=== PATIENT | male | born 1980 | race Caucasian/White ===

== ENCOUNTER 2024-10-18 09:33 | Observation (INO) | payer BC, SELFPAY ==
[2024-10-18] VITALS (101 sets, daily range): BP systolic 94–197; BP diastolic 63–124; PULSE 80–158; TEMP 36.6–36.8; O2SAT 88–100; BMI 45.4
--- NOTE | 2024-10-18 09:44 | ECG_ITS ---
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
[2024-10-18 10:01] LABS: Basophils Percent Auto 0.5 % (0.2-2.0); Eosinophils Absolute Auto 0.1 10^3/uL (0.0-0.7); Eosinophils Percent Auto 1.4 % (0.9-7.0); Hemoglobin 15.7 g/dL (14.0-18.0); Immature Granulocytes Abs Auto 0.03 10^3/uL (0.00-0.03); Immature Granulocytes Pct Auto 0.4 % (0.0-0.5); Lymphocytes Absolute Auto 1.7 10^3/uL (1.2-3.8); Lymphocytes Percent Auto 21.1 % (20.5-60.0); Mean Corpuscular HGB Conc 33.4 g/dL (29.9-35.2); Mean Corpuscular Hemoglobin 30.5 pg (25.9-34.0); Mean Corpuscular Volume 91.3 fL (80.0-94.0); Mean Platelet Volume 10.6 fL (9.5-13.5); Monocytes Absolute Auto 0.7 10^3/uL (0.3-0.8); Monocytes Percent Auto 9.1 % (1.7-12.0); Neutrophils Absolute Auto 5.5 10^3/uL (1.4-6.5); Neutrophils Percent Auto 67.5 % (43.0-75.0); Platelet Count 244 10^3/uL (150-450); Red Blood Count 5.15 10^6/uL (4.70-6.10); Red Cell Distribution Width 13.4 % (11.0-15.0); White Blood Count 8.1 10^3/uL (4.0-11.0)
--- NOTE | 2024-10-18 10:01 | PC.NURSE ---
pt arrival for increased anxiety and feeling of heart beating fast. pt was at work when this started and was seen by the nurse and was told to come to ER to be checked out. Pt denies any CP or SOB. PT does admit to being a daily drinker but had vowed to himself he would stop drinking during the week, so he last had beer on monday. pt is shakey, anxious and somewhat diaphoretic.
[2024-10-18] MEDS: LORAZEPAM 2 MG/ML VIAL 1 MG IV (10:07)
[2024-10-18] MEDS: 0.9 % SODIUM CHLORIDE 1,000 ML 1000 ML IV (10:08)
[2024-10-18 10:11] LABS: Ethanol <3 mg/dL
[2024-10-18 10:13] LABS: INR 0.99; Prothrombin Time 10.5 sec (9.0-11.6)
[2024-10-18 10:19] LABS: Alanine Aminotransferase 55 U/L (16-63); Albumin Level 3.9 g/dL (3.4-5.0); Alkaline Phosphatase 71 U/L (46-116); Anion Gap 18.1; Aspartate Amino Transferase 25 U/L (15-37); BUN Creatinine Ratio 17.8; Bilirubin Total 0.8 mg/dL (0.2-1.0); Calcium 9.4 mg/dL (8.5-10.1); Carbon Dioxide 23.7 mmol/L (21.0-32.0); Chloride 103 mmol/L (98-107); Estimated GFR (African America >60 (>=60 mL/min/1.73m^2); Estimated GFR (Non-African Ame >60 (>=60 mL/min/1.73m^2); Globulin 3.8 g/dL; Glucose 126 mg/dL (74-106); Magnesium 1.7 mg/dL (1.8-2.4); Potassium 3.8 mmol/L (3.5-5.1); Sodium 141 mmol/L (136-145); Total Protein 7.7 g/dL (6.4-8.2); Troponin I High Sensitivity 12.9 pg/mL (4.0-76.1)
[2024-10-18] MEDS: METOPROLOL TARTRATE 5 MG/5 ML VIAL IVP (10:30)
--- NOTE | 2024-10-18 10:47 | ECG_ITS ---
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
--- NOTE | 2024-10-18 10:48 | ECG_ITS ---
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
[2024-10-18] MEDS: DILTIAZEM HCL 25 MG/5 ML VIAL 20 MG IV (10:51)
[2024-10-18] MEDS: MAGNESIUM SULFATE/D5W 1 GM/100 ML PREMIX IV (10:52)
--- NOTE | 2024-10-18 10:57 | ED_ITS ---
HPI HPI - General Adult General Chief complaint: Arrhythmia/Palpitations Stated complaint: ANXIETY Time Seen by Provider: 10/18/24 09:43 Source: patient Mode of arrival: walk-in Limitations: no limitations History of Present Illness HPI narrative: Patient is coming to us after he stopped drinking alcohol as he is a daily drinker 5 days, he mentioned that he has been feeling that his heart rate is up for the last 2 days, he denies any chest pain or dizziness But he mentioned he had his anxiety medication increased by his psychiatrist recently as well The patient denies any chest pain or dizziness or shortness of breath Related Data Home Medications ?Medication ?Instructions ?Recorded ?Confirmed amlodipine 10 mg tablet 10 mg PO DAILY 10/18/24 10/18/24 buspirone 15 mg tablet 15 mg PO TID 10/18/24 10/18/24 fluoxetine 20 mg tablet 20 mg PO DAILY 10/18/24 10/18/24 lisinopril 20 1 tab PO DAILY 10/18/24 10/18/24 mg-hydrochlorothiazide 12.5 mg tablet semaglutide 2 mg/dose (8 mg/3 mL) 2 mg subcut .weekly 10/18/24 10/18/24 subcutaneous pen injector (Ozempic) Allergies Allergy/AdvReac Type Severity Reaction Status Date / Time No Known Drug Allergies Allergy Verified 10/18/24 09:54 Opioid HPI Opioid Management Most Recent Opioid Data: No Data to Display Review of Systems ROS Status of ROS 10 or more systems reviewed and unremark able except as noted in history and below [facility] Medical History (Updated 10/18/24 @ 11:09 by Lashanda Dalton MD) Prediabetes ?R73.03 - Prediabetes (ICD-10) HTN (hypertension) with goal to be determined ?I10 - Essential (primary) hypertension (ICD-10) Anxiety ?F41.9 - Anxiety disorder, unspecified (ICD-10) Social History Little interest or pleasure in doing things: not at all Feeling down, depressed, or hopeless: not at all Exam Narrative Exam Narrative: Nurses notes and vital signs reviewed and patient is not hypoxic. General: Well-appearing and in no apparent distress. Skin: Warm, dry, no pallor noted. No rash. Head: Normocephalic, atraumatic. Neck: Supple, non-tender. Eye: Pupils are equal, round and EOMI. No scleral icterus. Ears, Nose, Mouth, and Throat: TM are clear, no nasal mucosal hypertrophy. Oral mucosa is moist, no posterior oropharynx erythema, uvula is mid-line Cardiovascular: Rapid rate and Rhythm without murmur, gallop or rub. Respiratory: No accessory muscle use or respiratory distress. Lungs are clear to auscultation, no wheezing, rales or rhonchi Chest Wall: no tenderness Back: No midline thoracic or lumbar vertebral tenderness. No CVA tenderness Musculoskeletal: normal ROM, no calf or popliteal tenderness, no lower extremity edema/swelling GI: Abdomen is soft, non-distended. Normal bowel sounds. No masses appreciated. No tenderness to palpation. No rebound, guarding, or rigidity noted. Neurological: A&O x4. No cranial nerve dysfunction observed. No truncal ataxia. Moves all extremities. Sensation intact. Psychiatric: Cooperative and interactive. Normal mood and affect. Constitutional Vital Signs, click to edit/add: Last Vital Signs Temp 98 F 10/18/24 09:37 Pulse 80 10/18/24 11:10 Resp 5 L 10/18/24 11:10 BP 94/63 10/18/24 11:01 Pulse Ox 97 10/18/24 11:10 O2 Del Method Room Air 10/18/24 09:37 Course Vital Signs Vital signs: Vital Signs Temperature 98 F 10/18/24 09:37 Pulse Rate 149 H 10/18/24 09:37 Respiratory Rate 22 H 10/18/24 09:37 Blood Pressure 166/88 H 10/18/24 09:37 Pulse Oximetry 100 10/18/24 09:37 Oxygen Delivery Method Room Air 10/18/24 09:37 Temperature 98 F 10/18/24 09:37 Pulse Rate 80 10/18/24 11:10 Respiratory Rate 5 L 10/18/24 11:10 Blood Pressure 94/63 10/18/24 11:01 Pulse Oximetry 97 10/18/24 11:10 Oxygen Delivery Method Room Air 10/18/24 09:37 Medical Decision Making [facility] Narrative Medical decision making narrative: On arrival the patient EKG was showing atrial rhythm with a heart rate of 150 Patient was started on some blood workup which came normal with a normal ethanol level as well as a potassium and magnesium was 1.7 The patient was started on magnesium supplement with the 1 g IV The patient was initially treated with Ativan due to his history of recent alcohol cessation and tremors The patient then provided with 1 dose of Lopressor was initially enough to slow down his heart rate mildly showing the EKG shows a heart rate of 122 at atrial flutter Patient then was treated with Cardizem 20 mg IV that was enough to cause his heart rate to slow down to 82 atrial fibrillation rhythm on the third EKG After treating the patient with Cardizem bolus the patient active A-fib right now still but controlled rhythm The patient case was discussed with Dr López and he agreed to continue the Cardizem drip I will start her in a 5 mg/hr The patient also was given Lovenox 1 dose until verification of the patient score for anticoagulation at the patient mentioned that he is prediabetic although he is taking Ozempic for weight loss and for prediabetes and he also mentioned that his A1c last time checked was normal The patient case was discussed with Dr. East and she agreed with above-mentioned plan Lab Data Labs: Lab Results 10/18/24 Range/Units 09:52 WBC 8.1 (4.0-11.0) 10^3/uL RBC 5.15 (4.70-6.10) 10^6/uL Hgb 15.7 (14.0-18.0) g/dL Hct 47.0 (42.0-54.0) % MCV 91.3 (80.0-94.0) fL MCH 30.5 (25.9-34.0) pg MCHC 33.4 (29.9-35.2) g/dL RDW 13.4 (11.0-15.0) % Plt Count 244 (150-450) 10^3/uL MPV 10.6 (9.5-13.5) fL Neut % (Auto) 67.5 (43.0-75.0) % Lymph % (Auto) 21.1 (20.5-60.0) % Chaves % (Auto) 9.1 (1.7-12.0) % Eos % (Auto) 1.4 (0.9-7.0) % Baso % (Auto) 0.5 (0.2-2.0) % Neut # (Auto) 5.5 (1.4-6.5) 10^3/uL Lymph # (Auto) 1.7 (1.2-3.8) 10^3/uL Chaves # (Auto) 0.7 (0.3-0.8) 10^3/uL Eos # (Auto) 0.1 (0.0-0.7) 10^3/uL Baso # (Auto) 0.0 (0.0-0.1) 10^3/uL Abs Immat Gran (auto) 0.03 (0.00-0.03) 10^3/uL Imm/Tot Granulo (auto) 0.4 (0.0-0.5) % PT 10.5 (9.0-11.6) sec INR 0.99 Sodium 141 (136-145) mmol/L Potassium 3.8 (3.5-5.1) mmol/L Chloride 103 (98-107) mmol/L Carbon Dioxide 23.7 (21.0-32.0) mmol/L Anion Gap 18.1 BUN 18.0 (7.0-18.0) mg/dL Creatinine 1.01 (0.70-1.30) mg/dL Est GFR ( Amer) >60 (>=60 mL/min/1.73m^2) Est GFR (Non-Af Amer) >60 (>=60 mL/min/1.73m^2) BUN/Creatinine Ratio 17.8 Glucose 126 H (74-106) mg/dL Calcium 9.4 (8.5-10.1) mg/dL Magnesium 1.7 L (1.8-2.4) mg/dL Total Bilirubin 0.8 (0.2-1.0) mg/dL AST 25 (15-37) U/L ALT 55 (16-63) U/L Alkaline Phosphatase 71 (46-116) U/L Troponin I High Sens 12.9 (4.0-76.1) pg/mL Total Protein 7.7 (6.4-8.2) g/dL Albumin 3.9 (3.4-5.0) g/dL Globulin 3.8 g/dL Albumin/Globulin Ratio 1.0 Ethanol Quant <3 mg/dL Discharge Plan Discharge Chief Complaint: Arrhythmia/Palpitations Clinical Impression: Atrial fibrillation with rapid ventricular response Patient Disposition: Admitted As Inpatient Time of Disposition Decision: 11:08
[2024-10-18] MEDS: dilTIAZem HCL 125 MG in 0.9 % SODIUM CHLORIDE 100 ML IV (11:44)
--- NOTE | 2024-10-18 11:51 | XR_ITS ---
The [address] [address] Patient Name: GELACIO SMITH MRN: [id number] date: 1980 Sex: M Assigned Patient Location: ER Current Patient Location: ER Accession/Order Number: [id number] Exam Date: 10/18/2024 12:00 Report Date: 10/18/2024 12:20 At the request of: RYANNE PEÑA Procedure: XR chest 1V EXAM: XR chest. HISTORY: . shortness of breath, Afib . COMPARISON: None. TECHNIQUE: Single view of the chest. FINDINGS: Heart and vascularity are unremarkable. Lungs are free of focal infiltrates. EKG leads overlie the chest. XR/XR chest 1V Impression: No acute heart or lung disease identified. Electronically authenticated by: GELACIO CARRANZA Date: 10/18/2024 12:20
--- NOTE | 2024-10-18 11:51 | CA_ITS ---
Patient Name: GELACIO SMITH MR#: [id number] : 1980 Exam Date: 10/18/2024 Ordering Doctor: Elyssa East . ECHOCARDIOGRAM REPORT PROCEDURE: CA ECHO DOPPLER COMPLETE INDICATIONS: new onset afib COMPARISON: None. DESCRIPTION: COMPLETE ECHOCARDIOGRAM Real-time transthoracic echocardiography with 2D, M-mode, spectral and color flow Doppler performed. QUALITY: Technically difficult due to patients condition. LEFT VENTRICLE: Normal chamber size. Thickened septal wall. Normal systolic function. LV EF: Normal left ventricular ejection fraction, (55-60%). DIASTOLIC: Not adequately assessed due to heart rhythm. ATRIAL SEPTUM: LEFT ATRIUM: Mild dilatation. RIGHT ATRIUM: Mild dilatation. RIGHT VENTRICLE: Normal chamber size. Normal systolic function. TRICUSPID VALVE: Normal mobility and thickness. No stenosis with no regurgitation. MITRAL VALVE: Normal mobility and thickness. No evidence of mitral valve stenosis. There is no mitral annular calcification. No mitral regurgitation. AORTIC VALVE: Not well visualized. No evidence of aortic valve stenosis. No aortic regurgitation. AORTIC ROOT: Normal diameter and appearance. PULMONIC VALVE: Not well visualized. PERICARDIUM: No evidence of pericardial effusion. IVC: Not well visualized. PLEURA: CONCLUSION: 1. Technically difficult study with poor sound transmission. 2. The left ventricle is normal in size and exhibits normal systolic function. LVEF is estimated at 55 to 60%. 3. Normal right ventricular size and systolic function. 4. Mild biatrial dilatation. 5. Poor visualization of the valves however no significant valvular dysfunction could be seen on this study. 6. No pericardial effusion. Adult Echocardiography Procedure Report Left Ventricle LVEDD (3.7 - 5.6 cm): 4.08 cm LVESD (2.2 - 4.0 cm): 2.96 cm LVIVS thickness (0.6 - 1.2 cm): 1.49 cm LVPW thickness (0.5 - 1.0 cm): 1.19 cm LVOT Max Gradient: 6.40 mm[Hg], 3.70 mm[Hg] LVOT Area (cm2): 1.11 m/s Peak Velocity (LVOT): 1.27 m/s, 0.96 m/s LVOT Diameter 2.71 cm Left Atrium LA Volume Index (2D A2C): 28.99 ml/m2 Left Atrium Systolic Dimension: 4.22 cm Mitral Valve Mitral Valve E-Wave Peak Velocity: 0.76 m/s Right Ventricle Aorta AO Root Diam: 3.64 cm Aortic Valve AoV Area (Peak Momo): 5.80 cm2, 5.77 cm2, 5.83 cm2 Peak Velocity(Antegrade Flow): 1.26 m/s, 0.95 m/s Peak Gradient(Antegrade Flow): 6.37 mm[Hg], 3.60 mm[Hg] Tricuspid Valve Pulmonic Valve Peak Velocity: 1.05 m/s Peak Gradient: 4.39 mm[Hg] Right Atrium Right Atrium Systolic Pressure: 61.97 ml, 61.97 ml Dictated by: Guillermo López M.D. on 10/21/2024 at 09:47 Approved by: Guillermo López M.D. on 10/21/2024 at 09:50
[2024-10-18 12:03] LABS: Estimated Average Glucose 123 mg/dL; Glycohemoglobin A1C 5.9 % (4.5-6.2)
--- NOTE | 2024-10-18 12:03 | PM.HP ---
HPI H&P: HPI History of Present Illness Chief complaint: ANXIETY, A-FIB RVR Narrative: patient is a 44 y.o male with past medical history of obesity, anxiety, HTN, who presented to the ER today with complaints of his heart racing. His psychiatrist recently increased his anxiety medication and he recently stopped drinking his daily 5-6 beers. He seen his PCP monday for feeling like heart racing but EKG in the office did not show Afib at that time per patient. Patient works at [employer] and was at work this morning when he felt his heart race and went to the nurse at work and was sent to the ER. Patient's HR was 153 on arrival to the ER. He was found to be in Afib with RVR, given adenosine, metoprolol and loaded with Cardizem and started on a drip. BP was 197/127, he was saturating 96% on RA. He was also started on therapeutic lovenox. Magnesium was 1.7, and he was given 1g IV mag. He was admitted to the hospitalist service for further work up for his new onset Afib with RVR. Patient with no prior history of Afib or heart issues other than hypertension. He takes amlodipine, Lisinopril/hctz. He has never had cardiac work up prior. He sees a psychiatrist who prescribes fluoxetine, buspar. He has been taking Ozempic for weight loss and prediabetes. No new medications. He wears a BiPAP at night time. he follows at the sleep clinic here in [place]. No recent setting changes. Overall feels it's been working well. Father is , but had a history of CHF and Alpha 1 antitrypsin deficiency, COPD. Patient is not a smoker. denies any swelling or weight gain, no chest pain or shortness of breath. ER findings: CBC, CMP normal with mag 1.7, trop normal range Opioid HPI Opioid Management Most Recent Pain and Opioid Data: Last Pain Assessment 10/18/24 14:00 Last ORT Total Score 1 10/18/24 13:31 10/18/24 Last ORT Risk Category Low Risk 10/18/24 13:31 10/18/24 Review of Systems ROS Narrative ROS: a complete review of systems were reviewed with patient and are positive as below or listed in History of Chief Complaint. General: no fever, chills, night sweats Head: no headache, trauma, visual changes, nausea or vomiting Skin: no reported rashes, itching or sores Eyes: no blurriness of vision Ears: no reported hearing loss, vertigo, earache, or tinnitus Throat: no sore throat, hoarseness, swelling of neck, or tongue pain Heart: no chest pain, but racing heart Lungs: shortness of breath no cough GI: no diarrhea or vomiting/nausea Urinary: no urinary urgency, frequency or pain Neuro: no numbness or tingling HEM: no bleeding issues or bruising ENDO: no thyroid problems Psych:anxiety no depression PFSH PFS Medical History (Updated 10/18/24 @ 15:05 by Elyssa East DO) GERD (gastroesophageal reflux disease) ?K21.9 - Gastro-esophageal reflux disease without esophagitis (ICD-10) Obstructive sleep apnea ?G47.33 - Obstructive sleep apnea (adult) (pediatric) (ICD-10) Obesity due to excess calories ?E66.09 - Other obesity due to excess calories (ICD-10) Prediabetes ?R73.03 - Prediabetes (ICD-10) HTN (hypertension) with goal to be determined ?I10 - Essential (primary) hypertension (ICD-10) Anxiety ?F41.9 - Anxiety disorder, unspecified (ICD-10) Family History (Updated 10/18/24 @ 13:25 by Octavia Ureña) Other Family history of CHF (congestive heart failure) Family history of COPD (chronic obstructive pulmonary disease) Social History Little interest or pleasure in doing things: not at all Feeling down, depressed, or hopeless: not at all Meds Home Medications and Allergies Home Medications ?Medication ?Instructions ?Recorded ?Confirmed ?Type amlodipine 10 mg tablet 10 mg PO DAILY 10/18/24 10/18/24 History buspirone 15 mg tablet 15 mg PO TID 10/18/24 10/18/24 History fluoxetine 20 mg tablet 20 mg PO DAILY 10/18/24 10/18/24 History lisinopril 20 1 tab PO DAILY 10/18/24 10/18/24 History mg-hydrochlorothiazide 12.5 mg tablet semaglutide 2 mg/dose (8 mg/3 mL) 2 mg subcut .weekly 10/18/24 10/18/24 History subcutaneous pen injector (Ozempic) Allergies Allergy/AdvReac Type Severity Reaction Status Date / Time No Known Drug Allergies Allergy Verified 10/18/24 09:54 Exam Narrative Exam Narrative: General: Patient is alert, and oriented to person, place and time, proper hygiene, very anxious, with tapping of leg, fast talking Skin: no visible rashes, or ulcers Head: atraumatic, acephalic Eyes: PERRLA, no nystagmus present, conjunctiva clear, no scleral icterus Ears: normal gross auditory acuity Neck: no masses palpated Heart: irregular rate and rhythm, no murmurs/rubs/gallops Lungs: no audible wheezes, crackles and normal breath sounds all lung connor Abdomen: Normal audible bowel sounds, no distension, No palpable masses, no organomegaly, no rebound/guarding/ or rigidity Musculoskeletal: no swelling bilateral lower extremities Neuro: CN II-X grossly intact Constitutional Vital Signs, click to edit/add: Last Vital Signs Temp 98 F 10/18/24 09:37 Pulse 90 10/18/24 11:50 Resp 26 H 10/18/24 11:50 BP 108/64 10/18/24 11:46 Pulse Ox 96 10/18/24 11:50 O2 Del Method Room Air 10/18/24 09:37 Results Labs Labs: Short CBC 10/18/24 Range/Units 09:52 WBC 8.1 (4.0-11.0) 10^3/uL Hgb 15.7 (14.0-18.0) g/dL Hct 47.0 (42.0-54.0) % Plt Count 244 (150-450) 10^3/uL BMP 10/18/24 09:52 Sodium 141 Potassium 3.8 Chloride 103 Carbon Dioxide 23.7 BUN 18.0 Creatinine 1.01 Glucose 126 H Calcium 9.4 Liver Function 10/18/24 Range/Units 09:52 Total Bilirubin 0.8 (0.2-1.0) mg/dL AST 25 (15-37) U/L ALT 55 (16-63) U/L Alkaline Phosphatase 71 (46-116) U/L Albumin 3.9 (3.4-5.0) g/dL Assessment and Plan Assessment and Plan (1) Atrial fibrillation with rapid ventricular response: Assessment and Plan: will get echocardiogram, cards consult and appreciate their recommendations. Currently on a diltizem drip and will transition to Oral Cardizem after also restarting his amlodipine and lisinopril, HTZ. May also benefit from metoprolol as that seemed to have the most effect on BP and HR. Troponin was negative but will continue to trend, check proBNP. Will check thyroid, ha1c and lipid panel and chest X-ray (2) HTN (hypertension) with goal to be determined: Assessment and Plan: currently on dilt drip and holding home meds due to hypotension currently, was given metoprolol and adenosine (3) Anxiety: Assessment and Plan: continue buspar and fluoxetine would benefit from therapy. (4) Prediabetes: Assessment and Plan: ha1c 5.9, taking ozempic (5) Obesity due to excess calories: Assessment and Plan: would benefit from weight reduction as outpatient. Qualifiers: Body mass index: BMI 45.0-49.9 Obesity classification: adult class 3 (BMI >= 40) Serious obesity comorbidity presence: with serious comorbidity Qualified Code(s): E66.813 - Obesity, class 3; E66.01 - Morbid (severe) obesity due to excess calories; Z68.42 - Body mass index [BMI] 45.0-49.9, adult (6) Obstructive sleep apnea: Assessment and Plan: wears home BIPAP (7) GERD (gastroesophageal reflux disease): Assessment and Plan: will place on omeprazole. Qualifiers: Esophagitis presence: esophagitis presence not specified Qualified Code(s): K21.9 - Gastro-esophageal reflux disease without esophagitis Plan Patient is a full code Currently on therapeutic lovenox Patient is in observation status and is expected to stay 1-2 days
[2024-10-18 12:12] LABS: Thyroid Stimulating Hormone 1.969 uIU/mL (0.358-3.740)
[2024-10-18] MEDS: ENOXAPARIN SODIUM 100 MG/ML SYRINGE 150 MG SUBQ (12:17)
[2024-10-18] MEDS: BUSPIRONE HCL 15 MG TABLET PO ×2 (14:07→21:08)
--- NOTE | 2024-10-18 14:32 | SWNOTE1 ---
Doctor in room. SW checked with nursing, at this time no need for SW to see pt.
[2024-10-18 17:05] LABS: Troponin I High Sensitivity 15.8 pg/mL (4.0-76.1)
--- NOTE | 2024-10-18 17:08 | P.CACN_ITS ---
History of Present Illness History of Present Illness Consult date: 10/18/24 Consult reason: atrial fibrillation Chief complaint: ANXIETY, A-FIB RVR Narrative: 44 yo male with HTN, anxiety who presents with complaints of heart racing. Found to be in afib. Admitted for rate control. Cardiology consulted for assistance in management. Patient interviewed and examined. No complaints. No chest pain or shortness of breath. No edema, orthopnea, or PND. No near syncope or syncope. No bleeding disorders. Review of Systems ROS Status of ROS 10 or more systems reviewed and unremark able except as noted in history and below [facility] Medical History (Updated 10/18/24 @ 15:05 by Elyssa East DO) GERD (gastroesophageal reflux disease) ?K21.9 - Gastro-esophageal reflux disease without esophagitis (ICD-10) Obstructive sleep apnea ?G47.33 - Obstructive sleep apnea (adult) (pediatric) (ICD-10) Obesity due to excess calories ?E66.09 - Other obesity due to excess calories (ICD-10) Prediabetes ?R73.03 - Prediabetes (ICD-10) HTN (hypertension) with goal to be determined ?I10 - Essential (primary) hypertension (ICD-10) Anxiety ?F41.9 - Anxiety disorder, unspecified (ICD-10) Family History Other Family history of CHF (congestive heart failure) Family history of COPD (chronic obstructive pulmonary disease) Social History Little interest or pleasure in doing things: not at all Feeling down, depressed, or hopeless: not at all Meds Home Medications and Allergies Home Medications ?Medication ?Instructions ?Recorded ?Confirmed ?Type amlodipine 10 mg tablet 10 mg PO DAILY 10/18/24 10/18/24 History buspirone 15 mg tablet 15 mg PO TID 10/18/24 10/18/24 History fluoxetine 20 mg tablet 20 mg PO DAILY 10/18/24 10/18/24 History lisinopril 20 1 tab PO DAILY 10/18/24 10/18/24 History mg-hydrochlorothiazide 12.5 mg tablet semaglutide 2 mg/dose (8 mg/3 mL) 2 mg subcut .weekly 10/18/24 10/18/24 History subcutaneous pen injector (Ozempic) Allergies Allergy/AdvReac Type Severity Reaction Status Date / Time No Known Drug Allergies Allergy Verified 10/18/24 09:54 Exam Constitutional Vital Signs, click to edit/add: Last Vital Signs Temp 98.1 F 10/18/24 16:00 Pulse 92 H 10/18/24 16:16 Resp 10 L 10/18/24 16:16 BP 118/90 10/18/24 16:16 Pulse Ox 98 10/18/24 16:50 O2 Del Method Room Air 10/18/24 16:50 Common normals: no apparent distress HENMT Common normals: normocephalic Respiratory Common normals: normal respiratory effort, no retractions and no use of accessory muscles Cardio Common normals: no JVD, S1 normal heart sound, S2 normal heart sound, no clicks, no murmurs and no rub Rate: tachycardic Rhythm: abnormal rhythm GI Common normals: Normal to inspection, nondistended, normoactive bowel sounds present Neuro Common normals: oriented x3 Results Labs and Meds Lab results: Cardiac Enzymes 10/18/24 Range/Units 09:52 AST 25 (15-37) U/L Coagulation 10/18/24 Range/Units 09:52 PT 10.5 (9.0-11.6) sec CBC 10/18/24 Range/Units 09:52 WBC 8.1 (4.0-11.0) 10^3/uL RBC 5.15 (4.70-6.10) 10^6/uL Hgb 15.7 (14.0-18.0) g/dL Hct 47.0 (42.0-54.0) % Plt Count 244 (150-450) 10^3/uL Neut # (Auto) 5.5 (1.4-6.5) 10^3/uL Lymph # (Auto) 1.7 (1.2-3.8) 10^3/uL [place] # (Auto) 0.7 (0.3-0.8) 10^3/uL Eos # (Auto) 0.1 (0.0-0.7) 10^3/uL Baso # (Auto) 0.0 (0.0-0.1) 10^3/uL Comprehensive Metabolic Panel 10/18/24 Range/Units 09:52 Sodium 141 (136-145) mmol/L Potassium 3.8 (3.5-5.1) mmol/L Chloride 103 (98-107) mmol/L Carbon Dioxide 23.7 (21.0-32.0) mmol/L BUN 18.0 (7.0-18.0) mg/dL Creatinine 1.01 (0.70-1.30) mg/dL Glucose 126 H (74-106) mg/dL Calcium 9.4 (8.5-10.1) mg/dL AST 25 (15-37) U/L ALT 55 (16-63) U/L Alkaline Phosphatase 71 (46-116) U/L Total Protein 7.7 (6.4-8.2) g/dL Albumin 3.9 (3.4-5.0) g/dL Intake and Output 10/18/24 10/18/24 10/18/24 07:59 15:59 23:59 Intake Total 1100 / 1100 Balance 1100 / 1100 Intake: IV 1100 / 1100 0.9 % Sodium Chloride 1,000 ml 1000 / 1000 @ 1000 mls/hr IV .Q1H ONE Rx#: [id number] Magnesium Sulfate/D5w 1 gm In 100 / 100 100 ml @ 200 mls/hr IV ONCE ONE Rx#:[id number] Other: Weight 156.036 kg Patient Weight 10/19/24 07:59 Weight 156.036 kg Assessment and Plan Assessment and Plan (1) Atrial fibrillation with rapid ventricular response: (2) HTN (hypertension) with goal to be determined: (3) Anxiety: (4) Prediabetes: (5) Obesity due to excess calories: Qualifiers: Obesity classification: adult class 3 (BMI >= 40) Serious obesity comorbidity presence: with serious comorbidity Body mass index: BMI 45.0-49.9 Qualified Code(s): E66.813 - Obesity, class 3; E66.01 - Morbid (severe) obesity due to excess calories; Z68.42 - Body mass index [BMI] 45.0-49.9, adult (6) Obstructive sleep apnea: (7) GERD (gastroesophageal reflux disease): Qualifiers: Esophagitis presence: esophagitis presence not specified Qualified Code(s): K21.9 - Gastro-esophageal reflux disease without esophagitis Plan Patient with new onset Afib. Chads Vasc 1 given HTN Discussed risks/benefits of anticoagulation. Patient wishes to be on anticoagulation Add Lopressor 25 mg BID for rate control. Wean cardizem gtt as able Follow up with echo Follow up in cardiology clinic Patient has significant alcohol consumption problem. I discussed with him the importance of cutting back and refraining from alcohol consumption. He voices understanding. Please don't hesitate to contact [place] [facility]ology with questions. Daniel Recinos MD
[2024-10-18 17:13] LABS: D Dimer 0.77 mg/L FEU (<=0.59)
--- NOTE | 2024-10-18 17:17 | CT_ITS ---
[address] [address] Patient Name: GELACIO SMITH MRN: [id number] date: 1980 Sex: M Assigned Patient Location: ICU Current Patient Location: ICU Accession/Order Number: [id number] Exam Date: 10/18/2024 17:35 Report Date: 10/18/2024 18:56 At the request of: RYANNE PEÑA Procedure: CT angio chest EXAM: CT pulmonary angiogram of the chest using 100 mL of IV iodinated contrast. 3-D imaging was performed. Dose reduction technique used: Automated exposure control and/or adjustment of the mA and/or kV according to patient size and/or use of iterative reconstruction technique. REASON FOR EXAM: elevated D-dimer, new onset AFib. COMPARISON: None FINDINGS: No pulmonary emboli. No aortic dissection. No pneumothorax. No acute airspace opacities. No pleural effusion. No acute fractures. No concerning pulmonary nodules. No definite lymphadenopathy in the chest. Small amount of scarring or linear atelectasis in the right lower lobe. Remainder unremarkable. CT/CT angio chest IMPRESSION: No pulmonary embolism or acute abnormalities in chest. Electronically authenticated by: CLEO BYRNE Date: 10/18/2024 18:56
[2024-10-18] MEDS: METOPROLOL TARTRATE 25 MG TABLET PO (17:57)
[2024-10-18] MEDS: APIXABAN 5 MG TABLET PO (21:08)
[2024-10-19] VITALS (49 sets, daily range): BP systolic 108–112; BP diastolic 72–74; PULSE 80–135; TEMP 36.6; O2SAT 86–98
[2024-10-19 03:16] LABS: Bilirubin Urine NEGATIVE (NEGATIVE); Blood Urine NEGATIVE (NEGATIVE); Clarity Urine CLEAR (CLEAR); Color Urine YELLOW (YELLOW); Glucose Urine UA NEGATIVE (NEGATIVE); Ketones Urine NEGATIVE (NEGATIVE); Leukocyte Esterase Urine NEGATIVE (NEGATIVE); Nitrite Urine NEGATIVE (NEGATIVE); Protein Urine NEGATIVE (NEG/TRACE); Specific Gravity Urine 1.025 (1.005-1.025); Urobilinogen Urine 0.2 EU/dL (0.2-1.0)
[2024-10-19 03:31] LABS: Bacteria Urine NONE SEEN #/HPF (NONE SEEN); Cast Seen? NONE SEEN #/LPF (NONE SEEN); Crystals Seen? None Seen #/HPF (None Seen); Mucus Urine NONE SEEN (NONE SEEN); RBC Urine 0-2 #/HPF (0-2); Squamous Epithelial Cell Urine NONE SEEN #/LPF (NONE/RARE); WBC Urine 0-2 #/HPF (NONE SEEN)
[2024-10-19 03:44] LABS: Amphetamine Screen Urine NEGATIVE (NEGATIVE); Cannabinoid Screen Urine NEGATIVE (NEGATIVE); Cocaine Screen Urine NEGATIVE (NEGATIVE); Methamphetamines Screen Urine NEGATIVE (NEGATIVE); Opiate Screen Urine NEGATIVE (NEGATIVE); Phencyclidine Screen Urine NEGATIVE (NEGATIVE)
[2024-10-19 03:45] LABS: Barbiturates Screen Urine NEGATIVE (NEGATIVE); Benzodiazepines Screen Urine POSITIVE (NEGATIVE); Buprenorphine Screen Urine NEGATIVE (NEGATIVE); Methadone Screen Urine NEGATIVE (NEGATIVE); Oxycodone Screen Urine NEGATIVE (NEGATIVE); Tricyclic Antidepressant Urine NEGATIVE (NEGATIVE)
[2024-10-19] MEDS: OMEPRAZOLE 40 MG CAPSULE.DR PO (05:35)
[2024-10-19] MEDS: METOPROLOL TARTRATE 25 MG TABLET PO (05:35)
[2024-10-19] MEDS: BUSPIRONE HCL 15 MG TABLET PO (05:35)
[2024-10-19 06:03] LABS: Basophils Percent Auto 0.6 % (0.2-2.0); Eosinophils Absolute Auto 0.1 10^3/uL (0.0-0.7); Eosinophils Percent Auto 1.8 % (0.9-7.0); Hematocrit 46.9 % (42.0-54.0); Hemoglobin 15.5 g/dL (14.0-18.0); Immature Granulocytes Abs Auto 0.03 10^3/uL (0.00-0.03); Immature Granulocytes Pct Auto 0.4 % (0.0-0.5); Lymphocytes Absolute Auto 1.7 10^3/uL (1.2-3.8); Lymphocytes Percent Auto 24.6 % (20.5-60.0); Mean Corpuscular Hemoglobin 30.1 pg (25.9-34.0); Mean Corpuscular Volume 91.1 fL (80.0-94.0); Mean Platelet Volume 10.8 fL (9.5-13.5); Monocytes Absolute Auto 0.9 10^3/uL (0.3-0.8); Monocytes Percent Auto 12.6 % (1.7-12.0); Neutrophils Absolute Auto 4.1 10^3/uL (1.4-6.5); Platelet Count 243 10^3/uL (150-450); Red Blood Count 5.15 10^6/uL (4.70-6.10); Red Cell Distribution Width 13.8 % (11.0-15.0); White Blood Count 6.8 10^3/uL (4.0-11.0)
[2024-10-19 06:27] LABS: Alanine Aminotransferase 49 U/L (16-63); Albumin Globulin Ratio 0.9; Albumin Level 3.5 g/dL (3.4-5.0); Alkaline Phosphatase 62 U/L (46-116); Anion Gap 14.4; Aspartate Amino Transferase 19 U/L (15-37); BUN Creatinine Ratio 18.4; Bilirubin Total 0.8 mg/dL (0.2-1.0); Calcium 9.5 mg/dL (8.5-10.1); Carbon Dioxide 22.7 mmol/L (21.0-32.0); Chloride 105 mmol/L (98-107); Cholesterol 149 mg/dL (<=200); Estimated GFR (African America >60 (>=60 mL/min/1.73m^2); Estimated GFR (Non-African Ame >60 (>=60 mL/min/1.73m^2); Globulin 3.9 g/dL; Glucose 108 mg/dL (74-106); HDL Cholesterol 37 mg/dL (40-60); Magnesium 2.2 mg/dL (1.8-2.4); Potassium 4.1 mmol/L (3.5-5.1); Sodium 138 mmol/L (136-145); Total Protein 7.4 g/dL (6.4-8.2); Triglycerides 133 mg/dL (<=150); VLDL CHOLESTEROL 26.6 mg/dL
[2024-10-19] MEDS: FLUOXETINE HCL 20 MG CAPSULE PO (08:23)
[2024-10-19] MEDS: HYDROCHLOROTHIAZIDE 25 MG TABLET 12.5 MG PO (08:23)
[2024-10-19] MEDS: LISINOPRIL 20 MG TABLET PO (08:24)
[2024-10-19] MEDS: AMLODIPINE BESYLATE 5 MG TABLET 10 MG PO (08:24)
[2024-10-19] MEDS: APIXABAN 5 MG TABLET PO (08:24)
--- NOTE | 2024-10-19 10:40 | P.DS_ITS ---
DS: Providers Provider Date of admission: 10/18/24 13:04 Primary care physician: SVEN BARRON Admitting clinician: Elyssa East Attending physician on admission: Elyssa East Consults: 10/18/24 11:51 Consult to Cardiology Routine Reason for consultation: new onset Afib Has provider been notified: No Attending physician on discharge: Shaikh Satnam Discharging clinician: Shaikh Satnam Anticipated date of discharge: 10/19/24 DS: Diagnosis Discharge Diagnosis (1) Atrial fibrillation with rapid ventricular response: (2) HTN (hypertension) with goal to be determined: (3) Anxiety: (4) Prediabetes: (5) Obesity due to excess calories: Qualifiers: Obesity classification: adult class 3 (BMI >= 40) Serious obesity comorbidity presence: with serious comorbidity Body mass index: BMI 45.0-49.9 Qualified Code(s): E66.813 - Obesity, class 3; E66.01 - Morbid (severe) obesity due to excess calories; Z68.42 - Body mass index [BMI] 45.0-49.9, adult (6) Obstructive sleep apnea: (7) GERD (gastroesophageal reflux disease): Qualifiers: Esophagitis presence: esophagitis presence not specified Qualified Code(s): K21.9 - Gastro-esophageal reflux disease without esophagitis DS: Summary Hospital Course Hospital Course: 44 y.o male with past medical history of obesity, anxiety, HTN presented to the ER complaining of racing heart beat/palpitations. He was seen by his PCP past Monday for feeling like heart racing but EKG in the office did not show Afib at that time as per patient. Patient went to see his nurse at work when he felt that his heart was racing and was sent to ED by the RN for elevated HR. Patient's HR was 153 on arrival to the ER. He was found to be in Afib with RVR, given adenosine, metoprolol and loaded with Cardizem and started on a drip. He was also started on therapeutic lovenox. He was admitted to the hospitalist service for further work up for his new onset Afib with RVR. Patient has no prior history of Afib or cardiac history other than hypertension. He wears a BiPAP at night time for JALIL and is compliant with it. He admits to drinking alcohol excessively, daily and was counseled on it. Patient was seen by Cardiology. Started on Oral Lopressor. Weaned off of IV cardizem drip. HR well controlled and persistently below 100. CHADVASC2 score is 1, patient preferred to be on AC for stroke px. He is asymptomatic today and has no complaints to offer. Patient medically stable for discharge on Oral Lopressor and Eliquis. Questions/concerns addressed and answered. Counseled on nicotine use/chewing tobacco and alcohol use. Patient has f/u with Dr Carranza to discuss plan of care for Afib including possibility of cardioversion and Ablation. Patient is cleared to return to work w/o restrictions. Educated on worrisome signs and symptoms, instructed to monitor HR/BP at home. F/u with PCP In one week and [facility] Cardiology. He was set up for an appointment with Dr. Carranza of [facility] Cardiology in October. Status at Discharge Functional status at discharge: independent ambulation Overall status at discharge: patient is back to baseline Time Spent with Patient Time attestation: Total time spent providing and/or coordinating discharge services: Time spent: greater than 30 minutes Exam Constitutional Vital Signs, click to edit/add: Last Vital Signs Temp 97.9 F 10/19/24 08:00 Pulse 91 H 10/19/24 10:00 Resp 15 10/19/24 07:30 BP 112/72 10/19/24 07:22 Pulse Ox 98 10/19/24 07:22 O2 Del Method Room Air 10/19/24 08:00 Documenting provider has reviewed patient's vital signs: yes Common normals: no apparent distress and oriented x3 General appearance: cooperative HENSD Common normals: normocephalic and head/scalp atraumatic Head and scalp: normocephalic and atraumatic Respiratory Common normals: normal respiratory effort and clear to auscultation bilaterally Effort & inspection: able to speak in complete sentences Auscultation: clear to auscultation bilaterally Cardio Common normals: regular rate, S1 normal heart sound and S2 normal heart sound Rate: regular rate Rhythm: abnormal rhythm Heart sounds: S1 normal and S2 normal Extremity Common normals: no clubbing, cyanosis or edema Neuro Common normals: oriented x3, moves all extremities and no focal motor deficits Psych Common normals: mental status grossly normal, denies hallucinations, denies homicidal ideation and denies suicidal ideation DS: Data Data Completed and Pending Labs on day of discharge: Labs from last 24 hours 10/19/24 10/19/24 10/18/24 05:35 03:05 16:39 WBC 6.8 RBC 5.15 Hgb 15.5 Hct 46.9 MCV 91.1 MCH 30.1 MCHC 33.0 RDW 13.8 Plt Count 243 MPV 10.8 Neut % (Auto) 60.0 Lymph % (Auto) 24.6 [place] % (Auto) 12.6 H Eos % (Auto) 1.8 Baso % (Auto) 0.6 Neut # (Auto) 4.1 Lymph # (Auto) 1.7 [place] # (Auto) 0.9 H Eos # (Auto) 0.1 Baso # (Auto) 0.0 Abs Immat Gran (auto) 0.03 Imm/Tot Granulo (auto) 0.4 D-Dimer 0.77 H* Sodium 138 Potassium 4.1 Chloride 105 Carbon Dioxide 22.7 Anion Gap 14.4 BUN 16.0 Creatinine 0.87 Est GFR ( Amer) >60 Est GFR (Non-Af Amer) >60 BUN/Creatinine Ratio 18.4 Glucose 108 H Estimat Average Glucose Hemoglobin A1c Calcium 9.5 Magnesium 2.2 Total Bilirubin 0.8 AST 19 ALT 49 Alkaline Phosphatase 62 Troponin I High Sens 15.8 NT-Pro-B Natriuret Pep Total Protein 7.4 Albumin 3.5 Globulin 3.9 Albumin/Globulin Ratio 0.9 Triglycerides 133 Cholesterol 149 LDL Cholesterol, Calc 86.0 VLDL Cholesterol 26.6 HDL Cholesterol 37 L Cholesterol/HDL Ratio 4.0 TSH Urine Color Yellow Urine Clarity Clear Urine pH 6.0 Ur Specific [place] 1.025 Urine Protein Negative Urine Glucose (UA) Negative Urine Ketones Negative Urine Occult Blood Negative Urine Nitrite Negative Urine Bilirubin Negative Urine Urobilinogen 0.2 Ur Leukocyte Esterase Negative Urine RBC 0-2 Urine WBC 0-2 A Ur Squamous Epith Cells None seen Urine Crystals None seen Urine Bacteria None seen Urine Casts None seen Urine Mucus None seen Urine Opiates Screen Negative Ur Buprenorphine Scrn Negative Ur Oxycodone Screen Negative Urine Methadone Screen Negative Ur Barbiturates Screen Negative U Tricyclic Antidepress Negative Ur Phencyclidine Scrn Negative Ur Amphetamines Screen Negative U Methamphetamines Scrn Negative U Benzodiazepines Scrn Positive A Urine Cocaine Screen Negative U Cannabinoids Screen Negative 10/18/24 09:52 WBC RBC Hgb Hct MCV MCH MCHC RDW Plt Count MPV Neut % (Auto) Lymph % (Auto) [place] % (Auto) Eos % (Auto) Baso % (Auto) Neut # (Auto) Lymph # (Auto) [place] # (Auto) Eos # (Auto) Baso # (Auto) Abs Immat Gran (auto) Imm/Tot Granulo (auto) D-Dimer Sodium Potassium Chloride Carbon Dioxide Anion Gap BUN Creatinine Est GFR ( Amer) Est GFR (Non-Af Amer) BUN/Creatinine Ratio Glucose Estimat Average Glucose 123 Hemoglobin A1c 5.9 Calcium Magnesium Total Bilirubin AST ALT Alkaline Phosphatase Troponin I High Sens NT-Pro-B Natriuret Pep 262.0 Total Protein Albumin Globulin Albumin/Globulin Ratio Triglycerides Cholesterol LDL Cholesterol, Calc VLDL Cholesterol HDL Cholesterol Cholesterol/HDL Ratio TSH 1.969 Urine Color Urine Clarity Urine pH Ur Specific [place] Urine Protein Urine Glucose (UA) Urine Ketones Urine Occult Blood Urine Nitrite Urine Bilirubin Urine Urobilinogen Ur Leukocyte Esterase Urine RBC Urine WBC Ur Squamous Epith Cells Urine Crystals Urine Bacteria Urine Casts Urine Mucus Urine Opiates Screen Ur Buprenorphine Scrn Ur Oxycodone Screen Urine Methadone Screen Ur Barbiturates Screen U Tricyclic Antidepress Ur Phencyclidine Scrn Ur Amphetamines Screen U Methamphetamines Scrn U Benzodiazepines Scrn Urine Cocaine Screen U Cannabinoids Screen Discharge Plan Discharge Disposition: Home, Self-Care Discharge Medications: New Eliquis 5 mg tablet 5 mg PO BID Qty: 60 0RF metoprolol tartrate 25 mg tablet 25 mg PO BID Qty: 60 0RF Continued amlodipine 10 mg tablet 10 mg PO DAILY buspirone 15 mg tablet 15 mg PO TID fluoxetine 20 mg tablet 20 mg PO DAILY lisinopril-hydrochlorothiazide 20-12.5 mg tablet 1 tab PO DAILY Ozempic 2 mg/dose (8 mg/3 mL) pen injector 2 mg SUBCUT .weekly Activity: increase activity as tolerated Diet: advance to your usual diet Print Language: Setswana Patient Instructions: Metoprolol (By mouth) (Lopressor, Toprol XL), Apixaban (By mouth) (Eliquis), A-fib (Atrial Fibrillation) (DC) Forms: Portal Instructions Follow Up Appointments: [facility] cardiology [place] Office [phone] Dr Kristopher Sharma. 2023 at 3:00pm F/u with PCP in one week
--- NOTE | 2024-10-19 11:09 | PC.NURSE ---
iv and tele dc'd for discharge. dc instructions given to pt and spouse, both verbalize understanding. ambulated to exit with steady gait,discharged to private vehicle.
--- NOTE | 2024-10-21 13:31 | CM.DCFOLLOWU ---
Person spoke with:patient How are you feeling? well, back to work today How is your pain?none Did you understand your discharge instructions?yes Do you have any questions about your discharge instructions?no Were you given any prescriptions at discharge?yes Were you able to get your prescriptions filled?yes Do you understand how to take your medications as ordered?yes Do you have any questions about your follow up appointment and do you plan to keep your follow up appointment? no questions, follow up reviewed, scheduled apt with PCP Is there anything else that you would like to discuss?no Questions/Comments/Concerns/Other:no
== END 2024-10-19 11:10 | disposition home or self-care (01) ==
LOC: ER 11:45 → ICU 13:53
PROVIDERS: Admitting Provider Family Medicine; Emergency Provider Emergency Medicine; PCP Nurse Practitioner; Visit Provider Family Medicine
DX: I48.91 Unspecified atrial fibrillation (principal); I10 Essential (primary) hypertension; F41.9 Anxiety disorder, unspecified; R73.03 Prediabetes; E66.01 Morbid (severe) obesity due to excess calories; Z68.42 Body mass index [BMI] 45.0-49.9, adult; G47.33 Obstructive sleep apnea (adult) (pediatric); K21.9 Gastro-esophageal reflux disease without esophagitis; Z79.899 Other long term (current) drug therapy
CPT/HCPCS: 36415; 71045; 71275; 80053; 80061; 80307; 80320; 81001; 83036; 83735; 83880; 84443; 84484; 85025; 85378; 85610; 93005; 93306; 94761; 96365; 96366; 96367; 96372; 96375; 96376; 99285; G0378; J1650; J2060; J3475; Q9967

== ENCOUNTER 2025-05-06 14:50 | Outpatient (OUT) | payer BC, SELFPAY ==
--- OUTSIDE RECORDS SUMMARY | 2025-04-24 15:20 | XMS_ITS | Encounter Summary ---
Author Organization [facility] [employer] [facility] tem Address [id number] [address] [place] [address] Care Team Providers Care Shipwright Name Role Phone Verito Flores APRN-CLUBHOUSE MANAGER Primary Care Provid er Reason for Visit * Reason Comments Diabetes Anxiety Hypertension Encounter Details Date Type Department Care Team (Late st Contact Info) Description 04/24/2025 3:20 PM EDT Office Visit [facility] Internal Medicine - Family Medicine [address] [place] [id number] Verito Flores APRN-CLUBHOUSE MANAGER [address] [place] [address] Type 2 diabetes mellitus with hyperglycemia, without long-term current use of insulin ([facility]) (Primary Dx); Generalized anxiety disorder with panic attacks; Atrial fibrillation, unspecified type ([facility]); Essential hypertension; GERD without esophagitis Social History Tobacco Use Types Packs/Day Years Used Date Smoking Tobacco: Never Smokeless Tobacco: Current Chew Last attempted to quit: 2019 Alcohol Use Standard Drinks/Week Comments Not Currently 0 (1 standard drink = 0.6 oz pur e alcohol) WEEKENDS Social Connection and Isolation Panel [NHANES] A nswer Date Recorded In a typical week, how many times do you talk on the phone with family, friends, or neighbors? Twice a week 07/20/2021 How often do you get togethe r with friends or relatives? Never 07/20/2021 How often do you attend christianity or restorationism serv ices? Never 07/20/2021 Do you belong to any clubs o r organizations such as christianity groups, unions, fraternal or athletic groups, or school groups? Yes 07/20/2021 How often do you attend meet ings of the clubs or organizations you belong to? Patient declined 07/20/2021 Are you , , di vorced, , never , or living with a partner? 07/20/2021 AUDIT-C Answer Date Recorded Q1: How often do you have a drink containing alc ohol? 2-3 times a week 07/20/2021 Q2: How many drinks containi ng alcohol do you have on a typical day when you are drinking? 1 or 2 07/20/2021 Q3: How often do you have si x or more drinks on one occasion? Monthly 07/20/2021 Overall Financial Resource Strain (CARDIA) Answe r Date Recorded How hard is it for you to pa y for the very basics like food, housing, medical care, and heating? Not hard at all 12/28/2023 PHQ-2 Answer Date Recorded Total Score 0 04/24/2025 Exercise Vital Sign Answer Date Recorde d On average, how many days pe r week do you engage in moderate to strenuous exercise (like a brisk walk)? 2 days 07/20/2021 On average, how many minutes do you engage in exercise at this level? 0 min 07/20/2021 PRAPARE - Transportation Answer Date Re corded In the past 12 months, has l ack of transportation kept you from medical appointments or from getting medications? No 11/2023 In the past 12 months, has l ack of transportation kept you from meetings, work, or from getting things needed for daily living? No 12/28/2023 Housing Instability Answer Date Recorde d Are you worried or concerned that in the next two months you may not have stable housing that you own, rent or stay in as a part of a household? No 12/28/2023 Childcare Answer Date Recorded Do problems getting child ca re make it difficult for you to work or study? No 07/20/2021 Employment Answer Date Recorded Do you need help finding a [facility] and/or a training program? No 07/20/2021 Hunger Screening Answer Date Recorded Within the past 12 months we worried whether our food would run out before we got money to buy more. Never True 04/24/2025 Within the past 12 months th e food we bought just didn't last and we didn't have money to get more. Never True 04/24/2025 Purpose - Life Answer Date Recorded I have a purpose and direction in my life. Stron gly Agree 07/20/2021 Education Answer Date Recorded What is the highest level of school you have completed or the highest degree you have received? 12th grade 07/20/2021 Sex and Gender Information Value Date Recorded Sex Assigned at Not on file Legal Sex Male 12:07 PM EDT Gender Identity Not on file Sexual Orientation Not on file documented as of this encounter Last Filed Vital Signs Vital Sign Reading Time Taken Comments Blood Pressure 124/84 04/24/2025 3:29 PM EDT Pulse 89 04/24/2025 3:29 PM EDT Temperature 36.6 C (97.9 F) 04/24/2025 3:29 PM EDT Respiratory Rate 24 04/24/2025 3:29 PM EDT Oxygen Saturation 99% 04/24/2025 3:29 PM EDT Inhaled Oxygen Concentration - - Weight 160.8 kg (354 lb 6.4 oz) 04/24/2025 3:29 PM EDT Height 188 cm (6' 2.02 ) 04/24/2025 3:29 PM EDT Body Mass Index 45.48 04/24/2025 3:29 PM EDT documented in this encounter Patient Instructions * Attachments The following attachments cannot be sent through Care Everywhere. * Carb counting for adults with diabetes ([place]) documented in this encounter Progress Notes * Verito Flores, SEE-CLUBHOUSE MANAGER - 04/24/2025 3:20 PM EDT Images from the original note were not included. [address] [place] [address] SUBJECTIVE: Patient ID: Mason Oneil is a 44 y.o. male. Chief Complaint Patient presents with Diabetes Anxiety Hypertension Presents for routine follow up Is doing well with Ozempic and DM. Denies GI side effects. States he recently seen cardiology for his history of atrial fibrillation. Is currently taking metoprolol and Eliquis. States he does not notice any symptoms of atrial fibrillation unless his anxiety gets him all amped up . Feels palpitations when he has panic episodes. Currently taking Buspar and fluoxetine for his anxiety. Diabetes He presents for his follow-up diabetic visit. He has type 2 diabetes mellitus. His disease course has been stable. Hypoglycemia symptoms include nervousness/anxiousness. Pertinent negatives for hypoglycemia include no headaches or seizures. There are no diabetic associated symptoms. Pertinent negatives for diabetes include no chest pain, no fatigue, no polydipsia, no polyphagia and no polyuria. There are no hypoglycemic complications. Symptoms are stable. There are no diabetic complications. Risk factors for coronary artery disease include diabetes mellitus, family history, hypertension, malesex and obesity. Current diabetic treatments: ozempic. He is compliant with treatment all of the time. His weight is stable. He is following a low fat/cholesterol diet. Meal planning includes avoidance of concentrated sweets. He participates in exercise intermittently. Home blood sugar record trend: Does not routinely check blood sugars. An RK inhibitor/angiotensin II receptor trevor is being taken. Hypertension This is a chronic problem. The current episode started more than 1 year ago. The problem is controlled. Associated symptoms include anxiety and palpitations. Pertinent negatives include no chest pain, headaches or shortness of breath. There are no associated agents to hypertension. Risk factors forcoronary artery disease include diabetes mellitus, family history, male gender and obesity. Past treatments include calcium channel blockers, RK inhibitors and diuretics. The current treatment provides significant improvement. There are no compliance problems. Anxiety Presents for follow-up visit. Symptoms include decreased concentration, irritability, malaise, muscle tension, nervous/anxious behavior and palpitations. Patient reports no chest pain or shortness ofbreath. Symptoms occur occasionally. The severity of symptoms is moderate. The quality of sleep is good. Nighttime awakenings: none. The following portions of the patient's history were reviewed and updated as appropriate: allergies, current medications, past family history, past medical history, past social history, past surgicalhistory and problem list. Past Surgical History: Procedure Laterality Date HAND SURGERY Right X4 Past Medical History: Diagnosis Date A-fib ([facility]) 10/18/2024 Hyperlipidemia Hypertension Right lateral epicondylitis 10/05/2020 Immunization History Administered Date(s) Administered Influenza, Unspecified 09/03/2020 REVIEW OF SYSTEMS: Review of Systems Constitutional: Negative for chills, fatigue and fever. HENT: Negative for hearing loss and trouble swallowing. Eyes: Negative for pain and visual disturbance. Respiratory: Negative for cough, chest tightness and shortness of breath. Cardiovascular: Negative for chest pain, palpitations and leg swelling. Gastrointestinal: Negative for blood in stool. Endocrine: Negative for polydipsia, polyphagia and polyuria. Genitourinary: Negative for difficulty urinating, dysuria, flank pain, hematuria, scrotal swelling and testicular pain. Musculoskeletal: Negative. Skin: Negative. Allergic/Immunologic: Negative. Neurological: Negative for seizures, syncope and headaches. Hematological: Does not bruise/bleed easily. Psychiatric/Behavioral: Negative. PHYSICAL EXAMINATION: Vitals: 04/24/25 1529 BP: 124/84 BP Site: Left Arm BP Postition: Sitting BP CUFF SIZE: L (13-17 inches) Pulse: 89 Resp: 24 Temp: 36.6 ??C (97.9 ??F) TempSrc: Oral SpO2: 99% Weight: (!) 160.8 kg (354 lb 6.4 oz) Height: 188 cm (6' 2.02 ) Patient noted to have elevated BMI and the following intervention(s) were applied: encouragement toexercise. Physical Exam Vitals and nursing note reviewed. Constitutional: General: He is not in acute distress. Appearance: He is well-developed. HENT: Head: Normocephalic and atraumatic. Right Ear: Tympanic membrane and external ear normal. Left Ear: Tympanic membrane and external ear normal. Nose: Nose normal. Mouth/Throat: Mouth: Mucous membranes are moist. Pharynx: No oropharyngeal exudate. Eyes: General: No scleral icterus. Right eye: No discharge. Left eye: No discharge. Conjunctiva/sclera: Conjunctivae normal. Pupils: Pupils are equal, round, and reactive to light. Neck: Vascular: No JVD. Cardiovascular: Rate and Rhythm: Normal rate and regular rhythm. Heart sounds: Normal heart sounds. No murmur heard. No friction rub. No gallop. Pulmonary: Effort: Pulmonary effort is normal. No respiratory distress. Breath sounds: Normal breath sounds. Chest: Chest wall: No tenderness. Abdominal: General: Bowel sounds are normal. There is no distension. Palpations: Abdomen is soft. There is no mass. Tenderness: There is no abdominal tenderness. There is no guarding or rebound. Hernia: No hernia is present. Musculoskeletal: General: No tenderness. Normal range of motion. Cervical back: Normal range of motion and neck supple. Lymphadenopathy: Cervical: No cervical adenopathy. Skin: General: Skin is warm and dry. Capillary Refill: Capillary refill takes less than 2 seconds. Findings: No rash. Neurological: Mental Status: He is alert and oriented to person, place, and time. Deep Tendon Reflexes: Reflexes are normal and symmetric. Psychiatric: Mood and Affect: Mood normal. Behavior: Behavior normal. Thought Content: Thought content normal. Judgment: Judgment normal. ASSESSMENT/PLAN: Mason was seen today for diabetes, anxiety and hypertension. Diagnoses and all orders for this visit: Type 2 diabetes mellitus with hyperglycemia, without long-term current use of insulin ([facility]) - POCT Hemoglobin A1c Generalized anxiety disorder with panic attacks - busPIRone (BUSPAR) 15 mg tablet; TAKE 1 TABLET BY MOUTH THREE TIMES A DAY - FLUoxetine (PROzac) 20 MG tablet; Take 1 tablet (20 mg total) by mouth in the morning. Atrial fibrillation, unspecified type ([facility]) - metoprolol tartrate (LOPRESSOR) 25 mg tablet; Take 1 tablet (25 mg total) by mouth in the morningand 1 tablet (25 mg total) before bedtime. Essential hypertension - metoprolol tartrate (LOPRESSOR) 25 mg tablet; Take 1 tablet (25 mg total) by mouth in the morningand 1 tablet (25 mg total) before bedtime. GERD without esophagitis - pantoprazole (PROTONIX) 40 mg EC tablet; Take 1 tablet (40 mg total) by mouth every morning before breakfast. A1c 5.6% Continue Ozempic 2 mg weekly. Tolerating medication without intolerable side effects Encourage routine home blood sugar monitoring, diet modification, and exercise regimen. Daily self skin foot checks Yearly eye exam - POCT Hemoglobin A1c HTN Controlled 124/84 Continue amlodipine 10 mg oral daily -metoprolol tartrate 25 mg oral twice daily GERD Limit or avoid trigger foods and beverages. Consider weight loss. Continue pantoprazole 40 mg oral daily Generalized anxiety Depression: Not at risk (04/24/2025) PHQ-2 PHQ-2 Score: 0 States his moods overall have been stable. Does have episodes of panic attacks on rare occasion. Continue fluoxetine 20 mg oral daily and buspirone 15 mg oral TID Atrial fibrillation Managed by cardiology Continue Eliquis and metoprolol tartrate Body mass index is 45.48 kg/m??. Patient noted to have elevated BMI and the following intervention(s) were applied: Discussed current weight today. Consider healthy food choices, portion control. Avoid sugary beverages and high concentrated sweets. Routine exercise regimen encouraged. ALL QUESTIONS ANSWERED Total time spent was 30 minutes: Preparing to see the patient (e.g., review of tests) Obtaining and/or reviewing separately obtained history Performing a medically appropriate examination and/or evaluation Counseling and educating the patient/family/caregiver Ordering medications, tests, or procedures Follow-up: Annual physical With labs LISA Gan 04/24/25 1608 documented in this encounter Plan of Treatment Upcoming Encounters Date Type Department Care Team (Late st Contact Info) Description 10/29/2025 4:00 PM EST Office Visit [facility] Internal Medicine - Family Medicine [address] [place] [address] Verito Flores APRN-CNP [address] [place] [address] documented as of this encounter Procedures Procedure Name Priority Date/Time Associated Diagnosis Comments POCT HEMOGLOBIN A1C Routine 04/24/2025 3 :35 PM EDT Type 2 diabetes mellitus with hyperglycemia, without long-term current use of insulin ([facility]) documented in this encounter Results * POCT Hemoglobin A1c (04/24/2025 3:35 PM EDT) External Poct Hgb A1C 5.5 4 - 7 % MANUALLY TRANSCRIBED RESULTS Blood 04/24/2025 3:35 PM EDT us Verito GONZALEZ POINT OF CARE TEST O RDERABLES Final Result MANUALLY TRANSCRIBED RESULTS documented in this encounter Visit Diagnoses Diagnosis Type 2 diabetes mellitus with hyperglycemia, without long-term current use of insulin ([facility] Primary Generalized anxiety disorder with panic attacks Atrial fibrillation, unspecified type ([facility]) Essential hypertension Unspecified essential hypertension GERD without esophagitis Esophageal reflux documented in this encounter Additional Health Concerns Assessment Noted Time PHQ-9 Depression Total Score: 0 04/24/20 3:29 PM EDT A Body Mass Index follow-up plan has been documented for the patient 04/24/2025 4:08 PM EDT documented as of this encounter Care Teams Shipwright Relationship Specialty Start Date End Date Verito Flores, AGRICULTURAL ECONOMIST-CLUBHOUSE MANAGER [address] [place] [address] PCP - General Family Medicine 12/15/17 documented as of this encounter
--- OUTSIDE RECORDS SUMMARY | 2025-04-29 15:30 | XMS_ITS | Encounter Summary ---
Author Organization [facility] Address [address] [place] [address] Care Team Providers Care Capacity Planning Manager Name Role Phone Verito Flores MD Primary Care Provider [phone] Encounter Details Date Type Department Care Team (Late st Contact Info) Description 04/29/2025 3:30 PM EDT Follow-Up [facility] Heart at [facility] [address] [place] [address] Brian Summers MD [address] [place] [phone] Paroxysmal atrial fibrillation (CMS/HCC) Social History Tobacco Use Types Packs/Day Years Used Date Smoking Tobacco: Never Smokeless Tobacco: Current Chew Alcohol Use Standard Drinks/Week Comments Yes 0 (1 standard drink = 0.6 oz pure alcohol) occasional during the week 5 to 6 vodka on the weekend Sex and Gender Information Value Date Recorded Sex Assigned at Not on file Gender Identity Not on file Sexual Orientation Not on file documented as of this encounter Last Filed Vital Signs Vital Sign Reading Time Taken Comments Blood Pressure 152/92 04/29/2025 4:30 PM EDT Pulse 88 04/29/2025 4:30 PM EDT Temperature - - Respiratory Rate - - Oxygen Saturation 97% 04/29/2025 4:30 PM EDT Inhaled Oxygen Concentration - - Weight 161 kg (354 lb) 04/29/2025 4:30 PM EDT Height 185.4 cm (6' 1 ) 04/29/2025 4:30 PM EDT Body Mass Index 46.7 04/29/2025 4:30 PM EDT documented in this encounter Progress Notes * Brian Summers MD - 04/29/2025 3:30 PM EDT Images from the original note were not included. NH Electrophysiology Consult Note [facility] Cardiology [facility] Reason for visit: afib 04/29/25 Patient is here today for H & P for A-Fib ablation and post monitor results. Patient states he can feel himself go into a-fib when his anxiety increases. Patient denies any other symptom. Review of Systems Psychiatric/Behavioral: The patient is nervous/anxious. 03/18/25 Pt came to discuss abt ablation. He was started on Amio and converted to SR. He stopped Amio and occ feels his HR going fast. Prior HPI: Mason Oneil is a 44 y.o. year old with past medical history of type 2 diabetes mellitus on Ozempic, new onset atrial fibrillation. Patient was recently at work when he felt the sensation of a fluttering heart beat. He spoke to thenurse at work who suggested he go to the ED. He was found to have a HR of 150 and to be in atrial fibrillation. This is the first time he has been in atrial fibrillation, as far as he knows. He has a diagnosis of sleep apnea and is complaint with his CPAP. He denies chest pain, SOB, dizziness/lightheadedness. PMH: Past Medical History: Diagnosis Date Abnormal ECG Arrhythmia Atrial fibrillation (CMS/HCC) Hypertension PSH: Past Surgical History: Procedure Laterality Date FINGER SURGERY SH: Social Determinants of Health Tobacco Use: High Risk (04/29/2025) Patient History Smoking Tobacco Use: Never Smokeless Tobacco Use: Current Passive Exposure: Not on file Alcohol Use: Alcohol Misuse (07/20/2021) Received from [facility] Frequency of Alcohol Consumption: 2-3 times a week Average Number of Drinks: 1 or 2 Frequency of Binge Drinking: Monthly Financial Resource Strain: Low Risk (12/28/2023) Received from [facility] Overall Financial Resource Strain (CARDIA) Difficulty of Paying Living Expenses: Not hard at all Food Insecurity: No Food Insecurity (04/24/2025) Received from [facility] Hunger Screening Within the past 12 months we worried whether our food would run out before we got money to buy more.: Never True Within the past 12 months the food we bought just didn't last and we didn't have money to get more.: Never True Transportation Needs: No Transportation Needs (12/28/2023) [facility] PRAPARE - Transportation Lack of Transportation (Medical): No Lack of Transportation (Non-Medical): No Physical Activity: Inactive (07/20/2021) [facility] Exercise Vital Sign Days of Exercise per Week: 2 days Minutes of Exercise per Session: 0 min Stress: Not on file Social Connections: Moderately Isolated (07/20/2021) [facility] Social Connection and Isolation Panel [NHANES] Frequency of Communication with Friends and Family: Twice a week Frequency of Social Gatherings with Friends and Family: Never Attends Quaker Services: Never Active Member of Clubs or Organizations: Yes Attends Club or Organization Meetings: Patient declined Marital Status: Intimate Partner Violence: Not on file Depression: Not at risk (04/24/2025) [facility] PHQ-2 Total Score: 0 Housing Stability: Low Risk (12/28/2023) [facility] Housing Instability Are you worried or concerned that in the next two months you may not have stable housing that you own, rent or stay in as a part of a household?: No Utilities: Not on file Health Literacy: Not on file Allergies: Allergies Allergen Reactions Metformin GI intolerance Weight: 161kg Visit Vitals BP (!) 152/92 (BP Location: Left arm, Patient Position: Sitting) Pulse 88 Ht 1.854 m (6' 1 ) Wt (!) 161 kg (354 lb) SpO2 97% BMI 46.70 kg/m?? Smoking Status Never BSA 2.88 m?? Meds: Current Outpatient Medications on File Prior to Visit Medication Sig Dispense Refill amLODIPine (Norvasc) 10 mg tablet Take 10 mg by mouth in the morning. busPIRone (Buspar) 10 mg tablet Take 1 tablet by mouth every 6 (six) hours during the day. Eliquis 5 mg tablet Take 5 mg by mouth twice a day. FLUoxetine (PROzac) 20 mg tablet Take 20 mg by mouth in the morning. metoprolol tartrate (Lopressor) 25 mg tablet Take 25 mg by mouth twice a day. Ozempic 2 mg/dose (8 mg/3 mL) pen injector INJECT 2 (TWO) mg SUBCUTANEOUSLY (UNDER THE SKIN) EVERY 7 DAYS pantoprazole (ProtoNix) 40 mg EC tablet Take 40 mg by mouth before breakfast. amiodarone (Pacerone) 200 mg tablet Take 2 tablets (400 mg) by mouth two times daily for 14 days, THEN 1 tablet (200 mg) in the morning. (Patient not taking: Reported on 03/18/2025) 146 tablet 0 lisinopriL-hydrochlorothiazide 20-12.5 mg tablet Take 1 tablet by mouth in the morning. No current facility-administered medications on file prior to visit. Physical Exam: Constitutional General Appearance: well-nourished, well-developed, appears stated age Level of Distress: comfortable Psychiatric Mental Status: alert, normal affect Orientation: oriented to time, place, and person Insight: good judgement Eyes Lids and Conjunctivae: non-injected, no xanthelasma ENMT Ears: no lesions on external ear Nose: no lesions on external nose Oropharynx: no cyanosis, no pallor Neck Neck: supple, trachea midline Carotid Arteries: bilateral normal upstroke, no bruits Jugular Veins: normal jugular venous pressure Thyroid: not enlarged Lungs Respiratory Effort: unlabored Chest Exam: normal curvature, no thoracic deformity Auscultation: clear, no wheezing, no rales, no rhonchi Cardiovascular Rate And Rhythm: regular Heart Sounds: normal S1, normal s2, no gallop Systolic Murmur: not heard Diastolic Murmur: not heard Extremities: no cyanosis, no edema, no peripheral signs of emboli Peripheral Pulses Radial Pulse: normal Abdomen Inspection and Palpation: soft, non distended, no bruit, non tender Musculoskeletal Inspection: no joint swelling Neurologic Gait: normal gait Skin Inspection and Palpation: warm and dry Nails: no clubbing Labs: 10/19/24: Hgb 15.5, hematocrit 46.9, sodium 138, potassium 4.1, creatinine 0.87, hemoglobin A1c 5.9, mag 2.2, AST 19, ALT 49, BNP 262 Lipids: cholesterol 149, trig 133, LDL 86, 37 TSH 1.969 EK10/18/24 Echo: 10/18/24 Stress test: Coronary angiogram: @CATH@ Diagnostic Imaging: No images are attached to the encounter. Assessment and Plan: #Paroxsymal atrial fibrillation -Patient in afib today. Continue eliquis 5 mg BID for anticoagulation. Pt converted on Amio and nowoff. Still in SR. I had a long discussion about modification of RF as he is obese and has JALIL. He would like to proceed with A- fib ablation # JALIL; Adv weight loss # Obesity: Adv calorei restriction and ct GLP agonist. # DM2: Ct meds as per primary Afib ablation would require placement of multiple catheters in the heart under moderate sedation which will include diagnostic catheters, ICE catheters and ablation catheters. The risk of the procedures can be described as minor and major minor complications being discomfort in the groin area, bleeding, infection and vascular complications at this fistula formation, pseudoaneurysm, nerve injury. Major complications would include catheter induced cardiac perforation leading to tamponade/ pericardial effusion which may or may not require surgical intervention. Other complications are phrenic nerve injury leading to paralysis, thromboembolism including pulmonary and systemic event leading to stroke or endorgan injury or or PV stenosis or AE fistula as post ablation adverse effects. There could be a possibility of catheter induced valve entrapment which may require surgical intervention and valve replacement. Given that these procedures are performed under x-ray, they could be acuteor long-term side effects from radiation . Gven the comorbidities, the likelihood of attaining sinus rhythm would be ~75% and reiterated the importance of weight loss and an exercise regimen as well as treatment of sleep apnea which would be beneficial in long-term maintenance of sinus rhythm basedon data from LEGACY and CARDIOFIT trials. Overall the risk of these complications ranged anywhere from 1-5%. Patient verbalized understanding and have agreed to proceed with the procedure. Brian Summers MD Cardiac Electrophysiology [facility] documented in this encounter Plan of Treatment Upcoming Encounters Date Type Department Care Team (Late st Contact Info) Description 05/22/2025 12:30 PM EDT Hospital Encounter [facility] Vascular Lab [address] [place] [phone] Brian Summers MD [address] [place] [phone] Paroxysmal atrial fibrillation (CMS/HCC) 05/22/2025 12:30 PM EDT - 05/22/2025 3:30 PM EDT Surgery [facility] Vascular Lab [address] [place] [address] Brian Summers MD [address] [facility] [address] [place] [address] Ablation a-fib paroxysmal [24540] 05/22/2025 12:30 PM EDT Appointment [facility] Vascular Lab [address] [place] [address] Scheduled Orders Name Type Priority Associated Diagnoses Orde r Schedule CBC and differential Lab Routine Paroxysmal atrial fibrillation (CMS/HCC) Expected: 04/29/2025 (Approximate), Expires: 04/29/2026 Basic metabolic panel Lab Routine Paroxysmal atrial fibrillation (CMS/HCC) Expected: 04/29/2025 (Approximate), Expires: 04/29/2026 documented as of this encounter Visit Diagnoses Diagnosis Paroxysmal atrial fibrillation (CMS/HCC)- Primary Atrial fibrillation Paroxysmal atrial fibrillation (CMS/HCC) Atrial fibrillation Paroxysmal atrial fibrillation (CMS/HCC) Atrial fibrillation documented in this encounter Care Teams Capacity Planning Manager Relationship Specialty Start Date End Date Verito Flores MD [address] [facility] [place] [address] PCP - General Family Medicine 11/11/24 documented as of this encounter
--- OUTSIDE RECORDS SUMMARY | 2025-05-06 14:54 | XMS_ITS | Encounter Summary ---
Author Organization [employer] Address [id number] [address] [place] [address] Care Team Providers Care Drill Operator Name Role Phone Verito Flores [facility] Primary Care Provid er Reason for Visit * Reason Comments Med Refill Encounter Details Date Type Department Care Team (Late Contact Info) Description 10/26/2019 Refill [facility] [address] [place] [phone] Verito Flores, [facility] [address] [place] [address] Anxiety disorder, unspecified type Social History Tobacco Use Types Packs/Day Years Used Date Smoking Tobacco: Never Smokeless Tobacco: Current Chew Alcohol Use Standard Drinks/Week Comments Yes 0 (1 standard drink = 0.6 oz pur e alcohol) WEEKENDS PHQ-2 Answer Date Recorded PHQ-2 Score 0 11/29/2018 Childcare Answer Date Recorded Childcare Unknown 05/08/2019 Employment Answer Date Recorded Employment Unknown 05/08/2019 Sex and Gender Information Value Date Recorded Sex Assigned at Not on file Legal Sex Male 12:07 PM EDT Gender Identity Not on file Sexual Orientation Not on file documented as of this encounter Plan of Treatment Upcoming Encounters Date Type Department Care Team (Late st Contact Info) Description 10/29/2025 4:00 PM EST Office Visit [facility] - Family Medicine [address] [place] [phone] Verito Flores, CHICKEN FANCIER-CARTOGRAPHIC DESIGNER [address] [place] [address] documented as of this encounter Visit Diagnoses Diagnosis Anxiety disorder, unspecified type documented in this encounter Additional Health Concerns Assessment Noted Time PHQ-9 Depression Total Score: 0 07/31/20 19 4:00 PM EDT documented as of this encounter Care Teams Drill Operator Relationship Specialty Start Date End Date Verito Flores, CHICKEN FANCIER-CARTOGRAPHIC DESIGNER [address] [place] [phone] PCP - General Family Medicine 12/15/17 documented as of this encounter
--- OUTSIDE RECORDS SUMMARY | 2025-05-06 14:54 | XMS_ITS | Encounter Summary ---
Author Organization [employer] [facility] tem Address [id number] [address] [place] [address] Care Team Providers Care Hat Measurer Name Role Phone Verito Flores APRN-AUTOMOBILE RELOCATION ENGINEER Primary Care Provid er Encounter Details Date Type Department Care Team (Late st Contact Info) Description 09/18/2023 [facility] [address] [place] [address] Jayde Craft MA Social History Tobacco Use Types Packs/Day Years Used Date Smoking Tobacco: Never Smokeless Tobacco: Former Chew Quit: 2019 Alcohol Use Standard Drinks/Week Comments Not [...] Never 07/20/2021 How often do you attend hindu or islam serv ices? Never 07/20/2021 Do you belong to any clubs o r organizations such as hindu groups, unions, fraternal or athletic groups, or [...] care, and heating? Not hard at all 07/20/2021 PHQ-2 Answer Date Recorded Total Score 0 09/12/2023 Exercise Vital Sign Answer Date Recorde d [...] medical appointments or from getting medications? No 06/28 In the past 12 months, has l ack of transportation kept you from meetings, work, or from getting things needed for daily living? No 07/20/2021 Childcare Answer Date Recorded Do problems getting child ca re make it difficult for you to work or study? No 07/20/2021 Employment Answer Date Recorded Do you need help finding a [facility] career center and/or a training program? No 07/20/2021 Hunger Screening Answer Date Recorded Within the past 12 months we worried whether our food would run out before we got money to buy more. Never True 09/12/2023 Within the past 12 months th e food we bought just didn't last and we didn't have money to get more. Never True 09/12/2023 Purpose - Life Answer Date Recorded I [...] on file documented as of this encounter Miscellaneous Notes * Telephone Encounter - Jayde Craft MA - 09/18/2023 10:52 AM EDT I have called [facility], [facility], [facility], [facility], [facility] and can???t get Ozempic 2 ML they have the one and under so should [place] put in new order to get two of them 1 ML and take shot twice? I???m being told first of year before they get 2 ML In stock Told pt will let him know * Telephone Encounter - MALIK Ragsdale - 09/18/2023 10:52 AM EDT We can try this, some insurances accept this some don't the other alternative is to change to something like mounjaro if that is acceptable, I'll try the ozempic 1 mg two pen option for him - Gricelda * Telephone Encounter - Jayde Craft MA - 09/18/2023 10:52 AM EDT Pt notified documented in this encounter Plan of Treatment Upcoming Encounters Date Type Department Care Team (Late st Contact Info) Description 10/29/2025 4:00 PM EST Office Visit [facility] - Family Medicine [address] [place] [address] Verito Flores, SEE-AUTOMOBILE RELOCATION ENGINEER [address] [place] [address] documented as of this encounter Visit Diagnoses Not on filedocumented in this encounter Additional Health Concerns Assessment Noted Time PHQ-9 Depression Total Score: 0 09/12/20 9:25 AM EDT A Body Mass Index follow-up plan has been documented for the patient 09/12/2023 3:46 PM EDT documented as of this encounter Care Teams Hat Measurer Relationship Specialty Start Date End Date Verito Flores, DIRECTOR OF CASINO-AUTOMOBILE RELOCATION ENGINEER [address] [place] [address] PCP - General Family Medicine 12/15/17 documented as of this encounter
--- OUTSIDE RECORDS SUMMARY | 2025-05-06 14:55 | XMS_ITS | Encounter Summary ---
Author Organization [facility] Address [id number] [address] [place] [address] Care Team Providers Care Blanking Press Operator Name Role Phone Verito Flores APRN-CARPET JACK Primary Care Provid er Reason for Visit * Reason Comments Med Refill Encounter Details Date Type Department Care Team (Late st Contact Info) Description 02/17/2023 Refill [facility] - Family Medicine [address] [place] [phone] Verito Flores APRN-CARPET JACK [address] [place] [address] Essential hypertension Social History Tobacco Use Types Packs/Day Years Used Date Smoking Tobacco: Never Smokeless Tobacco: Former Chew Quit: 2019 Alcohol Use Standard Drinks/Week Comments Yes 0 [...] Never 07/20/2021 How often do you attend mormonism or yazidism serv ices? Never 07/20/2021 Do you belong to any clubs o r organizations such as mormonism groups, unions, fraternal or athletic groups, or [...] PHQ-2 Answer Date Recorded Total Score 0 10/26/2022 Exercise Vital Sign Answer Date Recorde d [...] Recorded Do you need help finding a [employer] career center and/or a training program? No 07/20/2021 Purpose - Life Answer Date Recorded I [...] on file Sexual Orientation Not on file COVID-19 Exposure Response Date Recorded In the last month, have you been in contact with someone who was confirmed or suspected to have Coronavirus / COVID-19? Yes 02/01/2023 2:41 PM EST documented as of this encounter Plan of Treatment Upcoming Encounters Date Type Department Care Team (Late st Contact Info) Description 10/29/2025 4:00 PM EST Office Visit [facility] - Family Medicine [address] [place] [address] Verito Flores APRN-RALPH [address] [place] [address] documented as of this encounter Visit Diagnoses Diagnosis Essential hypertension Unspecified essential hypertension documented in this encounter Additional Health Concerns Assessment Noted Time PHQ-9 Depression Total Score: 0 10/26/20 22 3:22 PM EST A Body Mass Index follow-up plan has been documented for the patient 02/02/2023 8:00 PM EST documented as of this encounter Care Teams Blanking Press Operator Relationship Specialty Start Date End Date Verito Flores APRN-CNP [address] [place] [address] PCP - General Family Medicine 12/15/17 documented as of this encounter
--- OUTSIDE RECORDS SUMMARY | 2025-05-06 14:55 | XMS_ITS | Encounter Summary ---
Author Organization [facility] [employer] [facility] Address [id number] [address] [place] [address] Care Team Providers Care Wort Extractor Name Role Phone Verito Flores APRN-SANDING MACHINE OPERATOR Primary Care Provid er Encounter Details Date Type Department Care Team (Late st Contact Info) Description 01/08/2024 Orders Only [facility] - Family Medicine [address] [place] [address] Gricelda Begum, INTERNET E COMMERCE SPECIALIST-DUMP WORKER [address] [place] [address] Social History Tobacco Use Types Packs/Day Years [...] Never 07/20/2021 How often do you attend holiness or spiritism serv ices? Never 07/20/2021 Do you belong to any clubs o r organizations such as holiness groups, unions, fraternal or athletic groups, or [...] PHQ-2 Answer Date Recorded Total Score 0 12/13/2023 Exercise Vital Sign Answer Date Recorde d [...] Recorded Do you need help finding a [facility] career center and/or a training program? No 07/20/2021 Hunger Screening Answer Date Recorded Within the past 12 months we worried whether our food would run out before we got money to buy more. Never True 12/28/2023 Within the past 12 months th e food we bought just didn't last and we didn't have money to get more. Never True 12/28/2023 Purpose - Life Answer Date Recorded I [...] Medicine - Family Medicine [address] [place] [address] Verito Flores APRN-SANDING MACHINE OPERATOR [address] [place] [address] documented as of this encounter Visit Diagnoses Not on filedocumented in this encounter Additional Health Concerns Assessment Noted Time PHQ-9 Depression Total Score: 0 12/13/19 24 5:03 PM EST A Body Mass Index follow-up plan has been documented for the patient 12/28/2023 3:00 PM EST documented as of this encounter Care Teams Wort Extractor Relationship Specialty Start Date End Date Verito Flores APRN-SANDING MACHINE OPERATOR [address] [facility] [place] [address] PCP - General Family Medicine 12/15/17 documented as of this encounter
--- OUTSIDE RECORDS SUMMARY | 2025-05-06 14:55 | XMS_ITS | Encounter Summary ---
Author Organization [facility] Address [facility] [id number] [address] [place] [address] Care Team Providers Care Barber Apprentice Name Role Phone Verito Flores APRN-SILK SPREADER Primary Care Provid er Reason for Visit * Reason Comments Med Refill Encounter Details Date Type Department Care Team (Late st Contact Info) Description 03/01/2022 Refill [facility] [address] [place] [phone] Verito Flores APRN-SILK SPREADER [address] [place] [address] GERD without esophagitis Social History Tobacco Use [...] Never 07/20/2021 How often do you attend uatsdin or advent serv ices? Never 07/20/2021 Do you belong to any clubs o r organizations such as uatsdin groups, unions, fraternal or athletic groups, or [...] PHQ-2 Answer Date Recorded Total Score 0 02/23/2022 Exercise Vital Sign Answer Date Recorde d [...] Recorded Do you need help finding a l ocal career center and/or a training program? [...] Exposure Response Date Recorded In the last 10 days, have yo u been in contact with someone who was confirmed or suspected to have Coronavirus/COVID-19? No / Unsure 03/01/2022 12:08 PM EDT documented as of this encounter Plan of Treatment Upcoming Encounters Date Type Department Care Team (Late st Contact Info) Description 10/29/2025 4:00 PM EST Office Visit [facility] - Family Medicine [address] [place] [address] Verito Flores, DIGITAL COURT REPORTER-SILK SPREADER [address] [place] [address] documented as of this encounter Visit Diagnoses Diagnosis GERD without esophagitis Esophageal reflux documented in this encounter Additional Health Concerns Assessment Noted Time PHQ-9 Depression Total Score: 0 02/24/20 22 1:18 PM EDT A Body Mass Index follow-up plan has been documented for the patient 01/05/2022 7:53 PM EST documented as of this encounter Care Teams Barber Apprentice Relationship Specialty Start Date End Date Verito Flores, DIGITAL COURT REPORTER-SILK SPREADER [address] [place] [address] PCP - General Family Medicine 12/15/17 documented as of this encounter
--- OUTSIDE RECORDS SUMMARY | 2025-05-06 14:55 | XMS_ITS | Encounter Summary ---
Author Organization [facility] tem Address [facility] [id number] [address] [place] [address] Care Team Providers Care Ticket Scheduler Name Role Phone Verito Flores APRN-YARDER OPERATOR Primary Care Provid er Encounter Details Date Type Department Care Team (Late st Contact Info) Description 10/23/2024 Orders Only [facility] - Family Medicine [address] [place] [address] Ref Prov, [place] [address] Social History Tobacco Use Types Packs/Day Years [...] Never 07/20/2021 How often do you attend adventist or sabianism serv ices? Never 07/20/2021 Do you belong to any clubs o r organizations such as adventist groups, unions, fraternal or athletic groups, or [...] PHQ-2 Answer Date Recorded Total Score 0 10/22/2024 Exercise Vital Sign Answer Date Recorde d [...] Recorded Do you need help finding a [facility] career center and/or a training program? No 07/20/2021 Hunger Screening Answer Date Recorded Within the past 12 months we worried whether our food would run out before we got money to buy more. Never True 10/22/2024 Within the past 12 months th e food we bought just didn't last and we didn't have money to get more. Never True 10/22/2024 Purpose - Life Answer Date Recorded I [...] Medicine - Family Medicine [address] [place] [address] Verito Flores APRN-RALPH [address] [place] [address] documented as of this encounter Procedures Procedure Name Priority Date/Time Associated Diagnosis Comments XR CHEST 1 VW Routine 10/18/2024 12:53 PM EST documented in this encounter Results * X-ray chest 1 view (10/18/2024 12:53 PM EST) Anatomical Region Laterality Modality Body, Chest N/A Computed Radiogr aphy us Not In System Ref Prov IMG DIAGNOSTIC IMAGING OR DERABLES Final Result documented in this encounter Visit Diagnoses Not on filedocumented in this encounter Additional Health Concerns Assessment Noted Time PHQ-9 Depression Total Score: 0 10/22/20 24 10:57 AM EST A Body Mass Index follow-up plan has been documented for the patient 10/14/2024 5:13 PM EST documented as of this encounter Care Teams Ticket Scheduler Relationship Specialty Start Date End Date Verito Flores APRN-RALPH [address] [place] [address] PCP - General Family Medicine 12/15/17 documented as of this encounter
--- OUTSIDE RECORDS SUMMARY | 2025-05-06 14:55 | XMS_ITS | Clinical Summary ---
Author Organization [facility] Address [address] [place] [address] Care Team Providers Care Finisher Denture Name Role Phone Verito Flores Unavailable [phone] Social History Tobacco Use Types Packs/Day Years Used Date Smoking Tobacco: Never Assessed Sex and Gender Information Value Date Recorded Sex Assigned at Not on file Legal Sex Male 10:13 PM EDT Gender Identity Not on file Sexual Orientation Not on file Last Filed Vital Signs Vital Sign Reading Time Taken Comments Blood Pressure - - Pulse - - Temperature - - Respiratory Rate - - Oxygen Saturation - - Inhaled Oxygen Concentration - - Weight 154 kg (340 lb) 04/30/2020 12:00 PM EDT Height 188 cm (6' 2 ) 04/30/2020 12:00 PM EDT Body Mass Index 43.65 04/30/2020 12:00 PM EDT Plan of Treatment Not on file Insurance BS Care Teams Finisher Denture Relationship Specialty Start Date End Date Verito Flores CRNP Referring Physician Nurse Practitioner 01/16/25
--- OUTSIDE RECORDS SUMMARY | 2025-05-06 14:55 | XMS_ITS | Encounter Summary ---
Author Organization [facility] Address [address] [place] [address] Care Team Providers Care Plant Controls Specialist Name Role Phone Verito Flores MD Primary Care Provider [phone] Encounter Details Date Type Department Care Team (Late st Contact Info) Description 04/29/2025 Orders Only [facility] [place] [address] [place] [address] Provider, MD Ab [address] [place] [address] Social History Tobacco Use Types Packs/Day Years [...] Description 05/22/2025 12:30 PM EDT Hospital Encounter [facility] [address] [facility] [place] [address] Brian Summers MD [address] [place] [address] Paroxysmal atrial fibrillation (CMS/HCC) 05/22/2025 12:30 PM EDT - 05/22/2025 3:30 PM EDT Surgery [facility] [address] [facility] [place] [address] Brian Summers MD [address] [place] [phone] Ablation a-fib paroxysmal [[id number]] 05/22/2025 12:30 PM EDT Appointment [facility] [address] [place] [phone] documented as of this encounter Procedures Procedure Name Priority Date/Time Associated Diagnosis Comments CARDIAC EVENT MONITOR Routine 03/18/2025 5:11 PM EDT documented in this encounter Results * Cardiac event monitor (03/18/2025 5:11 PM EDT) Anatomical Region Laterality Modality Other Historical Provider CV CARDIAC SERVIC ES PROCEDURES documented in this encounter Visit Diagnoses Not on filedocumented in this encounter Care Teams Plant Controls Specialist Relationship Specialty Start Date End Date Verito Flores MD [address] [facility], [place] [address] PCP - General Family Medicine 11/11/24 documented as of this encounter
--- OUTSIDE RECORDS SUMMARY | 2025-05-06 14:55 | XMS_ITS | Encounter Summary ---
Author Organization [employer] tem Address [facility] [id number] [address] [place] [address] Care Team Providers Care Lumber Straightened Name Role Phone Verito Flores RIDES ATTENDANT-FILLER WIPER Primary Care Provid er Reason for Visit * Reason Comments Med Refill Encounter Details Date Type Department Care Team (Late Contact Info) Description 03/20/2019 Refill [facility] [address] [place] [address] Verito Flores, [facility] [address] [place] [address] Essential hypertension Social History Tobacco Use Types Packs/Day Years Used Date Smoking Tobacco: Never Smokeless Tobacco: Current Chew Alcohol Use Standard Drinks/Week Comments Yes 0 (1 standard drink = 0.6 oz pur e alcohol) WEEKENDS PHQ-2 Answer Date Recorded PHQ-2 Score 0 11/29/2018 Childcare Answer Date Recorded Childcare Unknown 02/20/2019 Employment Answer Date Recorded Employment Unknown 02/20/2019 Sex and Gender Information Value Date Recorded Sex Assigned at Not on file Legal Sex Male 12:07 PM EDT Gender Identity Not on file Sexual Orientation Not on file documented as of this encounter Plan of Treatment Upcoming Encounters Date Type Department Care Team (Late Contact Info) Description 10/29/2025 4:00 PM EST Office Visit [facility] - Family Medicine [address] [place] [address] Verito Flores APRN-FILLER WIPER [address] [place] [address] documented as of this encounter Visit Diagnoses Diagnosis Essential hypertension Unspecified essential hypertension documented in this encounter Additional Health Concerns Assessment Noted Time PHQ-9 Depression Total Score: 0 01/22/20 19 2:00 PM EST documented as of this encounter Care Teams Lumber Straightened Relationship Specialty Start Date End Date Verito Flores APRN-FILLER WIPER [address] [place] [phone] PCP - General Family Medicine 12/15/17 documented as of this encounter
--- OUTSIDE RECORDS SUMMARY | 2025-05-06 14:55 | XMS_ITS | Encounter Summary ---
Author Organization [facility] tem Address [facility] [id number] [address] [place] [address] Care Team Providers Care Account Development Associate Name Role Phone Verito Flores APRN-EMERGENCY MEDICAL SERVICE COORDINATOR Primary Care Provid er Encounter Details Date Type Department Care Team (Late st Contact Info) Description 12/28/2023 Telephone [facility] - Family Medicine [address] [place] [address] Verito Flores APRNEMERGENCY MEDICAL SERVICE COORDINATOR [address] [place] [address] Social History Tobacco Use Types Packs/Day Years [...] Never 07/20/2021 How often do you attend jehovah's witness or sikh serv ices? Never 07/20/2021 Do you belong to any clubs o r organizations such as jehovah's witness groups, unions, fraternal or athletic groups, or [...] Recorded Do you need help finding a [facility] career center and/or a training program? [...] encounter Miscellaneous Notes * Telephone Encounter - Janett Lewis - 12/28/2023 8:58 AM EST Patient called very amped up gave permission to talk to the RN macario at work. He feels very panic, she has informed me that he has not taking all medications as directed * Telephone Encounter - LISA Gan - 12/28/2023 8:58 AM EST Thank you for the update. He can make an appointment with me today if needed. * Telephone Encounter - Janett Lewis - 12/28/2023 8:58 AM EST Did a 30 min video this afternoon. Gave you extra time just in case * Telephone Encounter - LISA Gan - 12/28/2023 8:58 AM EST Thank you! documented in this encounter Plan of Treatment Upcoming Encounters Date Type Department Care Team (Late st Contact Info) Description 10/29/2025 4:00 PM EST Office Visit [facility] - Family Medicine [address] [place] [address] Verito Flores APRN-CNP [address] [place] [address] documented as of this encounter Visit Diagnoses Not on filedocumented in this encounter Additional Health Concerns Assessment Noted Time PHQ-9 Depression Total Score: 0 12/13/19 24 5:03 PM EST A Body Mass Index follow-up plan has been documented for the patient 12/28/2023 3:00 PM EST documented as of this encounter Care Teams Account Development Associate Relationship Specialty Start Date End Date Verito Flores, EARTH MOVING TECHNICIAN-EMERGENCY MEDICAL SERVICE COORDINATOR [address] [place] [address] PCP - General Family Medicine 12/15/17 documented as of this encounter
--- OUTSIDE RECORDS SUMMARY | 2025-05-06 14:55 | XMS_ITS | Encounter Summary ---
Author Organization [facility] [employer] [facility] Address [facility] [id number] [address] [place] [address] Care Team Providers Care Prospect Manager Name Role Phone Verito Flores APRN-LICENSED GUIDE Primary Care Provid er Reason for Visit * Reason Comments Med Refill Encounter Details Date Type Department Care Team (Late st Contact Info) Description 12/07/2021 Refill [facility] [address] [place] [address] Verito Flores APRN-LICENSED GUIDE [address] [place] [address] GERD without esophagitis Social History [...] Never 07/20/2021 How often do you attend jain or restorationism serv ices? Never 07/20/2021 Do you belong to any clubs o r organizations such as jain groups, unions, fraternal or athletic groups, or [...] PHQ-2 Answer Date Recorded Total Score 0 07/20/2021 Exercise Vital Sign Answer Date Recorde d [...] Medicine - Family Medicine [address] [place] [address] Verito Flores, SEE-RALPH [address] [place] [address] documented as of this encounter Visit Diagnoses Diagnosis GERD without esophagitis Esophageal reflux documented in this encounter Additional Health Concerns Assessment Noted Time PHQ-9 Depression Total Score: 0 07/20/20 4:55 PM EDT A Body Mass Index follow-up plan has been documented for the patient 10/28/2021 8:47 AM EST documented as of this encounter Care Teams Prospect Manager Relationship Specialty Start Date End Date Verito Flores APRN-RALPH [address] [place] [address] PCP - General Family Medicine 12/15/17 documented as of this encounter
--- OUTSIDE RECORDS SUMMARY | 2025-05-06 14:55 | XMS_ITS | Encounter Summary ---
Author Organization [employer] tem Address [facility] [id number] [address] [place] [address] Care Team Providers Care Fence Builder Name Role Phone Verito Flores TUBULAR STOCK GLASS BULB MACHINE [facility] Primary Care Provid er Reason for Visit * Reason Comments Med Refill Encounter Details Date Type Department Care Team (Late Contact Info) Description 05/15/2019 Refill [facility] [address] [place] [address] Verito Flores, TUBULAR STOCK GLASS BULB MACHINE [facility] [address] [place] [address] Anxiety disorder, unspecified type Social History Tobacco [...] Medicine [address] [place] [address] Verito Flores, TUBULAR STOCK GLASS BULB MACHINE FORMER-[employer] [address] [place] [address] documented as of this encounter Visit Diagnoses Diagnosis Anxiety disorder, unspecified type documented in this encounter Additional Health Concerns Assessment Noted Time PHQ-9 Depression Total Score: 0 04/23/20 19 8:00 AM EDT documented as of this encounter Care Teams Fence Builder Relationship Specialty Start Date End Date Verito Flores, TUBULAR STOCK GLASS BULB MACHINE FORMER-SIXTH GRADE TEACHER [address] [place] [address] PCP - General Family Medicine 12/15/17 documented as of this encounter
--- OUTSIDE RECORDS SUMMARY | 2025-05-06 14:55 | XMS_ITS | Encounter Summary ---
Author Organization [facility] Address [facility] [id number] [address] [place] [address] Care Team Providers Care Windows Vmware Administrator Name Role Phone Verito Flores APRN-CUSTOMER SUPPORT ASSOCIATE Primary Care Provid er Reason for Visit * Reason Comments Med Refill Encounter Details Date Type Department Care Team (Late st Contact Info) Description 07/31/2022 Refill [facility] [address] [address] [address] [place] [address] Verito Flores APRN-CUSTOMER SUPPORT ASSOCIATE [address] [place] [address] Metabolic syndrome Social History Tobacco Use Types Packs/Day Years [...] Never 07/20/2021 How often do you attend latter-day or amish serv ices? Never 07/20/2021 Do you belong to any clubs o r organizations such as latter-day groups, unions, fraternal or athletic groups, or [...] PHQ-2 Answer Date Recorded Total Score 0 04/19/2022 Exercise Vital Sign Answer Date Recorde d [...] Recorded Do you need help finding a [employer] ocal career center and/or a training program? [...] or suspected to have Coronavirus / COVID-19? No / Unsure 07/26/2022 11:13 AM EDT documented as of this encounter Plan of Treatment Upcoming Encounters Date Type Department Care Team (Late st Contact Info) Description 10/29/2025 4:00 PM EST Office Visit [facility] - Family Medicine [address] [place] [address] Verito Flores APRN-RALPH [address] [place] [address] documented as of this encounter Visit Diagnoses Diagnosis Metabolic syndrome Dysmetabolic Syndrome X documented in this encounter Additional Health Concerns Assessment Noted Time PHQ-9 Depression Total Score: 0 04/19/20 10:46 AM EDT A Body Mass Index follow-up plan has been documented for the patient 07/27/2022 9:46 AM EDT documented as of this encounter Care Teams Windows Vmware Administrator Relationship Specialty Start Date End Date Verito Flores, SEE-CUSTOMER SUPPORT ASSOCIATE [address] [place] [address] PCP - General Family Medicine 12/15/17 documented as of this encounter
--- OUTSIDE RECORDS SUMMARY | 2025-05-06 14:55 | XMS_ITS | Encounter Summary ---
Author Organization [employer] Address [facility] [id number] [address] [place] [address] Care Team Providers Care Marine Habitat Resource Specialist Name Role Phone Verito Flores APRN-COIN TELLER Primary Care Provid er Reason for Visit * Reason Onset Date Comments work note 07/14/2020 Encounter Details Date Type Department Care Team (Late st Contact Info) Description 07/14/2020 Telephone [facility] [address] [place] [address] Tenisha Okeefe CMA work note Social History Tobacco Use Types Packs/Day Years Used Date Smoking Tobacco: Never Smokeless Tobacco: Current Chew Alcohol Use Standard Drinks/Week Comments Yes 0 (1 standard drink = 0.6 oz pur e alcohol) WEEKENDS PHQ-2 Answer Date Recorded PHQ-2 Score 2 07/15/2020 Childcare Answer Date Recorded Childcare Unknown 05/08/2019 [...] have Coronavirus / COVID-19? No / Unsure 07/15/2020 3:40 PM EDT documented as of this encounter Miscellaneous Notes * Telephone Encounter - Tenisha Okeefe CMA - 07/14/2020 8:46 AM EDT called and scheduled appt for pt to be seen on to discuss FMLA for anxiety. Would like a work note in advance sent to Jett excusing him for his appt on . states this has been done in the past. Would like work note faxed to [phone]. Tenisha Okeefe CMA 07/14/20 0847 * Telephone Encounter - Jayde Craft MA - 07/14/2020 8:46 AM EDT Called to see if he can come in , he will call and let us know documented in this encounter Plan of Treatment Upcoming Encounters Date Type Department Care Team (Late st Contact Info) Description 10/29/2025 4:00 PM EST Office Visit [facility] - Family Medicine [address] [place] [address] Verito Flores, MAINTENANCE SERVICES DISPATCHER-COIN TELLER [address] [place] [address] documented as of this encounter Visit Diagnoses Not on filedocumented in this encounter Additional Health Concerns Assessment Noted Time PHQ-9 Depression Total Score: 0 06/22/20 20 2:44 PM EDT A Body Mass Index follow-up plan has been documented for the patient 06/26/2020 1:50 PM EDT documented as of this encounter Care Teams Marine Habitat Resource Specialist Relationship Specialty Start Date End Date Verito Flores, MAINTENANCE SERVICES DISPATCHER-COIN TELLER [address] [facility] [place] [address] PCP - General Family Medicine 12/15/17 documented as of this encounter
--- OUTSIDE RECORDS SUMMARY | 2025-05-06 14:55 | XMS_ITS | Referral Summary ---
Author Organization [facility] Address [address] [place] [address] Care Team Providers Care Mandrel Maker Name Role Phone Verito Flores MD Primary Care Provider [phone] Encounters Date Type Department Care Team Description 04/29/2025 Orders Only [address] [address] ProviderAb MD 04/29/2025 3:30 PM EDT Follow-Up [facility] [address] [place] [address] Brian Summers MD Paroxysmal atrial fibrillation (CMS/HCC) 03/18/2025 3:30 PM EDT Office Visit [address] [address] Brian Summers MD Paroxysmal atrial fibrillation (CMS/HCC) (Primary Dx) from Last 3 Months Allergies Active Allergy Reactions Criticality Noted Date Comments Metformin GI intolerance 11/12/2024 Medications Medication Sig Dispensed Refills Start Date End Date Status amLODIPine (Norvasc) 10 mg tablet Take 10 mg by mouth in the morning. 09/06/2024 Active Eliquis 5 mg tablet Take 5 mg by mouth twice a day. 10/22/2024 Active FLUoxetine (PROzac) 20 mg tablet Take 20 mg by mouth in the morning. 10/14/2024 Active lisinopriL-hydroch lorothiazide 20-12.5 mg tablet Take 1 tablet by mouth in the morning. 09/06/2024 Active metoprolol tartrate (Lopressor) 25 mg tablet Take 25 mg by mouth twice a day. 10/22/2024 Active pantoprazole (ProtoNix) 40 mg EC tablet Take 40 mg by mouth before breakfast. 10/14/2024 Active Ozempic 2 mg/dose (8 mg/3 mL) pen injector INJECT 2 (TWO) mg SUBCUTANEOUSLY (UNDER THE SKIN) EVERY 7 DAYS Active amiodarone (Pacerone) 200 mg tabletIndications: Paroxysmal atrial fibrillation (CMS/HCC) Take 2 tablets (400 mg) by mouth two times daily for 14 days, THEN 1 tablet (200 mg) in the morning. 146 tablet 11/12/2024 Active Additional Information Patient not taking.Reported on 03/18/2025 busPIRone (Buspar) 10 mg tablet Take 1 tablet by mouth every 6 (six) hours during the day. 09/21/2024 Active Active Problems Problem Noted Date Diagnosed Date Acute nasopharyngitis 11/12/2024 Essential hypertension 11/12/2024 Hyperlipidemia 11/12/2024 Left otitis media with effusion 11/12/2024 Paroxysmal atrial fibrillation 11/12/2024 Feeling agitated 12/17/2020 Generalized anxiety disorder 04/23/2019 Family history of alpha 1 antitrypsin deficiency 09/17/2018 Annual physical exam 09/13/2018 Screening for malignant neoplasm of prostate Family history of prostate cancer 09/13/2018 Morbid obesity with body mas s index (BMI) of 45.0 to 49.9 in adult 07/11/2017 Social History Tobacco Use Types Packs/Day Years Used Date Smoking Tobacco: Never Smokeless Tobacco: Current Chew Tobacco Cessation:Ready to Q uit: Not Asked; Counseling Given: Not Answered Alcohol Use Standard Drinks/Week Comments Yes 0 [...] Mass Index 46.7 04/29/2025 4:30 PM EDT Plan of Treatment Upcoming Encounters Date Type Department Care Team (Late st Contact Info) Description 05/22/2025 12:30 PM EDT Hospital Encounter [facility] Heart [facility] [address] [place] [address] Brian Summers MD [address] [place] [address] Paroxysmal atrial fibrillation (CMS/HCC) 05/22/2025 12:30 PM EDT - 05/22/2025 3:30 PM EDT Surgery [facility] [address] [place] [address] Brian Summers MD [address] [place] [address] Ablation a-fib paroxysmal [[id number]] 05/22/2025 12:30 PM EDT Appointment [facility] [address] [place] [address] Procedures Procedure Name Priority Date/Time Associated Diagnosis Comments CARDIAC EVENT MONITOR Routine 03/18/2025 5:11 PM EDT from Last 3 Months Results * Cardiac event monitor (03/18/2025 5:11 PM EDT) Anatomical Region Laterality Modality Other Historical Provider CV CARDIAC SERVIC ES PROCEDURES from Last 3 Months Care Teams Mandrel Maker Relationship Specialty Start Date End Date Flores, Verito J, MD [address] [facility], [place] [address] PCP - General Family Medicine 11/11/24
--- OUTSIDE RECORDS SUMMARY | 2025-05-06 14:55 | XMS_ITS | Encounter Summary ---
Author Organization [facility] Address [id number] [address] [place] [address] Care Team Providers Care Brass Bobbin Winder Name Role Phone Verito Flores Primary Care Provid er Reason for Visit * Reason Onset Date Comments Med Refill 06/25/2018 Encounter Details Date Type Department Care Team (Late st Contact Info) Description 06/25/2018 Refill [facility] [address] [facility] [place] [address] [address] Jayde Craft MA Essential hypertension Social History Tobacco Use Types Packs/Day Years Used Date Smoking Tobacco: Never Smokeless Tobacco: Current Chew Alcohol Use Standard Drinks/Week Comments Yes 0 (1 standard drink = 0.6 oz pur e alcohol) WEEKENDS Sex and Gender Information Value Date Recorded Sex Assigned at Not on file Legal Sex Male 12:07 PM EDT Gender Identity Not on file Sexual Orientation Not on file documented as of this encounter Miscellaneous Notes * Telephone Encounter - LISA Gan - 06/25/2018 1:44 PM EDT Provided 30 day supply for each med. 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 NEEDS REFILL OF HTN MEDS Jayde Craft MA 06/25/18 1133 documented in this encounter Plan of Treatment Upcoming Encounters Date Type Department Care Team (Late st Contact Info) Description 10/29/2025 4:00 PM EST Office Visit [facility] [address] [place] [address] Verito Flores, PSYCHIATRIC ARNP-CONTINUOUS DRYOUT OPERATOR HELPER [address] [place] [address] documented as of this encounter Visit Diagnoses Diagnosis Essential hypertension Unspecified essential hypertension documented in this encounter Additional Health Concerns Assessment Noted Time PHQ-9 Depression Total Score: 0 03/06/20 18 10:00 AM EDT documented as of this encounter Care Teams Brass Bobbin Winder Relationship Specialty Start Date End Date Verito Flores, PSYCHIATRIC ARNP-CONTINUOUS DRYOUT OPERATOR HELPER [address] [facility] [place] [address] PCP - General Family Medicine 12/15/17 documented as of this encounter
--- OUTSIDE RECORDS SUMMARY | 2025-05-06 14:55 | XMS_ITS | Encounter Summary ---
Author Organization [facility] Address [facility] [id number] [address] [place] [address] Care Team Providers Care Oil Tank Car Cleaner Name Role Phone Verito Flores APRN-ROLL CUTTER Primary Care Provid er Reason for Visit * Reason Comments Med Refill Encounter Details Date Type Department Care Team (Late st Contact Info) Description 02/25/2022 Refill [facility] [address] [address] [address] [place] [phone] Verito Flores APRN-ROLL CUTTER [address] [place] [address] Generalized anxiety disorder with panic attacks Social History Tobacco Use Types Packs/Day Years [...] Never 07/20/2021 How often do you attend mormon or protestant serv ices? Never 07/20/2021 Do you belong to any clubs o r organizations such as mormon groups, unions, fraternal or athletic groups, or [...] Recorded Do you need help finding a [employer] career center and/or a training program? No [...] suspected to have Coronavirus/COVID-19? No / Unsure 02/23/2022 12:57 PM EDT documented as of this encounter Plan of Treatment Upcoming Encounters Date Type Department Care Team (Late st Contact Info) Description 10/29/2025 4:00 PM EST Office Visit [facility] [address] [place] [address] Verito Flores, SENIOR MI[employer] NET DEVELOPER-ROLL CUTTER [address] [place] [address] documented as of this encounter Visit Diagnoses Diagnosis Generalized anxiety disorder with panic attacks documented in this encounter Additional Health Concerns Assessment Noted Time PHQ-9 Depression Total Score: 0 02/24/20 22 1:18 PM EDT A Body Mass Index follow-up plan has been documented for the patient 01/05/2022 7:53 PM EST documented as of this encounter Care Teams Oil Tank Car Cleaner Relationship Specialty Start Date End Date Verito Flores, SENIOR MI[employer]OS[employer] NET DEVELOPER-ROLL CUTTER [address] [place] [address] PCP - General Family Medicine 12/15/17 documented as of this encounter
--- OUTSIDE RECORDS SUMMARY | 2025-05-06 14:55 | XMS_ITS | Encounter Summary ---
Author Organization [facility] tem Address [facility] [id number] [address] [place] [address] Care Team Providers Care Chief Business Development Officer Name Role Phone Verito Flores APRN-SALES DEVELOPMENT COORDINATOR Primary Care Provid er Encounter Details Date Type Department Care Team (Late st Contact Info) Description 02/17/2023 [facility] [address] [place] [address] Verito Flores APRNSALES DEVELOPMENT COORDINATOR [address] [place] [address] Social History Tobacco Use Types [...] How often do you attend mormon or mosque serv ices? Never 07/20/2021 Do you belong [...] Recorded Do you need help finding a [facility] career center and/or a training [...] Medicine - Family Medicine [address] [place] [address] Verito Flores APRN-SALES DEVELOPMENT COORDINATOR [address] [place] [phone] documented as of this encounter Visit Diagnoses Not on filedocumented in this encounter Additional Health Concerns Assessment Noted Time PHQ-9 Depression Total Score: 0 10/26/20 22 3:22 PM EST A Body Mass Index follow-up plan has been documented for the patient 02/02/2023 8:00 PM EST documented as of this encounter Care Teams Chief Business Development Officer Relationship Specialty Start Date End Date Verito Flores APRN-SALES DEVELOPMENT COORDINATOR [address] [place] [address] PCP - General Family Medicine 12/15/17 documented as of this encounter
--- OUTSIDE RECORDS SUMMARY | 2025-05-06 14:55 | XMS_ITS | Clinical Summary ---
Author Organization [employer] tem Address [id number] [address] [place] [address] Care Team Providers Care Hatchery Supervisor Name Role Phone Verito Flores APRN-ADVERTISING ACCOUNT REPRESENTATIVE Primary Care Provid er Allergies Active Allergy Reactions Criticality Noted Date Comments Metformin GI Disturbance 11/12/2024 Medications ELIQUIS 5 mg tabletIndication s:Atrial fibrillation, unspecified type (CMS-HCC) Take 1 tablet (5 mg total) by mouth in the morning and 1 tablet (5 mg total) before bedtime. 180 tablet 1 10/22/20 24 Active amLODIPine (NORVASC) 10 mg tabletIndication s:Essential hypertension TAKE 1 TABLET BY MOUTH IN THE MORNING 90 tablet 2 11/28/19 25 Active semaglutide (OZEMPIC) 2 mg/dose (8 mg/3 mL) pen injectorIndicati ons:Type 2 diabetes mellitus with hyperglycemia, without long-term current use of insulin ([facility]) INJECT 2mg SUBCUTANEOUSLY EVERY 7 DAYS 3 mL 6 01/14/20 25 Active busPIRone (BUSPAR) 15 mg tabletIndication s:Generalized anxiety disorder with panic attacks TAKE 1 TABLET BY MOUTH THREE TIMES A DAY 270 tablet 1 04/24/20 25 Active FLUoxetine (PROzac) 20 MG tabletIndication s:Generalized anxiety disorder with panic attacks Take 1 tablet (20 mg total) by mouth in the morning. 90 tablet 2 04/24/20 25 Active metoprolol tartrate (LOPRESSOR) 25 mg tabletIndication s:Atrial fibrillation, unspecified type (CMS-HCC),Essent ial hypertension Take 1 tablet (25 mg total) by mouth in the morning and 1 tablet (25 mg total) before bedtime. 180 tablet 1 04/24/20 25 Active pantoprazole (PROTONIX) 40 mg EC tabletIndication s:GERD without esophagitis Take 1 tablet (40 mg total) by mouth every morning before breakfast. 90 tablet 2 04/24/20 25 Active lancets (freestyle) 28 gauge miscIndications: Type 2 diabetes mellitus with hyperglycemia, without long-term current use of insulin ([facility]) Monitor blood sugar twice daily 60 each 5 07/26/20 22 025 Discontin ued(Thera py completed ) alcohol swabs (ALCOHOL PREP PADS) pads, medicatedIndicat ions:Type 2 diabetes mellitus with hyperglycemia, without long-term current use of insulin ([facility]) Apply 1 Pad. topically in the morning and at bedtime. 60 each 6 01/02/20 24 025 Discontin ued(Thera py completed ) busPIRone (BUSPAR) 15 mg tabletIndication s:Generalized anxiety disorder with panic attacks TAKE 1 TABLET BY MOUTH THREE TIMES A DAY 270 tablet 1 10/14/20 24 025 Discontin ued(Reord er) FLUoxetine (PROzac) 20 MG tabletIndication s:Generalized anxiety disorder with panic attacks Take 1 tablet (20 mg total) by mouth in the morning. 90 tablet 2 10/14/20 24 025 Discontin ued(Reord er) pantoprazole (PROTONIX) 40 mg EC tabletIndication s:GERD without esophagitis Take 1 tablet (40 mg total) by mouth every morning before breakfast. 90 tablet 2 10/14/20 24 025 Discontin ued(Reord er) metoprolol tartrate (LOPRESSOR) 25 mg tabletIndication s:Atrial fibrillation, unspecified type ([facility]),Essent ial hypertension Take 1 tablet (25 mg total) by mouth in the morning and 1 tablet (25 mg total) before bedtime. 180 tablet 1 10/22/20 24 025 Discontin ued(Reord er) Active Problems Problem Noted Date Diagnosed Date Feeling agitated 12/17/2020 Generalized anxiety disorder 04/23/2019 Family history of alpha 1 antitrypsin deficiency 09/17/2018 Annual physical exam 09/13/2018 Family history of prostate cancer 09/13/2018 Screening for malignant neoplasm of prostate Morbid obesity with body mas s index (BMI) of 45.0 to 49.9 in adult 07/11/2017 Essential hypertension Hyperlipidemia Resolved Problems Problem Noted Date Diagnosed Date Resolved Date Right lateral epicondylitis 10/05/2020 07/08/2021 Acute bacterial sinusitis 03/17/2020 Seasonal allergic rhinitis due to pollen 03/17/2020 07/15/2020 Sore throat 12/31/2019 07/15/2020 Tonsillitis 12/31/2019 07/15/2020 Arthritis 04/23/2019 07/15/2020 Class 3 severe obesity due t o excess calories with body mass index (BMI) of 40.0 to 44.9 in adult 11/29/2018 07/08/2021 Congestion of both ears 03/06/201806/27 Acute non-recurrent frontal sinusitis 03/06/2018 07/15/2020 Bilateral impacted cerumen 03/06/2018 1 01/20/2019 Encounters Date Type Department Care Team Description 04/24/2025 3:20 PM EDT Office Visit [facility] [address] [place] [address] Verito Flores, TELLER HEAD-ADVERTISING ACCOUNT REPRESENTATIVE Type 2 diabetes mellitus with hyperglycemia, without long-term current use of insulin ([facility]) (Primary Dx); Generalized anxiety disorder with panic attacks; Atrial fibrillation, unspecified type ([facility]); Essential hypertension; GERD without esophagitis 04/24/2025 Travel from Last 3 Months Immunizations Immunization Administration Dates Next Due Influenza, Unspecified 09/03/2020 Family History Medical History Relation Name Comments Alpha-1 antitrypsin deficiency Father Hypertension Father Hypertension Mother Thyroid disease Mother Alpha-1 antitrypsin deficiency Paternal Aunt Alpha-1 antitrypsin deficiency Paternal Grandfather Alpha-1 antitrypsin deficiency Paternal Grandmother Alpha-1 antitrypsin deficiency Paternal Uncle 1 Alpha-1 antitrypsin deficiency Paternal Uncle 2 Alpha-1 antitrypsin deficiency Paternal Uncle 3 Alpha-1 antitrypsin deficiency Paternal Uncle 4 Relation Name Status Comments Father Alive Mother Alive Paternal Aunt Paternal Grandfather Paternal Grandmother Paternal Uncle 1 Paternal Uncle 2 Paternal Uncle 3 Paternal Uncle 4 Social History Tobacco Use Types Packs/Day Years Used Date Smoking Tobacco: Never Smokeless Tobacco: Current Chew Last attempted to quit: 2019 Tobacco Cessation:Ready to Q uit: Not Asked; Counseling Given: Not Answered Alcohol Use Standard Drinks/Week Comments Not Currently [...] Never 07/20/2021 How often do you attend jew or taoist serv ices? Never 07/20/2021 Do you belong to any clubs o r organizations such as jew groups, unions, fraternal or athletic groups, or [...] Recorded Do you need help finding a [employer] al career center and/or a training program? [...] Mass Index 45.48 04/24/2025 3:29 PM EDT Plan of Treatment Upcoming Encounters Date Type Department Care Team (Late st Contact Info) Description 10/29/2025 4:00 PM EST Office Visit [facility] [address] [place] [address] Verito Flores, TELLER HEAD-ADVERTISING ACCOUNT REPRESENTATIVE [address] [place] [phone] Health Maintenance Due Date Last Done Comments Diabetic Ophthalmology Exam 1982 Tobacco Counseling 1982 DTaP,Tdap and Td Vaccines (1 - Tdap) 2001 Influenza Vaccine 07/28/2025 10/29/2021, 09/03/2020 Diabetic Foot Exam 10/14/2025 10/14/2024, 08/16/2023 Adult BMI Follow Up Plan 04/24/2026 04/24/2025 Adult BMI Screening 04/24/2026 04/24/2025 Depression Screening 04/24/2026 04/24/2025 Tobacco Screening 04/24/2026 04/24/2025 Medical Devices Not on file Procedures Procedure Name Priority Date/Time Associated Diagnosis Comments POCT HEMOGLOBIN A1C Routine 04/24/2025 3 :35 PM EDT Type 2 diabetes mellitus with hyperglycemia, without long-term current use of insulin ([facility]) from Last 3 Months Results * POCT Hemoglobin A1c (04/24/2025 3:35 PM EDT) External Poct Hgb A1C 5.5 4 - 7 % MANUALLY TRANSCRIBED RESULTS Blood 04/24/2025 3:35 PM EDT us Verito Flores TELLER HEAD-ADVERTISING ACCOUNT REPRESENTATIVE POINT OF CARE TEST O RDERABLES Final Result MANUALLY TRANSCRIBED RESULTS from Last 3 Months Insurance [employer] Care Teams Hatchery Supervisor Relationship Specialty Start Date End Date Verito Flores, TELLER HEAD-ADVERTISING ACCOUNT REPRESENTATIVE [address] [place] [phone] PCP - General Family Medicine 12/15/17
--- OUTSIDE RECORDS SUMMARY | 2025-05-06 14:55 | XMS_ITS | Encounter Summary ---
Author Organization [employer] [facility] Address [facility] [id number] [address] [place] [address] Care Team Providers Care Tobacco Checkout Clerk Name Role Phone Flores, Verito Pate BICYCLE RENTAL CLERK-LEVER MILLER Primary Care Provid er Encounter Details Date Type Department Care Team (Late st Contact Info) Description 07/15/2021 [facility] [address] [facility] [place] [address] Jayde Craft MA Social History Tobacco Use Types Packs/Day Years Used Date Smoking Tobacco: Never Smokeless Tobacco: Former Chew Quit: 2019 Alcohol Use Standard Drinks/Week Comments Yes 0 (1 standard drink = 0.6 oz pur e alcohol) WEEKENDS PHQ-2 Answer Date Recorded Total Score 0 07/08/2021 Childcare Answer Date Recorded Childcare Unknown 05/08/2019 Employment Answer Date Recorded Employment Unknown 05/08/2019 Purpose - Life Answer Date Recorded Purpose and direction in life Unknown Sex and Gender Information Value Date Recorded Sex Assigned at Not on file Legal Sex Male 12:07 PM EDT Gender Identity Not on file Sexual Orientation Not on file COVID-19 Exposure Response Date Recorded In the last month, have you been in contact with someone who was confirmed or suspected to have Coronavirus / COVID-19? No / Unsure 07/08/2021 3:56 PM EDT documented as of this encounter Miscellaneous Notes * Telephone Encounter - Jayde Craft MA - 07/15/2021 9:03 AM EDT Pt called with symptoms of cough, hard to breath, congestion, Told to go to urgent care in [place] -covid symptoms. He agreed. * Telephone Encounter - LISA Gan - 07/15/2021 9:03 AM EDT Thank you. documented in this encounter Plan of Treatment Upcoming Encounters Date Type Department Care Team (Late st Contact Info) Description 10/29/2025 4:00 PM EST Office Visit [facility] [address] [place] [address] Verito Flores APRN-CNP [address] [place] [address] documented as of this encounter Visit Diagnoses Not on filedocumented in this encounter Additional Health Concerns Assessment Noted Time PHQ-9 Depression Total Score: 0 07/08/20 21 3:59 PM EDT A Body Mass Index follow-up plan has been documented for the patient 07/08/2021 6:37 PM EDT documented as of this encounter Care Teams Tobacco Checkout Clerk Relationship Specialty Start Date End Date Verito Flores APRN-CNP [address] [place] [address] PCP - General Family Medicine 12/15/17 documented as of this encounter
--- OUTSIDE RECORDS SUMMARY | 2025-05-06 14:55 | XMS_ITS | Encounter Summary ---
Author Organization [facility] tem Address [id number] [address] [place] [address] Care Team Providers Care Ad Setter Name Role Phone Verito Flores WATER TESTER-MOLD DUMPER Primary Care Provid er Encounter Details Date Type Department Care Team (Latest Contact Info) Description 04/24/2025 Travel Social History Tobacco Use Types Packs/Day Years [...] Never 07/20/2021 How often do you attend shinto or evangelical serv ices? Never 07/20/2021 Do you belong to any clubs o r organizations such as shinto groups, unions, fraternal or athletic groups, or [...] Do you need help finding a [facility] career center and/or a training program? No [...] Medicine - Family Medicine [address] [place] [phone] Verito Flores APRN-MOLD DUMPER [address] [place] [phone] documented as of this encounter Visit Diagnoses Not on filedocumented in this encounter Additional Health Concerns Assessment Noted Time PHQ-9 Depression Total Score: 0 04/24/20 25 3:29 PM EDT A Body Mass Index follow-up plan has been documented for the patient 04/24/2025 4:08 PM EDT documented as of this encounter Care Teams Ad Setter Relationship Specialty Start Date End Date Verito Flores APRN-MOLD DUMPER [address] [place] [phone] PCP - General Family Medicine 12/15/17 documented as of this encounter
--- OUTSIDE RECORDS SUMMARY | 2025-05-06 14:55 | XMS_ITS | Encounter Summary ---
Author Organization [facility] Sys tem Address [id number] [address] [place] [address] Care Team Providers Care Evaporator Supervisor Name Role Phone Verito Flores APRN-RIG HAND Primary Care Provid er Encounter Details Date Type Department Care Team (Late st Contact Info) Description 10/29/2024 Orders Only [facility] Internal Medicine - Family Medicine [address] [place] [address] Ref Prov, [place] [address] Social History Tobacco Use Types Packs/Day Years [...] Never 07/20/2021 How often do you attend adventism or spiritism serv ices? Never 07/20/2021 Do you belong to any clubs o r organizations such as adventism groups, unions, fraternal or athletic groups, or [...] Recorded Do you need help finding a [facility] career center and/or a training [...] Medicine - Family Medicine [address] [place] [phone] Verito Flores, MASTER CONTROL TECHNICIAN-RIG HAND [address] [place] [address] documented as of this encounter Procedures Procedure Name Priority Date/Time Associated Diagnosis Comments CT CTA CHEST Routine 10/18/2024 1:28 PM EST documented in this encounter Results * CT angiogram chest (10/18/2024 1:28 PM EST) Anatomical Region Laterality Modality Lung, Body, Chest, Vascular, Body Covera N/A Computed Tomography us Not In System Ref Prov IMG CT ORDERABLES Final R esult documented in this encounter Visit Diagnoses Not on filedocumented in this encounter Additional Health Concerns Assessment Noted Time PHQ-9 Depression Total Score: 0 10/22/20 10:57 AM EST A Body Mass Index follow-up plan has been documented for the patient 10/14/2024 5:13 PM EST documented as of this encounter Care Teams Evaporator Supervisor Relationship Specialty Start Date End Date Verito Flores, MASTER CONTROL TECHNICIAN-RIG HAND [address] [facility] [place] [address] PCP - General Family Medicine 12/15/17 documented as of this encounter
--- OUTSIDE RECORDS SUMMARY | 2025-05-06 14:55 | XMS_ITS | Encounter Summary ---
Author Organization [facility] Sys tem Address [id number] [address] [place] [address] Care Team Providers Care Treating Machine Operator Name Role Phone Verito Flores WINDOWS SERVER SPECIALIST-LIVE STUDY MANAGER Primary Care Provid er Reason for Visit * Reason Onset Date Comments Med Refill 09/12/2022 Encounter Details Date Type Department Care Team (Late st Contact Info) Description 09/12/2022 Refill [facility] Family Medicine [address] [facility] [place] [address] [place] [address] Jayde Craft MA Morbid obesity with BMI of 45.0-49.9, adult ([facility]); Type 2 diabetes mellitus with hyperglycemia, without long-term current use of insulin ([facility]) Social History Tobacco Use Types Packs/Day Years [...] Never 07/20/2021 How often do you attend restoration or sikh serv ices? Never 07/20/2021 Do you belong to any clubs o r organizations such as restoration groups, unions, fraternal or athletic groups, or [...] Medicine - Family Medicine [address] [place] [address] Verito Flores APRN-RALPH [address] [address] documented as of this encounter Visit Diagnoses Diagnosis Morbid obesity with BMI of 45.0-49.9, adult ([facility]) Type 2 diabetes mellitus with hyperglycemia, without long-term current use of insulin ([facility]) documented in this encounter Additional Health Concerns Assessment Noted Time PHQ-9 Depression Total Score: 0 04/19/20 10:46 AM EDT A Body Mass Index follow-up plan has been documented for the patient 08/08/2022 4:28 PM EDT documented as of this encounter Care Teams Treating Machine Operator Relationship Specialty Start Date End Date Verito Flores APRN-RALPH [address] [place] [phone] PCP - General Family Medicine 12/15/17 documented as of this encounter
--- OUTSIDE RECORDS SUMMARY | 2025-05-06 14:55 | XMS_ITS | Encounter Summary ---
Author Organization [email or web address] [facility] tem Address [facility] [id number] [address] [place] [address] Care Team Providers Care College Instructor Name Role Phone Verito Flores APRN-RALPH Primary Care Provid er Encounter Details Date Type Department Care Team (Late Contact Info) Description 12/07/2020 Telephone [facility] Family Medicine [address] [address] [place] [phone] Jayde Craft MA Social History Tobacco Use Types Packs/Day Years Used Date Smoking Tobacco: Never Smokeless Tobacco: Former Chew Quit: 2019 Alcohol Use Standard Drinks/Week Comments Yes 0 (1 standard drink = 0.6 oz pur e alcohol) WEEKENDS PHQ-2 Answer Date Recorded PHQ-2 Score 0 09/17/2020 Childcare Answer Date Recorded Childcare Unknown 05/08/2019 [...] Medicine - Family Medicine [address] [place] [phone] Verito Flores APRN-RADIOLOGY ASSISTANT [address] [place] [address] documented as of this encounter Visit Diagnoses Not on filedocumented in this encounter Additional Health Concerns Assessment Noted Time PHQ-9 Depression Total Score: 0 10/05/20 20 3:15 PM EST A Body Mass Index follow-up plan has been documented for the patient 10/05/2020 7:37 PM EST documented as of this encounter Care Teams College Instructor Relationship Specialty Start Date End Date Verito Flores, CAREER AND TRANSITION TEACHER-RADIOLOGY ASSISTANT [address], [facility] [place] [address] PCP - General Family Medicine 12/15/17 documented as of this encounter
--- OUTSIDE RECORDS SUMMARY | 2025-05-06 14:55 | XMS_ITS | Encounter Summary ---
Author Organization [employer] tem Address [id number] [address] [place] [address] Care Team Providers Care Cathode Ray Tube Assembler Name Role Phone Verito Flores DIRECTOR RISK-COLLAR PACKER Primary Care Provid er Reason for Visit * Reason Comments Med Refill Encounter Details Date Type Department Care Team (Late Contact Info) Description 02/10/2021 Refill [facility] Family Medicine [address] [place] [address] [place] [address] Verito Flores, DIRECTOR [facility] [address] [place] [phone] Generalized anxiety disorder with panic attacks Social History Tobacco Use Types Packs/Day Years Used Date Smoking Tobacco: Never Smokeless Tobacco: Former Chew Quit: 2019 Alcohol Use Standard Drinks/Week Comments Yes 0 (1 standard drink = 0.6 oz pur e alcohol) WEEKENDS PHQ-2 Answer Date Recorded Total Score 0 12/17/2020 Childcare Answer Date Recorded Childcare Unknown 05/08/2019 [...] - Family Medicine [address] [place] [phone] Verito Flores APRN-RALPH [address] [place] [address] documented as of this encounter Visit Diagnoses Diagnosis Generalized anxiety disorder with panic attacks documented in this encounter Additional Health Concerns Assessment Noted Time PHQ-9 Depression Total Score: 0 12/17/19 3:18 PM EST A Body Mass Index follow-up plan has been documented for the patient 12/17/2020 6:51 PM EST documented as of this encounter Care Teams Cathode Ray Tube Assembler Relationship Specialty Start Date End Date Verito Flores APRN-RALPH [address] [place] [place] [address] PCP - General Family Medicine 12/15/17 documented as of this encounter
--- OUTSIDE RECORDS SUMMARY | 2025-05-06 14:55 | XMS_ITS | Clinical Summary ---
Author Organization [facility] Address [address] [place] [address] Care Team Providers Care Patient Support Representative Name Role Phone Verito Flores MD Primary Care Provider [phone]- [phone] Allergies Active Allergy Reactions Criticality Noted Date [...] of 45.0 to 49.9 in adult 07/11/2017 Encounters Date Type Department Care Team Description 04/29/2025 3:30 PM EDT Follow-Up [place] [address] [facility] [place] [address] Brian Summers MD Paroxysmal atrial fibrillation (CMS/HCC) 04/29/2025 Orders Only [facility] [address] [place] [address] ProviderAb MD 03/18/2025 3:30 PM EDT Office Visit [facility] [address] [facility] [place] [address] Brian Summers MD Paroxysmal atrial fibrillation (CMS/HCC) (Primary Dx) from Last 3 Months Family History Medical History Relation Name Comments enlarged heart Father Heart attack Father's Brother Relation Name Status Comments Brother Alive Father Father's Brother Mother Alive Sister Alive Social History Tobacco Use Types Packs/Day Years [...] Description 05/22/2025 12:30 PM EDT Hospital Encounter [facility] [address] [place] [phone] Brian Summers MD [address] [place] [address] Paroxysmal atrial fibrillation (CMS/HCC) 05/22/2025 12:30 PM EDT - 05/22/2025 3:30 PM EDT Surgery [facility] [address] [place] [address] Brian Summers MD [address] [place] [address] Ablation a-fib paroxysmal [[id number]] 05/22/2025 12:30 PM EDT Appointment [facility] [address] [place] [address] Health Maintenance Due Date Last Done Comments Diabetes: Hemoglobin A1C 1982 Diabetes: Retinopathy Screening 1992 Depression Screening 1994 Varicella Vaccines (1 of 2 - 13+ 2-dose series) 1995 Diabetes: Urine Protein Screening 2001 Hepatitis B Vaccines (1 of 3 - 19+ 3-dose series) 2001 Adult Tetanus 2004 COVID-19 Vaccine ( - 2023-2 5 season) 2024 11/30/2021, 11/04/2021 Influenza Vaccine (Season Ended) 2025 10/29/2021, 09/03/2020 Zoster Vaccines (1 of 2) 2032 HIB Vaccines Aged Out No longer eligi ble based on patient's age to complete this topic HPV Vaccines Aged Out No longer eligi ble based on patient's age to complete this topic IPV Vaccines Aged Out No longer eligi ble based on patient's age to complete this topic Meningococcal B Vaccine Aged Out No l onger eligible based on patient's age to complete this topic Meningococcal Vaccine Aged Out No donta clarisa eligible based on patient's age to complete this topic Pneumococcal Vaccine: Pediatrics (0 to 5 Years) and At-Risk Patients (6 to 64 Years) Aged Out No longer eligible b ased on patient's age to complete this topic Rotavirus Vaccines Aged Out No longer eligible based on patient's age to complete this topic Procedures Procedure Name Priority Date/Time Associated Diagnosis Comments CARDIAC EVENT MONITOR Routine 03/18/2025 5:11 PM EDT from Last 3 Months Results * Cardiac event monitor (03/18/2025 5:11 PM EDT) Anatomical Region Laterality Modality Other Historical Provider CV CARDIAC SERVIC ES PROCEDURES from Last 3 Months Care Teams Patient Support Representative Relationship Specialty Start Date End Date Verito Flores MD [address], [place] [phone] PCP - General Family Medicine 11/11/24
[2025-05-06 15:26] LABS: Basophils Percent Auto 0.3 % (0.2-2.0); Eosinophils Absolute Auto 0.1 10^3/uL (0.0-0.7); Eosinophils Percent Auto 1.3 % (0.9-7.0); Hematocrit 43.2 % (42.0-54.0); Hemoglobin 14.6 g/dL (14.0-18.0); Immature Granulocytes Abs Auto 0.02 10^3/uL (0.00-0.03); Immature Granulocytes Pct Auto 0.3 % (0.0-0.5); Lymphocytes Absolute Auto 1.2 10^3/uL (1.2-3.8); Lymphocytes Percent Auto 20.2 % (20.5-60.0); Mean Corpuscular HGB Conc 33.8 g/dL (29.9-35.2); Mean Corpuscular Hemoglobin 30.7 pg (25.9-34.0); Mean Corpuscular Volume 90.9 fL (80.0-94.0); Mean Platelet Volume 11.1 fL (9.5-13.5); Monocytes Absolute Auto 0.4 10^3/uL (0.3-0.8); Monocytes Percent Auto 6.8 % (1.7-12.0); Neutrophils Absolute Auto 4.3 10^3/uL (1.4-6.5); Neutrophils Percent Auto 71.1 % (43.0-75.0); Platelet Count 240 10^3/uL (150-450); Red Blood Count 4.75 10^6/uL (4.70-6.10); Red Cell Distribution Width 12.9 % (11.0-15.0); White Blood Count 6.1 10^3/uL (4.0-11.0)
[2025-05-06 15:51] LABS: Anion Gap 15.4; BUN Creatinine Ratio 20.2; Calcium 9.2 mg/dL (8.5-10.1); Carbon Dioxide 25.6 mmol/L (21.0-32.0); Chloride 106 mmol/L (98-107); Estimated GFR (African America >60 (>=60 mL/min/1.73m^2); Estimated GFR (Non-African Ame >60 (>=60 mL/min/1.73m^2); Glucose 113 mg/dL (74-106); Sodium 143 mmol/L (136-145)
== END 2025-05-06 14:51 | disposition home or self-care (01) ==
LOC: LAB 14:52
PROVIDERS: PCP Nurse Practitioner; Visit Provider Internal Medicine Cardiovascular Disease
DX: I48.0 Paroxysmal atrial fibrillation (principal)
CPT/HCPCS: 36415; 80048; 85025

== ENCOUNTER 2025-10-21 12:41 | Outpatient (OUT) | payer BC, SELFPAY ==
--- OUTSIDE RECORDS SUMMARY | 2025-10-21 12:46 | XMS_ITS | CCD ---
Author Organization [facility] Care Team Providers Care Body Former Name Role Phone SVEN FLORES Attending Unavailable SVEN FLORES Admitting Unavailable SVEN FLORES Attending Unavailable ANDERSON, SVEN Admitting Unavailable CARLOS NEUMANN Attending Unavailable CARLOS NEUMANN Consulting Unavailable CARLOS NEUMANN Primary Care Unavailable CARLOS NEUMANN Admitting Unavailable SVEN FLORES Referring Unavailable FLORESBREE CARLTONERIE Rio Primary Care Unavailable Flores VIROLOGY TEACHER-JACKERSven Primary Care Provid er Flores VIROLOGY TEACHER-JACKER, Sven J Primary Care Provid er SVEN FLORES Attending Unavailable FLORESLORENA CARLTONE Rio Referring Unavailable FLORES, SVEN Rio Primary Care Unavailable SVEN FLORES Attending Unavailable FLORESSVEN CARLTON Referring Unavailable FLORES, SVEN Rio Primary Care Unavailable SVEN FLORES Attending Unavailable FLORESLORENA CARLTONE Rio Referring Unavailable FLORES, SVEN Rio Primary Care Unavailable Flores VIROLOGY TEACHER-JACKER, Sven Rio Primary Care Provid er Carla VIROLOGY TEACHER-JACKERSal Primary Care Provider BRIAN SUMMERS Referring Unavailable ZANDER PARKINSON Attending Unavailable BRIAN SUMMERS Attending Unavailable BRIAN SUMMERS Attending Unavailable BRIAN SUMMERS Attending Unavailable BRIAN SUMMERS Attending Unavailable BRIAN SUMMERS Referring Unavailable BRIAN SUMMERS Admitting Unavailable BRIAN SUMMERS Attending Unavailable Allergies Allergy ClassificationReported Allergen(s)Allergy TypeDate of OnsetReaction(s) Facility (7 sources)metFORMIN; Translations: [METFORMIN]Drug Nuibtlw31-08-6388SDH[facility] Medications Current Medications MedicationDrug Class(es)DatesSig (Normalized)Sig (Original)amLODIPine 10 mg oral tablet (20 sources)Dihydropyridine Calcium Channel BlockerStart: 11-28-2024 End: 07-20-4387lqut 1 tablet by mouth once daily in the morningamLODIPine (NORVASC) 10 mg tablet Indications: Essential hypertension TAKE 1 TABLET BY MOUTH ONCE DAILY IN THE MORNING 90 tablet 2 05/16/2025 ActiveStart: 05-24-2024 take 5 mg by mouth once dailyAmlodipine Active 5 MG PO Daily May 24, 2024 12:00amStart: 08-16-2023 End: 56-68-0802pevz 1 tablet by mouth in the morningamLODIPine (NORVASC) 10 mg tablet Indications: Essential hypertension TAKE 1 TABLET BY MOUTH IN THEMORNING 90 tablet 2 10/14/2024 10/22/2024 Discontinued (Therapy completed)amoxicillin 875 mg / clavulanate 125 mg oral tablet (1 source)Penicillin-class AntibacterialStart: 96-46-3073cjfx 1 tablet by mouth every twelve hoursAmoxicillin-Pot Clavulanate Active 1 TAB PO Every 12 hours 15 09May 24, 2024 12:00amapixaban 5 mg oral tablet (12 sources)Factor Xa InhibitorStart: 10-19-2024 End: 43-63-9985ydwu 1 tablet by mouth at bedtime, then take 1 tablet by mouth twice daily at bedtimeELIQUIS 5 mg tablet Indications: Atrial fibrillation, unspecified type ([facility]) Take 1 tablet (5 mg total) by mouth in the morning and at bedtime. TAKE 1 TABLET BY MOUTH TWICE DAILY (IN THE MORNING AND AT BEDTIME) 180 tablet 06/04/2025 Activeblood-glucose meter kit (4 sources)Start: 10-79-4219fqfpm-glucose meter kit Indications: Type 2 diabetes mellitus with hyperglycemia, without long-termcurrent use of insulin ([facility]) Use as instructed 1 each 0 07/26/2022 ActivebusPIRone hydrochloride 15 mg oral tablet (20 sources)Start: 10-14-2024 End: 04-43-4855uuea 1 tablet by mouth three times dailybusPIRone (BUSPAR) 15 mg tablet Indications: Generalized anxiety disorder with panic attacks TAKE 1TABLET BY MOUTH THREE TIMES A DAY 270 tablet 1 04/24/2025 ActiveStart: 09-12-2023 End: 28-60-6331rcae 1 tablet by mouth three times dailybusPIRone (BUSPAR) 10 mg tablet Indications: Generalized anxiety disorder with panic attacks TAKE 1TABLET BY MOUTH THREE TIMES A DAY 270 tablet 1 03/27/2024 10/14/2024 Discontinued (Reorder)FLUoxetine 20 mg oral tablet (20 sources)Serotonin Reuptake InhibitorStart: 76-30-5816Owdhfbbozo Active MG PO May 24, 2024 12:00amStart: 03-27-2024 End: 35-14-4019ntdd 1 tablet by mouth in the morningFLUoxetine (PROzac) 20 MG tablet Indications: Generalized anxiety disorder with panic attacks Take 1 tablet (20 mg total) by mouth in the morning. 90 tablet 2 04/24/2025 Active Start: 03-13-2024 End: 31-20-0437ncpw 1 capsule by mouth once dailyFLUoxetine (PROzac) 10 mg capsule TAKE 1 CAPSULE BY MOUTH DAILY 03/13/2024 03/27/2024 Discontinued (Dose adjustment)Start: 12-28-2023 End: 76-95-6037niep 1 capsule by mouth once dailyFLUoxetine (PROzac) 20 mg capsule Indications: Generalized anxiety disorder with panic attacks TAKE1 CAPSULE BY MOUTH EVERY DAY 90 capsule 1 12/28/2023 03/27/2024 Discontinued (Therapy completed)Start: 08-16-2023 End: 66-31-2432goru 1 capsule by mouth once dailyFLUoxetine (PROzac) 10 mg capsule Indications: Generalized anxiety disorder with panic attacks TAKE1 CAPSULE BY MOUTH EVERY DAY 90 capsule 1 12/13/2023 12/28/2023 Discontinued (Reorder)lisinopril 5 mg oral tablet (1 source)Angiotensin Converting Enzyme InhibitorStart: 95-90-2711jmwo 5 mg by mouth once dailyLisinopril Active 5 MG PO Daily May 24, 2024 12:00amLORazepam 0.5 mg oral tablet (3 sources)BenzodiazepineStart: 12-28-2023 End: 78-51-6696tnbv 1 tablet by mouth once as neededLORazepam (ATIVAN) 0.5 mg tablet Indications: Generalized anxiety disorder with panic attacks Take 1 tablet (0.5 mg total) by mouth every 12 (twelve) hours as needed for anxiety for up to 14 days. 28tablet 0 12/28/2023 01/11/2024 Activemetoprolol tartrate 25 mg oral tablet (11 sources)beta-Adrenergic BlockerStart: 01-64-3965udyc 1 tablet by mouth in the morning, then take 1 tablet by mouth at bedtimemetoprolol tartrate (LOPRESSOR) 25 mg tablet Indications: Atrial fibrillation, unspecified type (CMS -HCC) , Essential hypertension Take 1 tablet (25 mg total) by mouth in the morning and 1 tablet (25mg total) before bedtime. 180 tablet 1 05/19/2025 Active Start: 10-19-2024 End: 28-90-1786mzgu 1 tablet by mouth in the morning, then take 1 tablet by mouth at bedtimemetoprolol tartrate (LOPRESSOR) 25 mg tablet Indications: Atrial fibrillation, unspecified type (CMS-HCC) , Essential hypertension Take 1 tablet (25 mg total) by mouth in the morning and 1 tablet (25mg total) before bedtime. 180 tablet 1 04/24/2025 Activepantoprazole 40 mg delayed release oral tablet (20 sources)Proton Pump InhibitorStart: 10-11-9193Qnqqyeipgkyt Active MG PO May 24, 2024 12:00amStart: 09-12-2023 End: 55-48-7801fsrz 1 tablet by mouth once daily before breakfastpantoprazole (PROTONIX) 40 mg EC tablet Indications: GERD without esophagitis Take 1 tablet (40 mg total) by mouth every morning before breakfast. 90 tablet 2 04/24/2025 Activesemaglutide (OZEMPIC) 2 mg/dose (8 mg/3 mL) pen injector (20 sources)Start: 86-52-6476rwytwqvipot (OZEMPIC) 2 mg/dose (8 mg/3 mL) pen injector Indications: Type 2 diabetes mellitus withhyperglycemia, without long- term current use of insulin (CMS-HCC) INJECT 2mg SUBCUTANEOUSLY EVERY 7DAYS 3 mL 2 08/05/2025 ActiveStart: 01-14-2025 End: 41-78-1265aahsuevvhfm (OZEMPIC) 2 mg/dose (8 mg/3 mL) pen injector Indications: Type 2 diabetes mellitus withhyperglycemia, without long-term current use of insulin (CMS-HCC) INJECT 2mg SUBCUTANEOUSLY EVERY 7DAYS 3 mL 6 01/14/2025 08/05/2025 Discontinued (Reorder)Start: 18-02-5708wtigaifdlzp (OZEMPIC) 2 mg/dose (8 mg/3 mL) pen injector Indications: Type 2 diabetes mellitus withhyperglycemia, without long-term current use of insulin (CMS-HCC) INJECT 2mg SUBCUTANEOUSLY EVERY 7DAYS 3 mL 6 01/14/2025 ActiveStart: 07-19-2024 End: 39-19-7910oslhxspoeun (OZEMPIC) 2 mg/dose (8 mg/3 mL) pen injector Indications: Type 2 diabetes mellitus withhyperglycemia, without long-term current use of insulin (CMS-HCC) INJECT 2mg SUBCUTANEOUSLY EVERY 7DAYS 3 mL 6 07/19/2024 01/14/2025 Discontinued (Reorder)Start: 23-24-6169dhknnmywrrc (OZEMPIC) 2 mg/dose (8 mg/3 mL) pen injector Indications: Type 2 diabetes mellitus withhyperglycemia, without long-term current use of insulin (CMS-HCC) INJECT 2mg SUBCUTANEOUSLY EVERY 7DAYS 3 mL 6 07/19/2024 ActiveStart: 03-27-2024 End: 81-90-9285bifmolsbmmo (OZEMPIC) 2 mg/dose (8 mg/3 mL) pen injector Indications: Type 2 diabetes mellitus withhyperglycemia, without long-term current use of insulin (CMS-HCC) INJECT 2mg SUBCUTANEOUSLY EVERY 7DAYS 3 mL 3 03/27/2024 07/19/2024 DiscontinuedStart: 77-65-9287fvywduzgofn (OZEMPIC) 2 mg/dose (8 mg/3 mL) pen injector Indications: Type 2 diabetes mellitus with hyperglycemia, without long-term current use of insulin (CMS-HCC) INJECT 2mg SUBCUTANEOUSLY EVERY 7DAYS 3 mL 3 03/27/2024 ActiveStart: 02-12-2024 End: 92-82-7791xjvojfnfqjw (OZEMPIC) 2 mg/dose (8 mg/3 mL) pen injector Indications: Type 2 diabetes mellitus withhyperglycemia, without long-term current use of insulin (CMS-HCC) INJECT 2mg SUBCUTANEOUSLY EVERY 7DAYS 3 mL 3 02/12/2024 03/27/2024 Discontinued (Reorder)Start: 85-10-4378wkiicgeqiqt (OZEMPIC) 2 mg/dose (8 mg/3 mL) pen injector Indications: Type 2 diabetes mellitus withhyperglycemia, without long-term current use of insulin (CMS-HCC) INJECT 2mg SUBCUTANEOUSLY EVERY 7DAYS 3 mL 3 02/12/2024 ActiveStart: 08-16-2023 End: 24-09-7894vblsonteqrv (OZEMPIC) 2 mg/dose (8 mg/3 mL) pen injector Indications: Type 2 diabetes mellitus withhyperglycemia, without long-term current use of insulin (CMS-HCC) Inject 2 mg under the skin every 7 days. 3 mL 3 08/16/2023 02/12/2024 DiscontinuedStart: 66-34-4908ccynocrosho (OZEMPIC) 2 mg/dose (8 mg/3 mL) pen injector Indications: Type 2 diabetes mellitus with hyperglycemia, without long-term current use of insulin (CMS-HCC) Inject 2 mg under the skin every 7 days. 3 mL 3 08/16/2023 Active Completed/Discontinued Medications MedicationDrug Class(es)DatesSig (Normalized)Sig (Original)hydroCHLOROthiazide 12.5 mg / lisinopril 20 mg oral tablet (14 sources)Thiazide Diuretic, Angiotensin Converting Enzyme InhibitorStart: 08-16-2023 End: 00-59-9207weag 1 tablet by mouth once dailylisinopril-hydroCHLOROthiazide (PRINZIDE,ZESTORETIC) 20-12.5 mg per tablet Indications: Essential hypertension take 1 tablet by mouth daily 90 tablet 2 08/01/2024 10/22/2024 Discontinued (Therapy completed)isopropyl alcohol 0.7 ml/ml medicated pad (17 sources)Start: 07-26-2022 End: 13-44-9725cbhbrru swabs (ALCOHOL PREP PADS) pads, medicated Indications: Type 2 diabetes mellitus with hyperglycemia, without long-term current use of insulin (CMS-HCC) Apply 1 Pad. topically in the morning and at bedtime. 60 each 6 01/02/2024 04/24/2025 Discontinued (Therapy completed)24 hr metFORMIN hydrochloride 750 mg extended release oral tablet (1 source)BiguanideStart: 07-26-2022 End: 36-75-2282lqka 1 tablet by mouth every twenty-four hours in the morning, then take 1 tablet by mouth at mealtimemetFORMIN XR (GLUCOPHAGE XR) 750 mg 24 hr tablet Indications: Type 2 diabetes mellitus with hyperglycemia, without long- term current use of insulin ([facility]) Take 1 tablet (750 mg total) by mouth in t he morning and 1 tablet (750 mg total) in the evening. Take with meals. 180 tablet 1 07/26/2022 12/13/2023 Discontinued (Patient Stopped On Own)OZEMPIC 2 mg/dose (8 mg/3 mL) pen injector (2 sources)Start: 02-12-2024 End: 67-51-8872RGSJNYE 2 mg/dose (8 mg/3 mL) pen injector Indications: Type 2 diabetes mellitus with hyperglycemia, without long-term current use of insulin ([facility]) INJECT 2mg SUBCUTANEOUSLY EVERY 7 DAYS 3 mL 3 02/12/2024 02/12/2024 Discontinued (Reorder)semaglutide (OZEMPIC) 1 mg/dose (4 mg/3 mL) pen injector (2 sources)Start: 09-18-2023 End: 38-94-0052rmqtudpffho (OZEMPIC) 1 mg/dose (4 mg/3 mL) pen injector Inject 2 mg under the skin every 7 days. Inject two pens weekly to equal 2 mg until the 2 mg dose is available 6 mL 4 09/18/2023 12/28/2023 Discontinued (Therapy completed)Start: 76-79-2042xhretthayyb (OZEMPIC) 1 mg/dose (4 mg/3 mL) pen injector Inject 2 mg under the skin every 7 days. Inject two pens weekly to equal 2 mg until the 2 mg dose is available 6 mL 4 09/18/2023 Active Problems Active Problems Problem ClassificationProblemDateDocumented DateEpisodic/ChronicAnxiety disorders (20 sources)Generalized anxiety disorder; Translations: [Generalized anxiety disorder]Onset: 693017-53-2930PdqpiqvBzzbirv dysrhythmias (7 sources)Atrial fibrillation; Translations: [Unspecified atrial fibrillation] Onset: 349163-73-0380WxzstjcQojrifxa mellitus with complications (11 sources)Type 2 diabetes mellitus; Translations: [Type 2 diabetes mellitus with hyperglycemia]Onset: 888805-12-3171QuhxmajOuscyinu mellitus without complication (1 source)Diabetes mellitusOnset: 73-84-0387MnorqtjGstbprqbf of lipid metabolism (20 sources)Hyperlipidemia; Translations: [Hyperlipidemia, unspecified] 52-54-7273CdmvoziDkouvyheun disorders (6 sources)Gastroesophageal reflux disease without esophagitis; Translations: [Gastro-esophageal reflux disease without esophagitis]Onset: 10-14-2024 46-83-5543CkgdyalMamavxxks hypertension (20 sources)Essential hypertension; Translations: [Essential (primary) hypertension]Onset: 957315-13-6961NtktynaJrkxjlmjpdlke and screening for infectious disease (4 sources)Contact with and (suspected) exposure to other viral communicable diseases; Translations: [CONTCT EXPS OTH VIRL COMMUNICABL DZ]Onset: 07-16-2021 EpisodicOther circulatory disease (2 sources)Personal history of other diseases of the circulatory system; Translations: [Personal history of other diseases of the circulatory system] Onset: 09-70-9522IqqmywbyJlfce nutritional; endocrine; and metabolic disorders (20 sources)Body mass index 40+ - severely obese; Translations: [Morbid (severe) obesity due to excess calories]Onset: 585934-17-6971WvlatkdNzcfzm media and related conditions (2 sources)Otitis media of left ear; Translations: [Unspecified nonsuppurative otitis media, left ear]02-98-8820TahyieooKajbpugf codes; unclassified (4 sources)Obstructive sleep apnea (adult) (pediatric); Translations: [OBSTRUCTIVE SLEEP APNEA]Onset: 42-83-6112OlvvcreQkcxbjcz codes; unclassified (20 sources)Feeling agitated; Translations: [Restlessness and agitation]Onset: 045268-55-0516PggvbamGupssrpy codes; unclassified (2 sources)Other specified postprocedural states; Translations: [Other specified postprocedural states]Onset: 12-72-6622Syvazabj Past or Other Problems Problem ClassificationProblemDateDocumented DateEpisodic/ChronicAcute and chronic tonsillitis (20 sources)Tonsillitis; Translations: [Acute tonsillitis, unspecified]Onset: 12-31-2019 Resolved: 982608-97-6227ZcllobdrRoua disorders (20 sources)Mood disordersOnset: 10-22-2024 Resolved: 542691-92-1315Arzigaziblmulr (20 sources)Arthritis; Translations: [Unspecified osteoarthritis, unspecified site]Onset: 04-23-2019 Resolved: 145704-99-4992AhwosulYthrc connective tissue disease (20 sources)Lateral epicondylitis of right humerus; Translations: [Lateral epicondylitis, right elbow]Onset: 10-05-2020 Resolved: 471627-82-0230MchryttbGwvom ear and sense organ disorders (20 sources)Sensation of blocked ear; Translations: [Other specified disorders of ear, bilateral]Onset: 03-06-2018 Resolved: 642300-29-5591ImymoekmGayuk ear and sense organ disorders (20 sources)Impacted cerumen of bilateral ears; Translations: [Impacted cerumen, bilateral]Onset: 03-06-2018 Resolved: 483714-74-0437BeowjpksArqbz nutritional; endocrine; and metabolic disorders (20 sources)Severe obesity; Translations: [Class 3 severe obesity due to excess calories with body mass index (BMI) of 40.0 to 44.9 in adult]Onset: 11-29-2018 Resolved: 467378-00-4259VqlbxjiSpkuq screening for suspected conditions (not mental disorders or infectious disease) (20 sources)Patient encounter status; Translations: [Encounter for screening for malignant neoplasm of prostate]Onset: 318790-89-3867GzpbogblWfxjl upper respiratory disease (20 sources)Allergic rhinitis due to pollen; Translations: [Allergic rhinitis due to pollen]Onset: 03-17-2020 Resolved: 722387-78-2791GuqumizIcayk upper respiratory infections (20 sources)Nasopharyngitis; Translations: [Acute nasopharyngitis [common cold]] Onset: 03-06-2018 Resolved: 177348-94-4861XulchiswJaodxbil codes; unclassified (20 sources)Family history of prostate cancer; Translations: [Family history of malignant neoplasm of prostate]Onset: 991531-41-5244XbunhzcdLryuwizr codes; unclassified (20 sources)Family history of ipenc-2-vujjuzghbgy deficiency; Translations: [Family history of other endocrine,nutritional and metabolic diseases]Onset: 002086-52-1535WvxygfenEosoizwuqnpb (20 sources)Onset: 10-14-2024 Resolved: Results Test NameValueInterpretationReference RangeFacilityOffice Visiton 09-23-2025 Follow-up [id number] Gelacio Smith 1980 M Date Provider Department Center 09/23/2025 BRIAN SEGURA HECTOR [facility] Family History Problem Relation Age of Onset Other Father Heart attack Father's Brother Family Status - Relation Status Age at Mother Alive Father Sister Alive Brother Alive Father's Brother Level of Service:06536 CT OFFICE/OUTPATIENT ESTABLISHED LOW [facility] 20 MIN Reason for Visit and Comments: Follow-up [034070] - Patient is here today per Suzi Woodson request. For A-Fib management. Patient denies chest pain, SOB/GARZA, fatigue, Patient states when he has anxiety he feels like he's in A-Fib Hypertension [234193] Atrial Fibrillation [80] Palpitations [954061] - Palpitations/racing heartNormalUniversity of [facility]rick Medical Center BrownwoodOrders Onlyon 76-10-9779Cytsdc [id number] Gelacio Smith 1980 M Date Provider Department Center 06/23/2025 [id number], HISTORICAL HECTOR [facility] Family History Problem Relation Age of Onset Other Father Heart attack Father's Brother Family Status - Relation Status Age at Mother Alive Father Sister Alive Brother Alive Father's BrotherNormalUniversity of [facility] BrownwoodFollow-Upon 06-19-2025 Follow-[id number] Gelacio Smith 1980 M Date Provider Department Center 06/19/2025 ZANDER MCKEON HECTOR [facility] Family History Problem Relation Age of Onset Other Father Heart attack Father's Brother Family Status - Relation Status Age at Mother Alive Father Sister Alive Brother Alive Father's Brother Level of Service:51412 CT OFFICE/OUTPATIENT ESTABLISHED HIGH MDM 40 MIN Reason for Visit and Comments: Atrial Fibrillation [80]NormalUnFayette County Memorial HospitalTelephoneon [id number] Gelacio Smith Anton 1980 M Date Provider Department Center 06/13/20251986-JENISE KIMBROUGH [facility] [place] [facility] Family History Problem Relation Age of Onset Other Father Heart attack Father's Brother Family Status - Relation Status Age at Mother Alive Father Sister Alive Brother Alive Father's Brother Reason for Visit and Comments: f/u post ablation [Other]NormalUnFayette County Memorial HospitalBILIRUBIN, DIRECTon 21-17-2436Rkbflwtjt [Mass/Vol]0.2 mg/dLNormal0-0.2UnFayette County Memorial HospitalComment on above:Performed By: #### [id number] #### [facility] (BEAKER) [address] [place], [place] [address]MGIDJNQSR, TOTALon 63-79-2413Jzcppqzfp [Mass/Vol]0.8 mg/dLNormal 0.3-1.0UnFayette County Memorial HospitalComment on above:Performed By: #### [id number] ####[facility] ([facility] [place], [place] [address]YQBIGPEDCO on 49-76-0009Hhxmnwciww (Bld) [Mass/Vol]13.0 g/zVVtrcue34.0-17.0UnFayette County Memorial HospitalComment on above:Performed By: #### [id number] #### [facility] ([facility] [address] [place], [place] [address]GGNC SENSITIVITY TROPONIN Ion 63-34-8299SE TROPONIN I (NG/L)677 ng/LCritically high<20UnFayette County Memorial HospitalComment on above: Performed By: #### [id number] #### [facility] ([facility]) [address] [place], [place] [address]GYux 92-53-3242WPEN Electrophysiology Consult Note [facility] Reason for visit: afib 05/22/25 Pt here for Afib ablation 04/29/25 Patient is here today for H [...] feels his HR going fast. Prior HPI: Gelacio Smith is a 44 y.o. year old with past medical history of type 2 diabetes mellitus on Ozempic, new onset atrial fibrillation. Patient was recently at work when he felt the sensation of a fluttering heart beat. He spoke to the nurse at work who suggested he go to [...] Past Medical History: Diagnosis Date Abnormal ECG Afib ([facility]/HCC) Anxiety Arrhythmia Atrial fibrillation ([facility]/HCC) Depression Diabetes mellitus (CMS/HCC) GERD (gastroesophageal reflux disease) Hyperlipidemia Hypertension Left otitis media with effusion Obesity PSH: Past Surgical History: Procedure Laterality Date FINGER SURGERY SH: Social Drivers of Health Tobacco Use: High Risk (05/22/2025) Patient History Smoking Tobacco Use: Never Smokeless Tobacco Use: Current Passive Exposure: Not on file Alcohol Use: Alcohol Misuse (07/20/2021) Received from [employer] AUDIT-C Frequency of Alcohol Consumption: 2-3 times a week Average Number of Drinks: 1 or 2 Frequency of Binge Drinking: Monthly Financial Resource Strain: Low Risk (12/28/2023) Received from [employer] Overall Financial Resource Strain (CARDIA) Difficulty of Paying Living Expenses: Not hard at all Food Insecurity: No Food Insecurity (04/24/2025) Received from [employer] Hunger Screening Within the past 12 months we worried whether our food would run out before we got money to buy more.: Never True Within the past 12 months the food we bought just didn't last and we didn't have money to get more.: Never True Transportation Needs: No Transportation Needs (12/28/2023) [facility] - Transportation Lack of Transportation (Medical): No Lack of Transportation (Non-Medical): No Physical Activity: Inactive (07/20/2021) [facility] Exercise Vital Sign Days of Exercise per Week: 2 days Minutes of Exercise per Session: 0 min Stress: Not on file Social Connections: Moderately Isolated (07/20/2021) Received from [facility] Social Connection and Isolation Panel [NHANES] Frequency of Communication with Friends and Family: Twice a week Frequency of Social Gatherings with Friends and Family: Never Attends Congregation Services: Never Active Member of Clubs or Organizations: Yes Attends Club or Organization Meetings: Patient declined Marital Status: Intimate Partner Violence: Not on file Depression: Not at risk (04/24/2025) [facility] PHQ-2 Total Score: 0 Housing Stability: Low Risk (12/28/2023) [facility] Housing Instability Are you worried or concerned that in the next two months you may not have stable housing that you own, rent or stay in as a part of a household?: No Utilities: Not on file Health Literacy: Not on file Allergies: Allergies Allergen Reactions Metformin GI intolerance Weight: 161kg Visit Vitals BP 164/84 Pulse 78 Temp 36.5 ???C (97.7 ???F) Resp 15 Ht 1.854 m (6' 1 ) Wt (!) 158 kg (349 lb 3.3 oz) SpO2 99% BMI 46.07 kg/m??? Smoking Status Never BSA 2.85 m??? Meds: No current facility-administered medications on file prior to encounter. Current Outpatient Medications on File Prior to Encounter Medication Sig Dispense Refill amLODIPine (Norvasc) 10 mg tablet Take 10 mg by mouth in the morning. Eliquis 5 mg tablet Take 5 mg by mouth twice a day. FLUoxetine (PROzac) 20 mg tablet Take 20 mg by mouth in the morning. lisinopriL-hydrochlorothiazide 20-12.5 mg tablet Take 1 tablet by mouth in the morning. metoprolol tartrate [...] the morning. (Patient not taking: Reported on 05/22/2025) 146 tablet 0 Physical Exam: Constitution (more content not included)...NormalUnFayette County Memorial HospitalLACTATE DEHYDROGENASEon 96-12-9178HEWCRQJ DEHYDROGENASE (U/L) IN SER/PLAS BY LAC->PYR FIG864 U/KOxicug798-021DkhsbtyegdFayette County Memorial HospitalComment on above:Performed By: #### [id number] #### [facility] (BEAKER) [address] [place], [place] [address]Ersmfl Onlyon 98-54-9296Imooko [id number] Gelacio Smith 1980 M Date Provider Department Center 05/22/20251986-[facility] [place] HeartVAS Family History Problem Relation Age of Onset Other Father Heart attack Father's Brother Family Status - Relation Status Age at Mother Alive Father Sister Alive Brother Alive Father's BrotherNormalUniversity Children's Hospital for RehabilitationPOCT GLUCOSE METER UNSOLICITED RESULTSon 64-46-2004Frtnvdi [Mass/Vol]105 mg/vVItadjg71-[address] [facility] Warren HospitalComment on above:Order Comment: Waived Testing in the ED is performed under the ED CLIA certificate #[id number].Result Comment: epawlowPerformed By: #### [id number] #### [facility] ([facility]) [address] [place], [place] [address]LVYLOLW-RSDrt 74-67-6544RVT IN PPP BY COAGULATION ASSAY0.99 Normal0.90-1.10UnFayette County Memorial HospitalComment on above:Result Comment: ACCCP RECOMMENDED INR FOR WARFARIN THERAPY CONDITION INR PROPHYLAXIS OF VENOUS THROMBOSIS 2-3 (HIGH-RISK SURGERY) TREATMENT OF VENOUS THROMBOSIS 2-3 TREATMENT OF PULMONARY EMBOLISM 2-3 PREVENTION OF SYSTEMIC EMBOLISM: 2-3 ACUTE MYOCARDIAL INFARCTION TISSUE HEART VALVES VALVULAR HEART DISEASE ATRIAL FIBRILLATION RECURRENT SYSTEMIC EMBOLISM MECHANICAL HEART VALVE 2.5-3.5 FROM: ORAL ANTICOAGULANTS. MECHANISM OF ACTION, CLINICAL EFFECTIVENESS, AND OPTIMAL THERAPEUTIC RANGE. CHEST 1995;108:231S-246S.Performed By: #### [id number] #### [facility] ([facility]) [address] [place], [place] [address]SQSVTLCPMCS TIME (PT) IN PPP BY COAGULATION ASSAY13.1 Seconds Hdhwxw54.3-14.8[facility] Joseph Warren HospitalComment on above:Performed By: #### [id number] #### [facility] ([facility]) [address] [place], [place] [address]Zxuo for Procedureon 58-66-4097Kyax for [id number] Gelacio Smith 1980 M Date Provider Department Center 05/22/20251986[facility] Family History Problem Relation Age of Onset Other Father Heart attack Father's Brother Family Status - Relation Status Age at Mother Alive Father Sister Alive Brother Alive Father's BrotherNormalUniversity of Hendrick Medical Center BrownwoodOrders Onlyon 33-01-8748Riljwz [id number] Gelacio Smith 1980 M Date Provider Department Center 05/21/2025 JERED CASTRO [facility] [place] Medical C Family History Problem Relation Age of Onset Other Father Heart attack Father's Brother Family Status - Relation Status Age at Mother Alive Father Sister Alive Brother Alive Father's BrotherNormalUniversRiverside Methodist HospitalFollow-Upon 04-29-2025 Follow-[id number] Gelacio Smith 1980 M Date Provider Department Center 04/29/2025 BRIAN SEGURA Family History Problem Relation Age of Onset Other Father Heart attack Father's Brother Family Status - Relation Status Age at Mother Alive Father Sister Alive Brother Alive Father's Brother Level of Service:28941 CT OFFICE/OUTPATIENT ESTABLISHED HIGH MDM 40 [facility] TownshipOrders Onlyon 35-63-4089Ydhqpa [id number] Gelacio Smith 1980 M Date Provider Department Center 04/29/2025 [id number], JUSTYN [facility] Family History Problem Relation Age of Onset Other Father Heart attack Father's Brother Family Status - Relation Status Age at Mother Alive Father Sister Alive Brother Alive Father's BrotherNoEast Liverpool City HospitalPOCT Hemoglobin A1con 73-15-0545PqB3m (Bld) [Mass fraction]5.5 %4 - 7 %[facility] Health SystemOffice Visiton 94-79-3718Ndecpn-up [id number] Gelacio Smith 1980 [facility] Provider Department Center 03/18/2025 BRIAN SEGURA Hos Family History Problem Relation Age of Onset Other Father Heart attack Father's Brother Family Status - Relation Status Age at Mother Alive Father Sister Alive Brother Alive Father's Brother Level of Service:23428 CT OFFICE/OUTPATIENT ESTABLISHED LOW MDM 20 [facility] TownshipPrep for Procedureon 97-53-9245Bgkl for [id number] Gelacio Smith 1980 M [facility] Provider Department Center 02/05/20251986-[facility] [place] HeartVAS Family History Problem Relation Age of Onset Other Father Heart attack Father's Brother Family Status - Relation Status Age at Mother Alive Father Sister Alive Brother Alive Father's BrotherNoEast Liverpool City HospitalOffice Visiton 07-56-1017Ijhzhp-up [id number] Gelacio Smith P 1980 M Date Provider Department Center 11/12/2024 BRIAN SEGURA HECTOR [facility] Family History Problem Relation Age of Onset Heart attack Father's Brother Family Status - Relation Status Age at Father's Brother Level of Service:72166 CT OFFICE/OUTPATIENT NEW MODERATE MDM [address] [facility] HospitalOrders Onlyon 62-54-2920Mycdlt [id number] Gelacio Smith P 1980 M Date Provider Department Center 11/12/2024 ADRIEN SEAY HECTOR [facility] Family History Problem Relation Age of Onset Heart attack Father's Brother Family Status - Relation Status Age at Father's BrotherNormalUniMercy Health Defiance HospitalPOCT Hemoglobin A1c Ordered By: Enid Moyer on 90-43-4942AyE8j (Bld) [Mass fraction]5.8 %4 - 7 % [facility] HospitalNo Panel InformationOrdered By: Janette Mehta on 65-35-4471Lhbtv Strep (POC)[facility] POCT Hemoglobin J4zYycjxcr By: Brooke Bridges on 31-67-1745HaN0f (Bld) [Mass fraction]5.6 g/dL4 - 7 g/dLDelaware County Memorial HospitalCBC AND AUTO DIFFon 23-94-2576HHFKPUAB BASOPHIL0.1 X10E9/LNormal0.0-0.2ProMedica Protestant Deaconess HospitalComment on above:Performed By: #### OSVALDO BONILLA, 46113-4, 3016-3 #### [facility] ([id number]) [address] [place], [place] [address]PTOOUYVU NEUTROPHIL5.6 X10E9/LNormal1.5-6.6ProTrumbull Regional Medical CenterComment on above:Performed By: #### IRENE CMP, 82873-9, 3016-3 #### [facility] ([id number]) [address], [address] [place], [place] [address]Wqttkyrhj/100 WBC (Bld)0.6 %NormalAultman Hospital Comment on above:Performed By: #### CBCSanket CMP, 82210-2, 3015-3 #### [facility] ([id number]) [address] [facility] [address] [place], [place] [address]Lxjcotajlhc (Bld) [#/Vol]0.1 10*3/uLNormal0.0-0.4ProProvidence Hospital HospitalComment on above:Performed By: #### CBCA, CMP, 30156-8, 3016-01 #### [facility] ([id number]) [address], [facility] [address] [place], [place] [address]Cumatkwcxbm/100 WBC (Bld)1.5 %NormalProTrumbull Regional Medical Center Comment on above:Performed By: #### CBCSanket CMP, , 3016-01 #### [facility] ([id number]) [address] [place], [place] [address]Qazaicnlpjw distribution width (RBC) [Ratio]14.3 %Normal 11.5-15.0ProProvidence Hospital HospitalComment on above:Performed By: #### CBCSanket, CMP, , 3016-01 #### [facility] ([id number]) [address] [place], [place] [address]Pzjtpttkyh (Bld) [Volume fraction]44.3 %Crysym81-73XrsHrnere [place] HospitalComment on above:Performed By: #### CBCA, CMP, 12422-3, 3015-3 #### [facility] ([id number]) [address] [place], [place] [address]Pntzvmpgsn (Bld) [Mass/Vol]14.8 g/gWMpcvag27.0-17.0ProProvidence Hospital HospitalComment on above:Performed By: #### CBCA, CMP, 94170-1, 3015-3 #### [facility] ([id number]) [address], [address] [place], [place] [address]Lsypteetcze (Bld) [#/Vol]1.9 10*3/uLNormal1.0-3.5ProMedica [place] HospitalComment on above:Performed By: #### CBCA, CMP, , 3015-3 #### [facility] ([id number]) [address], [address] [place], [place] [address]Yqeakgawcjv/100 WBC (Bld)22.2 %NormalProProvidence Hospital Hospital Comment on above:Performed By: #### CBCSanket CMP, , 3015-3 #### [facility] ([id number]) [address], [address] [place], [place] [address]VUS (RBC) [Entitic mass]30.0 ujXomczj35-01LidSzvuhy [place] HospitalComment on above:Performed By: #### CBCA CMP, , 3015-3 #### [facility] ([id number]) [address], [address] [place], [place] [address]APFB (RBC) [Mass/Vol]33.4 g/jGJwesup57-83JrtTqjikt [place] HospitalComment on above:Performed By: #### CBCA, CMP, , 3015-3 #### [facility] ([id number]) [address], [address] [place], [place] [address]SYM (RBC) [Entitic vol]90 qNLlnwxq55-463XsaNwjnme [place] HospitalComment on above:Performed By: #### CBCA, CMP, , 3015-3 #### [facility] ([id number]) [address], [address] [place], [place] [address]Dlpuckkmh (Bld) [#/Vol]0.8 10*3/uLNormal0-0.9ProTrumbull Regional Medical CenterComment on above:Performed By: #### CBCA, CMP, 72650-4, 3015-3 #### [facility] ([id number]) [address], [address] [place] [address]Fvevlaoeo/100 WBC (Bld)9.2 %NormalAultman Hospital Comment on above:Performed By: #### CBCA, CMP, 96649-8, 3015-3 #### [facility] ([id number]) [address], [address] [place], [place] [address]Ewxqfwexaea/100 WBC (Bld)66.5 %NormalAultman Hospital Comment on above:Performed By: #### CBCA, CMP, 50862-3, 3016-01 #### [facility] ([id number]) [address], [address] [place] [address]Tjzursfy mean volume (Bld) [Entitic vol]9.6 fLNormal7-12 ProMlamar regional hospitala Protestant Deaconess HospitalComment on above:Performed By: #### CBCA, CMP, 35206-5, 3016-01 #### [facility] ([id number]) [address], [address] [place] [address]Fbtyvotix (Bld) [#/Vol]246 10*3/eLWlbzuo455-954JxpZsogwr [place] HospitalComment on above:Performed By: #### CBCA, CMP, 40802-7, 3015-3 #### [facility] ([id number]) [address], [address] [place], [place] [address]XNN COUNT4.93 X10E12/LNormal4.10-5.70ProTrumbull Regional Medical Center Comment on above:Performed By: #### CBCA, CMP, 29077-8, 6-3 #### [facility] ([id number]) [address], [address] [place], [place] [address]GOL (Bld) [#/Vol]8.5 10*3/uLNormal4.0-11.0Aultman HospitalComment on above:Performed By: #### CBCSanket, [facility], 897[address]-4, 3016-3 #### [facility] ([id number]) [address], [address] [place], [place] [address]PDR auto differentialon 37-53-4834Skvpiciqm (Bld) [#/Vol]0.1 10*3/uLElyria Memorial Hospital SystemBasophils/100 WBC (Bld)0.6 %[facility] Health CenterEosinophils (Bld) [#/Vol]0.1 10*3/uLFulton County Health CenterEosinophils/100 WBC (Bld)1.5 %[facility] Health CenterErythrocyte distribution width (RBC) [Ratio]14.3 %11.5 - 15.0 %[facility] Health CenterHematocrit (Bld) [Volume fraction]44.3 %39 - 49 %[facility] Health CenterHemoglobin (Bld) [Mass/Vol]14.8 g/dL13.0 - 17.0 g/dLFulton County Health CenterLymphocytes (Bld) [#/Vol]1.9 10*3/uL [facility] CenterLymphocytes/100 WBC (Bld)22.2 %[facility] Health CenterMCH (RBC) [Entitic mass]30.0 pg27 - 34 [facility] CenterMCHC (RBC) [Mass/Vol]33.4 g/dL32 - 36 g/dLFulton County Health CenterMCV (RBC) [Entitic vol]90 fL80 - 100 [facility] HospitalMonocytes (Bld) [#/Vol]0.8 10*3/uLFulton County Health CenterMonocytes/100 WBC (Bld)9.2 %[facility] Health CenterNeutrophils (Bld) [#/Vol]5.6 10*3/uLFulton County Health CenterNeutrophils/100 WBC (Bld)66.5 % [facility] Health CenterPlatelet mean volume (Bld) [Entitic vol]9.6 fL7 - 12 fL [facility] SystemPlatelets (Bld) [#/Vol]246 10*3/[facility] RBC (Bld) [#/Vol]4.93 10*6/[facility] HospitalWBC corrected for nucl RBC Auto (Bld) [#/Vol]8.5PPenn Highlands HealthcareCOMPREHENSIVE METABOLIC PANELon 94-03-8241Coaarxi [Mass/Vol]4.6 g/dLNormal3.2-5.3PEast [facility] City Hospital HospitalComment on above:Performed By: #### OSVALDO BONILLA, 36200-6, 3016-3 #### [facility] ([id number]) [address], [address] [place], [place] [address]KVI [Catalytic activity/Vol]67 U/WFycomr36-896PazDvpoyg [place] HospitalComment on above:Performed By: #### OSVALDO BONILLA, 19677-4, 6-3 #### [facility] ([id number]) [address], [address] [place], [place] [address]GKX [Catalytic activity/Vol]41 U/LHigh0-40ProMedica [place] HospitalComment on above:Performed By: #### OSVALDO BONILLA, 69763-0, 6-3 #### [facility] ([id number]) [address], [address] [place], [place] [address]Lqkva gap [Moles/Vol]10 mmol/LNormal5-15Pro[facility]ica [place] HospitalComment on above:Performed By: #### IRENE, CMP, 64694-5, 6-3 #### [facility] ([id number]) [address], [address] [place], [place] [address]EKD [Catalytic activity/Vol]28 U/LNormal0-41ProMedica [place] HospitalComment on above:Performed By: #### OSVALDO BONILLA, 66583-2, 6-3 #### [facility] ([id number]) [address], [address] [place], [place] [address]Dnartftsf [Mass/Vol]0.8 mg/dLNormal0.3-1.2PEast [facility] Hospital HospitalComment on above:Performed By: #### OSVALDO BONILLA, 31654-1, 6-3 #### [facility] ([id number]) [address], [address] [place], [place] [address]Saxxqct [Mass/Vol]10.0 mg/dLNormal8.5-10.5PEast [facility] HospitalComment on above:Performed By: #### OSVALDO BONILLA, 40871-7, 3015-3 #### [facility] ([id number]) [address], [address] [place], [place] [address]Bgjgegvd [Moles/Vol]100 mmol/TUivdhb09-539DxcOuufvq [place] HospitalComment on above:Performed By: #### OSVALDO BONILLA, 81150-8, 3015-3 #### [facility] ([id number]) [address], [address] [place], [place] [address]RL2 [Moles/Vol]27 mmol/DSuvgyj14-46KhkHwckrl [facility] Comment on above:Performed By: #### OSVALDO BONILLA, 29138-6, 6-3 #### [facility] ([id number]) [address], [address] [place], [place] [address]Chnaopbslo [Mass/Vol]0.78 mg/dLNormal0.60-1.30ProProvidence Hospital HospitalComment on above:Result Comment: METHOD TRACEABLE TO IDMS STANDARD Performed By: #### OSVALDO BONILLA, 01208-0, 6-3 #### [facility] ([id number]) [address], [address] [place], [place] [address]jCQA (CKD-EPI) NON-RACE DEPENDENT>90Normal>59ProProvidence Hospital HospitalComment on above:Result Comment: Reported eGFR is based on the CKD-EPI 2020 equation that does not use a race coefficient.Performed By: #### OSVALDO BONILLA, 31579-1, 3015-3 #### [facility] ([id number]) [address], [address] [place], [place] [address]Jmqghdl [Mass/Vol]84 mg/qWIvtyap64-57GpoGhodkv [facility] Comment on above:Performed By: #### OSVALDO BONILLA, 58225-8, 3015-3 #### [facility] ([id number]) [address], [address] [place], [place] [address]Eyvloogfd [Moles/Vol]4.1 mmol/LNormal3.5-5.0ProTrumbull Regional Medical CenterComment on above:Performed By: #### OSVALDO BONILLA, , 3015-3 #### [facility] ([id number]) [address], [address] [place], [place] [address]Kdsrltl [Mass/Vol]7.8 g/dLNormal6.0-8.0[facility] Comment on above:Performed By: #### OSVALDO BONILLA, , 3 #### [facility] ([id number]) [address], [address] [place], [place] [address]Iihtmq [Moles/Vol]137 mmol/VBnubda550-365DczNbwlss [place] HospitalComment on above:Performed By: #### OSVALDO BONILLA, 65908-5, 3 #### [facility] ([id number]) [address], [address] [place], [place] [address]Iyjm nitrogen [Mass/Vol]18 mg/dLNormal5-23ProTrumbull Regional Medical CenterComment on above:Performed By: #### OSVALDO BONILLA, 68895-9, 3015-3 #### [facility] ([id number]) [address], [address] [place], [place] [address]Ldobgckqodqhu metabolic panelon 71-47-7802Ovjwgmp [Mass/Vol]4.6 g/dL3.2 - 5.3 g/dLProBeacon Behavioral Hospital Health SystemALP [Catalytic activity/Vol]67 U/L39 - 130 U/LPrMemorial Hospital Central Health SystemALT No additional P-5'-P [Catalytic activity/Vol] 41 U/LHigh0 - 40 U/LPrMemorial Hospital Central Health SystemAnion gap [Moles/Vol]10 mmol/L5 - 15 mmol/LPrMemorial Hospital Central Health SystemAST [Catalytic activity/Vol]28 U/L0 - 41 U/L [facility] CenterBilirubin [Mass/Vol]0.8 mg/dL0.3 - 1.2 mg/dLElyria Memorial Hospital SystemCalcium [Mass/Vol]10.0 mg/dL8.5 - 10.5 mg/dLProClermont County Hospital Chloride [Moles/Vol]100 mmol/L98 - 109 mmol/[facility] SystemCO2 [Moles/Vol]27 mmol/L22 - 32 mmol/[facility] SystemCreatinine [Mass/Vol] 0.78 mg/dL0.60 - 1.30 mg/dLFulton County Health CenterComment on above:METHOD TRACEABLE TO IDME STANDARDeGFR (CKD-EPI)non-race dependent- [facility] HospitalComment on above: Reported eGFR is based on the CKD-EPI 2020 equation that does not use a race coefficient. Glucose [Mass/Vol]84 mg/dL65 - 99 mg/dLElyria Memorial Hospital SystemPotassium [Moles/Vol]4.1 mmol/L3.5 - 5.0 mmol/[facility] Health SystemProtein [Mass/Vol] 7.8 g/dL6.0 - 8.0 g/dLElyria Memorial Hospital SystemSodium [Moles/Vol]137 mmol/L134 - 146 mmol/LPrMorrow County Hospital SystemUrea nitrogen [Mass/Vol]18 mg/dL5 - 23 mg/dL [facility] CenterLipid 1996 panelon 90-25-3101Drlletyzyiy [Mass/Vol]145 mg/dYSta772 - 200 mg/dLFulton County Health CenterCholesterol in HDL [Mass/Vol]40 mg/dL39 - PINF mg/dLFulton County Health CenterComment on above: HDL <40 mg/dL - High Risk HDL > or = 40mg/dL- Desirable HDL >60 mg/dL - Negative Risk Cholesterol in LDL [Mass/Vol]84 mg/dLNINF - 130 mg/dLFulton County Health Center Comment on above: LDL <100 mg/dL - Desirable LDL >160 mg/dL - High Risk Cholesterol in VLDL [Mass/Vol]21 mg/dL0 - 30 mg/dLFulton County Health Center Cholesterol.total/Cholesterol in HDL [Mass ratio]3.6 {ratio}1.0 - 5.0F[facility] Health CenterTriglyceride [Mass/Vol]106 mg/dL27 - 150 mg/dLFulton County Health CenterCholesterol [Mass/Vol]145 mg/dDByg904-017OgyHwdsmfAultman HospitalComment on above:Performed By: ##Cathie BONILLA CMP, 95781-7, 3016-3 #### [facility] ([id number]) [address], [address] [place], [place] [address]Vnrkrslnooh in HDL [Mass/Vol]40 mg/dLNormal>39ProTrumbull Regional Medical CenterComment on above:Result Comment: HDL <40 mg/dL - High Risk HDL > or = 40mg/dL- Desirable HDL >60 mg/dL - Negative Risk Performed By: ###Kana BONILLA CMP, 40111-8, 3016-3 #### [facility] ([id number]) [address], [address] [place], [place] [address]Dvsixmkjfeo in LDL [Mass/Vol]84 mg/dLNormal<130ProTrumbull Regional Medical CenterComment on above:Result Comment: LDL <100 mg/dL - Desirable LDL >160 mg/dL - High Risk Performed By: #### OSVALDO BONILLA, 99057-3, 3016-3 #### [facility] ([id number]) [address], [address] [place], [place] [address]Nujgmsbsvjh in VLDL [Mass/Vol]21 mg/dLNormal0-30ProTrumbull Regional Medical CenterComment on above:Performed By: #### OSVALDO BONILLA, 73195-0, 3016-3 #### [facility] ([id number]) [address], [address] [place], [place] [address]CDVWSHEGYTR:HDL3.1Nwvmhk9.0-5.0ProTrumbull Regional Medical CenterComment on above:Performed By: #### OSVALDO BONILLA, 67480-6, 3016-3 #### [facility] ([id number]) [address], [address] [place], [place] [address]Yvsssitxjzap [Mass/Vol]106 mg/tSBvodks97-168DbjJxgeiw [place] HospitalComment on above:Performed By: #### OSVALDO BONILLA, 85336-9, 3016-3 #### [facility] ([id number]) [address], [address] [place], [place] [address]Ij Panel Informationon 18-36-7372Uzibkfuhudyjvt and review of laboratory resultsAbnoalDelaware County Memorial HospitalPOCT Hemoglobin Q1dSlhwaqe By: Raza Morley on 46-03-8449ExE6a (Bld) [Mass fraction]5.5 g/dL4 - 7 g/dLDelaware County Memorial HospitalTSHon 03-32-6578NWA Qn2.11 m[IU]/[facility] Qnon 23-00-9272VfhLfiicw Health SystemTSH2.11 uIU/mLNormal0.49-4.67ProTrumbull Regional Medical CenterComment on above:Performed By: #### CBCA, [facility], 98563-3, 3016-3 #### [facility] ([id number]) [address] [place], [place] [address]Xawdb-99 PCR ([facility])on 05-77-1560XEEK-CoV-2 (COVID-19) RNA EDY+probe Ql (Unsp spec)Not detectedNormalNOT DETECTEDThe [facility] Comment on above:Result Comment: This test is not yet approved or cleared by the [place] FDA. When there are no FDA-approved or cleared tests available, and other criteria are met, FDA can make tests available under an emergency access mechanism called an Emergency Use Authorization (EUA). The EUA for this test is supported by the [place] Recorder of Health and Human Service's (HHS's) declaration that circumstances exist to justify the emergency use of in vitro diagnostics for the detection and/or diagnosis of the virus that causes COVID- 19. This EUA will remain in effect (meaning this test can be used) for the duration of the COVID-19 declaration justifying emergency of IVDs, unless it is terminated or revoked by FDA (after which the test may no longer be used). When diagnostic testing is negative, the possibility of a false negative should be considered in the context of a patient's recent exposures and the presence of clinical signs and symptoms consistent with SARS-CoV-2.Performed By: #### CVDTB #### [facility] [address] [place], [place] [address] Mary Irizarry Vital Signs Date TimeVital SignValuePerforming VvbxyowojEfbwksil15-68-9687 15:29-0400Body cmValefelicia GONZALEZ Work Phone: [facility]05-29-2025 15:29-0400Body mass index (BMI) [Ratio]45.48 kg/u2BdnzrexSven GONZALEZ Work Phone: [facility]05-29-2025 15:29-0400Body cwupwewnqga56.9 [degF]Sven Flores APRN-JACKER Work Phone: [facility]05-29-2025 15:29-0400Body gbpinz762.75 kgSven Flores APRN-JACKER Work Phone: [facility]05-29-2025 15:29-0400Diastolic blood ophbdklk55 mm[Hg]Sven Flores APRN-JACKER Work Phone: [facility]05-29-2025 15:29-0400Heart rate 89 /minSven Flores APRN-JACKER Work Phone: [facility]05-29-2025 15:29-0400 Respiratory rate24 /minSven Flores VIROLOGY TEACHER-JACKER Work Phone: [facility]05-29-2025 15:29-7811HaQ3% (BldA) [Mass fraction]99 %Sven Flores APRN-JACKER Work Phone: [facility]05-29-2025 15:290400Systolic blood ldekocfl657 mm[Hg]Sven Flores APRN-JACKER Work Phone: [facility]11-26-2024 10:58-0500Body cmValefelicia Flores APRN-JACKER Work Phone: [facility]11-26-2024 10:58-0500Body mass index (BMI) [Ratio]43.37 kg/v3DwddcyaSven Flores APRN-JACKER Work Phone: [facility]11-26-2024 10:58-0500Body qimpnlqwgel98.81 [degF]Sven Flores APRN-JACKER Work Phone: [facility]11-26-2024 10:58-0500Body edbnme865.22 kgSven Flores APRN-JACKER Work Phone: [facility]11-26-2024 10:58-0500Diastolic blood tuaabbhg49 mm[Hg]Sven Flores APRN-JACKER Work Phone: [facility]11-26-2024 10:58-0500Heart rate 76 /minSven Flores VIROLOGY TEACHER-JACKER Work Phone: [facility]11-26-2024 10:58-0500 Respiratory rate18 /minSven Flores VIROLOGY TEACHER-JACKER Work Phone: [facility]11-26-2024 10:58-9600UtE0% (BldA) [Mass fraction]99 %Sven Flores APRN-JACKER Work Phone: [facility]11-26-2024 10:58-0500Systolic blood wbsxtiez467 mm[Hg]Sven Flores APRN-JACKER Work Phone: [facility]11-18-2024 15:53-0500Body hebydy470 cmValefelicia Flores APRN-JACKER Work Phone: [facility]11-18-2024 15:53-0500Body mass index (BMI) [Ratio]44.17 kg/a6TpxbgodSven Flores APRN-JACKER Work Phone: [facility] [employer] [place] Ccmhyg03-53-3382 15:53-0500Body jbayxkmxrar67.71 [degF]Sven Flores APRN-JACKER Work Phone: [facility]11-18-2024 15:53-0500Body .04 kgSven Flores APRN-JACKER Work Phone: [facility]11-18-2024 15:53-0500Diastolic blood hwjjbpil73 mm[Hg]Sven Flores VIROLOGY TEACHER-JACKER Work Phone: [facility]11-18-2024 15:53-0500Heart rate 86 /minSadierie Flores VIROLOGY TEACHER-JACKER Work Phone: [facility]11-18-2024 15:53-0500 Respiratory rate18 /Catracho Flores APRN-JACKER Work Phone: [facility]11-18-2024 15:53-8657NuU7% (BldA) [Mass fraction]97 %Sven Flores APRN-JACKER Work Phone: [facility]11-18-2024 15:53-0500Systolic blood geskogmz243 mm[Hg]Sven Flores APRN-JACKER Work Phone: [facility]06-28-2024 09:43-0400Body einrzo146.42 cm[facility]06-28-2024 09:43-0400Body mass index (BMI) [Ratio]44.9 kg/o6KgmsiehpgSelect Medical [facility]06-28-2024 09:43-0400Body udxdgcidxze04.3 [degF][facility]06-28-2024 09:43-0400Body .22 kg[facility]06-28-2024 09:43-0400Diastolic blood vtzbqiyk62 mm[Hg][facility] 05-24-2024 09:43-0400Heart rate87 /[facility] 05-24-2024 09:43-0400Respiratory rate18 /[facility] 05-24-2024 09:43-5833NaL6% (BldA) [Mass fraction]97 %[facility]06-28-2024 09:43-0400Systolic blood mrjmqseu858 mm[Hg][facility]05-01-2024 16:57-0400Body pewilq491 cmVsrinivas Flores APRN-JACKER Work Phone: [facility]05-01-2024 16:57-0400Body mass index (BMI) [Ratio]43.58 kg/c9FjswtylSven Flores APRN-JACKER Work Phone: [facility]05-01-2024 16:57-0400Body uanfhqmvfzb83.2 [degF]Sven Flores APRN-JACKER Work Phone: [facility]05-01-2024 16:57-0400Body .95 kgSven Flores APRN-JACKER Work Phone: [facility]05-01-2024 16:57-0400Diastolic blood ugnjqnxb75 mm[Hg]Sven Flores APRN-JACKER Work Phone: [facility]05-01-2024 16:57-0400Heart rate 97 /minSven Flores APRN-JACKER Work Phone: [facility]05-01-2024 16:57-0400 Respiratory rate20 /minSven Flores APRN-JACKER Work Phone: [facility]05-01-2024 16:57-9941UzI0% (BldA) [Mass fraction]97 %Sven Flores APRN-JACKER Work Phone: [facility] [place] Wvklmu55-96-9903 16:57-0400Systolic blood mm[Hg]Sven Flores APRN-JACKER Work Phone: [facility] [place] Etwpbr68-24-7161 17:01-0500Body mniaqq771 cmValefelicia Flores APRN-JACKER Work Phone: [facility]01-17-2024 17:01-0500Body mass index (BMI) [Ratio]45.58 kg/m5AecemchSven Flores APRN-JACKER Work Phone: [facility]01-17-2024 17:01-0500Body wsujnqyhdbr56.01 [degF]Sven Flores APRN-JACKER Work Phone: [facility]01-17-2024 17:01-0500Body .03 kgValerie Flores VIROLOGY TEACHER-JACKER Work Phone: [employer] Azvqxz39-36-4647 17:01-0500Diastolic blood sisvtsfg44 mm[Hg]Sven Flores VIROLOGY TEACHER-JACKER Work Phone: [facility]01-17-2024 17:01-0500Heart rate 92 /minSven Flores VIROLOGY TEACHER-JACKER Work Phone: [facility] [employer] ArtsSfzzyn50-85-3799 17:01-0249PmK0% (BldA) [Mass fraction]98 %Sven Flores VIROLOGY TEACHER-JACKER Work Phone: [facility]01-17-2024 17:01-0500Systolic blood ftiyqkik235 mm[Hg]Sven Flores VIROLOGY TEACHER-JACKER Work Phone: [facility] [employer] Encounters Encounter DateEncounter TypeCare ProviderFacilityStart: 09-23-2025 End: 24-18-7617jkfponpmfkGQAYKettering Healthtart: 08-05-2025 End: 93-59-9725BmycasJsgigruu [facility] HospitalMed[facility] Physicians Internal Medicine - Family MedicineComment on above:Type 2 diabetes mellitus with hyperglycemia, without long-term current use of insulin ([facility])Start: 06-19-2025 End: 71-71-2870tihkfutodnMAXEQQL TUKettering Health Main Campustart: 06-04-2025 End: 29-11-1953ShzsbvWxgapi [place] [facility]erca Physicians Internal Medicine - Family MedicineComment on above:Atrial fibrillation, unspecified type ([facility]) Start: 38-03-1550vdtataojrpXBHYKindred Hospital Limatart: 05-22-2025 End: 61-15-4543yfmagyiexyAGCDKindred Hospital Limatart: 05-17-2025 End: 35-05-7908KfjxyfBgcphut J Flores VIROLOGY TEACHER-JACKER Work Phone: [facility] Physicians Internal Medicine - Family MedicineComment on above:Atrial fibrillation, unspecified type ([facility])Start: 05-16-2025 End: 64-74-1452GgfpzqIkkiaanSven GONZALEZ Work Phone: [facility] Physicians Internal Medicine - Family MedicineComment on above:Essential hypertensionStart: 04-29-2025 End: 77-54-8677dgzmghbxvrNGXPCleveland Clinic Hillcrest Hospitaltart: 04-24-2025 End: 91-06-8266Xvtccr outpatient visit 25 minutesValefelicia GONZALEZ Work Phone: [facility] Physicians Internal Medicine - Family MedicineComment on above:Type 2 diabetes mellitus with hyperglycemia, without long-term current use of insulin ([facility]) (Primary Dx); Generalized anxiety disorder with panic attacks; Atrial fibrillation, unspecified type ([facility]); Essential hypertension; GERD without esophagitisStart: 04-24-2025 End: 07-96-3116inqinqzisqOGOVFEYOdessa Memorial Healthcare Center [facility] Start: 12-69-7091lwubacvnnrZUZVCleveland Clinic Hillcrest Hospitaltart: 01-14-2025 End: 85-28-1852PrqgibPgjeio [place] Physicians Internal Medicine - Family MedicineComment on above:Type 2 diabetes mellitus with hyperglycemia, without long-term current use of insulin ([facility])Start: 11-28-2024 End: 28-05-9671Fgjpifuym Tiana Whyte [facility] Physicians Internal Medicine - Family MedicineComment on above:Essential hypertensionStart: 11-12-2024 End: 20-52-4888ytpljfubumRCMHCleveland Clinic Hillcrest Hospitaltart: 10-22-2024 End: 26-37-0792Ctptthkblcrv care manage srvc 7 day dischargeSven GONZALEZ Work Phone: [facility] Physicians Internal Medicine - Family MedicineComment on above:Atrial fibrillation, unspecified type ([facility]) (Primary Dx); Essential hypertensionStart: 10-22-2024 End: 62-58-9975zpwssryhwqMLTVELWOdessa Memorial [facility] Center [facility] Start: 10-14-2024 End: 68-06-5702Vqdixj outpatient visit 25 minutesSven GONZALEZ Work Phone: [facility] Physicians Internal Medicine - Family MedicineComment on above:Type 2 diabetes mellitus with hyperglycemia, without long-term current use of insulin ([facility]) (Primary Dx); Essential hypertension; Generalized anxiety disorder with panic attacks; GERD without esophagitis; Comprehensive diabetic foot examination, type 2 DM, encounter for ([facility]) Start: 10-14-2024 End: 64-78-4779vfjsnvndztZWERIUZNavos Health [facility] Start: 08-01-2024 End: 86-30-0979VyfosqVqgjpepDana Flores APRN-RALPH Work Phone: [facility] Physicians Internal Medicine - Family MedicineComment on above:Essential hypertensionStart: 07-19-2024 End: 11-74-8801KdimylObztufdDaniel GONZALEZ Work Phone: [facility] Physicians Internal Medicine - Family MedicineComment on above:Type 2 diabetes mellitus with hyperglycemia, without long-term current use of insulin ([facility])Start: 05-24-2024 End: 31-76-1333nbemqerwrwYzinwrctrLicking Memorial Hospital Work Phone: Start: 05-24-2024 End: 21-98-5221Feyrbgv encounter [facility] [place] Work Phone: Start: 03-27-2024 End: 04-32-8792Starbm outpatient visit 25 minutesSven GONZALEZ Work Phone: [facility] Physicians Internal Medicine - Family MedicineComment on above:Type 2 diabetes mellitus with hyperglycemia, without long-term current use of insulin ([facility]) (Primary Dx); Generalized anxiety disorder with panic attacks; Essential hypertension; GERD without esophagitisStart: 03-14-2024 End: 31-01-7102JackmrJfwpistDaniel Flores APRN-RALPH Work Phone: [facility] Physicians Family MedicineComment on above: GERD without esophagitisStart: 63-21-4873LvmypwRztlvymDana Flores APRN-RALPH Work Phone: [facility] Physicians Internal Medicine - Family MedicineComment on above:Type 2 diabetes mellitus with hyperglycemia, without long-term current use of insulin ([facility])Start: 64-55-0231HdmfowRtplbkcDana Flores APRN-RALPH Work Phone: [facility] Phys[facility] Internal Medicine - Family MedicineComment on above:Type 2 diabetes mellitus with hyperglycemia, without long-term current use of insulin ([facility])Start: 68-51-1653Saxgwo OnlySven Flores APRN-RALPH Work Phone: [facility] Physicians Family [facility] Hospitaltart: 01-02-2024 RefillSven Flores APRN-JACKER Work Phone: [facility] Physicians Family MedicineComment on above: Type 2 diabetes mellitus with hyperglycemia, without long-term current use of insulin ([facility])Start: 12-28-2023 End: 03-06-2170Rmupia outpatient visit 15 minutesSven Flores APRN-RALPH Work Phone: [facility] Physicians Internal Medicine - Family MedicineComment on above:Generalized anxiety disorder with panic attacksStart: 12-13-2023 End: 22-42-6123tkinsuulcxYZMFCTT J CASTILLOSumma Health [facility] HospitalStart: 22-50-5622Wdczpekns for general adult medical examination without abnormal findingsSVEN GARNICAAvita Health System Galion Hospitaltart: 12-13-2023 End: 86-36-4241Ddmsiar encounter procedureSven Flores APRN-RALPH Work Phone: [facility] SystemStart: 12-13-2023 End: 05-83-0957Bcttlnty preventive med est patient 40-64yrsSven Flores APRN-RALPH Work Phone: [facility] Physicians Internal Medicine - Family MedicineComment on above:Annual physical exam (Primary Dx); Blood tests for routine general physical examination; Essential hypertension; Generalized anxiety disorder with panic attacks; GERD without esophagitisStart: 12-13-2023 End: 84-55-5833Hkhomzps examinationValefelicia GONZALEZ Work Phone: [facility] Center[facility] Work Phone: Start: 07-16-2021 End: 42-08-2609llgzmisravOBLELCKJQ BREAULTFacility:Z7Rwnlg: 01-13-2021 End: 55-22-1913gdhaxsaotfPTYUEZW CASTILLOFacility:Z3Wdozx: 12-30-2020 End: 02-86-1588qudyfjsxdcDZYARAR CASTILLOFacility:H1Yzkxx: 64-65-9527Zncyeyo encounter procedureValefelicia GONZALEZ Work Phone: [facility]edoMy[facility] Procedures DateProcedureProcedure DetailPerforming ClinicianStart: 90-45-7956Pjqgdmkmyj glycosylated i4zXvglyknSven GONZALEZ Work Phone: Start: 33-46-8311Mctzt depression screening assessment Sevn GONZALEZ Work Phone: Start: 73-65-9816Hzgzlu-up visitFollow-upVALEFELICIA FLORESStart: 27-43-7183Badmk depression screening assessmentSven GONZALEZ Work Phone: Start: 62-12-7003Dlloccmxtl glycosylated o7iCteodwcramakrishna GONZALEZ Work Phone: Start: 86-32-6655Awdsu Strep (POC)Start: 03-27-2024 Hemoglobin glycosylated c1nNjxbwbgramakrishna GONZALEZ Work Phone: Start: 29-53-9979Evywj depression screening assessment Sven GONZALEZ Work Phone: Start: 18-23-7605Ckagxcixzh glycosylated g0pCdmajpuSven GONZALEZ Work Phone: Start: 33-89-0745Emtmr depression screening assessment Sven Flores APRN-JACKER Work Phone: Plan of Treatment DateCare ActivityDetailAuthorStart: 80-60-2206Lcomm BMI Follow Up PlanAdult BMI Follow Up PlanElyria Memorial Hospital SystemStart: 17-95-7536Ipmxx BMI ScreeningAdult BMI ScreeningProMetrohealth [facility] SystemStart: 98-71-2372Wzvmfdhvad Screening Depression ScreeningElyria Memorial Hospital SystemStart: 28-35-9268Xjfhtag Screening Tobacco ScreeningElyria Memorial Hospital SystemStart: 10-29-2025 End: 08-18-1926Gutnvxi encounter procedureProMedica Physicians Internal Medicine - Family MedicineStart: 19-74-9474Yjqmf BMI ScreeningAdult BMI Screening [facility] SystemStart: 37-28-5858Tunucgqlnz ScreeningDepression Screening [facility] SystemStart: 31-33-1609Rrzkraf ScreeningTobacco Screening [facility] SystemStart: 40-79-1118Glqbc BMI Follow Up PlanAdult BMI Follow Up PlanElyria Memorial Hospital SystemStart: 59-38-9552Olioa BMI ScreeningAdult BMI ScreeningElyria Memorial Hospital SystemStart: 17-44-1966Vscxbajn foot examination Diabetic Foot ExamElyria Memorial Hospital SystemStart: 33-76-0917Wffhicj Screening Tobacco ScreeningElyria Memorial Hospital SystemStart: 12-28-9761Uwwiavrhc vaccination Influenza VaccineElyria Memorial Hospital SystemStart: 93-44-8967Hqxfotz Screening Tobacco ScreeningElyria Memorial Hospital SystemStart: 79-57-8239Zirsy BMI Follow Up PlanAdult BMI Follow Up PlanElyria Memorial Hospital SystemStart: 69-61-1610Qanny BMI ScreeningAdult BMI ScreeningElyria Memorial Hospital SystemStart: 88-08-0076Nyqcsqkcnh ScreeningDepression ScreeningCone Health MedCenter High Pointtart: 03-20-2025 End: 48-09-3402Ybfbqyw encounter uaatezbxg47/24/2025 4:00 PM EDT Office Visit [facility] [address] [place] [address] Sven Flores APRN-JACKER [address] [place] [address] [facility] - [employer] MedicineStart: 23-49-5569Vljtn BMI Follow Up PlanAdult BMI Follow Up PlanElyria Memorial Hospital SystemStart: 64-65-1585Jwwfsfk ScreeningTobacco ScreeningElyria Memorial Hospital SystemStart: 38-03-7365Igpln BMI ScreeningAdult BMI ScreeningElyria Memorial Hospital SystemStart: 37-22-7868Tzmxsqygnb ScreeningDepression ScreeningElyria Memorial Hospital SystemStart: 27-23-1512Tahnoeq ScreeningTobacco ScreeningElyria Memorial Hospital SystemStart: 31-89-0047Isudo BMI Follow Up PlanAdult BMI Follow Up PlanCone Health MedCenter High Pointtart: 08-16-2024 Diabetic foot examinationDiabetic Foot ExamCone Health MedCenter High Pointtart: 07-31-2024 End: 97-66-6156Ycainox encounter thybhinmk58/04/2024 5:00 PM EDT Office Visit [facility] [address] [place] [address] Sven Flores, VIROLOGY TEACHER-JACKER [address] [place] [address] [facility] [employer] MedicineStart: 43-24-3643Odvuvdsgg vaccinationInfluenza VaccineElyria Memorial Hospital SystemStart: 03-27-2024 End: 90-43-7529Qfueqxg encounter ilzkgiyna05/01/2024 5:00 PM EDT Office Visit [facility] [address] [place] [address] Sven Flores, VIROLOGY TEACHER-JACKER [address] [place] [address] [facility] [employer] MedicineStart: 84-19-4551Jyyysrkiy vaccinationInfluenza VaccineCone Health MedCenter High Pointtart: 27-90-0526LYtL,Tdap and Td Vaccines (1 - Tdap)DTaP,Tdap and Td Vaccines (1 - Tdap)[facility] Pointtart: 17-54-6757Csyvzzyu screeningDiabetic Ophthalmology ExamCone Health MedCenter High Pointtart: 54-13-4376Eurick Use: DiabeticStatin Use: DiabeticProMetrohealth [facility] SystemStart: 41-85-3645Ctrpdxe CounselingTobacco CounselingProMetrohealth [facility] SystemStart: 69-72-4670Zpwwt screening for proteinUrine Microalbumin [facility] Immunizations Immunization DateImmunizationNotesCare YztylxeeTylqwbcs73-72-7834hpzxkjywo virus vaccine, unspecified formulationValerie Flores VIROLOGY TEACHER-JACKER Work Phone: [facility] CenterEcxbot59-17-2755nlcsnrnjo virus vaccine, unspecified formulationValerie Flores VIROLOGY TEACHER-JACKER Work Phone: [facility] Payers DatePayer CategoryPayerPolicy [id number] Service [facility] Managed [facility] - OtherANTHEM Member Subscriber Plan / Payer (Effective 2017-Present) Name: Gelacio Smith Relation to Subscriber: Self Name: Gelacio Smith Payer ID: [id number] (NAIC) Type: Not on file Address: [address] [place] [id number] UnknownANTHEM BCBS OUT OF STATE PPO/TRUST [id number] 2017-Present [phone] [address] [place] [address] [id number] .[id number] 2..1.170566.3.57[id number] 2..1.388198.3.57[id number] 2..1.133881.3.57[id number] 2..1.362660.3.57[id number] 2..1.033146.3.57[id number] 2..1.435022.3.579.2.[id number] Social History DateTypeDetailFacilityTobacco smoking status NHISUnknown if ever smokedElyria Memorial Hospital SystemStart: 49-70-1799Dph Assigned [facility] Hospitaltart: 09-12-2023 End: 21-16-9269Yfdatqz smoking status NHISNever smoked tobaccoElyria Memorial Hospital SystemStart: 07-06-6151Quqqybf use and exposureUser of smokeless tobacco [facility] End: 50-42-4429Dgziygp of tobacco useChews TobaccoElyria Memorial Hospital SystemStart: 10-22-2024 End: 40-35-5108Njkhdvaci beverage intakeEx-drinker (finding)[facility] SystemStart: 07-20-2021 End: 63-18-6812Vqskjgy of Social functionElyria Memorial Hospital SystemStart: 07-20-2021 End: 81-51-5450Aoodmz connection and isolation panelProMetrohealth [facility] Medical Center SystemDo you belong to any clubs or organizations such as taoist groups, unions, fraternal or athletic groups, or school groups?YesProMedica Health SystemHow often do you attend meetings of the clubs or organizations you belong to?Patient declinedFulton County Health CenterAre you now , , , , never or living with a partner?MarriedFulton County Health Center How often to you have a drink containing alcohol?2-3 time sa weekFulton County Health CenterHow many standard drinks containing alcohol do you have on a typical day?1 or 2PSt. John of God HospitalHow often do you have 6 or more drinks on 1 occasion?MonthlyC[facility] Clinic [facility]opedic Center [facility] Hospitaltart: 93-49-0984Mlcmaehrn15 [facility] Hospitaltart: 80-36-6519Pcb assigned at birthNot on file [facility] ShawRxAdvancetart: 34-90-6394HkmXzos (finding)[facility] [employer] Start: 05-31-1252Nsouktp use and exposureFormer smokeless tobacco userFulton County Health Center Medical Equipment Procedure CodeEquipment CodeEquipment Original TextEquipment IdentifierDates Monitor blood sugar twice [id number]: 07-26-2022 End: strip by other route in the morning and at bedtime.[id number] Start: 07-26-2022 Clinical Notes 12-30-2020 to 09-23-2025 Note Date & JdbuSigeMclqxcnw03-72-9480 NoteUT Electrophysiology Consult Note [place] [facility] Reason for visit: afib 09/23/2025 Patient underwent A-fib ablation on 05/22/2025. Following this on follow-up he had seen an service factor XRD3UQ3-RBWk or of 1 Suzi Parkinson and had endorsed some palpitations which were short-lived. there was no evidence of atrial fibrillation on subsequent EKGs. He is currently on Eliquis for HTN as a risk factor for BXO3JE8-ELKz score of 1. He is keen on pursuing weight loss as he states that he has not achieved weight loss with Ozempic. Review of Systems Cardiovascular: Positive for irregular heartbeat and palpitations. 04/29/25 Patient is here today for H [...] feels his HR going fast. Prior HPI: Gelacio Smith is a 45 y.o. year old with past medical history of type 2 diabetes mellitus on Ozempic, new onset atrial fibrillation. Patient was recently at work when he felt the sensation of a fluttering heart beat. He spoke to the nurse at work who suggested he go to [...] Past Medical History: Diagnosis Date Abnormal ECG Afib (CMS/HCC) Anxiety Arrhythmia Atrial fibrillation (CMS/HCC) Depression Diabetes mellitus (CMS/HCC) GERD (gastroesophageal reflux disease) Hyperlipidemia Hypertension Left otitis media with effusion Obesity PSH: Past Surgical History: Procedure Laterality Date ABLATION OF DYSRHYTHMIC FOCUS FINGER SURGERY SH: Social Drivers of Health Tobacco Use: High Risk (09/23/2025) Patient History Smoking Tobacco Use: Never Smokeless Tobacco Use: Current Passive Exposure: Not on file Alcohol Use: Alcohol Misuse (07/20/2021) Received from [employer] AUDIT-C Frequency of Alcohol Consumption: 2-3 times a week Average Number of Drinks: 1 or 2 Frequency of Binge Drinking: Monthly Financial Resource Strain: Low Risk (12/28/2023) Received from [employer] Overall Financial Resource Strain (CARDIA) Difficulty of Paying Living Expenses: Not hard at all Food Insecurity: No Food Insecurity (04/24/2025) Received from [employer] Hunger Screening Within the past 12 months we worried whether our food would run out before we got money to buy more.: Never True Within the past 12 months the food we bought just didn't last and we didn't have money to get more.: Never True Transportation Needs: No Transportation Needs (12/28/2023) Received from [employer] PRAPARE - Transportation Lack of Transportation (Medical): No Lack of Transportation (Non-Medical): No Physical Activity: Inactive (07/20/2021) Received from [employer] Exercise Vital Sign Days of Exercise per Week: 2 days Minutes of Exercise per Session: 0 min Stress: Not on file Social Connections: Moderately Isolated (07/20/2021) Received from [employer] Social Connection and Isolation Panel [NHANES] Frequency of Communication with Friends and Family: Twice a week Frequency of Social Gatherings with Friends and Family: Never Attends Congregation Services: Never Active Member of Clubs or Organizations: Yes Attends Club or Organization Meetings: Patient declined Marital Status: Intimate Partner Violence: Not on file Depression: Not at risk (04/24/2025) Received from [employer] PHQ-2 Total Score: 0 Housing Stability: Low Risk (12/28/2023) Received from [employer] Housing Instability Are you worried or concerned that in the next two months you may not have stable housing that you own, rent or stay in as a part of a household?: No Utilities: Not on file Health Literacy: Not on file Allergies: Allergies Allergen Reactions Metformin GI intolerance Weight: 164kg Visit Vitals BP 156/87 (BP Location: Right arm, Patient Position: Sitting) Pulse 81 Ht 1.854 m (6' 1 ) Wt (!) 164 kg (361 lb) SpO2 96% BMI 47.63 kg/m??? Smoking Status Never BSA 2.91 m??? Meds: Current Outpatient Medications on File Prior to Visit Medication Sig Dispense Refill amLODIPine (Norvasc) 10 mg tablet Take 10 mg by mouth in the morning. Eliquis 5 mg tablet Take 5 mg by mouth twice a day. metoprolol tartrate (Lopressor) 25 mg tablet Take 25 mg by mouth twice a day. Ozempic 2 mg/dose (8 mg/3 mL) pen injector INJECT 2 (TWO) mg SUBCUTANEOUSLY (UNDER THE SKIN) EVERY 7 (more content not included)...[facility]07-24-2025 NoteCardiovascular Medicine [facility] SUBJECTIVE Chief Complaint Patient presents with Atrial Fibrillation Gelacio Smith is a 44 y.o. male here for follow-up after his recent a.fib ablation. His accompanied him. PMHx: a.fib, DM type II, HTN, obesity, JALIL wears CPAP HPI 06/19/2025 Since last seen he has undergone an a.fib ablation. He has been feeling well overall. Few occasions where he has had some palpitations, felt like he was in a.fib. Doesn't last for very long then resolved. BP at home has been running 120-140s/80s after work. He notes his lisinopril/hydrochlorothiazide was stopped by his PCP due to c/o dizziness while at work and concern for low BP. He has multiple questions/concerns. Problem List[1] Medical History[2] Family History[3] Social History[4] Allergies[5] OBJECTIVE Visit Vitals BP 153/84 (BP Location: Left arm, Patient Position: Sitting) Pulse 74 Ht 1.854 m (6' 1 ) Wt (!) 161 kg (354 lb) SpO2 96% BMI 46.70 kg/m??? Smoking Status Never BSA 2.88 m??? Medications: Current Medications[6] Physical Exam Constitutional: Appearance: Normal appearance. He is obese. HENT: Head: Normocephalic and atraumatic. Right Ear: External ear normal. Left Ear: External ear normal. Eyes: Extraocular Movements: Extraocular movements intact. Pupils: Pupils are equal, round, and reactive to light. Neck: Vascular: No carotid bruit. Cardiovascular: Rate and Rhythm: Normal rate and regular rhythm. Pulses: Normal pulses. Heart sounds: Normal heart sounds. Pulmonary: Effort: Pulmonary effort is normal. Breath sounds: Normal breath sounds. Abdominal: General: Bowel sounds are normal. Palpations: Abdomen is soft. Musculoskeletal: General: Normal range of motion. Cervical back: Neck supple. Right lower leg: No edema. Left lower leg: No edema. Skin: General: Skin is warm and dry. Neurological: General: No focal deficit present. Mental Status: He is alert and oriented to person, place, and time. Psychiatric: Mood and Affect: Mood normal. Behavior: Behavior normal. Thought Content: Thought content normal. Judgment: Judgment normal. Labs: No results found for: EXTCMP , BMPR1A , CBCDIF , BNP , LASAP , RED Admission on 05/22/2025, Discharged on 05/22/2025 Component Date Value Ventricular Rate 05/22/2025 73 Atrial Rate 05/22/[address] Interval 05/22/2025 202 QRS DURATION 05/22/2025 116 QT Interval 05/22/2025 382 QTC CALCULATION(BAZETT) 05/22/2025 420 P Chama 05/22/2025 20 R-Chama 05/22/2025 -25 T Wave Chama 05/22/2025 67 Protime 05/22/2025 13.1 INR 05/22/2025 0.99 Glucose POC 05/22/2025 105 Hemoglobin 05/22/2025 13.0 LD 05/22/2025 186 Bilirubin, Direct 05/22/2025 0.2 Total Bilirubin 05/22/2025 0.8 Haptoglobin 05/22/2025 129.0 High Sensitivity Troponi* 05/22/2025 677 (HH) Activated Clotting Time 05/22/2025 332 (H) Activated Clotting Time 05/22/2025 306 (H) Activated Clotting Time 05/22/2025 219 (H) Ventricular Rate 05/22/2025 77 Atrial Rate 05/22/[address] Interval 05/22/2025 184 QRS DURATION 05/22/2025 114 QT Interval 05/22/2025 376 QTC CALCULATION(BAZETT) 05/22/2025 425 P Chama 05/22/2025 60 R-Chama 05/22/2025 -13 T Wave Chama 05/22/2025 84 No results found for: CHOL , TRIG , HDL , LDLDIRECT 10/19/24: Hgb 15.5, hematocrit 46.9, sodium 138, potassium 4.1, creatinine 0.87, hemoglobin A1c 5.9, mag 2.2, AST 19, ALT 49, BNP 262 Lipids: cholesterol 149, trig 133, LDL 86, 37 TSH 1.969 Testing/Procedures: Encounter Date: 05/22/25 ECG 12 lead Result Value Ventricular Rate [address] Interval 184 QRS DURATION 114 QT Interval 376 QTC CALCULATION(BAZETT) 425 P Chama 60 R-Chama -13 T Wave Chama 84 Impression Normal sinus rhythm Normal ECG When compared with ECG of 22-MAY-2025 11:53, No significant change was found Confirmed by Myrna NOYOLA, LORI Braswell ([id number]) on 05/23/2025 10:27:00 AM ATRIAL FIBRILLATION ABLATION PROCEDURE NOTE DATE OF PROCEDURE: 05/22/2025 PERFORMING PHYSICIAN: Dr. Brian Summers NAME OF THE PROCEDURE: Pulmonary Vein Isolation and Comprehensive EP study. INDICATIONS FOR PROCEDURE: 1. Paroxysmal atrial fibrillation. PROCEDURES PERFORMED: 1. Sonosite guided venous access as noted below and images stored. 2. Comprehensive EP study and catheter ablation for persistent atrial fibrillation through the pulmonary vein isolation technique. This includes right atrial recording and pacing, His bundle recording and right ventricular recording and pacing. 3. Intracardiac EP 3D mapping. 4. Intracardiac echocardiogram 5. Left atrial and coronary sinus recording and pacing to assess ablation results. 6. Left heart pressure measurements and LV pacing and recording. 7. Induction of arrhythmia and testing of ablation results using intravenous adenosine infusion. 8. Fluroscopy. POST PROCEDURE DIAGNOSIS 1. Paroxysmal atrial fibrilla (more content not included)...[facility]07-24-2025 NotePatient is here today for a follow s/p ablation. Patient states he is feeling pretty good his energy level has increased. Patient states maybe a handful of times since the procedure he felt like he was in A-Fib but then went right back out. Patient would like to know if he can return to normal activity and swimming. Review of Systems Constitutional: Negative.[facility]06-26-2025 Note Patient: Gelacio Smith Procedure Summary Date: 05/22/25 Room / Location: [facility]SEM[facility] 1 EP / [facility] VASCULAR [facility] (Cath) Anesthesia Start: 131 Anesthesia Stop: 1614 Procedure: Ablation a-fib paroxysmal Diagnosis: Paroxysmal atrial fibrillation (CMS/HCC) (Paroxysmal atrial fibrillation (CMS/HCC) [I48.0]) Providers: Brian Summers MD Responsible Provider: Lane Rowan MD Anesthesia Type: general ASA Status: 3 Anesthesia Type: general Vitals Value Taken Time BP 133/78 05/22/25 16:35 Temp 36 ???C (96.8 ???F) 05/22/25 16:19 Pulse 78 05/22/25 16:35 Resp 16 05/22/25 16:35 SpO2 93 % 05/22/25 16:35 Anesthesia Post Evaluation Patient location during evaluation: PACU Patient participation: complete - patient participated Level of consciousness: awake Pain score: 2 Pain management: adequate Airway patency: patent Cardiovascular status: stable Respiratory status: acceptable Hydration status: balanced Patient is hemodynamically stable and is able to be discharged from PACU per anesthesia protocol. There were no known notable events for this encounter.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 1 EP / [facility] HV VASCULAR LAB (Cath) Anesthesia Start: 131 Anesthesia Stop: Procedure: Ablation a-fib paroxysmal Diagnosis: Paroxysmal atrial fibrillation (CMS/HCC) (Paroxysmal atrial fibrillation (CMS/HCC) [I48.0]) Providers: Brian Summers MD Responsible Provider: Lane Rowan MD Anesthesia Type: general ASA Status: 3 Anesthesia Post Transport Note Transport to: PACU O2 Route: face mask Oxygen Flow (L/min): 8 Patient Monitor: direct observation and transport monitor Transport: uneventful Patient condition is: [facility]Un[facility] Note ATRIAL FIBRILLATION ABLATION PROCEDURE NOTE DATE OF PROCEDURE: 05/22/2025 PERFORMING PHYSICIAN: Dr. Brian Summers SAP BI DEVELOPER: LEANNE CONSENT: Patient NAME OF THE PROCEDURE: Pulmonary Vein Isolation and Comprehensive EP study. INDICATIONS FOR PROCEDURE: 1. Paroxysmal atrial fibrillation. PROCEDURES PERFORMED: 1. Sonosite guided venous access as noted below and images stored. 2. Comprehensive EP study and catheter ablation for persistent atrial fibrillation through the pulmonary vein isolation technique. This includes right atrial recording and pacing, His bundle recording and right ventricular recording and pacing. 3. Intracardiac EP 3D mapping. 4. Intracardiac echocardiogram 5. Left atrial and coronary sinus recording and pacing to assess ablation results. 6. Left heart pressure measurements and LV pacing and recording. 7. Induction of arrhythmia and testing of ablation results using intravenous adenosine infusion. 8. Fluroscopy. FLUROSCOPY: 16.1min/ 430mGray EBL: 25cc PROCEDURE NOTE: Pt was brought to EP lab and she was in sinus rhythm, so GARIMA was deferred. Thereafter, we proceeded to do atrial fibrillation ablation. Both the groins were then prepared and draped. Ultrasound was used to determine the course and patency of the femoral veins on both sides and they were noted to be patent and the image stored in PACS. After infiltration with 1% lidocaine, 4 venous sheaths were placed in the right as noted below and arterial access was placed by anesthesia. RFV: 8Fx1 CS Catheter (EZ Steer) 9Fx1: ICE catheter. 8F -->17F: Faradrive sheath for PFA catheter Heparin bolus was given followed by additional bolus and continuous intravenous drip to target ACT around 350. An intracardiac ultrasound catheter was inserted into the right atrium to examine the right atrial anatomy, atrial septum, pulmonary vein anatomy and to monitor for pericardial effusion and guide transseptal access. ICE revealed that the patient had a significantly mildy dilated right atrium and left atrium and no pericardial effusion. At this point I decided to proceed with the transseptal puncture to perform A. fib ablation. Single transseptal access technique was used to cross to the left side. Following the first transeptal access, which was achieved via puncture of the thinner aspect of the septum using Elieser needle, Octoray catheter was placed in the left atrium. Pulmonary vein and left atrial anatomic mapping were performed using a 3-D CARTO computer-based mapping system. Identification of the pulmonary vein ostia was assisted by the left atrial signals on the ablation catheter, the ICE catheter and the Octoray catheter placed in the individual pulmonary veins. I then proceeded to exchange the SL1 for 17F Faradrive sheath. Farawave multipolar catheter was advanced over a wire with negative aspiration in periodic fashion to avoid any air bubbles. Thereafter the catheter was advanced to each of the veins over the wire to maintain coaxial placement of catheter. 2 PFA energy pulses were given in each position and then position rotated to 36degrees to get new location and repeat PFA energy were provided. Then this process was repeated in the flower configuration in each veins. This led to complete isolation of each vein. Repeat mapping with Octoray catheter revealed isolation of all 4 veins. LV pacing revealed no left sided retrograde accessory pathway. Adenosine did not reveal any reconnection. Burst pacing did not induce any arhrythmia. The ICE catheter was used to reexamine the intracardiac anatomy and this showed no pericardial effusion. Since no flutter could be induced, I did not proceed with flutter ablation. ICE catheter and all catheters were removed. Venous sheaths were pulled, and hemostasis achieved with Perclose sutures and Vascade closure device. He was transferred to observation bay and then to hospital room for observation. LA baseline (mmHg) 1st and 2nd /14 HR 80bpm LA 600ms pacing (mmHg) NA LA 400ms pacing (mmHg) NA AHms 46, 83 HVms 42, 45 VERPms 600/320, VA condunction+ AV Wenkebach ms 320ms AH jump ms NA AVNERP ms Straight to AERP AERP ms 600/220 POST PROCEDURE DIAGNOSIS 1. Paroxysmal atrial fibrillation s/p PVI (WACA) with PFA. 2. EP study revealing no retrograde accessory pathway. 3. Normal LA voltage 4. Normal LA pressures. SPECIMEN REMOVED: None PLAN: 1. Anticoagulation after 2 hrs of sheath removal. 2. Protonix 40mg bid x 1 month. 3. Groin precautions. Brian Summers MD [facility] ElectrophysiologyUnF[facility]06-26-[facility] Note Airway Date/Time: 05/22/2025 1:41 PM Reason: elective Airway not difficult General Information and Staff Patient location during procedure: OR Anesthesiologist: Lane Rowan MD Resident/PONY WORKER/CAA: Sunny Vernon MD Performed: resident/PONY WORKER/CAA Patient Condition Indications for airway management: anesthesia Sedation level: deep Final Airway Details Preoxygenated: yes Final airway type: endotracheal airway Successful airway: ETT Cuffed: yes Successful intubation technique: video laryngoscopy Adjuncts used in placement: intubating stylet Endotracheal tube insertion site: oral Blade: Magana Blade size: #4 ETT size (mm): 8.0 Cormack-Lehane Classification: grade IIa - partial view of glottis Placement verified by: chest auscultation and capnometry Measured from: lips ETT to lips (cm): 23 Number of attempts at approach: 1 Number of other approaches attempted: 0[facility] 05-22-[facility] Note Attestation signed by Lane Rowan MD at 05/22/2025 1:58 PM I attest to this preprocedural evaluation. I interviewed & examined patient after reviewing the medical record. Arterial Line: Date/Time: 05/22/2025 12:30 PM An arterial line was placed Procedure performed using ultrasound guidance.in the pre-op for the following indication(s): continuous blood pressure monitoring and blood sampling needed. A 20 gauge (size), 2 inch (length), Angiocath (type) catheter was placed, Seldinger technique used , into the Left radial artery, secured by Tegaderm and tape (and biodesc). Events: patient tolerated procedure well with no complications. Medications Administered lidocaine (XYLOCAINE) 1 % SubQ - infiltration 1 mL - 05/22/2025 12:30:00 PM midazolam (VERSED) IV - intravenous 2 mg - 05/22/2025 12:30:00 PM fentaNYL (SUBLIMAZE) IV - intravenous 50 mcg - 05/22/2025 12:30:00 PM Staffing Performed: resident/PONY WORKER/CAA Anesthesiologist: Lane Rowan MD Resident/PONY WORKER: John Harry MD Performed by: Sunny Vernon MD Authorized by: Lane Rowan MDMercy Health St. [facility]06-26-2025 NotePatient: Gelacio Ordonezgabby Procedure Information Anesthesia Start Date/Time: 05/22/25 1311 Procedure: Ablation a-fib paroxysmal Location: [facility]UL[facility]SEM[facility] 1 / [facility]ASC[facility] (Cath) Providers: Brian Summers MD Relevant Problems Cardio (+) Essential hypertension (+) Paroxysmal atrial fibrillation (CMS/HCC) GI Ozempic, last taken 1x week prior, skipped this week dose as instructed Endocrine/Metabolic (+) Morbid obesity with body mass index (BMI) of 45.0 to 49.9 in adult (CMS/HCC) Other (+) Feeling agitated (+) Hyperlipidemia Clinical information reviewed: Tobacco Allergies Meds Problems Med Hx Surg Hx Fam Hx Soc Hx Physical Exam Airway Mallampati: III TM distance: >3 FB Neck ROM: full Comments: Patient has cardenas Cardiovascular Rhythm: regular Rate: normal Dental Pulmonary - normal exam Neurological Abdominal (+) obese Anesthesia Plan ASA 3 general The patient is not a current smoker. Patient did not smoke on day of procedure. Education provided regarding risk of obstructive sleep apnea. (Already using CPAP) intravenous induction Postoperative pain plan includes opioids. Trial extubation is planned. Anesthetic plan and risks discussed with patient and spouse. Use of blood products discussed with patient and spouse who consented to blood products. Plan discussed with attending. Additional Equipment RequestsMer[facility]. [facility]06-[facility]-2025 Note [place] Electrophys[place] Consult Note [place] [facility] Reason for visit: afib 04/29/25 Patient [...] feels his HR going fast. Prior HPI: Gelacio Smith is a 44 y.o. year old with past medical history of type 2 diabetes mellitus on Ozempic, new onset atrial fibrillation. Patient was recently at work when he felt the sensation of a fluttering heart beat. He spoke to the nurse at work who suggested he go to [...] Alcohol Use: Alcohol Misuse (07/20/2021) Received from [employer] AUDIT-C Frequency of Alcohol Consumption: 2-3 times a week Average Number of Drinks: 1 or 2 Frequency of Binge Drinking: Monthly Financial Resource Strain: Low Risk (12/28/2023) Received from [employer] Overall Financial Resource Strain (CARDIA) Difficulty of Paying Living Expenses: Not hard at all Food Insecurity: No Food Insecurity (04/24/2025) Received from [employer] Hunger Screening Within the past 12 months we worried whether our food would run out before we got money to buy more.: Never True Within the past 12 months the food we bought just didn't last and we didn't have money to get more.: Never True Transportation Needs: No Transportation Needs (12/28/2023) Received from [employer] PRAPARE - Transportation Lack of Transportation (Medical): No Lack of Transportation (Non-Medical): No Physical Activity: Inactive (07/20/2021) Received from [employer] Exercise Vital Sign Days of Exercise per Week: 2 days Minutes of Exercise per Session: 0 min Stress: Not on file Social Connections: Moderately Isolated (07/20/2021) Received from [employer] Social Connection and Isolation Panel [NHANES] Frequency of Communication with Friends and Family: Twice a week Frequency of Social Gatherings with Friends and Family: Never Attends Congregation Services: Never Active Member of Clubs or Organizations: Yes Attends Club or Organization Meetings: Patient declined Marital Status: Intimate Partner Violence: Not on file Depression: Not at risk (04/24/2025) Received from [employer] PHQ-2 Total Score: 0 Housing Stability: Low Risk (12/28/2023) Received from [employer] Housing Instability Are you worried or concerned [...] kg (354 lb) SpO2 97% BMI 46.70 kg/m??? Smoking Status Never BSA 2.88 m??? Meds: Current Outpatient Medications on File Prior [...] appears stated age Level of Distress: comfortable (more content not included)...[facility]05-29-2025 History of Present illness Narrative* Sven Flores APRN-JACKER - 04/24/2025 3:20 PM EDT Images from the original note were not included. [address] [place] [id number] SUBJECTIVE: Patient ID: Gelacio Smith is a 44 y.o. male. Chief Complaint [...] X4 Past Medical History: Diagnosis Date A-fib ([facility]) 10/18/2024 Hyperlipidemia Hypertension Right lateral epicondylitis 10/05/2020 [...] bruise/bleed easily. Psychiatric/Behavioral: Negative. PHYSICAL EXAMINATION: Vitals: 05/29/25 1529 BP: 124/84 BP Site: Left Arm BP Postition: Sitting BP CUFF SIZE: L (13-17 inches) Pulse: 89 Resp: 24 Temp: 36.6 C (97.9 F) TempSrc: Oral SpO2: 99% Weight: (!) 160.8 [...] Thought content normal. Judgment: Judgment normal. ASSESSMENT/PLAN: Gelacio was seen today for diabetes, anxiety and hypertension. Diagnoses and all orders for this visit: Type 2 diabetes mellitus with hyperglycemia, without long-term current use of insulin ([facility]) - POCT Hemoglobin A1c Generalized anxiety disorder with panic attacks - busPIRone (BUSPAR) 15 mg tablet; TAKE 1 TABLET BY MOUTH THREE TIMES A DAY - FLUoxetine (PROzac) 20 MG tablet; Take 1 tablet (20 mg total) by mouth in the morning. Atrial fibrillation, unspecified type ([facility]) - metoprolol tartrate (LOPRESSOR) 25 mg tablet; [...] metoprolol tartrate Body mass index is 45.48 kg/m . Patient noted to have elevated BMI and [...] LISA Gan 04/24/25 1608 documented in this encounterFulton [facility]04-22-2025 NoteUT Electrophysiology Consult Note [place] [facility] Reason for visit: afib 03/18/25 Pt came to discuss abt ablation. He was started on Amio and converted to SR. He stopped Amio and occ feels his HR going fast. Prior HPI: Gelacio Smith is a 44 y.o. year old with past medical history of type 2 diabetes mellitus on Ozempic, new onset atrial fibrillation. Patient was recently at work when he felt the sensation of a fluttering heart beat. He spoke to the nurse at work who suggested he go to [...] Determinants of Health Tobacco Use: High Risk (03/18/2025) Patient History Smoking Tobacco Use: Never Smokeless Tobacco Use: Current Passive Exposure: Not on file Alcohol Use: Alcohol Misuse (07/20/2021) Received from [employer] AUDIT-C Frequency of Alcohol Consumption: 2-3 times a week Average Number of Drinks: 1 or 2 Frequency of Binge Drinking: Monthly Financial Resource Strain: Low Risk (12/28/2023) Received from [employer] Overall Financial Resource Strain (CARDIA) Difficulty of Paying Living Expenses: Not hard at all Food Insecurity: No Food Insecurity (10/22/2024) Received from [employer] Hunger Screening Within the past 12 months we worried whether our food would run out before we got money to buy more.: Never True Within the past 12 months the food we bought just didn't last and we didn't have money to get more.: Never True Transportation Needs: No Transportation Needs (12/28/2023) Received from [employer] PRAPARE - Transportation Lack of Transportation (Medical): No Lack of Transportation (Non-Medical): No Physical Activity: Inactive (07/20/2021) Received from [employer] Exercise Vital Sign Days of Exercise per Week: 2 days Minutes of Exercise per Session: 0 min Stress: Not on file Social Connections: Moderately Isolated (07/20/2021) Received from [employer] Social Connection and Isolation Panel [NHANES] Frequency of Communication with Friends and Family: Twice a week Frequency of Social Gatherings with Friends and Family: Never Attends Congregation Services: Never Active Member of Clubs or Organizations: Yes Attends Club or Organization Meetings: Patient declined Marital Status: Intimate Partner Violence: Not on file Depression: Not at risk (10/22/2024) Received from [employer] PHQ-2 Total Score: 0 Housing Stability: Low Risk (12/28/2023) Received from [employer] Housing Instability Are you worried or concerned that in the next two months you may not have stable housing that you own, rent or stay in as a part of a household?: No Utilities: Not on file Health Literacy: Not on file Allergies: Allergies Allergen Reactions Metformin GI intolerance Weight: 158kg Visit Vitals BP 148/89 (BP Location: Left arm, Patient Position: Sitting) Pulse 77 Ht 1.854 m (6' 1 ) Wt (!) 158 kg (348 lb) SpO2 99% BMI 45.91 kg/m??? Smoking Status Never BSA 2.85 m??? Meds: Current Outpatient Medications on File Prior to Visit Medication Sig Dispense Refill amLODIPine (Norvasc) 10 mg tablet Take 10 mg by mouth in the morning. Eliquis 5 mg tablet Take 5 mg [...] taking: Reported on 03/18/2025) 146 tablet 0 busPIRone (Buspar) 10 mg tablet Take 1 tablet by mouth every 6 (six) hours during the day. lisinopriL-hydrochlorothiazide 20-12.5 mg tablet Take 1 tablet by mouth in the morning. No current facility-administered medications on file prior to visit. ROS: Review of Systems Cardiovascular: Positive for palpitations. Neurological: Positive for light-headedness. All other systems reviewed and are negative. Physical Exam: Constitutional General Appearance: well-nourished, well-developed, appears stated age Level of Distress: comfortable Psychiatric Mental Status: alert, normal affect Orientation: oriented to time, place, and person Insight: goo (more content not included)...[facility] 01-08-2025 NotecaseUnFayette [facility]01-22-2025 NotePatient stopped by the office for pre-cardioversion ECG. I emailed result to Dr. Summers who says patient is in NSR. I LM for patient letting him know. I told him I would wait to cancel the procedure until Monday morning - just in case he were to flip back into afib between now and then. Advised patient to call our office for further questions.[facility]01-02-2025 Miscellaneous Notes* Telephone Encounter - Martha Whyte CMA - 11/28/2024 9:49 AM EST Patient called and was wondering do you think he should get back on his BP meds because his BP was running around 167/97? * Telephone Encounter - LISA Gan - 11/28/2024 9:49 AM EST Yes. He can restart amlodipine 10 mg oral daily. * Telephone Encounter - Martha Whtye CMA - 11/28/2024 9:49 AM EST Notified patient documented in this encounterFulton [facility] Center01-02-2025 Telephone encounter Note* Telephone Encounter - Martha Whyte CMA - 11/28/2024 9:49 AM EST Patient called and was wondering do you think he should get back on his BP meds because his BP was running around 167/97? [facility]01-02-[facility] Telephone encounter Note* Telephone Encounter - LISA Gan - 11/28/2024 9:49 AM EST Yes. He can restart amlodipine 10 mg oral daily. [facility]01-02-2025 Telephone encounter Note* Telephone Encounter - Martha Whyte CMA - 11/28/2024 9:49 AM EST Notified patient [facility]12-17-2024 NoteUT Electrophysiology Consult Note [place] [facility] Reason for visit: afib HPI: Gelacio Smith is a 44 y.o. year old with past medical history of type 2 diabetes mellitus on Ozempic, new onset atrial fibrillation. Patient was recently at work when he felt the sensation of a fluttering heart beat. He spoke to the nurse at work who suggested he go to [...] Determinants of Health Tobacco Use: High Risk (11/12/2024) Patient History Smoking Tobacco Use: Never Smokeless Tobacco Use: Current Passive Exposure: Not on file Alcohol Use: Alcohol Misuse (07/20/2021) Received from [employer] AUDIT-C Frequency of Alcohol Consumption: 2-3 times a week Average Number of Drinks: 1 or 2 Frequency of Binge Drinking: Monthly Financial Resource Strain: Low Risk (12/28/2023) Received from [employer] Overall Financial Resource Strain (CARDIA) Difficulty of Paying Living Expenses: Not hard at all Food Insecurity: No Food Insecurity (10/22/2024) Received from [employer] Hunger Screening Within the past 12 months we worried whether our food would run out before we got money to buy more.: Never True Within the past 12 months the food we bought just didn't last and we didn't have money to get more.: Never True Transportation Needs: No Transportation Needs (12/28/2023) Received from [employer] PRAPARE - Transportation Lack of Transportation (Medical): No Lack of Transportation (Non-Medical): No Physical Activity: Inactive (07/20/2021) Received from [employer] Exercise Vital Sign Days of Exercise per Week: 2 days Minutes of Exercise per Session: 0 min Stress: Not on file Social Connections: Moderately Isolated (07/20/2021) Received from [facility] Social Connection and Isolation Panel [NHANES] Frequency of Communication with Friends and Family: Twice a week Frequency of Social Gatherings with Friends and Family: Never Attends Congregation Services: Never Active Member of Clubs or Organizations: Yes Attends Club or Organization Meetings: Patient declined Marital Status: Intimate Partner Violence: Not on file Depression: Not at risk (10/22/2024) Received from [employer] PHQ-2 Total Score: 0 Housing Stability: Low Risk (12/28/2023) Received from [employer] Housing Instability Are you worried or concerned that in the next two months you may not have stable housing that you own, rent or stay in as a part of a household?: No Utilities: Not on file Health Literacy: Not on file Allergies: Allergies Allergen Reactions Metformin GI intolerance Weight: 155kg Visit Vitals BP 166/78 (BP Location: Left wrist, Patient Position: Sitting) Pulse 73 Ht 1.854 m (6' 1 ) Wt (!) 155 kg (342 lb) SpO2 98% BMI 45.12 kg/m??? Smoking Status Never BSA 2.83 m??? Meds: Current Outpatient Medications on File Prior to Visit Medication Sig Dispense Refill amLODIPine (Norvasc) 10 mg tablet Take 10 mg by mouth in the morning. Eliquis 5 mg tablet Take 5 mg by mouth twice a day. FLUoxetine (PROzac) 20 mg tablet Take 20 mg by mouth in the morning. lisinopriL-hydrochlorothiazide 20-12.5 mg tablet Take 1 tablet by mouth in the morning. metoprolol tartrate (Lopressor) 25 mg tablet Take 25 mg by mouth twice a day. Ozempic 2 mg/dose (8 mg/3 mL) pen injector INJECT 2 (TWO) mg SUBCUTANEOUSLY (UNDER THE SKIN) EVERY 7 DAYS pantoprazole (ProtoNix) 40 mg EC tablet Take 40 mg by mouth before breakfast. No current facility-administered medications on file prior to visit. ROS: Review of Systems Cardiovascular: Positive for palpitations. Neurological: Positive for light-headedness. All other systems reviewed and are negative. Physical Exam: Constitutional General Appearance: well-nourished, well-developed, [...] Effort: unlabored Chest Exam: normal curvature, no thoraci (more content not included)... [facility]11-26-2024 History of Present illness Narrative* Sven Flores APRN-RALPH - 10/22/2024 11:00 AM EST Subjective Patient ID: Gelacio Smith is a 44 y.o. male. The patient is here today for discharge follow up from hospital. Transition of Care Med Rec completed? Yes Discharged medications: Medications have been reviewed and reconciled with the most recent facilitydischarge document. Patient is accompanied by his today. States he was at work and felt fluttery pressure in his chest. Went to work nurse to discuss. Heartrate was noted to be high. She recommended patient be seen by ER. He went to ER, heart rate was 150. Diagnosed with atrial fibrillation and was subsequently admitted to the hospital. Was started on me toprolol and Eliquis. He has been holding amlodipine and Prinzide since Monday. BP 134/70 today. Has upcoming appointment with [place] cardiology on November 12, 2024. Follow-up Pertinent negatives include no chest pain, chills, coughing, fatigue, fever or headaches. The following portions of the patient's history were reviewed and updated as appropriate: allergies, current medications, past family history, past medical history, past social history, past surgicalhistory, problem list, and medication reconciliation was completed including current medication andpost discharge medication. Review of Systems Constitutional: Negative for chills, [...] Hematological: Does not bruise/bleed easily. Psychiatric/Behavioral: Negative. Vitals: 10/22/24 1058 BP: 134/70 Pulse: 76 Resp: 18 Temp: 36.6 C (97.8 F) SpO2: 99% Objective Physical Exam Vitals and nursing note reviewed. [...] murmur heard. No friction rub. No gallop. Comments: Apical 84, regular Pulmonary: Effort: Pulmonary effort is normal. No [...] Content: Thought content normal. Judgment: Judgment normal. Assessment/Plan Gelacio was seen today for follow-up. Diagnoses and all orders for this visit: Atrial fibrillation, unspecified type (CMS-HCC) - metoprolol tartrate (LOPRESSOR) 25 mg tablet; Take 1 tablet (25 mg total) by mouth in the morningand 1 tablet (25 mg total) before bedtime. - ELIQUIS 5 mg tablet; Take 1 tablet (5 mg total) by mouth in the morning and 1 tablet (5 mg total)before bedtime. Essential hypertension - metoprolol tartrate (LOPRESSOR) 25 mg tablet; Take 1 tablet (25 mg total) by mouth in the morningand 1 tablet (25 mg total) before bedtime. Went to ER, heart rate was 150. Diagnosed with atrial fibrillation and was [facility]. Was started on metoprolol and Eliquis. He has been holding amlodipine and Prinzide since Monday. BP 134/70 today. Has upcoming appointment with [place] [facility]ology on November 12, 2024. Discontinue amlodipine and Prinzide Continue metoprolol tartrate 25 mg oral twice daily and Eliquis 5 mg oral twice daily. LISA Gan 10/22/24 1248 documented [facility] History of Present illness Narrative* LISA Gan - 10/14/2024 4:00 PM EST Images from the original note were not included. [address] [place] [id number] SUBJECTIVE: Patient ID: Gelacio Smith is a 44 y.o. male. Chief Complaint Patient presents with Diabetes Hypertension Presents for routine follow up Is doing well with Ozempic and DM. States on occasion, he does have bouts of diarrhea from medication, depending on what he eats. States he panic and anxiety has been increasing due to stressors; work and personal life. Diabetes He presents for his follow-up diabetic [...] Right X4 Past Medical History: Diagnosis Date Hyperlipidemia Hypertension Right lateral epicondylitis 10/05/2020 Immunization History Administered Date(s) Administered Influenza, Unspecified 09/03/2020 REVIEW OF SYSTEMS: Review of Systems Constitutional: Positive for irritability. Negative for chills, fatigue and fever. HENT: Negative for hearing loss and trouble swallowing. Eyes: Negative for pain and visual disturbance. Respiratory: Negative for cough, chest tightness and shortness of breath. Cardiovascular: Positive for palpitations. Negative for chest pain and leg swelling. Gastrointestinal: Negative for blood in stool. Endocrine: Negative for polydipsia, polyphagia and polyuria. Genitourinary: Negative for difficulty urinating, dysuria, flank pain, hematuria, scrotal swelling and testicular pain. Musculoskeletal: Negative. Skin: Negative. Allergic/Immunologic: Negative. Neurological: Negative for seizures, syncope and headaches. Hematological: Does not bruise/bleed easily. Psychiatric/Behavioral: Positive for decreased concentration. The patient is nervous/anxious. PHYSICAL EXAMINATION: Vitals: 10/14/24 1553 BP: 120/70 BP Site: Left Arm BP Postition: Sitting Pulse: 86 Resp: 18 Temp: 37.1 C (98.7 F) TempSrc: Oral SpO2: 97% Weight: (!) 156 kg (344 lb) Height: 188 cm (6' 2 ) Patient noted to have elevated BMI [...] Content: Thought content normal. Judgment: Judgment normal. Diabetic foot exam: Visual exam was normal without lesions. Left: Pulses Dorsalis Pedis: present Vibratory sensation normal Filament test present Right: Pulses Dorsalis Pedis: present Vibratory sensation normal Filament test present ASSESSMENT/PLAN: 1. Type 2 diabetes mellitus with hyperglycemia, without long-term current use of insulin ([facility]) (Primary) A1c 5.6% Continue Ozempic 2 mg weekly. Tolerating medication without intolerable side effects Encourage routine home blood sugar monitoring, diet modification, and exercise regimen. Daily self skin foot checks Yearly eye exam - POCT Hemoglobin A1c 2. Essential hypertension Controlled 120/70 Continue amlodipine 10 mg oral daily Lisinopril-HCTZ 20 - amLODIPine (NORVASC) 10 mg tablet; TAKE 1 TABLET BY MOUTH IN THE MORNING Dispense: 90 tablet; Refill: 2 3. Generalized anxiety disorder with panic attacks Is experiencing more panic attacks lately. Due to stressors. Increase Buspar to 15 mg oral TID Continue fluoxetine 20 mg oral daily - busPIRone (BUSPAR) 15 mg tablet; TAKE 1 TABLET BY MOUTH THREE TIMES A DAY Dispense: 270 tablet; Refill: 1 - FLUoxetine (PROzac) 20 MG tablet; Take 1 tablet (20 mg total) by mouth in the morning. Dispense: 90 tablet; Refill: 2 4. GERD without esophagitis Limit or avoid trigger foods and beverages. Consider weight loss. - pantoprazole (PROTONIX) 40 mg EC tablet; Take 1 tablet (40 mg total) by mouth every morning before breakfast. Dispense: 90 tablet; Refill: 2 Body mass index is 44.17 kg/m . Patient noted to have elevated BMI and the following intervention(s) were applied: Discussed current weight today. Consider healthy food choices, portion control. Avoid sugary beverages and high concentrated sweets. Routine exercise regimen encouraged. ALL QUESTIONS ANSWERED Total time spent was 35 minutes: Preparing to see the patient (e.g., review of tests) Obtaining and/or reviewing separately obtained history Performing a medically appropriate examination and/or evaluation Counseling and educating the patient/family/caregiver Ordering medications, tests, or procedures Follow-up: 5 months DM HTN anxiety LISA Gan 10/14/24 1713 documented in [facility] History of Present illness Narrative* LISA Gan - 03/27/2024 5:00 PM EDT Images from the original note were not included. [address] [place] [id number] SUBJECTIVE: Patient ID: Gelacio Smith is a 43 y.o. male. Chief Complaint Patient presents with Diabetes Presents for follow up States his anxiety is improved. Fluoxetine was increased to 20 mg. He is also taking Buspar 10 mg oral TID. Major stressors is his job. Works 12 hour shifts, 6 days per week. Mandated. Has changed his diet. Very low carbohydrate, decreased beer intake, eliminated sugar beverages. Haslost 15 pounds since last visit. Hypertension This is a chronic problem. The problem is controlled. Associated symptoms include anxiety. Pertinent negatives include no chest pain, headaches, palpitations or shortness of breath. There are no associated agents to hypertension. Risk factors for coronary artery disease include male gender, obesity, family history and diabetes mellitus. Past treatments include RK inhibitors and calcium channel blockers. The current treatment provides significant improvement. There are no compliance problems. Diabetes He presents for his follow-up diabetic visit. He has type 2 diabetes mellitus. His disease course has been improving. Hypoglycemia symptoms include nervousness/anxiousness. Pertinent negatives for hypoglycemia include no headaches or seizures. There are no diabetic associated symptoms. Pertinent neg atives for diabetes include no chest pain, no fatigue, no polydipsia, no polyphagia and no polyuria. There are no hypoglycemic complications. Symptoms are stable. Risk factors for coronary artery disease include diabetes mellitus, family history, hypertension, male sex, obesity and stress. Current diabetic treatment includes oral agent (monotherapy) (ozempic). He is compliant with treatment all of the time. His weight is stable. He is following a generally healthy diet. He participates in exercise intermittently. Home blood sugar record trend: Is not routinely checking blood sugars. An RK inh ibitor/angiotensin II receptor trevor is being taken. The following portions of the patient's history were reviewed and updated as appropriate: allergies, current medications, past family history, past medical history, past social history, past surgicalhistory and problem list. Past Surgical History: Procedure Laterality Date HAND SURGERY Right X4 Past Medical History: Diagnosis Date Hyperlipidemia Hypertension Right lateral epicondylitis 10/05/2020 Immunization History Administered Date(s) Administered Influenza, Unspecified 09/03/2020 REVIEW OF SYSTEMS: Review of Systems Constitutional: Negative for chills and fever. HENT: Negative for hearing loss and trouble swallowing. Eyes: Negative for pain and visual disturbance. Respiratory: Negative for cough, chest tightness and shortness of breath. Cardiovascular: Negative for palpitations and leg swelling. Gastrointestinal: Negative for blood in stool. Genitourinary: Negative for difficulty urinating, dysuria, flank pain, hematuria, scrotal swelling and testicular pain. Musculoskeletal: Negative. Skin: Negative. Allergic/Immunologic: Negative. Neurological: Negative for syncope. Hematological: Does not bruise/bleed easily. Psychiatric/Behavioral: Negative. PHYSICAL EXAMINATION: Vitals: 03/27/24 1657 BP: 132/80 BP Site: Left Arm BP Postition: Sitting Pulse: 97 Resp: 20 Temp: 36.8 C (98.2 F) TempSrc: Oral SpO2: 97% Weight: (!) 154 kg (339 lb 6.4 oz) Height: 188 cm (6' 2 ) Patient noted to have elevated BMI [...] Thought content normal. Judgment: Judgment normal. ASSESSMENT/PLAN: Gelacio was seen today for diabetes. Diagnoses and all orders for this visit: Type 2 diabetes mellitus with hyperglycemia, without long-term current use of insulin ([facility]) - POCT Hemoglobin A1c - semaglutide (OZEMPIC) 2 mg/dose (8 mg/3 mL) pen injector; INJECT 2mg SUBCUTANEOUSLY EVERY 7 DAYS Generalized anxiety disorder with panic attacks - FLUoxetine (PROzac) 20 MG tablet; Take 1 tablet (20 mg total) by mouth in the morning. - busPIRone (BUSPAR) 10 mg tablet; TAKE 1 TABLET BY MOUTH THREE TIMES A DAY Essential hypertension - amLODIPine (NORVASC) 10 mg tablet; TAKE 1 TABLET BY MOUTH IN THE MORNING - lisinopril-hydroCHLOROthiazide (PRINZIDE,ZESTORETIC) 20-12.5 mg per tablet; TAKE 1 TABLET BY MOUTH DAILY A1c 5.6%. Previously 5.5% Continue Ozempic 2 mg weekly. Tolerating medication without intolerable side effects Encourage routine home blood sugar monitoring, diet modification, and exercise regimen. Daily self skin foot checks Yearly eye exam HTN Controlled 132/80 Continue amlodipine 10 mg oral daily Lisinopril-HCTZ 20 Generalized anxiety with panic Continue fluoxetine 20 mg oral daily Buspirone 10 mg oral TID GERD Limit or avoid trigger foods and beverages. Consider weight loss. Continue pantoprazole 40 mg oral daily Body mass index is 43.58 kg/m . Patient noted to have elevated BMI and [...] patient/family/caregiver Ordering medications, tests, or procedures Follow-up: 4 months LISA Gan 03/28/24 1509 documented in this encounterFulton [facility]02-[facility] History of Present illness Narrative* LISA Gan - 12/28/2023 2:00 PM EST Images from the original note were not included. [address] [facility] [id number] SUBJECTIVE: Video Visit via Real-time Synchronous Audiovisual Provider Location: [facility] - FAMILY MEDICINE [address] [place] [id number] Patient Location: Patient's home Video Visit Consent Statement: I discussed risks, benefits, and alternatives of a real-time synchronous audiovisual consultation with the patient (and any accompanying persons) including the risks that the patient's personal health details and medical records will be discussed over real-time, synchronous, interactive video/audio/telecommunication technology, the visit will not be recorded withoutthe express consent of both the provider and the patient, and that there are some limitations compared to [id number] evaluations. The patient consented to the presence of additional virtual and/or in-person participants. We elected to proceed. Patient ID: Gelacio Smith is a 43 y.o. male. Chief Complaint Patient presents with panic attacks States he quit consuming alcohol 4 days ago and started a 1,000 calorie diet. He is striving to make healthy lifestyle changes. Has not been sleeping well through the night. Started to have feelings of panic this week. Today, while at work, he experienced a panic attack which ended in crying spells. He works at [employer], approximately 70-80 hours per week. States he was thinking about his father who is and thought this would happen to him too. He went to the nurse's office and he was encouraged to make an appointment today. Had his BP checked, is in normal ranges. Has missed 2+ days of fluoxetine. [facility] pharmacy only dispensed 8 capsules and he ran out. Significant history of generalized anxiety with panic and HTN. Anxiety Presents for follow-up visit. Symptoms include decreased concentration, depressed mood, dizziness, excessive worry, insomnia, irritability, malaise, muscle tension, nervous/anxious behavior, palpitations, panic and restlessness. Patient reports no chest pain or shortness of breath. Symptoms occur constantly. The severity of symptoms is causing significant distress. The quality of sleep is fair. Nighttime awakenings: occasional. The following portions of the patient's history were reviewed and updated as appropriate: allergies, current medications, past family history, past medical history, past social history, past surgicalhistory and problem list. Past Surgical History: Procedure Laterality Date HAND SURGERY Right X4 Past Medical History: Diagnosis Date Hyperlipidemia Hypertension Right lateral epicondylitis 10/05/2020 Immunization History Administered Date(s) Administered Influenza, Unspecified 09/03/2020 REVIEW OF SYSTEMS: Review of Systems Constitutional: Positive for irritability. Negative for chills, fatigue and fever. HENT: Negative for hearing loss and trouble swallowing. Eyes: Negative for pain and visual disturbance. Respiratory: Negative for cough, chest tightness and shortness of breath. Cardiovascular: Positive for palpitations. Negative for chest pain and leg swelling. Gastrointestinal: Negative for blood in stool. Endocrine: Negative for polydipsia, polyphagia and polyuria. Genitourinary: Negative for difficulty urinating, dysuria, flank pain, hematuria, scrotal swelling and testicular pain. Musculoskeletal: Negative. Skin: Negative. Allergic/Immunologic: Negative. Neurological: Positive for dizziness. Negative for seizures, syncope and headaches. Hematological: Does not bruise/bleed easily. Psychiatric/Behavioral: Positive for decreased concentration and sleep disturbance. The patient is nervous/anxious and has insomnia. PHYSICAL EXAMINATION: There were no vitals filed for this visit. Deferred, Telehealth Video Visit Patient noted to have elevated BMI and the following intervention(s) were applied: encouragement toexercise. Physical Exam Deferred, Telehealth Video Visit ASSESSMENT/PLAN: Gelacio was seen today for panic attacks. Diagnoses and all orders for this visit: Generalized anxiety disorder with panic attacks - FLUoxetine (PROzac) 20 mg capsule; TAKE 1 CAPSULE BY MOUTH EVERY DAY - LORazepam (ATIVAN) 0.5 mg tablet; Take 1 tablet (0.5 mg total) by mouth every 12 (twelve) hours as needed for anxiety for up to 14 days. Spoke with at length regarding possible ETOH withdrawal. Day 4 without alcohol. Previously consumedup to 6 ultra light beers per day. Encourage reevaluate dietary plan. Current weight is 355 pounds. Consider 1,500 calorie diet instead of 1,000. Increase fluoxetine to 20 mg oral daily. New orders for lorazepam 0.5 mg oral every 12 hours PRN panic attacks. 14 day supply. No refills. Note off work. Return on Monday, January 02, 2023 Patient also has intermittent FMLA for work for same diagnosis. Discussed counseling today. Goal is to establish coping mechanism to handle daily stressors. ALL QUESTIONS ANSWERED Total time spent was 25 minutes: Preparing to see the patient (e.g., review of tests) Obtaining and/or reviewing separately obtained history Performing a medically appropriate examination and/or evaluation Counseling and educating the patient/family/caregiver Ordering medications, tests, or procedures Follow-up: 2-4 weeks LISA Gan 12/28/23 1500 documented in this encounterFulton [facility]01-[facility]-2024 History of Present illness Narrative* LISA Gan - 12/13/2023 5:00 PM EST Images from the original note were not included. [address] [place] [id number] SUBJECTIVE: Patient ID: Gelacio Smith is a 43 y.o. male. Chief Complaint Patient presents with Annual Exam Presents for annual physical exam He is . Has twin school age daughters. Does not smoke. Works full-time at [employer]. The following portions of the patient's history were reviewed and updated as appropriate: allergies, current medications, past family history, past medical history, past social history, past surgicalhistory and problem list. Past Surgical History: Procedure Laterality Date HAND SURGERY Right X4 Past Medical History: Diagnosis Date Hyperlipidemia Hypertension Right lateral epicondylitis 10/05/2020 Immunization [...] bruise/bleed easily. Psychiatric/Behavioral: Negative. PHYSICAL EXAMINATION: Vitals: 12/13/23 1701 BP: 128/80 BP Site: Left Arm BP Postition: Sitting Pulse: 92 Temp: 36.7 C (98 F) TempSrc: Tympanic SpO2: 98% Weight: (!) 161 kg (355 lb) Height: 188 cm (6' 2 ) Patient noted to have elevated BMI [...] Thought content normal. Judgment: Judgment normal. ASSESSMENT/PLAN: Gelacio was seen today for annual exam. Diagnoses and all orders for this visit: Annual physical exam Blood tests for routine general physical examination - POCT Hemoglobin A1c - Comprehensive metabolic panel; Future - CBC auto differential; Future - Lipid profile; Future - TSH; Future Essential hypertension - amLODIPine (NORVASC) 10 mg tablet; TAKE 1 TABLET BY MOUTH IN THE MORNING Generalized anxiety disorder with panic attacks - busPIRone (BUSPAR) 10 mg tablet; TAKE 1 TABLET BY MOUTH THREE TIMES A DAY - FLUoxetine (PROzac) 10 mg capsule; TAKE 1 CAPSULE BY MOUTH EVERY DAY GERD without esophagitis - pantoprazole (PROTONIX) 40 mg EC tablet; Take 1 tablet (40 mg total) by mouth in the morning and at bedtime. Other orders - Cancel: Prostatic specific antigen screen; Future Body mass index is 45.58 kg/m . Patient noted to have elevated BMI and the following intervention(s) were applied: Discussed current weight today. Consider healthy food choices, portion control. Avoid sugary beverages and high concentrated sweets. Routine exercise regimen encouraged. Reorder routine medications -Discussed weight loss in detail; he is considering bariatric surgery but would like to start a strict dietary regimen for 90 days. Labs drawn in office today Education regarding preventative vaccines. Influenza, COVID-19. Obtain through local pharmacy of his choice. ALL QUESTIONS ANSWERED Total time spent was 40 minutes: Preparing to see the patient (e.g., review of tests) Obtaining and/or reviewing separately obtained history Performing a medically appropriate examination and/or evaluation Counseling and educating the patient/family/caregiver Ordering medications, tests, or procedures Follow-up: 3 months LISA Gan 12/13/231812 [facility] NoteHOME SLEEP STUDY Ordering Physician: Navya Flores NP Procedure Date:12/30/2020 CLINICAL HISTORY: This is a 40-year-old male who is 6'2 tall and weighs 352 pounds with a body mass index of 45.2. Patient was referred for a sleep study due to loud snoring, witnessed episodes of apnea, daytime somnolence, obesity, severe mood swings, decreased concentration, high blood pressure, anxiety and depression and frequent awakening at night. RECORDING: Total recording time is 5 hours and 41 minutes. Total monitoring time is 5 hours and 29 minutes. COMPREHENSIVE VENTILATORY MONITORING: There were 290 apneas and 193 hypopneas. This led to an apnea-hypopnea index of 88 per hour. The average oxygenation while awake was 87% with an oxygen desaturation all the way down to 59%. PULSE DATA: The patient had an average pulse rate of 77 beats per minute, maximum pulse rate of 129 beats per minute and minimum pulse rate of 44 beats per minute. SNORING DATA: The patient had 4,265 snoring occurrences. IMPRESSION: 1. This patient does have a severe obstructive sleep apnea with severe hypoxia and would benefit from an in-house titration to be sure that both of these issues are resolved with CPAP treatment and there is not an emergence of a complex sleep apnea syndrome. 2. Patient does meet criteria for obesity on a body mass index scale and would benefit from aggressive weight loss measures and may benefit from seen in the weight loss clinic. 3. Patient would benefit from treatment of any other co-existing medical condition including insomnia, anxiety or depression. 4. Please correlate clinically.[facility] Diagnosis Onset Date Resolution Status Acute nasopharyngitis acuteLeft otitis media with effusionPrem[facility] Work Phone: Evaluation note* Diagnosis Essential hypertension Unspecified essential hypertension [facility] Diagnosis GERD without esophagitis Esophageal reflux [facility]* Diagnosis Type 2 diabetes mellitus with hyperglycemia, without long-term current use of insulin ([facility])- Primary Generalized anxiety disorder with panic attacks Essential hypertension Unspecified essential hypertension GERD without esophagitis Esophageal reflux [facility] Diagnosis Annual physical exam- Primary Routine general medical examination at a health care facility Blood tests for routine general physical examination Laboratory examination ordered as part of a routine general medical examination Essential hypertension Unspecified essential hypertension Generalized anxiety disorder with panic attacks GERD without esophagitis Esophageal reflux [facility]* Diagnosis Generalized anxiety disorder with panic attacks [facility]* Diagnosis Type 2 diabetes mellitus with hyperglycemia, without long-term current use of insulin ([facility]) [facility] Diagnosis Type 2 diabetes mellitus with hyperglycemia, without long-term current use of insulin ([facility]) [facility] Diagnosis Type 2 diabetes mellitus with hyperglycemia, without long-term current use of insulin ([facility]) [facility]* Diagnosis Essential hypertension Unspecified essential hypertension documented [facility]* Diagnosis Type 2 diabetes mellitus with hyperglycemia, without long-term current use of insulin ([facility])- Primary Essential hypertension Unspecified essential hypertension Generalized anxiety disorder with panic attacks GERD without esophagitis Esophageal reflux Comprehensive diabetic foot examination, type 2 DM, encounter for ([facility]) [facility]* Diagnosis Atrial fibrillation, unspecified type ([facility])- Primary Essential hypertension Unspecified essential hypertension documented [facility]* Diagnosis Type 2 diabetes mellitus with hyperglycemia, without long-term current use of insulin ([facility]) documented [facility]* Diagnosis Type 2 diabetes mellitus with hyperglycemia, without long-term current use of insulin ([facility])- Primary Generalized anxiety disorder with panic attacks Atrial fibrillation, unspecified type ([facility]) Essential hypertension Unspecified essential hypertension GERD without esophagitis Esophageal reflux documented [facility]* Diagnosis Atrial fibrillation, unspecified type ([facility]) documented [facility] encounter [facility]* Diagnosis Type 2 diabetes mellitus with hyperglycemia, without long-term current use of insulin ([facility]) documented [facility] this encounter [facility] SystemInstructionsNot on filedocumented in this encounter [facility] SystemInstructionsNot on filedocumented in this encounter [facility] SystemInstructionsNot on filedocumented in this encounter [facility]* Attachments The following attachments cannot be sent through Care Everywhere. * Yearly Physical for Adults ([place]ian) [facility]* Attachments The following attachments cannot be sent through Care Everywhere. * Yearly Physical for Adults ([place]ian) documented [facility] SystemInst[facility]* Attachments The following attachments cannot be sent through Care Everywhere. * Generalized anxiety disorder ([place]igerian) * Panic Attack ED ([place]igerian) documented in this encounterPro[facility] SystemInstructionsNot on file documented in [facility] SystemInstructions* Attachments The following attachments cannot be sent through Care Everywhere. * High Blood Pressure ED ([place]ian) [facility]Inst[facility]* Attachments The following attachments cannot be sent through Care Everywhere. * Atrial fibrillation ([place]ian) documented in this encounterE[facility] SystemInstructionsNot on file documented in this encounterF[facility] CenterInstructions* Attachments The following attachments cannot be sent through Care Everywhere. * Carb counting for adults with diabetes ([place]ian) documented in this encounterFulton County [facility] CenterInstructionsNot on file documented in this [facility] Summary Purpose Family History No Family History Records FoundNo Family History Records FoundNo Family History Records FoundNo Family History Records Found Advance Directives No Advanced Directives Records Found Advance Directive Response Recorded Date/ Time Advance Directives No May 24 9:23am Chief Complaint and Reason for Visit Chief Complaint Sore throat, ear jordan n Reason for Visit Acute nasopharyngiti s Left otitis media with effusion Reason for Referral SpecialtyDiagnoses / ProceduresReferred By ContactReferred To Contact Diagnoses Type 2 diabetes mellitus with hyperglycemia, without long-term current use of insulin ([facility]) Sven Flores, VIROLOGY TEACHER-JACKER [address] [place] [address] Referral IDStatusReasonStart DateExpiration DateVisits RequestedVisits [id number] IDStatusReasonStart DateExpiration DateVisits RequestedVisits [id number] Additional Source Comments (unrecognized sect ion and content) No Status Records FoundNo Status Records FoundNo Status Records FoundNo Status Records Found INFORMATION SOURCE (unrecogn ized section and content) DATE CREATED AUTHOR 08/04/2021 [facility] DATE CREATED AUTHOR AUTHOR'S ORGANIZ ATION 12/16/2023 [facility] DATE CREATED AUTHOR AUTHOR'S ORGANIZ ATION 04/27/2025 [facility] DATE CREATED AUTHOR AUTHOR'S ORGANIZ ATION 09/24/[address] [facility] Care Teams (unrecognized sec tion and content) Team Status: Active Member Role Status Dates HILARY GanC Primary Care Provider Active Team Status: Inactive Member Role Status Dates Sven Flores , COLOR STRAINING BAG WASHER-C Primary Care Provider Active Start: May 24, 2024 End: May 24, 2024Alejandra Ibrahim ProviderActiveStart: May 24, 2024 End: May 24, 2024Team MemberRelationshipSpecialtyStart DateEnd Date Sven Flores, VIROLOGY TEACHER-[facility] [address] [place] [address] PCP - Generalmily Medicine12/15/17Team MemberRelationshipSpecialtyStart DateEnd Date Sven Flores, [facility] [address] [place] [address] PCP - Generalmily Medicine12/15/17Team MemberRelationshipSpecialtyStart DateEnd Date Sven Flores VIROLOGY TEACHER-[facility] [address] [place] [address] PCP - Generalmily Medicine12/15/17Team MemberRelationshipSpecialtyStart DateEnd Date Sven Flores, VIROLOGY TEACHER-[facility] [address] [place] [address] PCP - GeneralFamily Medicine12/15/17Team MemberRelationshipSpecialtyStart DateEnd Date Sven Flores, VIROLOGY TEACHER-[facility] [address] [place] [address] PCP - GeneralFamily Medicine12/15/17Team MemberRelationshipSpecialtyStart DateEnd Date Sven Flores, VIROLOGY TEACHER-[facility] [address] [place] [address] PCP - GeneralFamily Medicine12/15/17Team MemberRelationshipSpecialtyStart DateEnd Date Sven Flores, VIROLOGY TEACHER-[facility] [address] [place] [address] PCP - GeneralFamily Medicine12/15/17Team MemberRelationshipSpecialtyStart DateEnd Date Sven Flores, VIROLOGY TEACHER-[facility] [address] [place] [address] PCP - GeneralFamily Medicine12/15/17Team MemberRelationshipSpecialtyStart DateEnd Date Sven Flores, VIROLOGY TEACHER-[facility] [address] [place] [address] PCP - GeneralFamily Medicine12/15/17Team MemberRelationshipSpecialtyStart DateEnd Date Sven Flores, VIROLOGY TEACHER-[facility] [address] [place] [address] PCP - GeneralFamily Medicine12/15/17Team MemberRelationshipSpecialtyStart DateEnd Date Sven Flores, VIROLOGY TEACHER-[facility] [address] [place] [address] PCP - GeneralFamily Medicine1/19/18Team MemberRelationshipSpecialtyStart DateEnd Date Sven Flores, [facility] [address] [place] [address] PCP - GeneralFamily Medicine12/15/17Team MemberRelationshipSpecialtyStart DateEnd Date Sven Flores, [facility] PCP - GeneralFamily Medicine12/15/17Team MemberRelationshipSpecialtyStart DateEnd Date Sal Aguirre, [facility] [address] [place] [address] PCP - GeneralInternal Medicine07/24/25 Goals (unrecognized section and content) Goals may be documented in a n alternate sectionNot on filedocumented as of this encounterNot on filedocumented as of this encounterNot on filedocumented as of this encounterNot on filedocumented as of this encounterNot on filedocumented as of this encounterNot on filedocumented as of this encounterNot on filedocumented as of this encounterNot on filedocumented as of this encounterNot on filedocumented as of this encounterNot on filedocumented as of this encounterNot on filedocumented as of this encounterNot on filedocumented as of this encounterNot on filedocumented as of this encounterNot on filedocumented as of this encounterNot on filedocumented as of this encounterNot on filedocumented as of this encounterNot on filedocumented as of this encounterNot on filedocumented as of this encounterNot on filedocumented as of this encounterNot on filedocumented as of this encounter Reason for Visit (unrecogniz ed section and content) ReasonOnset DateCommentsMed Nnfmmg7111/28/2024ReasonCommentsMed RefillReason CommentsDiabetesReasonCommentsAnnual ExamReasonCommentspanic attacksReasonOnset DateCommentsMed Zfghaf554ReasonOnset DateCommentsMed Iekwpr6802/12/2024 ReasonCommentsDiabetesHypertensionReasonCommentsFollow-upTBH visit A-FibReason Onset DateCommentsMed Pbesne9501/14/2025ReasonCommentsDiabetesAnxietyHypertension ReasonOnset DateCommentsMed Rcnquv4706/04/2025 FOR RECORDS PERTAINING TO PATIENTS WHO ARE OR HAVE BEEN ENROLLED IN A CHEMICAL DEPENDENCY/SUBSTANCEABUSE PROGRAM, SOME INFORMATION MAY BE OMITTED. This clinical summary was aggregated from multiple sources. Caution should be exercised in using it in the provision of clinical care. This summary normalizes information from multiple sources, and as a consequence, information in this document may materially change the coding, format and clinical context of patient data. In addition, data may be omitted in some cases. CLINICAL DECISIONS SHOULD BE BASED ON THE PRIMARY CLINICAL RECORDS. [facility]. provides no warranty or guarantee of the accuracy or completeness of information in this document.
== END 2025-10-21 12:42 | disposition home or self-care (01) ==
LOC: PST 12:41
PROVIDERS: PCP Nurse Practitioner; Visit Provider Internal Medicine Cardiovascular Disease
DX: Z01.818 Encounter for other preprocedural examination (principal); I48.91 Unspecified atrial fibrillation

== ENCOUNTER 2025-10-28 11:53 | Day surgery (SDC) | payer BC, SELFPAY ==
--- OUTSIDE RECORDS SUMMARY | 2025-10-22 10:31 | XMS_ITS | Continuity of Care Document ---
Author Organization [facility] Address [address] [place] [address] Phone Care Team Providers Care Interior Designer Name Role Phone Verito Flores NP-C Primary Care Provider + Janette Mehta APRN Attending Provider Care Teams Patient Care Team Team Status: Active Member Role/Relationship Status Dates Verito Flores NP-C Primary Care Provider Active Patient Care Team Team Status: Inactive Member Role/Relationship Status Dates Verito Flores RETAIL MERCHANDISER TECHNICIAN-C Primary Care Provider Active Start: October 22, 2025 End: October 22, 2025Alejandra Ibrahim ProviderActiveStart: October 22, 2025 End: October 22, 2025 Chief Complaint and Reason for Visit Chief Complaint Admit Date Cough, congestion October 22, 2025 3:05pm Allergies, Adverse Reactions, Alerts Allergen Type Severity Reaction Last Updated Verified Status No Known Allergies Allergy Unknown October 22, 2025 3:06pmYesActive Social History Smoking Status Status Start Date End Date Date of Observa tion Never smoked tobacco (finding) October 22, 2025 3:17pm Observation Status Observation Response Date of Response Legal Sex Male (finding) Sex Assigned At BirthMale1980 Family History Relationship Condition Age at Onset Recorded Date/T sera father Chronic obstructive pulmonary disease Unk nown Problems Active Problems Problem Diagnosis/Recorded Date Onset Date Stat us Sleep apnea October 22, 2025 3:17pm Unknown A ctive Anxiety October 22, 2025 3:09pm Unknown A ctive Afib October 22, 2025 3:16pm Unknown A ctive Acute nasopharyngitis May 24, 2024 9:28am Unknown Active Left otitis media with effusion May 24, 2024 9:28am Unknown Active GERD (gastroesophageal reflux disease) October 22, 2025 3:09pm Unknown Active Hypertension October 22, 2025 3:09pm Unknown A ctive Obesity October 22, 2025 3:09pm Unknown A ctive Medications Medication Status Dose Units Route Directions Qty Days Refills S tart Date Stop Date End Date Reason(s) Instructions Adherence Amlodipine 10 mg tablet Active 10 MG PO Daily October 22, 2025 12:00amComplies with drug therapyMetoprolol Tartrate 25 mg xfienxRjfegc23MPVPIojsa dailyFlag[facility] 2024 12:00amComplies with drug therapyApixaban (Eliquis) 5 mg fseafdPqdlkb7LHPDNcwdwRuqksqwm 2024 12:00am Complies with drug therapySemaglutide (Ozempic) 2 mg/dose (8 mg/3 mL) pen injectorActiveMGSUBCUTFlaget Memorial Hospital 2024 12:00amComplies with drug therapy Doxycycline Hyclate 100 mg nkmqqurHhusgs359QXCJLpbzt ekugi72526ZecktqvxOctober 22, 2025 12:00amComplies with drug therapyBenzonatate 200 mg fyxxvbmYyfmsm632TPBW Three times daily as needed for tugns69504Idfehxwd 26th, 2025 12:00amComplies with drug therapyFluticasone Propionate (Flonase Allergy Relief) 50 mcg/actuation spray,sxgelpcumfVqnutw6FVOIRLOZVSNTNMTSskog63279Ofeqbqyx 26th, 2025 12:00amadminister 2 spray into each nostrilComplies with drug therapy Lisinopril 5 mg vrdudoJeimmvzxdewd0RDJAOcnohSmqt 2023 11:00pmFlag[facility] 2024 3:08pmAmlodipine 5 mg cuvjkcUesljbpejbjz0SYSSCgqcqUesc 2023 11:00pmFlag[facility] 2024 3:07pmFluoxetine 20 mg tabletDiscontinuedMGPOJune 2023 11:00pmFlag[facility] Hospital 2024 3:15pmPantoprazole 40 mg tablet,delayed release (DR/EC)ActiveMGPOJune 2023 11:00pmComplies with drug therapy Amoxicillin-Pot Clavulanate 875-125 mg eyxuzdKolezycblfym7CKTNFBrqto 12 hours20 100[facility]2023 11:00pmOctober 22, 2025 3:06pm Vital Signs Vital Reading Result Reference Range Collection Date/Time Height 73 [in_i] October 22, 2025 3:77jtAikikt963.29 kgOctober 22, 2025 3:12pmBody Qaodbqhqdjs20.5 [degF]97.6-99.0October 22, 2025 3:12pmHeart Rate97 /yab12-068 October 22, 2025 3:12pmRespiratory rate18 /jbz42-24SodnerggOctober 22, 2025 3:12pm Oxygen saturation by Pulse tprbages65 %95-100October 22, 2025 3:12pmBP Vhntlpbd253 mm[Hg]100-140October 22, 2025 3:12pmBP Wjyfswibj35 mm[Hg]60-100 October 22, 2025 3:12pmBMI (Body Mass Index)47.5 kg/z0WjxhtcbpOctober 22, 2025 3:12pm Advance Directives Advance Directive Response Recorded Date/ Time Advance Directives No May 24 8:23am Insurance Providers Payer Group Member ID Coverage Type Subscriber Relationship to Subscriber Effective Date Expiration Date Madi BURNETTE Id: [id number] Skeel , P Id: [id number] [address] [place] [address] Home Phone: self Encounters Encounter Location(s) Arrival/Admit Date Discharge/Departure Date Discharge/Departure Disposition Provider(s) Departed Physician/ Provider Office Visit -[facility] [place] October 22, 2025 3:05pm October 22, 2025 3:30pm Discharged to home care or self care (routine discharge) Chelsey Johnson APRN
--- OUTSIDE RECORDS SUMMARY | 2025-10-28 11:57 | XMS_ITS | Clinical Summary ---
Author Organization [facility] tem Address [id number] [address] [place] [address] Care Team Providers Care Commercial Airline Pilot Name Role Phone Sal Aguirre APRN-EMISSIONS TESTING TECHNICIAN Primary Care Provider + Allergies Active AllergyReactionsCriticalityNoted DateCommentsMetforminGI Disturbance 11/12/2024 Medications MedicationSigDispense QuantityRefillsLast FilledStart DateEnd DateStatus busPIRone (BUSPAR) 15 mg tablet Indications:Generalized anxiety disorder with panic attacksTAKE 1 TABLET BY MOUTH THREE TIMES A DAY 270 tablet 5Active FLUoxetine (PROzac) 20 MG tablet Indications:Generalized anxiety disorder with panic attacksTake 1 tablet (20 mg total) by mouth in the morning. 90 tablet 5Active pantoprazole (PROTONIX) 40 mg EC tablet Indications:GERD without esophagitisTake 1 tablet (40 mg total) by mouth every morning before breakfast. 90 tablet 5Active amLODIPine (NORVASC) 10 mg tablet Indications:Essential hypertensionTAKE 1 TABLET BY MOUTH ONCE DAILY IN THE MORNING 90 tablet 5Active metoprolol tartrate (LOPRESSOR) 25 mg tablet Indications:Atrial fibrillation, unspecified type (CMS-HCC),Essential hypertensionTake 1 tablet (25 mg total) by mouth in the morning and 1 tablet (25 mg total) before bedtime. 180 tablet 5Active ELIQUIS 5 mg tablet Indications:Atrial fibrillation, unspecified type (CMS-HCC)Take 1 tablet (5 mg total) by mouth in the morning and at bedtime. TAKE 1 TABLET BY MOUTH TWICE HORTENSIA Y (IN THE MORNING AND AT BEDTIME) 180 tablet 5Active semaglutide (OZEMPIC) 2 mg/dose (8 mg/3 mL) pen injector Indications:Type 2 diabetes mellitus with hyperglycemia, without long-term current use of insulin ([facility])INJECT 2mg SUBCUTANEOUSLY EVERY 7 DAYS 3 mL 5Active Active Problems ProblemNoted DateDiagnosed DateFeeling puiwkfxb21/21/2021Generalized anxiety qdkoaodw73/28/2019Family history of alpha 1 antitrypsin eoixdkounc69/22/2018 Annual physical exam09/13/2018Family history of prostate oiwist2109/13/2018 Screening for malignant neoplasm of ahjgildf04/18/2018Morbid obesity with body mass index (BMI) of 45.0 to 49.9 in adult07/11/2017Essential hypertension Hyperlipidemia Resolved Problems ProblemNoted DateDiagnosed DateResolved DateRight lateral epicondylitis 1Acute bacterial uudsfbimr99Seasonal allergic rhinitis due to zmahjh74Sore hljjlv3912/31/2019 07/15/20209266Ldaslwuxgwg24ArthritisClass 3 severe obesity due to excess calories with body mass index (BMI) of 40.0 to 44.9 in adult1Congestion of both earsAcute non-recurrent frontal kujixjqpu41Bilateral impacted cerumen Encounters DateTypeDepartmentCare JgfjSsckzluouot88/09/2025Refill [facility] [address] [place] [address] Raza Morley CMA Type 2 diabetes mellitus with hyperglycemia, without long-term current use of insulin ([facility])from Last 3 Months Immunizations ImmunizationAdministration DatesNext DueInfluenza, Hjlkyuptnpc72/08/2020 Family History Medical HistoryRelationNameCommentsAlpha-1 antitrypsin deficiencyFather HypertensionFatherHypertensionMotherThyroid diseaseMotherAlpha-1 antitrypsin deficiencyPaternal AuntAlpha-1 antitrypsin deficiencyPaternal GrandfatherAlpha-1 antitrypsin deficiencyPaternal GrandmotherAlpha-1 antitrypsin deficiencyPaternal Uncle 1Alpha-1 antitrypsin deficiencyPaternal Uncle 2Alpha-1 antitrypsin deficiencyPaternal Uncle 3Alpha-1 antitrypsin deficiencyPaternal Uncle 4Relation NameStatusCommentsFatherAliveMotherAlivePaternal AuntPaternal Grandfather Paternal GrandmotherPaternal Uncle 1Paternal Uncle 2Paternal Uncle 3Paternal Uncle 4 Social History Tobacco UseTypesPacks/DayYears UsedDateSmoking Tobacco: NeverSmokeless Tobacco: CurrentChewLast attempted to quit: 2019 Tobacco Cessation:Ready to Q uit: Not Asked; Counseling Given: Not Answered Alcohol UseStandard Drinks/WeekCommentsNot Currently0 (1 standard drink = 0.6 oz pure alcohol)WEEKENDSSocial Connection and Isolation PanelAnswerDate RecordedIn a typical week, how many times do you talk on the phone with family, friends, or neighbors?Twice a week07/20/2021How often do you get together with friends or relatives?Never07/20/2021How often do you attend worship or quaker services? Never07/20/2021o you belong to any clubs or organizations such as worship groups, unions, fraternal or athletic groups, or school groups?Yes07/20/2021How often do you attend meetings of the clubs or organizations you belong to?Patient cqhtlyql42/24/2021re you , , , , never , or living with a partner?Mkvtekn9107/20/2021UDIT-CAnswerDate RecordedQ1: How often do you have a drink containing alcohol?2-3 times a week07/20/2021Q2: How many drinks containing alcohol do you have on a typical day when you are drinking?1 or Q3: How often do you have six or more drinks on one occasion?Bcoyslj8607/20/2021Overall Financial Resource Strain (CARDIA)AnswerDate RecordedHow hard is it for you to pay for the very basics like food, housing, medical care, and heating?Not hard at all12/28/2023HQ-2AnswerDate RecordedTotal Ssbin995Exercise Vital SignAnswerDate RecordedOn average, how many days per week do you engage in moderate to strenuous exercise (like a brisk walk)?2 days07/20/2021On average, how many minutes do you engage in exercise at this level?0 min07/20/2021RAPARE - TransportationAnswerDate RecordedIn the past 12 months, has lack of transportation kept you from medical appointments or from getting medications?No12/28/2023In the past 12 months, has lack of transportation kept you from meetings, work, or from getting things needed for daily living?No12/28/2023Housing InstabilityAnswerDate RecordedAre you worried or concerned that in the next two months you may not have stable housing that you own, rent or stay in as a part of a household?No12/28/2023hildcareAnswer Date RecordedDo problems getting children's nursery assistant make it difficult for you to work or study?No07/20/2021mploymentAnswerDate RecordedDo you need help finding a local career center and/or a training program?No07/20/2021Hunger ScreeningAnswerDate RecordedWithin the past 12 months we worried whether our food would run out before we got money to buy more.Never True04/24/2025Within the past 12 months the food we bought just didn't last and we didn't have money to get more.Never True04/24/2025Purpose - LifeAnswerDate RecordedI have a purpose and direction in my life.Strongly Agree07/20/2021ducationAnswerDate RecordedWhat is the highest level of school you have completed or the highest degree you have received?12th grade07/20/2021ex and Gender InformationValueDate RecordedSex Assigned at Not on fileLegal PrtGvdy3007/02/2015 12:07 PM EDTGender IdentityNot on fileSexual OrientationNot on file Last Filed Vital Signs Vital SignReadingTime TakenCommentsBlood Hbvifubr952/8404/24/2025 3:29 PM EDT Exnrz217004/24/2025 3:29 PM ZCKYqmoucwyewm61.6 ??C (97.9 ??F)04/24/2025 3:29 PM EDTRespiratory Galz892504/24/2025 3:29 PM EDTOxygen Mfglyyypzg16%04/24/2025 3:29 PM EDTInhaled Oxygen Concentration--Uhhamj242.8 kg (354 lb 6.4 oz)04/24/2025 3:29 PM XKAGnggne829 cm (6' 2.02 )04/24/2025 3:29 PM EDTBody Mass Index45.48 04/24/2025 3:29 PM EDT Plan of Treatment DateTypeDepartmentCare Team (Latest Contact Info)Tvaivflvpxo45/11/2025 2:00 PM ESTOffice Visit [facility] [address] [place] [phone] Sal Aguirre, SCHOOL PSYCHOMETRIST-EMISSIONS TESTING TECHNICIAN [address] [place] [address] Health MaintenanceDue DateLast DoneCommentsDiabetic Ophthalmology Exam1982 Statin Use: Ygvkpzfl1982Tobacco Rjgfphotlv1982DTaP,Tdap and Td Vaccines (1 - Tdap)2001Influenza Yagquva32/01/2021, 09/03/2020 Diabetic Foot Exam/, 08/16/2023dult BMI Follow Up Plan /dult BMI Ibvxjyjqh59/Depression Screening /Tobacco Puitorukc79 Medical Devices Not on file Insurance Care Teams Team MemberRelationshipSpecialtyStart DateEnd Date Sal Aguirre, SCHOOL PSYCHOMETRIST-EMISSIONS TESTING TECHNICIAN [address] [place] [address] PCP - GeneralInternal Medicine07/24/25
--- OUTSIDE RECORDS SUMMARY | 2025-10-28 11:57 | XMS_ITS | Clinical Summary ---
Author Organization [facility] Address [address] [place] [address] Care Team Providers Care Supervisor Gluing Name Role Phone Verito Flores Unavailable [phone] Social History Tobacco UseTypesPacks/DayYears UsedDateSmoking Tobacco: Never AssessedSex and Gender InformationValueDate RecordedSex Assigned at BirthNot on fileLegal Sex Male02/08/2023 10:13 PM EDTGender IdentityNot on fileSexual OrientationNot on file Last Filed Vital Signs Vital SignReadingTime TakenCommentsBlood Pressure--Pulse--Temperature-- Respiratory Rate--Oxygen Saturation--Inhaled Oxygen Concentration--Crubxx029 kg (340 lb)04/30/2020 12:00 PM STNJalauw545 cm (6' 2 )04/30/2020 12:00 PM EDTBody Mass Index43.6506 12:00 PM EDT Plan of Treatment Not on file Insurance Care Teams Team MemberRelationshipSpecialtyStart DateEnd Date Verito Flores CRNP Referring PhysicianNurse Practitioner01/16/25
--- OUTSIDE RECORDS SUMMARY | 2025-10-28 11:57 | XMS_ITS | Encounter Summary ---
Author Organization [facility] Address [address] [place] [address] Care Team Providers Care Cardio Clinician Name Role Phone Brian Summers MD Unavailable Source Comments In the event this information is protected by the Federal Confidentiality of Alcohol and Drug AbusePatient Records regulations: The Federal rules restrict any use of the information to criminally investigate or prosecute any alcohol or drug abuse patient.[facility] Encounter Details DateTypeDepartmentCare Team (Latest Contact Info)Luvrygeerqo49/27/2025Travel Social History Tobacco UseTypesPacks/DayYears UsedDateSmoking Tobacco: Never AssessedSex and Gender InformationValueDate RecordedSex Assigned at BirthNot on fileLegal Sex Male09/25/2025 9:48 AM EDTGender IdentityNot on fileSexual OrientationNot on filedocumented as of this encounter Plan of Treatment DateTypeDepartmentCare Team (Latest Contact Info)Ighxcyushgg85/04/2025 2:30 PM [facility] [address] [phone] Tiara Barrera APRN.[facility] [address] [phone] obesitydocumented as of this encounter Visit Diagnoses Not on filedocumented in this encounter Care Teams Team MemberRelationshipSpecialtyStart DateEnd Date Brian Summers MD [address] [place] [phone] GarpskynrRrmvkknkym49/30/25documented as of this encounter
--- OUTSIDE RECORDS SUMMARY | 2025-10-28 11:57 | XMS_ITS | Clinical Summary ---
Author Organization [facility] Address [address] [place] [address] Care Team Providers Care Sheeter Operator Name Role Phone Verito Flores MD Primary Care Provider [phone] Allergies Active AllergyReactionsCriticalityNoted DateCommentsMetforminGI intolerance 11/12/2024 Medications MedicationSigDispense QuantityRefillsLast FilledStart DateEnd DateStatus amLODIPine (Norvasc) 10 mg tablet Take 10 mg by mouth in the morning.09/06/2024ctive Eliquis 5 mg tablet Take 5 mg by mouth twice a day.10/22/2024ctive FLUoxetine (PROzac) 20 mg tablet Take 20 mg by mouth in the morning.10/14/2024ctive metoprolol tartrate (Lopressor) 25 mg tablet Take 25 mg by mouth twice a day.10/22/2024ctive pantoprazole (ProtoNix) 40 mg EC tablet Take 40 mg by mouth before breakfast.10/14/2024ctive Ozempic 2 mg/dose (8 mg/3 mL) pen injector INJECT 2 (TWO) mg SUBCUTANEOUSLY (UNDER THE SKIN) EVERY 7 DAYSActive busPIRone (Buspar) 10 mg tablet Take 1 tablet by mouth every 6 (six) hours during the day.09/21/2024ctive Active Problems ProblemNoted DateDiagnosed DateAcute bqsengiofrgjijy24/17/2024Essential qgsiyvasttni67/17/5501Optfvueqignlzr37/17/2024Left otitis media with effusion 11/12/2024aroxysmal atrial zlflhyuevakz14/17/2024Feeling yujtkyzx39/21/2021 Generalized anxiety uyspyalo36/28/2019Family history of alpha 1 antitrypsin icndwebmgj64/22/2018Annual physical exam09/13/2018Screening for malignant neoplasm of aybfrkjl75/18/2018Family history of prostate oqkzji8409/13/2018Morbid obesity with body mass index (BMI) of 45.0 to 49.9 in adult07/11/2017 Encounters DateTypeDepartmentCare VrfwUhenztuygeh04/29/2025Orders Only [facility] Heart [facility] [address] [place] [address] Mariah Thompson MA Paroxysmal atrial fibrillation (CMS/HCC) (Primary Dx)09/23/2025 1:45 PM EDT Office Visit [facility] [address] [place] [phone] Brian Summers MD S/P ablation of atrial fibrillation (Primary Dx)from Last 3 Months Family History Medical HistoryRelationNameCommentsenlarged heartFatherHeart attackFather's BrotherRelationNameStatusCommentsBrotherAliveFatherDeceasedFather's Brother MotherAliveSisterAlive Social History Tobacco UseTypesPacks/DayYears UsedDateSmoking Tobacco: NeverSmokeless Tobacco: CurrentChew Tobacco Cessation:Ready to Q uit: Not Asked; Counseling Given: Not Answered Alcohol UseStandard Drinks/WeekCommentsYes5 (1 standard drink = 0.6 oz pure alcohol)occasional during the week 5 to 6 vodka on the weekendSex and Gender InformationValueDate RecordedSex Assigned at XmhbsKfwj06/19/2025 3:43 PM EDT Legal JakWpws3705/25/2022 10:35 PM EDTGender MysrclrvUkaf00/19/2025 3:43 PM EDT Sexual OrientationHeterosexual or Weaskplm06/19/2025 3:43 PM EDT Last Filed Vital Signs Vital SignReadingTime TakenCommentsBlood Ezkcxxsa192/8709/23/2025 1:59 PM EDT Kwlkr132009/23/2025 1:59 PM MKOMkwxjkpnnoa32 ??C (96.8 ??F)05/22/2025 6:50 PM EDT Respiratory Jhgx528405/22/2025 6:50 PM EDTOxygen Wbznufqiyz04%09/23/2025 1:59 PM EDTInhaled Oxygen Concentration--Gusncf464 kg (361 lb)09/23/2025 1:59 PM EDT Ruepdf896.4 cm (6' 1 )09/23/2025 1:59 PM EDTBody Mass Index47.6309/23/2025 1:59 PM EDT Plan of Treatment Health MaintenanceDue DateLast DoneCommentsDiabetes: Hemoglobin A1C1982 Diabetes: Retinopathy Jctnazegx41/16/1992Depression Yslghxjiq54/16/1994Varicella Vaccines (1 of 2 - 13+ 2-dose series)1995Diabetes: Urine Protein Screening 2001Hepatitis B Vaccines (1 of 3 - 19+ 3-dose series)2001Adult Yxseuaq6009/11/2004HPV Vaccines (1 - 3-dose SCDM series)2009COVID-19 Vaccine ( season)/02/2022, 11/04/2021Influenza Vaccine (#1) 512/01/2021, 09/03/2020Zoster Vaccines (1 of 2)2032HIB Vaccines Aged OutNo longer eligible based on patient's age to complete this topicIPV VaccinesAged OutNo longer eligible based on patient's age to complete this topic Meningococcal B VaccineAged OutNo longer eligible based on patient's age to complete this topicMeningococcal VaccineAged OutNo longer eligible based on patient's age to complete this topicPneumococcal Vaccine: Pediatrics (0 to 5 Years) and At-Risk Patients (6 to 64 Years)Aged OutNo longer eligible based on patient's age to complete this topicRotavirus VaccinesAged OutNo longer eligible based on patient's age to complete this topic Insurance Advance Directives * Full Code (Latest Code Status on File) Date ActivatedDate InactivatedComments05/22/2025 4:33 PM05/22/2025 9:30 PM * Full Code Date ActivatedDate InactivatedComments05/22/2025 4:33 PM05/22/2025 4:33 PM Care Teams Team MemberRelationshipSpecialtyStart DateEnd Date Verito Flores MD [address] [facility], [place] [address] PCP - GeneralFamily Avjwbdvg85/16/24
--- OUTSIDE RECORDS SUMMARY | 2025-10-28 11:57 | XMS_ITS | Clinical Summary ---
Author Organization [facility] Address [address] [place] [address] Care Team Providers Care Gun Perforator Loader Name Role Phone Brian Summers MD Unavailable Encounters DateTypeDepartmentCare RtfeVezlnhpjbdd06/27/5387Oojogf39/30/2025Transcribe Orders Referring Physician [address] [place] [phone] Brian Summers MD Class 3 severe obesity with body mass index (BMI) of 45.0 to 49.9 in adult, unspecified obesity type, unspecified whether serious comorbidity present (HCC) (Primary Dx); Atrial fibrillation, unspecified type (HCC); JALIL (obstructive sleep apnea); Type 2 diabetes mellitus with other specified complication, unspecified whether extermination supervisor insulin use (HCC)from Last 3 Months Social History Tobacco UseTypesPacks/DayYears UsedDateSmoking Tobacco: Never AssessedSex and Gender InformationValueDate RecordedSex Assigned at BirthNot on fileLegal Sex Male09/25/2025 9:48 AM EDTGender IdentityNot on fileSexual OrientationNot on file Plan of Treatment DateTypeDepartmentCare Team (Latest Contact Info)Rolqbtqjijm69/04/2025 2:30 PM [facility] General Surgery [address] [phone] Tiara Barrera APRN.MONITORING SPECIALIST [address] [phone] obesityHealth MaintenanceDue DateLast DoneCommentsAnxiety Xqyfnpmfe06/16/2000 Depression Qejldwyvw85/16/2000HIV Unevxzkjs91/16/2000Hepatitis C Screening 2000DTaP,Tdap,Td Vaccine (1 - Tdap)2001Hepatitis B Vaccine (1 of 3 - 19+ 3-dose series)2001HPV Vaccine (1 - 3-dose SCDM series)2009Lipid Iqrpxiirk53/16/2017Covid-19 Vaccine ( - 2024- season)2025Influenza Vaccine (#1)2025 Insurance Care Teams Team MemberRelationshipSpecialtyStart DateEnd Date Brian Summers MD [address] [place] [phone] WgumpdmqlNnqdugsmmi25/30/25
--- OUTSIDE RECORDS SUMMARY | 2025-10-28 11:59 | XMS_ITS | CCD ---
Author Organization [facility] Care Team Providers Care Kennel Staff Member Name Role Phone SVEN FLORES Attending Unavailable SVEN FLORES Admitting Unavailable SVEN FLORES Attending Unavailable ANDERSON, SVEN Admitting Unavailable CARLOS NEUMANN Attending Unavailable CARLOS NEUMANN Consulting Unavailable CARLOS NEUMANN Primary Care Unavailable CARLOS NEUMANN Admitting Unavailable SVEN FLORES Referring Unavailable FLORESBREESVEN Rio Primary Care Unavailable Flores DESK PENS ASSEMBLER-PANTRY ATTENDANTSven Primary Care Provid er Flores DESK PENS ASSEMBLER-PANTRY ATTENDANT, Sven J Primary Care Provid er SVEN FLORES Attending Unavailable FLORESLORENA CARLTONE Rio Referring Unavailable FLORES, SVEN Rio Primary Care Unavailable SVEN FLORES Attending Unavailable FLORESSVEN Referring Unavailable FLORES, SVEN Rio Primary Care Unavailable SVEN FLORES Attending Unavailable FLORESLORENA CARLTONE Rio Referring Unavailable FLORES, SVEN Rio Primary Care Unavailable Flores DESK PENS ASSEMBLER-PANTRY ATTENDANT, Sven Rio Primary Care Provid er Carla DESK PENS ASSEMBLER-PANTRY ATTENDANTSal Primary Care Provider BRIAN SUMMERS Referring Unavailable ZANDER PARKINSON Attending Unavailable BRIAN SUMMERS Attending Unavailable BRIAN SUMMERS Attending Unavailable BRIAN SUMMERS Attending Unavailable BRIAN SUMMERS Attending Unavailable BRIAN SUMMERS Referring Unavailable BRIAN SUMMERS Admitting Unavailable BRIAN SUMMERS Attending Unavailable Allergies Allergy ClassificationReported Allergen(s)Allergy TypeDate of OnsetReaction(s) Facility (7 sources)metFORMIN; Translations: [METFORMIN]Drug Zhzptgi12-49-5067XZUnity[facility] Medications Current Medications MedicationDrug Class(es)DatesSig (Normalized)Sig (Original)amLODIPine 10 mg oral tablet (20 sources)Dihydropyridine Calcium Channel BlockerStart: 11-28-2024 End: 97-35-4627hswt 1 tablet by mouth once daily in the morningamLODIPine (NORVASC) 10 mg tablet Indications: Essential hypertension TAKE 1 TABLET BY MOUTH ONCE DAILY IN THE MORNING 90 tablet 2 05/16/2025 ActiveStart: 05-24-2024 take 5 mg by mouth once dailyAmlodipine Active 5 MG PO Daily May 24, 2024 12:00amStart: 08-16-2023 End: 06-01-5413eaxj 1 tablet by mouth in the morningamLODIPine (NORVASC) 10 mg tablet Indications: Essential hypertension TAKE 1 TABLET BY MOUTH IN THEMORNING 90 tablet 2 10/14/2024 10/22/2024 Discontinued (Therapy completed)amoxicillin 875 mg / clavulanate 125 mg oral tablet (1 source)Penicillin-class AntibacterialStart: 91-12-9123bmlc 1 tablet by mouth every twelve hoursAmoxicillin-Pot Clavulanate Active 1 TAB PO Every 12 hours 15 09May 24, 2024 12:00amapixaban 5 mg oral tablet (12 sources)Factor Xa InhibitorStart: 10-19-2024 End: 27-58-9162jryt 1 tablet by mouth at bedtime, then take 1 tablet by mouth twice daily at bedtimeELIQUIS 5 mg tablet Indications: Atrial fibrillation, unspecified type ([facility]) Take 1 tablet (5 mg total) by mouth in the morning and at bedtime. TAKE 1 TABLET BY MOUTH TWICE DAILY (IN THE MORNING AND AT BEDTIME) 180 tablet 06/04/2025 Activeblood-glucose meter kit (4 sources)Start: 49-85-3587neaoo-glucose meter kit Indications: Type 2 diabetes mellitus with hyperglycemia, without long-termcurrent use of insulin ([facility]) Use as instructed 1 each 0 07/26/2022 ActivebusPIRone hydrochloride 15 mg oral tablet (20 sources)Start: 10-14-2024 End: 73-87-5016ggck 1 tablet by mouth three times dailybusPIRone (BUSPAR) 15 mg tablet Indications: Generalized anxiety disorder with panic attacks TAKE 1TABLET BY MOUTH THREE TIMES A DAY 270 tablet 1 04/24/2025 ActiveStart: 09-12-2023 End: 48-72-8140mcst 1 tablet by mouth three times dailybusPIRone (BUSPAR) 10 mg tablet Indications: Generalized anxiety disorder with panic attacks TAKE 1TABLET BY MOUTH THREE TIMES A DAY 270 tablet 1 03/27/2024 10/14/2024 Discontinued (Reorder)FLUoxetine 20 mg oral tablet (20 sources)Serotonin Reuptake InhibitorStart: 07-82-2497Hudgyahffb Active MG PO May 24, 2024 12:00amStart: 03-27-2024 End: 08-65-3749miws 1 tablet by mouth in the morningFLUoxetine (PROzac) 20 MG tablet Indications: Generalized anxiety disorder with panic attacks Take 1 tablet (20 mg total) by mouth in the morning. 90 tablet 2 04/24/2025 Active Start: 03-13-2024 End: 73-45-5873wobk 1 capsule by mouth once dailyFLUoxetine (PROzac) 10 mg capsule TAKE 1 CAPSULE BY MOUTH DAILY 03/13/2024 03/27/2024 Discontinued (Dose adjustment)Start: 12-28-2023 End: 45-44-8587vsdx 1 capsule by mouth once dailyFLUoxetine (PROzac) 20 mg capsule Indications: Generalized anxiety disorder with panic attacks TAKE1 CAPSULE BY MOUTH EVERY DAY 90 capsule 1 12/28/2023 03/27/2024 Discontinued (Therapy completed)Start: 08-16-2023 End: 62-54-8833hnex 1 capsule by mouth once dailyFLUoxetine (PROzac) 10 mg capsule Indications: Generalized anxiety disorder with panic attacks TAKE1 CAPSULE BY MOUTH EVERY DAY 90 capsule 1 12/13/2023 12/28/2023 Discontinued (Reorder)lisinopril 5 mg oral tablet (1 source)Angiotensin Converting Enzyme InhibitorStart: 92-72-5617kjwo 5 mg by mouth once dailyLisinopril Active 5 MG PO Daily May 24, 2024 12:00amLORazepam 0.5 mg oral tablet (3 sources)BenzodiazepineStart: 12-28-2023 End: 15-81-8656rdvc 1 tablet by mouth once as neededLORazepam (ATIVAN) 0.5 mg tablet Indications: Generalized anxiety disorder with panic attacks Take 1 tablet (0.5 mg total) by mouth every 12 (twelve) hours as needed for anxiety for up to 14 days. 28tablet 0 12/28/2023 01/11/2024 Activemetoprolol tartrate 25 mg oral tablet (11 sources)beta-Adrenergic BlockerStart: 12-25-6984yniq 1 tablet by mouth in the morning, then take 1 tablet by mouth at bedtimemetoprolol tartrate (LOPRESSOR) 25 mg tablet Indications: Atrial fibrillation, unspecified type (CMS -HCC) , Essential hypertension Take 1 tablet (25 mg total) by mouth in the morning and 1 tablet (25mg total) before bedtime. 180 tablet 1 05/19/2025 Active Start: 10-19-2024 End: 41-18-2757wqes 1 tablet by mouth in the morning, then take 1 tablet by mouth at bedtimemetoprolol tartrate (LOPRESSOR) 25 mg tablet Indications: Atrial fibrillation, unspecified type (CMS-HCC) , Essential hypertension Take 1 tablet (25 mg total) by mouth in the morning and 1 tablet (25mg total) before bedtime. 180 tablet 1 04/24/2025 Activepantoprazole 40 mg delayed release oral tablet (20 sources)Proton Pump InhibitorStart: 97-29-1395Obnmetaxytpl Active MG PO May 24, 2024 12:00amStart: 09-12-2023 End: 97-53-7091pers 1 tablet by mouth once daily before breakfastpantoprazole (PROTONIX) 40 mg EC tablet Indications: GERD without esophagitis Take 1 tablet (40 mg total) by mouth every morning before breakfast. 90 tablet 2 04/24/2025 Activesemaglutide (OZEMPIC) 2 mg/dose (8 mg/3 mL) pen injector (20 sources)Start: 22-46-1723unhaxlqpgrc (OZEMPIC) 2 mg/dose (8 mg/3 mL) pen injector Indications: Type 2 diabetes mellitus withhyperglycemia, without long- term current use of insulin (CMS-HCC) INJECT 2mg SUBCUTANEOUSLY EVERY 7DAYS 3 mL 2 08/05/2025 ActiveStart: 01-14-2025 End: 39-61-7524xffzdwauicz (OZEMPIC) 2 mg/dose (8 mg/3 mL) pen injector Indications: Type 2 diabetes mellitus withhyperglycemia, without long-term current use of insulin (CMS-HCC) INJECT 2mg SUBCUTANEOUSLY EVERY 7DAYS 3 mL 6 01/14/2025 08/05/2025 Discontinued (Reorder)Start: 74-14-9871oygjeqpdhip (OZEMPIC) 2 mg/dose (8 mg/3 mL) pen injector Indications: Type 2 diabetes mellitus withhyperglycemia, without long-term current use of insulin (CMS-HCC) INJECT 2mg SUBCUTANEOUSLY EVERY 7DAYS 3 mL 6 01/14/2025 ActiveStart: 07-19-2024 End: 26-81-7992neywiimsaga (OZEMPIC) 2 mg/dose (8 mg/3 mL) pen injector Indications: Type 2 diabetes mellitus withhyperglycemia, without long-term current use of insulin (CMS-HCC) INJECT 2mg SUBCUTANEOUSLY EVERY 7DAYS 3 mL 6 07/19/2024 01/14/2025 Discontinued (Reorder)Start: 51-27-7747dvsbehwojmh (OZEMPIC) 2 mg/dose (8 mg/3 mL) pen injector Indications: Type 2 diabetes mellitus withhyperglycemia, without long-term current use of insulin (CMS-HCC) INJECT 2mg SUBCUTANEOUSLY EVERY 7DAYS 3 mL 6 07/19/2024 ActiveStart: 03-27-2024 End: 50-00-3037putmmremkfx (OZEMPIC) 2 mg/dose (8 mg/3 mL) pen injector Indications: Type 2 diabetes mellitus withhyperglycemia, without long-term current use of insulin (CMS-HCC) INJECT 2mg SUBCUTANEOUSLY EVERY 7DAYS 3 mL 3 03/27/2024 07/19/2024 DiscontinuedStart: 84-22-1745eaesagwjhqt (OZEMPIC) 2 mg/dose (8 mg/3 mL) pen injector Indications: Type 2 diabetes mellitus with hyperglycemia, without long-term current use of insulin (CMS-HCC) INJECT 2mg SUBCUTANEOUSLY EVERY 7DAYS 3 mL 3 03/27/2024 ActiveStart: 02-12-2024 End: 05-81-3604zbeqighxsuf (OZEMPIC) 2 mg/dose (8 mg/3 mL) pen injector Indications: Type 2 diabetes mellitus withhyperglycemia, without long-term current use of insulin (CMS-HCC) INJECT 2mg SUBCUTANEOUSLY EVERY 7DAYS 3 mL 3 02/12/2024 03/27/2024 Discontinued (Reorder)Start: 73-63-7161fkhlwpchwrt (OZEMPIC) 2 mg/dose (8 mg/3 mL) pen injector Indications: Type 2 diabetes mellitus withhyperglycemia, without long-term current use of insulin (CMS-HCC) INJECT 2mg SUBCUTANEOUSLY EVERY 7DAYS 3 mL 3 02/12/2024 ActiveStart: 08-16-2023 End: 43-43-8131xngltvgmwhl (OZEMPIC) 2 mg/dose (8 mg/3 mL) pen injector Indications: Type 2 diabetes mellitus withhyperglycemia, without long-term current use of insulin (CMS-HCC) Inject 2 mg under the skin every 7 days. 3 mL 3 08/16/2023 02/12/2024 DiscontinuedStart: 24-72-9353nusxhzgsrxs (OZEMPIC) 2 mg/dose (8 mg/3 mL) pen injector Indications: Type 2 diabetes mellitus with hyperglycemia, without long-term current use of insulin (CMS-HCC) Inject 2 mg under the skin every 7 days. 3 mL 3 08/16/2023 Active Completed/Discontinued Medications MedicationDrug Class(es)DatesSig (Normalized)Sig (Original)hydroCHLOROthiazide 12.5 mg / lisinopril 20 mg oral tablet (14 sources)Thiazide Diuretic, Angiotensin Converting Enzyme InhibitorStart: 08-16-2023 End: 37-29-5901eilw 1 tablet by mouth once dailylisinopril-hydroCHLOROthiazide (PRINZIDE,ZESTORETIC) 20-12.5 mg per tablet Indications: Essential hypertension take 1 tablet by mouth daily 90 tablet 2 08/01/2024 10/22/2024 Discontinued (Therapy completed)isopropyl alcohol 0.7 ml/ml medicated pad (17 sources)Start: 07-26-2022 End: 88-12-2327ynnhblz swabs (ALCOHOL PREP PADS) pads, medicated Indications: Type 2 diabetes mellitus with hyperglycemia, without long-term current use of insulin (CMS-HCC) Apply 1 Pad. topically in the morning and at bedtime. 60 each 6 01/02/2024 04/24/2025 Discontinued (Therapy completed)24 hr metFORMIN hydrochloride 750 mg extended release oral tablet (1 source)BiguanideStart: 07-26-2022 End: 80-65-2434tfug 1 tablet by mouth every twenty-four hours in the morning, then take 1 tablet by mouth at mealtimemetFORMIN XR (GLUCOPHAGE XR) 750 mg 24 hr tablet Indications: Type 2 diabetes mellitus with hyperglycemia, without long- term current use of insulin ([facility]) Take 1 tablet (750 mg total) by mouth in t he morning and 1 tablet (750 mg total) in the evening. Take with meals. 180 tablet 1 07/26/2022 12/13/2023 Discontinued (Patient Stopped On Own)OZEMPIC 2 mg/dose (8 mg/3 mL) pen injector (2 sources)Start: 02-12-2024 End: 54-91-3314PTAWXYO 2 mg/dose (8 mg/3 mL) pen injector Indications: Type 2 diabetes mellitus with hyperglycemia, without long-term current use of insulin ([facility]) INJECT 2mg SUBCUTANEOUSLY EVERY 7 DAYS 3 mL 3 02/12/2024 02/12/2024 Discontinued (Reorder)semaglutide (OZEMPIC) 1 mg/dose (4 mg/3 mL) pen injector (2 sources)Start: 09-18-2023 End: 54-59-2437hzshlevblwq (OZEMPIC) 1 mg/dose (4 mg/3 mL) pen injector Inject 2 mg under the skin every 7 days. Inject two pens weekly to equal 2 mg until the 2 mg dose is available 6 mL 4 09/18/2023 12/28/2023 Discontinued (Therapy completed)Start: 88-96-1583vgetuboztwg (OZEMPIC) 1 mg/dose (4 mg/3 mL) pen injector Inject 2 mg under the skin every 7 days. Inject two pens weekly to equal 2 mg until the 2 mg dose is available 6 mL 4 09/18/2023 Active Problems Active Problems Problem ClassificationProblemDateDocumented DateEpisodic/ChronicAnxiety disorders (20 sources)Generalized anxiety disorder; Translations: [Generalized anxiety disorder]Onset: 226130-10-5927WrdsmsnFtogzgd dysrhythmias (7 sources)Atrial fibrillation; Translations: [Unspecified atrial fibrillation] Onset: 332250-89-1303CsfjytxCxzwzpmv mellitus with complications (11 sources)Type 2 diabetes mellitus; Translations: [Type 2 diabetes mellitus with hyperglycemia]Onset: 582260-98-0433GvfjhymXygqmcqk mellitus without complication (1 source)Diabetes mellitusOnset: 47-15-7790LtdsleqNnvbtvpjg of lipid metabolism (20 sources)Hyperlipidemia; Translations: [Hyperlipidemia, unspecified] 53-10-2804SkosozqKgcygksjph disorders (6 sources)Gastroesophageal reflux disease without esophagitis; Translations: [Gastro-esophageal reflux disease without esophagitis]Onset: 10-14-2024 03-89-4872DosurmgLiknsiqhs hypertension (20 sources)Essential hypertension; Translations: [Essential (primary) hypertension]Onset: 433230-94-1968XdkbcaiUacazeytotqup and screening for infectious disease (4 sources)Contact with and (suspected) exposure to other viral communicable diseases; Translations: [CONTCT EXPS OTH VIRL COMMUNICABL DZ]Onset: 07-16-2021 EpisodicOther circulatory disease (2 sources)Personal history of other diseases of the circulatory system; Translations: [Personal history of other diseases of the circulatory system] Onset: 24-51-3225BuwukyddOiqpj nutritional; endocrine; and metabolic disorders (20 sources)Body mass index 40+ - severely obese; Translations: [Morbid (severe) obesity due to excess calories]Onset: 550583-90-6256SmlqbccXxxduq media and related conditions (2 sources)Otitis media of left ear; Translations: [Unspecified nonsuppurative otitis media, left ear]28-10-0053XjbxglpsVytohnsc codes; unclassified (4 sources)Obstructive sleep apnea (adult) (pediatric); Translations: [OBSTRUCTIVE SLEEP APNEA]Onset: 49-85-9142IezjbxoJbsxjoco codes; unclassified (20 sources)Feeling agitated; Translations: [Restlessness and agitation]Onset: 116074-02-9596DhlgpacJhtowont codes; unclassified (2 sources)Other specified postprocedural states; Translations: [Other specified postprocedural states]Onset: 90-97-9659Whqprmjf Past or Other Problems Problem ClassificationProblemDateDocumented DateEpisodic/ChronicAcute and chronic tonsillitis (20 sources)Tonsillitis; Translations: [Acute tonsillitis, unspecified]Onset: 12-31-2019 Resolved: 294670-75-4734SzmwrblfCvck disorders (20 sources)Mood disordersOnset: 10-22-2024 Resolved: 001187-31-0189Xgvgokwnlnxplo (20 sources)Arthritis; Translations: [Unspecified osteoarthritis, unspecified site]Onset: 04-23-2019 Resolved: 574045-58-1592ZsuugdsOmust connective tissue disease (20 sources)Lateral epicondylitis of right humerus; Translations: [Lateral epicondylitis, right elbow]Onset: 10-05-2020 Resolved: 618815-08-9333MpunfakpJozuk ear and sense organ disorders (20 sources)Sensation of blocked ear; Translations: [Other specified disorders of ear, bilateral]Onset: 03-06-2018 Resolved: 441297-80-7212VfvpwmrzLnzie ear and sense organ disorders (20 sources)Impacted cerumen of bilateral ears; Translations: [Impacted cerumen, bilateral]Onset: 03-06-2018 Resolved: 051571-63-9043IpdjhojvRenwg nutritional; endocrine; and metabolic disorders (20 sources)Severe obesity; Translations: [Class 3 severe obesity due to excess calories with body mass index (BMI) of 40.0 to 44.9 in adult]Onset: 11-29-2018 Resolved: 760151-34-0325MqedtevOmibc screening for suspected conditions (not mental disorders or infectious disease) (20 sources)Patient encounter status; Translations: [Encounter for screening for malignant neoplasm of prostate]Onset: 424669-38-8027VkspsecgQbker upper respiratory disease (20 sources)Allergic rhinitis due to pollen; Translations: [Allergic rhinitis due to pollen]Onset: 03-17-2020 Resolved: 908388-89-4193ZtkbmssDtfmj upper respiratory infections (20 sources)Nasopharyngitis; Translations: [Acute nasopharyngitis [common cold]] Onset: 03-06-2018 Resolved: 705897-62-7744FfmzwaacZtjdryfx codes; unclassified (20 sources)Family history of prostate cancer; Translations: [Family history of malignant neoplasm of prostate]Onset: 705523-95-1077QfzgkjgsZjstozvs codes; unclassified (20 sources)Family history of dzvkq-4-emvwvysvchc deficiency; Translations: [Family history of other endocrine,nutritional and metabolic diseases]Onset: 514463-51-6013PtnxnmwiItsypjvgnhfd (20 sources)Onset: 10-14-2024 Resolved: Results Test NameValueInterpretationReference RangeFacilityOffice Visiton 09-23-2025 Follow-up [id number] Gelacio Smtih 1980 M Date Provider Department Center 09/23/2025 BRIAN SEGURA HECTOR [facility] Family History Problem Relation Age of Onset Other Father Heart attack Father's Brother Family Status - Relation Status Age at Mother Alive Father Sister Alive Brother Alive Father's Brother Level of Service:75477 DE OFFICE/OUTPATIENT ESTABLISHED LOW [facility] 20 MIN Reason for Visit and Comments: Follow-up [412473] - Patient is here today per Suzi Woodson request. For A-Fib management. Patient denies chest pain, SOB/GARZA, fatigue, Patient states when he has anxiety he feels like he's in A-Fib Hypertension [152648] Atrial Fibrillation [80] Palpitations [667814] - Palpitations/racing heartNormalUniversity of Resolute Health HospitalOrders Onlyon 35-63-7837Jehbjy [id number] Gelacio Smith 1980 M Date Provider Department Center 06/23/2025 [id number], HISTORICAL HECTOR [facility] Family History Problem Relation Age of Onset Other Father Heart attack Father's Brother Family Status - Relation Status Age at Mother Alive Father Sister Alive Brother Alive Father's BrotherNormalUniversity of Resolute Health HospitalFollow-Upon 06-19-2025 Follow-[id number] Gelacio Smith 1980 M Date Provider Department Center 06/19/2025 ZANDER MCKEON HECTOR [facility] Family History Problem Relation Age of Onset Other Father Heart attack Father's Brother Family Status - Relation Status Age at Mother Alive Father Sister Alive Brother Alive Father's Brother Level of Service:98013 DE OFFICE/OUTPATIENT ESTABLISHED HIGH MDM 40 MIN Reason for Visit and Comments: Atrial Fibrillation [80]NormalUnGood Samaritan HospitalTelephoneon [id number] Gelacio Smith Anton 1980 M Date Provider Department Center 06/13/20251986-[facility]OUGH [facility] HeartVAS Family History Problem Relation Age of Onset Other Father Heart attack Father's Brother Family Status - Relation Status Age at Mother Alive Father Sister Alive Brother Alive Father's Brother Reason for Visit and Comments: f/u post ablation [Other]NormalUnGood Samaritan HospitalBILIRUBIN, DIRECTon 10-43-6611Lgarjvapu [Mass/Vol]0.2 mg/dLNormal0-0.2UnGood Samaritan HospitalComment on above:Performed By: #### [id number] #### [facility] (BEAKER) [address] [place], [place] [address]BNYNNSIRU, TOTALon 11-51-5501Memjxypnp [Mass/Vol]0.8 mg/dLNormal 0.3-1.0UnGood Samaritan HospitalComment on above:Performed By: #### [id number] ####[facility] ([facility])[address] [place], [place] [address]NAEUSGZGNA on 50-80-7791Nnascdjrtl (Bld) [Mass/Vol]13.0 g/xEGxruwx41.0-17.0UnGood Samaritan HospitalComment on above:Performed By: #### [id number] #### [facility] ([facility]) [address] [place], [place] [address]GFFG SENSITIVITY TROPONIN Ion 12-62-3628UX TROPONIN I (NG/L)677 ng/LCritically high<20UnGood Samaritan HospitalComment on above: Performed By: #### [id number] #### [facility] (BEAKER) [address] [place], [place] [address]KRxz 57-46-8077EHTS Electrophysiology Consult Note [facility] [...] Medical History: Diagnosis Date Abnormal ECG Afib ([facility]/HCC) Anxiety Arrhythmia Atrial fibrillation ([facility]/HCC) Depression Diabetes mellitus (CMS/HCC) GERD (gastroesophageal reflux disease) Hyperlipidemia Hypertension Left otitis media with effusion Obesity PSH: Past Surgical History: Procedure Laterality Date FINGER SURGERY SH: Social Drivers of Health Tobacco Use: High Risk (05/22/2025) Patient History Smoking Tobacco Use: Never Smokeless Tobacco Use: Current Passive Exposure: Not on file Alcohol Use: Alcohol Misuse (07/20/2021) Received from [facility] AUDIT-C Frequency of Alcohol Consumption: 2-3 times a week Average Number of Drinks: 1 or 2 Frequency of Binge Drinking: Monthly Financial Resource Strain: Low Risk (12/28/2023) Received from [facility] Overall Financial Resource Strain (CARDIA) Difficulty of Paying Living Expenses: Not hard at all Food Insecurity: No Food Insecurity (04/24/2025) Received from [facility] Hunger Screening Within the past 12 months we worried whether our food would run out before we got money to buy more.: Never True Within the past 12 months the food we bought just didn't last and we didn't have money to get more.: Never True Transportation Needs: No Transportation Needs (12/28/2023) [facility] Lack of Transportation (Medical): No Lack of Transportation (Non-Medical): No Physical Activity: Inactive (07/20/2021) [facility] [employer] Exercise Vital Sign Days of Exercise per Week: 2 days Minutes of Exercise per Session: 0 min Stress: Not on file Social Connections: Moderately Isolated (07/20/2021) Received from [facility] Social Connection and Isolation Panel [NHANES] Frequency of Communication with Friends and Family: Twice a week Frequency of Social Gatherings with Friends and Family: Never Attends Temple Services: Never Active Member of Clubs or Organizations: Yes Attends Club or Organization Meetings: Patient declined Marital Status: Intimate Partner Violence: Not on file Depression: Not at risk (04/24/2025) [facility] [employer] PHQ-2 Total Score: 0 Housing Stability: Low Risk (12/28/2023) [facility] [employer] Housing Instability Are you worried or concerned [...] 0 Physical Exam: Constitution (more content not included)...NormalUnGood Samaritan HospitalLACTATE DEHYDROGENASEon 84-78-5668HAAAATM DEHYDROGENASE (U/L) IN SER/PLAS BY LAC->PYR ORE937 U/VHvttuw000-193YnmjjvgllxGood Samaritan HospitalComment on above:Performed By: #### [id number] #### [facility] ([facility]) [address] [place], [place] [address]Uvszey Onlyon 63-85-7844Kxvnaq [id number] Gelacio Smith 1980 M Date Provider Department Center 05/22/20251986-JENISE KIMBROUGH [facility] Heart[facility] Family History Problem Relation Age of Onset Other Father Heart attack Father's Brother Family Status - Relation Status Age at Mother Alive Father Sister Alive Brother Alive Father's BrotherNormalUniversity OhioHealth Doctors HospitalPOCT GLUCOSE METER UNSOLICITED RESULTSon 24-02-2093Ihluxig [Mass/Vol]105 mg/jNXapjxo56-822 [facility] HospitalComment on above:Order Comment: Waived Testing in the ED is performed under the ED CLIA certificate #[id number].Result Comment: epawlowPerformed By: #### [id number] #### [facility] ([facility]) [address] [place], [place] [address]BOMQLGE-XIAwq 71-30-5416MSJ IN PPP BY COAGULATION ASSAY0.99 Normal0.90-1.10UnGood Samaritan HospitalComment on above:Result Comment: ACCCP RECOMMENDED INR [...] OPTIMAL THERAPEUTIC RANGE. CHEST 1995;108:231S-246S.Performed By: #### [id number] #### [facility] ([facility]) [address] [place], [place] [address]TWVIEHKRSVA TIME (PT) IN PPP BY COAGULATION ASSAY13.1 Seconds Cdhquk78.3-14.8St. [facility] HospitalComment on above:Performed By: #### [id number] #### [facility] (AK[facility]) [address] [place], [place] [address]Ldkx for Procedureon 46-39-3649Kfpj for [id number] Gelacio Smith 1980 M Date Provider Department Center 05/22/20251986-JENISE KIMBROUGH [facility] Family History Problem Relation Age of Onset Other Father Heart attack Father's Brother Family Status - Relation Status Age at Mother Alive Father Sister Alive Brother Alive Father's BrotherNormalUniversity of Resolute Health HospitalOrders Onlyon 98-96-7716Stbmvd [id number] Gelacio Smith 1980 M Date Provider Department Center 05/21/2025 JERED CASTRO [facility] PAC [facility] Medical C Family History Problem Relation Age of Onset Other Father Heart attack Father's Brother Family Status - Relation Status Age at Mother Alive Father Sister Alive Brother Alive Father's BrotherNormalUniversSelect Medical Specialty Hospital - CincinnatiFollow-Upon 04-29-2025 Follow-[id number] Gelacio Smith 1980 M Date Provider Department Center 04/29/2025 BRIAN SEGURA Family History Problem Relation Age of Onset Other Father Heart attack Father's Brother Family Status - Relation Status Age at Mother Alive Father Sister Alive Brother Alive Father's Brother Level of Service:73403 DE OFFICE/OUTPATIENT ESTABLISHED HIGH MDM 40 [facility] CampusOrders Onlyon 72-44-5379Vkvdsb [id number] Gelacio Smith 1980 M Date Provider Department Center 04/29/2025 [id number], JUSTYN [facility] Family History Problem Relation Age of Onset Other Father Heart attack Father's Brother Family Status - Relation Status Age at Mother Alive Father Sister Alive Brother Alive Father's BrotherNoKettering Health Washington TownshipPOCT Hemoglobin A1con 53-47-4153UsS3y (Bld) [Mass fraction]5.5 %4 - 7 %[facility] Health SystemOffice Visiton 83-39-3706Okxwao-up [id number] Gelacio Smith 1980 [facility] Provider Department Center 03/18/2025 RBIAN SEGURA Hos Family History Problem Relation Age of Onset Other Father Heart attack Father's Brother Family Status - Relation Status Age at Mother Alive Father Sister Alive Brother Alive Father's Brother Level of Service:39073 DE OFFICE/OUTPATIENT ESTABLISHED LOW MDM 20 [facility] CampusPrep for Procedureon 24-53-4469Hxzy for [id number] Gelacio Smith 1980 M [facility] Provider Department Center 02/05/20251986-JENISE KIMBROUGH [facility] V[facility] HeartVAS Family History Problem Relation Age of Onset Other Father Heart attack Father's Brother Family Status - Relation Status Age at Mother Alive Father Sister Alive Brother Alive Father's BrotherNoKettering Health Washington TownshipOffice Visiton 75-17-0228Xdphkr-up [id number] Gelacio Smith P 1980 M Date Provider Department Center 11/12/2024 BRIAN SEGURA HECTOR [facility] Family History Problem Relation Age of Onset Heart attack Father's Brother Family Status - Relation Status Age at Father's Brother Level of Service:88298 DE OFFICE/OUTPATIENT NEW MODERATE MDM [address] [facility] HospitalOrders Onlyon 52-41-4478Keuqpq [id number] Gelacio Smith P 1980 M Date Provider Department Center 11/12/2024 ADRIEN SEAY HECTOR [facility] Family History Problem Relation Age of Onset Heart attack Father's Brother Family Status - Relation Status Age at Father's BrotherNormalUniWayne HospitalPOCT Hemoglobin A1c Ordered By: Enid Moyer on 43-04-6035EbA4c (Bld) [Mass fraction]5.8 %4 - 7 % [facility] HospitalNo Panel InformationOrdered By: Janette Mehta on 86-54-1404Acqja Strep (POC)[facility] POCT Hemoglobin P5bAnlbpye By: Brooke Bridges on 02-95-3534BxE0m (Bld) [Mass fraction]5.6 g/dL4 - 7 g/dLWarren State HospitalCBC AND AUTO DIFFon 20-18-9422DVAOYTVG BASOPHIL0.1 X10E9/LNormal0.0-0.2[facility], BeachwoodComment on above:Performed By: #### OSVALDO BONILLA, 90605-1, 3016-3 #### [facility] ([id number]) [address] [place], [place] [address]VEKTULMP NEUTROPHIL5.6 X10E9/LNormal1.5-6.6ProPromedica Defiance Regional HospitalComment on above:Performed By: #### IRENE CMP, 26645-4, 3016-3 #### [facility] ([id number]) [address] [place], [place] [address]Oxukbtwzj/100 WBC (Bld)0.6 %NormalThe [facility] Comment on above:Performed By: #### CBCSanket CMP, 89775-5, 3015-3 #### [facility] ([id number]) [address] [facility] [address] [place], [place] [address]Boguuxlpxrl (Bld) [#/Vol]0.1 10*3/uLNormal0.0-0.4ProPaulding County Hospital HospitalComment on above:Performed By: #### CBCA, CMP, 46792-6, 3016-01 #### [facility] ([id number]) [address], [facility] [address] [place], [place] [address]Kcyzzrghnoc/100 WBC (Bld)1.5 %NormalProPromedica Defiance Regional Hospital Comment on above:Performed By: #### CBCSanket CMP, , 3016-01 #### [facility] ([id number]) [address] [place], [place] [address]Myhpsksbjlu distribution width (RBC) [Ratio]14.3 %Normal 11.5-15.0ProPaulding County Hospital HospitalComment on above:Performed By: #### CBCSanket, CMP, , 3016-01 #### [facility] ([id number]) [address] [address] [place], [place] [address]Yyfdyqqlth (Bld) [Volume fraction]44.3 %Eymzmd12-39OffDdzisa [place] HospitalComment on above:Performed By: #### CBCA, CMP, 23438-3, 3015-3 #### [facility] ([id number]) [address] [address] [place], [place] [address]Pnchxablws (Bld) [Mass/Vol]14.8 g/qASwnnsx58.0-17.0ProPaulding County Hospital HospitalComment on above:Performed By: #### CBCA, CMP, 90556-3, 3015-3 #### [facility] ([id number]) [address], [address] [place], [place] [address]Usuoijduruu (Bld) [#/Vol]1.9 10*3/uLNormal1.0-3.5Pro[facility]ica Hi Hat HospitalComment on above:Performed By: #### CBCA, CMP, , 3015-3 #### [facility] ([id number]) [address], [address] [place], [place] [address]Wtsdusftojm/100 WBC (Bld)22.2 %NormalProPaulding County Hospital Hospital Comment on above:Performed By: #### CBCSanket CMP, , 3015-3 #### [facility] ([id number]) [address], [address] [place], [place] [address]DUT (RBC) [Entitic mass]30.0 maMqaopx68-00KqpFpevhg [place] HospitalComment on above:Performed By: #### CBCA CMP, , 3015-3 #### [facility] ([id number]) [address], [address] [place], [place] [address]JXWD (RBC) [Mass/Vol]33.4 g/yZDljjsx78-68HovYhzzkj [place] HospitalComment on above:Performed By: #### CBCA, CMP, , 3015-3 #### [facility] ([id number]) [address], [address] [place], [place] [address]HVA (RBC) [Entitic vol]90 iHKnbdev24-974LwfVitojf Hi Hat HospitalComment on above:Performed By: #### CBCA, CMP, , 3015-3 #### [facility] ([id number]) [address], [address] [place], [place] [address]Unwrlufdn (Bld) [#/Vol]0.8 10*3/uLNormal0-0.9ProPromedica Defiance Regional HospitalComment on above:Performed By: #### CBCA, CMP, 67457-8, 3015-3 #### [facility] ([id number]) [address], [address] [place] [address]Jwbeyhccw/100 WBC (Bld)9.2 %NormalThe [facility] Comment on above:Performed By: #### CBCA, CMP, 22040-5, 3015-3 #### [facility] ([id number]) [address], [address] [place], [place] [address]Uxdjfzvehju/100 WBC (Bld)66.5 %NormalThe [facility] Comment on above:Performed By: #### CBCA, CMP, 05148-3, 3016-01 #### [facility] ([id number]) [address], [address] [place] [address]Brjqpjra mean volume (Bld) [Entitic vol]9.6 fLNormal7-12 ProMmarshall medical center southa [facility], BeachwoodComment on above:Performed By: #### CBCA, CMP, 36331-5, 3016-01 #### [facility] ([id number]) [address], [address] [place] [address]Agxweahuo (Bld) [#/Vol]246 10*3/iFPhhggb211-794KfbYzzmau [place] HospitalComment on above:Performed By: #### CBCA, CMP, 23330-9, 3015-3 #### [facility] ([id number]) [address], [address] [place], [place] [address]MAH COUNT4.93 X10E12/LNormal4.10-5.70ProPromedica [facility] Comment on above:Performed By: #### CBCA, CMP, 35021-0, 6-3 #### [facility] ([id number]) [address], [address] [place], [place] [address]DWD (Bld) [#/Vol]8.5 10*3/uLNormal4.0-11.0The [facility] HospitalComment on above:Performed By: #### CBCSanket, [facility], 75521-6, 3016-3 #### [facility] ([id number]) [address], [address] [place], [place] [address]BFL auto differentialon 97-25-1380Qztabccwl (Bld) [#/Vol]0.1 10*3/uLRegency Hospital [facility] SystemBasophils/100 WBC (Bld)0.6 %[facility] Medical CenterEosinophils (Bld) [#/Vol]0.1 10*3/uLAshtabula County Medical CenterEosinophils/100 WBC (Bld)1.5 %[facility] Medical CenterErythrocyte distribution width (RBC) [Ratio]14.3 %11.5 - 15.0 %[facility] Medical CenterHematocrit (Bld) [Volume fraction]44.3 %39 - 49 %[facility] Medical CenterHemoglobin (Bld) [Mass/Vol]14.8 g/dL13.0 - 17.0 g/dLAshtabula County Medical CenterLymphocytes (Bld) [#/Vol]1.9 10*3/uL [facility] Medical CenterLymphocytes/100 WBC (Bld)22.2 %[facility] Medical CenterMCH (RBC) [Entitic mass]30.0 pg27 - 34 [facility] HospitalMCHC (RBC) [Mass/Vol]33.4 g/dL32 - 36 g/dLAshtabula County Medical CenterMCV (RBC) [Entitic vol]90 fL80 - 100 [facility] CenterMonocytes (Bld) [#/Vol]0.8 10*3/uLAshtabula County Medical CenterMonocytes/100 WBC (Bld)9.2 %[facility] Medical CenterNeutrophils (Bld) [#/Vol]5.6 10*3/uLAshtabula County Medical CenterNeutrophils/100 WBC (Bld)66.5 % [facility] Medical CenterPlatelet mean volume (Bld) [Entitic vol]9.6 fL7 - 12 fL [facility] SystemPlatelets (Bld) [#/Vol]246 10*3/[facility] RBC (Bld) [#/Vol]4.93 10*6/[facility] CenterWBC corrected for nucl RBC Auto (Bld) [#/Vol]8.5PForbes HospitalCOMPREHENSIVE METABOLIC PANELon 33-78-6554Uuxjgjb [Mass/Vol]4.6 g/dLNormal3.2-5.3PSt. [facility] Hospital HospitalComment on above:Performed By: #### OSVALDO BONILLA, 89031-7, 3016-3 #### [facility] ([id number]) [address], [address] [place], [place] [address]WZW [Catalytic activity/Vol]67 U/UMmttfm75-817UhcYfumzi [place] HospitalComment on above:Performed By: #### OSVALDO BONILLA, 01647-0, 6-3 #### [facility] ([id number]) [address], [address] [place], [place] [address]LEW [Catalytic activity/Vol]41 U/LHigh0-40Pro[facility] [place] HospitalComment on above:Performed By: #### OSVALDO BONILLA, 52878-7, 6-3 #### [facility] ([id number]) [address], [address] [place], [place] [address]Hhqqs gap [Moles/Vol]10 mmol/LNormal5-15Pro[facility]ica [place] HospitalComment on above:Performed By: #### IRENE, CMP, 66054-4, 6-3 #### [facility] ([id number]) [address], [address] [place], [place] [address]YVP [Catalytic activity/Vol]28 U/LNormal0-41ProMedica [place] HospitalComment on above:Performed By: #### OSVALDO BONILLA, 46733-5, 6-3 #### [facility] ([id number]) [address], [address] [place], [place] [address]Wlmametwq [Mass/Vol]0.8 mg/dLNormal0.3-1.2PSt. Elizabeth Hospital HospitalComment on above:Performed By: #### OSVALDO BONILLA, 93702-9, 6-3 #### [facility] ([id number]) [address], [address] [place], [place] [address]Oxnbfvh [Mass/Vol]10.0 mg/dLNormal8.5-10.5PSt. Elizabeth Hospital HospitalComment on above:Performed By: #### OSVALDO BONILLA, 68650-7, 3015-3 #### [facility] ([id number]) [address], [address] [place], [place] [address]Imtstijp [Moles/Vol]100 mmol/FPczsau16-322FvrIgejgs [place] HospitalComment on above:Performed By: #### OSVALDO BONILLA, 41838-5, 3015-3 #### [facility] ([id number]) [address], [address] [place], [place] [address]HJ5 [Moles/Vol]27 mmol/IFmngqr81-05MuhGomtvh [facility] Comment on above:Performed By: #### OSVALDO BONILLA, 71399-0, 6-3 #### [facility] ([id number]) [address], [address] [place], [place] [address]Finkjemxxx [Mass/Vol]0.78 mg/dLNormal0.60-1.30ProPaulding County Hospital HospitalComment on above:Result Comment: METHOD TRACEABLE TO IDMS STANDARD Performed By: #### OSVALDO BONILLA, 85425-2, 6-3 #### [facility] ([id number]) [address], [address] [place], [place] [address]cOFD (CKD-EPI) NON-RACE DEPENDENT>90Normal>59ProPaulding County Hospital HospitalComment on above:Result Comment: Reported eGFR is based on the CKD-EPI 2020 equation that does not use a race coefficient.Performed By: #### OSVALDO BONILLA, 57684-5, 3015-3 #### [facility] ([id number]) [address], [address] [place], [place] [address]Meamkpq [Mass/Vol]84 mg/pLNxdwdz72-26VxqYmslgk [facility] Comment on above:Performed By: #### OSVALDO BONILLA, 83869-6, 3015-3 #### [facility] ([id number]) [address], [address] [place], [place] [address]Gutzcxhrc [Moles/Vol]4.1 mmol/LNormal3.5-5.0ProPromedica Defiance Regional HospitalComment on above:Performed By: #### OSVALDO BONILLA, , 3015-3 #### [facility] ([id number]) [address], [address] [place], [place] [address]Mnzqppo [Mass/Vol]7.8 g/dLNormal6.0-8.0The [facility] Comment on above:Performed By: #### OSVALDO BONILLA, , 3 #### [facility] ([id number]) [address], [address] [place], [place] [address]Vhpikc [Moles/Vol]137 mmol/OOknxfp714-751YlySonfki [place] HospitalComment on above:Performed By: #### OSVALDO BONILLA, 12133-6, 3 #### [facility] ([id number]) [address], [address] [place], [place] [address]Htkh nitrogen [Mass/Vol]18 mg/dLNormal5-23ProPromedica Defiance Regional HospitalComment on above:Performed By: #### OSVALDO BONILLA, 94625-5, 3015-3 #### [facility] ([id number]) [address], [address] [place], [place] [address]Iibeobsfpcgsv metabolic panelon 95-21-3952Oovpwaz [Mass/Vol]4.6 g/dL3.2 - 5.3 g/dLProNorth Baldwin Infirmary Health SystemALP [Catalytic activity/Vol]67 U/L39 - 130 U/LPrPresbyterian/St. Luke's Medical Center Health SystemALT No additional P-5'-P [Catalytic activity/Vol] 41 U/LHigh0 - 40 U/LPrPresbyterian/St. Luke's Medical Center Health SystemAnion gap [Moles/Vol]10 mmol/L5 - 15 mmol/LPrPresbyterian/St. Luke's Medical Center Health SystemAST [Catalytic activity/Vol]28 U/L0 - 41 U/L [facility] CenterBilirubin [Mass/Vol]0.8 mg/dL0.3 - 1.2 mg/dLRegency Hospital [place] SystemCalcium [Mass/Vol]10.0 mg/dL8.5 - 10.5 mg/dLProCommunity [facility] Center Chloride [Moles/Vol]100 mmol/L98 - 109 mmol/[facility] Health SystemCO2 [Moles/Vol]27 mmol/L22 - 32 mmol/[facility] SystemCreatinine [Mass/Vol] 0.78 mg/dL0.60 - 1.30 mg/dLAshtabula County Medical CenterComment on above:METHOD TRACEABLE TO IDMI STANDARDeGFR (CKD-EPI)non-race dependent- [facility] HospitalComment on above: Reported eGFR is based on the CKD-EPI 2020 equation that does not use a race coefficient. Glucose [Mass/Vol]84 mg/dL65 - 99 mg/dLRegency Hospital [place] SystemPotassium [Moles/Vol]4.1 mmol/L3.5 - 5.0 mmol/[facility] Health SystemProtein [Mass/Vol] 7.8 g/dL6.0 - 8.0 g/dLRegency Hospital [place] SystemSodium [Moles/Vol]137 mmol/L134 - 146 mmol/LPrGlenbeigh Hospital SystemUrea nitrogen [Mass/Vol]18 mg/dL5 - 23 mg/dL [facility] CenterLipid 1996 panelon 03-87-0803Qbxaitvcjee [Mass/Vol]145 mg/iVUdc108 - 200 mg/dLAshtabula County Medical CenterCholesterol in HDL [Mass/Vol]40 mg/dL39 - PINF mg/dLAshtabula County Medical CenterComment on above: HDL <40 mg/dL - High Risk HDL > or = 40mg/dL- Desirable HDL >60 mg/dL - Negative Risk Cholesterol in LDL [Mass/Vol]84 mg/dLNINF - 130 mg/dLAshtabula County Medical Center Comment on above: LDL <100 mg/dL - Desirable LDL >160 mg/dL - High Risk Cholesterol in VLDL [Mass/Vol]21 mg/dL0 - 30 mg/dLAshtabula County Medical Center Cholesterol.total/Cholesterol in HDL [Mass ratio]3.6 {ratio}1.0 - 5.0[facility] Medical CenterTriglyceride [Mass/Vol]106 mg/dL27 - 150 mg/dLAshtabula County Medical CenterCholesterol [Mass/Vol]145 mg/xTQoj614-042JwdZvfaqlThe [facility]vue HospitalComment on above:Performed By: ##Cathie BONILLA CMP, 17240-3, 3016-3 #### [facility] ([id number]) [address], [address] [place], [place] [address]Qbexnxyyqig in HDL [Mass/Vol]40 mg/dLNormal>39ProPromedica Defiance Regional HospitalComment on above:Result Comment: HDL <40 mg/dL - High Risk HDL > or = 40mg/dL- Desirable HDL >60 mg/dL - Negative Risk Performed By: ###Kana BONILLA CMP, 55034-4, 3016-3 #### [facility] ([id number]) [address], [address] [place], [place] [address]Xegpjovhocb in LDL [Mass/Vol]84 mg/dLNormal<130ProPromedica Defiance Regional HospitalComment on above:Result Comment: LDL <100 mg/dL - Desirable LDL >160 mg/dL - High Risk Performed By: #### OSVALDO BONILLA, 15400-4, 3016-3 #### [facility] ([id number]) [address], [address] [place], [place] [address]Nicthzduwuk in VLDL [Mass/Vol]21 mg/dLNormal0-30ProPromedica Defiance Regional HospitalComment on above:Performed By: #### OSVALDO BONILLA, 77241-3, 3016-3 #### [facility] ([id number]) [address], [address] [place], [place] [address]DATDXNISBUS:HDL3.4Afsyxx2.0-5.0ProPromedica Defiance Regional HospitalComment on above:Performed By: #### OSVALDO BONILLA, 34015-5, 3016-3 #### [facility] ([id number]) [address], [address] [place], [place] [address]Znnfmrfmuuyr [Mass/Vol]106 mg/tCIdiheo41-675RgiLwwmdy [place] HospitalComment on above:Performed By: #### OSVALDO BONILLA, 99710-4, 3016-3 #### [facility] ([id number]) [address], [address] [place], [place] [address]Sr Panel Informationon 13-46-8444Sznhmrszuhwgmm and review of laboratory resultsAbnoalWarren State HospitalPOCT Hemoglobin N1hBwadlgu By: Raza Morley on 47-73-1640GtJ5w (Bld) [Mass fraction]5.5 g/dL4 - 7 g/dLWarren State HospitalTSHon 43-63-3700QLZ Qn2.11 m[IU]/[facility] Qnon 30-61-5885AptJqcxco Health SystemTSH2.11 uIU/mLNormal0.49-4.67ProPromedica Defiance Regional HospitalComment on above:Performed By: #### CBCA, [facility], 04656-8, 3016-3 #### [facility] ([id number]) [address] [place], [place] [address]Qmzrp-17 PCR ([facility])on 89-80-0160CWTD-CoV-2 (COVID-19) RNA EDY+probe Ql (Unsp spec)Not detectedNormalNOT DETECTEDThe [facility] Comment on above:Result Comment: This test is not yet approved or cleared by the [place] FDA. When there are no FDA-approved or cleared tests available, and other criteria are met, FDA can make tests available under an emergency access mechanism called an Emergency Use Authorization (EUA). The EUA for this test is supported by the Registered Nursing Professor of Health and Human Service's (HHS's) declaration [...] consistent with SARS-CoV-2.Performed By: #### CVDTB #### [facility] [address] [place], [place] [address] Mary Irizrary Vital Signs Date TimeVital SignValuePerforming HqaijpkvtGjqtmegh79-92-4124 15:29-0400Body qddvum925 cmValefelicia GONZALEZ Work Phone: [facility]05-29-2025 15:29-0400Body mass index (BMI) [Ratio]45.48 kg/l8BxlezqvSven GONZALEZ Work Phone: [facility]05-29-2025 15:29-0400Body xtmzuysfzot14.9 [degF]Sven Flores APRN-PANTRY ATTENDANT Work Phone: [facility]05-29-2025 15:29-0400Body ljeqto160.75 kgSven Flores APRN-PANTRY ATTENDANT Work Phone: [facility]05-29-2025 15:29-0400Diastolic blood zmbqdxwa69 mm[Hg]Sven Flores APRN-PANTRY ATTENDANT Work Phone: [facility]05-29-2025 15:29-0400Heart rate 89 /minSven Flores APRN-PANTRY ATTENDANT Work Phone: [facility]05-29-2025 15:29-0400 Respiratory rate24 /minSven Flores DESK PENS ASSEMBLER-PANTRY ATTENDANT Work Phone: [facility]05-29-2025 15:29-0270QjH4% (BldA) [Mass fraction]99 %Sven Flores APRN-PANTRY ATTENDANT Work Phone: [facility]05-29-2025 15:290400Systolic blood wipdanoo271 mm[Hg]Sven Flores APRN-PANTRY ATTENDANT Work Phone: [facility]11-26-2024 10:58-0500Body cmValefelicia Flores APRN-PANTRY ATTENDANT Work Phone: [facility]11-26-2024 10:58-0500Body mass index (BMI) [Ratio]43.37 kg/h5ZimrnwvSven Flores APRN-PANTRY ATTENDANT Work Phone: [facility]11-26-2024 10:58-0500Body ynbdpqjgejo14.81 [degF]Sven Flores APRN-PANTRY ATTENDANT Work Phone: [facility]11-26-2024 10:58-0500Body egquan792.22 kgSven Flores APRN-PANTRY ATTENDANT Work Phone: [facility]11-26-2024 10:58-0500Diastolic blood iquxcdhk66 mm[Hg]Sven Flores APRN-PANTRY ATTENDANT Work Phone: [facility]11-26-2024 10:58-0500Heart rate 76 /minSven Flores DESK PENS ASSEMBLER-PANTRY ATTENDANT Work Phone: [facility]11-26-2024 10:58-0500 Respiratory rate18 /minSven Flores DESK PENS ASSEMBLER-PANTRY ATTENDANT Work Phone: [facility]11-26-2024 10:58-1181KvV3% (BldA) [Mass fraction]99 %Svne Flores APRN-PANTRY ATTENDANT Work Phone: [facility]11-26-2024 10:58-0500Systolic blood wuylucbt863 mm[Hg]Sven Flores APRN-PANTRY ATTENDANT Work Phone: [facility]11-18-2024 15:53-0500Body cmValefelicia Flores APRN-PANTRY ATTENDANT Work Phone: [facility]11-18-2024 15:53-0500Body mass index (BMI) [Ratio]44.17 kg/t7MomcbfzSven Flores APRN-PANTRY ATTENDANT Work Phone: [facility] [employer] Ojkxdr64-09-6058 15:53-0500Body jnojbbzfgtj23.71 [degF]Sven Flores APRN-PANTRY ATTENDANT Work Phone: [facility]11-18-2024 15:53-0500Body wupgho314.04 kgSven Flores APRN-PANTRY ATTENDANT Work Phone: [facility]11-18-2024 15:53-0500Diastolic blood qtystijy39 mm[Hg]Sven Flores DESK PENS ASSEMBLER-PANTRY ATTENDANT Work Phone: [facility]11-18-2024 15:53-0500Heart rate 86 /minSadierie Flores DESK PENS ASSEMBLER-PANTRY ATTENDANT Work Phone: [facility]11-18-2024 15:53-0500 Respiratory rate18 /Catracho Flores APRN-PANTRY ATTENDANT Work Phone: [facility]11-18-2024 15:53-6470TjF1% (BldA) [Mass fraction]97 %Sven Flores APRN-PANTRY ATTENDANT Work Phone: [facility]11-18-2024 15:53-0500Systolic blood qdpzibqg607 mm[Hg]Sven Flores APRN-PANTRY ATTENDANT Work Phone: [facility]06-28-2024 09:43-0400Body [facility]yzlne765.[facility] 09:43-0400Body mass index (BMI) [Ratio]44.9 kg/s3JkznobwhsGal[facility]06-28-2024 09:43-0400Body pzuravvhxit42.3 [degF][facility]06-28-2024 09:43-0400Body tzmliy345.22 [facility]06[facility] 09:43-0400Diastolic blood wpjfquqq78 mm[Hg][facility] 05-24-2024 09:43-0400Heart rate87 /[facility] 05-24-2024 09:43-0400Respiratory rate18 /[facility] 05-24-2024 09:43-3619JqA6% (BldA) [Mass fraction]97 %[facility]06-28-2024 09:43-0400Systolic blood xelmzfud460 mm[Hg][facility]05-01-2024 16:57-0400Body sjrolw360 cmVsrinivas Flores APRN-PANTRY ATTENDANT Work Phone: [facility]05-01-2024 16:57-0400Body mass index (BMI) [Ratio]43.58 kg/n7XfifqdqSven Flores APRN-PANTRY ATTENDANT Work Phone: [facility]05-01-2024 16:57-0400Body gsixddqpscb34.2 [degF]Sven Flores APRN-PANTRY ATTENDANT Work Phone: [facility]05-01-2024 16:57-0400Body qrxfyt661.95 kgSven Flores APRN-PANTRY ATTENDANT Work Phone: [facility]05-01-2024 16:57-0400Diastolic blood mm[Hg]Sven Flores APRN-PANTRY ATTENDANT Work Phone: [facility] [facility] 16:57-0400Heart rate 97 /minSven Flores APRN-PANTRY ATTENDANT Work Phone: [facility]05-01-2024 16:57-0400 Respiratory rate20 /minSven Flores APRN-PANTRY ATTENDANT Work Phone: [facility]05-01-2024 16:57-2128IdJ6% (BldA) [Mass fraction]97 %Sven Flores APRN-PANTRY ATTENDANT Work Phone: [facility] [employer] Oklczj50-23-3943 16:57-0400Systolic blood xgeguxbl966 mm[Hg]Sven Flores APRN-PANTRY ATTENDANT Work Phone: [facility] [employer] Yjumbf37-01-9039 17:01-0500Body ciinoi607 cmValefelicia Flores APRN-PANTRY ATTENDANT Work Phone: [facility]01-17-2024 17:01-0500Body mass index (BMI) [Ratio]45.58 kg/p5VpnhngiSven Flores APRN-PANTRY ATTENDANT Work Phone: [facility]01-17-2024 17:01-0500Body qgbifujcjbk68.01 [degF]Sven Flores APRN-PANTRY ATTENDANT Work Phone: [facility]01-17-2024 17:01-0500Body rrhtuq975.03 kgValerie Flores DESK PENS ASSEMBLER-PANTRY ATTENDANT Work Phone: [employer] Fhdyab83-02-4406 17:01-0500Diastolic blood mhhmuimw60 mm[Hg]Sven Flores DESK PENS ASSEMBLER-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 ATTENDANT Work Phone: [facility]-17[facility]2024 17:01-0500Heart rate 92 /minSven Flores DESK PENS ASSEMBLER-PANTRY ATTENDANT Work Phone: [facility] [employer] BiosciencesLxxuuf65-37-6507 17:01-2761LaB9% (BldA) [Mass fraction]98 %Sven Flores DESK PENS ASSEMBLER-PANTRY ATTENDANT Work Phone: [facility]-17-2024 17:01-0500Systolic blood gqwwemcd275 mm[Hg]Sven Flores DESK PENS ASSEMBLER-PANTRY ATTENDANT Work Phone: [facility] [employer] Encounters Encounter DateEncounter TypeCare ProviderFacilityStart: 09-23-2025 End: 88-53-3567heivahkafrCSHPEast [facility] Regional Hospitaltart: 08-05-2025 End: 43-17-4884ZjqfxuRxcpntxq [facility] Physicians Internal Medicine - Family MedicineComment on above:Type 2 diabetes mellitus with hyperglycemia, without long-term current use of insulin ([facility])Start: 06-19-2025 End: 23-30-0980elnnfuafbeMUTTMYV TUDetwiler Memorial Hospitaltart: 06-04-2025 End: 92-90-4856UovbgmLfzihj [facility] Physicians Internal Medicine - Family MedicineComment on above:Atrial fibrillation, unspecified type ([facility]) Start: 45-88-3870zzfwejgzwiEJETPremier Health Miami [facility] Hospital Northtart: 05-22-2025 End: 87-72-8253hhydwhncmyUTDQPremier Health [facility] Hospital Northtart: 05-17-2025 End: 60-10-4097EdgxznRcescum J Flores DESK PENS ASSEMBLER-PANTRY ATTENDANT Work Phone: [facility] Physicians Internal Medicine - Family MedicineComment on above:Atrial fibrillation, unspecified type ([facility])Start: 05-16-2025 End: 02-77-9194EuzakuWbhqratSven GONZALEZ Work Phone: [facility] Physicians Internal Medicine - Family MedicineComment on above:Essential hypertensionStart: 04-29-2025 End: 15-12-6698fwioiuhjjqSLHCWayne Hospitaltart: 04-24-2025 End: 07-15-0563Ckadox outpatient visit 25 minutesValefelicia GONZALEZ Work Phone: [facility] Physicians Internal Medicine - Family MedicineComment on above:Type 2 diabetes mellitus with hyperglycemia, without long-term current use of insulin ([facility]) (Primary Dx); Generalized anxiety disorder with panic attacks; Atrial fibrillation, unspecified type ([facility]); Essential hypertension; GERD without esophagitisStart: 04-24-2025 End: 74-91-6248kfqgxwoywbFYNWCXQFranciscan Health Ambulatory [facility] Start: 86-99-7504ejsuohujyrXHRPWayne Hospitaltart: 01-14-2025 End: 30-55-9453EvaofoCxbkzn [facility] Physicians Internal Medicine - Family MedicineComment on above:Type 2 diabetes mellitus with hyperglycemia, without long-term current use of insulin ([facility])Start: 11-28-2024 End: 90-24-0475Pibxqxqyk Tiana Whyte [facility] Physicians Internal Medicine - Family MedicineComment on above:Essential hypertensionStart: 11-12-2024 End: 02-63-1455lywaizgnqzBMHUWayne Hospitaltart: 10-22-2024 End: 25-21-5070Rfdvvajdwpfb care manage srvc 7 day dischargeSven GONZALEZ Work Phone: [facility] Physicians Internal Medicine - Family MedicineComment on above:Atrial fibrillation, unspecified type ([facility]) (Primary Dx); Essential hypertensionStart: 10-22-2024 End: 51-78-1115eejuokakfmFUUOKUPFranciscan Health Ambulatory PPG Start: 10-14-2024 End: 55-15-0738Qoclxp outpatient visit 25 minutesSven GONZALEZ Work Phone: [facility] Physicians Internal Medicine - Family MedicineComment on above:Type 2 diabetes mellitus with hyperglycemia, without long-term current use of insulin ([facility]) (Primary Dx); Essential hypertension; Generalized anxiety disorder with panic attacks; GERD without esophagitis; Comprehensive diabetic foot examination, type 2 DM, encounter for ([facility]) Start: 10-14-2024 End: 72-32-4726qujiusojclCOEGCZSMultiCare [facility] Start: 08-01-2024 End: 57-47-3900AxbkblGscyyfkDana Flores APRN-RALPH Work Phone: [facility] Physicians Internal Medicine - Family MedicineComment on above:Essential hypertensionStart: 07-19-2024 End: 57-21-6547VyxhuaArwmjdhDaniel GONZALEZ Work Phone: [facility] Physicians Internal Medicine - Family MedicineComment on above:Type 2 diabetes mellitus with hyperglycemia, without long-term current use of insulin ([facility])Start: 05-24-2024 End: 86-58-3873jnyydsmfmyYvwzbylrzWayne HealthCare Main Campus Work Phone: Start: 05-24-2024 End: 46-15-5747Uhmxgzy encounter [facility] [place] Work Phone: Start: 03-27-2024 End: 48-58-5147Yjmkcq outpatient visit 25 minutesSven GONZALEZ Work Phone: [facility] Physicians Internal Medicine - Family MedicineComment on above:Type 2 diabetes mellitus with hyperglycemia, without long-term current use of insulin ([facility]) (Primary Dx); Generalized anxiety disorder with panic attacks; Essential hypertension; GERD without esophagitisStart: 03-14-2024 End: 50-42-7195NwhlxoXwlissrDaniel Flores APRN-RALPH Work Phone: [facility] Physicians Family MedicineComment on above: GERD without esophagitisStart: 31-73-3663YrdldcSnarvbdDana Flores APRN-RALPH Work Phone: [facility] Physicians Internal Medicine - Family MedicineComment on above:Type 2 diabetes mellitus with hyperglycemia, without long-term current use of insulin ([facility])Start: 59-70-9919ChmegxLrjcqisDana Flores APRN-RALPH Work Phone: [facility] Physicians Internal Medicine - Family MedicineComment on above:Type 2 diabetes mellitus with hyperglycemia, without long-term current use of insulin ([facility])Start: 13-11-8957Dbnbjj OnlySven Flores APRN-RALPH Work Phone: [facility] Physicians Family [facility] Hospitaltart: 01-02-2024 RefillSven Flores APRN-PANTRY ATTENDANT Work Phone: [facility] Physicians Family MedicineComment on above: Type 2 diabetes mellitus with hyperglycemia, without long-term current use of insulin ([facility])Start: 12-28-2023 End: 91-79-3493Qamglr outpatient visit 15 minutesSven Flores APRN-RALPH Work Phone: [facility] Physicians Internal Medicine - Family MedicineComment on above:Generalized anxiety disorder with panic attacksStart: 12-13-2023 End: 09-17-9605zqtowtruoaPOBZKZD J CASTILLOMercy Health St[facility] HospitalStart: 50-31-6645Bdlsfvsyj for general adult medical examination without abnormal findingsSVEN GARNICAMercy Health Lorain Hospitaltart: 12-13-2023 End: 33-86-3647Kvmwrdk encounter procedureSven Flores APRN-RALPH Work Phone: [facility] SystemStart: 12-13-2023 End: 17-63-8202Cxspclyy preventive med est patient 40-64yrsSven Flores APRN-RALPH Work Phone: [facility] Physicians Internal Medicine - Family MedicineComment on above:Annual physical exam (Primary Dx); Blood tests for routine general physical examination; Essential hypertension; Generalized anxiety disorder with panic attacks; GERD without esophagitisStart: 12-13-2023 End: 34-68-3047Rhtkuqei examinationValefelicia GONZALEZ Work Phone: [facility] CenterPrimoris Energy Solutions System Work Phone: Start: 07-16-2021 End: 67-40-1917zemefepjlrYKOMCYGJD BREAULTFacility:J8Usmcj: 01-13-2021 End: 66-41-2064jsmwlpuzvyLJBIYHP CASTILLOFacility:Y8Brngz: 12-30-2020 End: 19-13-2931zerutjwezjQLBBVBX CASTILLOFacility:V5Zkpdi: 36-66-1050Wxznixq encounter procedureValefelicia GONZALEZ Work Phone: ProAs[facility] CenterAQS Procedures DateProcedureProcedure DetailPerforming ClinicianStart: 85-77-0474Goteggblny glycosylated m2vWznjefqSven GONZALEZ Work Phone: Start: 71-79-3590Zkmaj depression screening assessment Sven GONZALEZ Work Phone: Start: 95-56-4779Rsnxiz-up visitFollow-upVALEFELICIA FLORESStart: 87-64-0631Nxydp depression screening assessmentSven GONZALEZ Work Phone: Start: 29-26-0393Vpjsprqxnp glycosylated u7nOprcczdramakrishna GONZALEZ Work Phone: Start: 94-01-6938Vafme Strep (POC)Start: 03-27-2024 Hemoglobin glycosylated w7mFoovkrgramakrishna GONZALEZ Work Phone: Start: 56-69-4148Amdfy depression screening assessment Sven GONZALEZ Work Phone: Start: 16-67-6062Uuhchvrzae glycosylated u8rKmqlxtiSven GONZALEZ Work Phone: Start: 28-36-7623Aeodx depression screening assessment Sven Flores APRN-PANTRY ATTENDANT Work Phone: Plan of Treatment DateCare ActivityDetailAuthorStart: 37-76-7460Ldjfv BMI Follow Up PlanAdult BMI Follow Up PlanRegency Hospital [facility] SystemStart: 15-29-9904Aopew BMI ScreeningAdult BMI ScreeningProParma Community General Hospital SystemStart: 27-87-6466Owqnctrdpl Screening Depression ScreeningRegency Hospital [facility] SystemStart: 44-57-9487Vfpxnkp Screening Tobacco ScreeningRegency Hospital [facility] SystemStart: 10-29-2025 End: 74-33-9847Qxincgh encounter procedureProMedica Physicians Internal Medicine - Family MedicineStart: 52-38-9346Ttirq BMI ScreeningAdult BMI Screening [facility] SystemStart: 22-39-1423Hsbombkkfx ScreeningDepression Screening [facility] SystemStart: 96-20-3688Sqketha ScreeningTobacco Screening [facility] SystemStart: 60-68-4867Rendl BMI Follow Up PlanAdult BMI Follow Up PlanRegency Hospital [facility] SystemStart: 39-56-9899Jijbh BMI ScreeningAdult BMI ScreeningRegency Hospital [facility] SystemStart: 72-63-7145Yxcfilyd foot examination Diabetic Foot ExamRegency Hospital [facility] SystemStart: 28-95-0839Qbjgpus Screening Tobacco ScreeningRegency Hospital [facility] SystemStart: 32-27-9503Ycqbyllwc vaccination Influenza VaccineRegency Hospital [facility]edo SystemStart: 14-89-0389Jybxkax Screening Tobacco ScreeningRegency Hospital [facility] SystemStart: 88-36-3993Uptvb BMI Follow Up PlanAdult BMI Follow Up PlanRegency Hospital [facility] SystemStart: 92-99-8459Ydreq BMI ScreeningAdult BMI ScreeningRegency Hospital [facility] SystemStart: 16-09-6407Hepfcqgbgs ScreeningDepression ScreeningMission Family Health Centertart: 03-20-2025 End: 59-62-5417Ghkmgld encounter dlnrssayp77/24/2025 4:00 PM EDT Office Visit [facility] [address] [place] [address] Sven Flores APRN-PANTRY ATTENDANT [address] [place] [address] [facility] - [facility] MedicineStart: 30-02-0544Oyjbe BMI Follow Up PlanAdult BMI Follow Up PlanRegency Hospital [facility] SystemStart: 31-16-6867Xsshxon ScreeningTobacco ScreeningRegency Hospital [facility] SystemStart: 81-12-9024Weimu BMI ScreeningAdult BMI ScreeningRegency Hospital [facility] SystemStart: 30-64-8887Dzxksgitqv ScreeningDepression ScreeningRegency Hospital [facility] SystemStart: 81-95-3611Cfercxx ScreeningTobacco ScreeningRegency Hospital [facility] SystemStart: 37-20-1149Bunvz BMI Follow Up PlanAdult BMI Follow Up PlanMission Family Health Centertart: 08-16-2024 Diabetic foot examinationDiabetic Foot ExamMission Family Health Centertart: 07-31-2024 End: 86-22-9734Jtevwlt encounter iqnxdybwm08/04/2024 5:00 PM EDT Office Visit [facility] [address] [place] [address] Sven Flores, DESK PENS ASSEMBLER-PANTRY ATTENDANT [address] [place] [address] [facility] - [facility] MedicineStart: 88-42-1348Xuuivgjfs vaccinationInfluenza VaccineRegency Hospital [facility] SystemStart: 03-27-2024 End: 61-27-0037Zmwytcg encounter dmfnuatls07/01/2024 5:00 PM EDT Office Visit [facility] [address] [place] [address] Sven Flores, DESK PENS ASSEMBLER-PANTRY ATTENDANT [address] [place] [address] [facility] - [facility] MedicineStart: 60-69-4446Fazrjthmd vaccinationInfluenza VaccineMission Family Health Centertart: 83-12-3065QUcL,Tdap and Td Vaccines (1 - Tdap)DTaP,Tdap and Td Vaccines (1 - Tdap)[facility] Centertart: 84-41-2852Jqxtaudx screeningDiabetic Ophthalmology ExamMission Family Health Centertart: 66-64-5541Wsdzmr Use: DiabeticStatin Use: DiabeticProParma Community General Hospital SystemStart: 04-37-7519Qpzkgae CounselingTobacco CounselingProParma Community General Hospital SystemStart: 40-94-2482Uprml screening for proteinUrine Microalbumin [facility] Immunizations Immunization DateImmunizationNotesCare WmwvmdwsEtyyyabk18-58-7986mhcqxcifm virus vaccine, unspecified formulationValerie Flores DESK PENS ASSEMBLER-PANTRY ATTENDANT Work Phone: [facility] CenterPiltvt32-90-4212bgtbvpjxv virus vaccine, unspecified formulationValerie Flores DESK PENS ASSEMBLER-PANTRY ATTENDANT Work Phone: [facility] Payers DatePayer CategoryPayerPolicy [id number] Alamos Medical Center Managed Care - OtherANTHEM Member Subscriber Plan / Payer (Effective 2017-Present) Name: Gelacio Smith Relation to Subscriber: Self Name: Gelacio Smith Payer ID: [id number] (NAIC) Type: Not on file Address: [address] [place] [id number] UnknownANTHEM BCBS OUT OF STATE PPO/TRUST [id number] 2017-Present [phone] [address] [place] [address] [id number] .[id number] 2..[id number] 2..1.205061.3.57[id number] 2..1.491419.3.57[id number] 2..1.594757.3.57[id number] 2..1.907431.3.57[id number] 2..1.624759.3.579.[id number] Social History DateTypeDetailFacilityTobacco smoking status NHISUnknown if ever smokedRegency Hospital [facility] SystemStart: 87-77-3608Rcd Assigned At [facility] Systemtart: 09-12-2023 End: 31-53-3897Prpxskh smoking status NHISNever smoked tobaccoRegency Hospital [facility] SystemStart: 99-43-9615Uojvyaa use and exposureUser of smokeless tobacco [facility] End: 59-03-0918Uistjfr of tobacco useChews TobaccoRegency Hospital [facility] SystemStart: 10-22-2024 End: 07-31-9134Jtvmkdsde beverage intakeEx-drinker (finding)[facility] SystemStart: 07-20-2021 End: 90-15-9200Hzofnyc of Social functionRegency Hospital Tol[facility] SystemStart: 07-20-2021 End: 94-77-0422Uyvmaf connection and isolation panelProParma Community General Hospital SystemDo you belong to any clubs or organizations such as anabaptist groups, unions, fraternal or athletic groups, or school groups?YesProMedica Health SystemHow often do you attend meetings of the clubs or organizations you belong to?Patient declinedAshtabula County Medical CenterAre you now , , , , never or living with a partner?MarriedAshtabula [facility] Medical Center How often to you have a drink containing alcohol?2-3 time sa weekAshtabula County Medical CenterHow many standard drinks containing alcohol do you have on a typical day?1 or 2PSelect Medical Cleveland Clinic Rehabilitation Hospital, BeachwoodHow often do you have 6 or more drinks on 1 occasion?MonthlySum[facility] Health [facility] [employer] [facility] Centertart: 67-29-3235Sbsaajwxi02 [facility] [employer] [facility] Centertart: 63-66-3189Nrq assigned at birthNot on file [facility] CenterMagnet Systemstart: 25-15-6860IlnKpfr (finding)[facility] [employer] Start: 21-66-8572Ujlkent use and exposureFormer smokeless tobacco userAshtabula County Medical Center Medical Equipment Procedure CodeEquipment CodeEquipment Original TextEquipment IdentifierDates Monitor blood sugar twice [id number]: 07-26-2022 End: strip by other route in the morning and at bedtime.[id number] Start: 07-26-2022 Clinical Notes 12-30-2020 to 09-23-2025 Note Date & BdagJqooPeigdpfq66-94-8486 NoteUT Electrophysiology Consult Note [place] [facility] Reason for visit: afib 09/23/2025 Patient underwent A-fib ablation on 05/22/2025. Following this on follow-up he had seen an service factor SLC1NF4-QVLi or of 1 Suzi Parkinson and had endorsed some palpitations which were short-lived. there was no evidence of atrial fibrillation on subsequent EKGs. He is currently on Eliquis for HTN as a risk factor for IRA3YG5-PNVx score of 1. He is keen on [...] Alcohol Use: Alcohol Misuse (07/20/2021) Received from [facility] AUDIT-C Frequency of Alcohol Consumption: 2-3 times a week Average Number of Drinks: 1 or 2 Frequency of Binge Drinking: Monthly Financial Resource Strain: Low Risk (12/28/2023) Received from [facility] Overall Financial Resource Strain (CARDIA) Difficulty of Paying Living Expenses: Not hard at all Food Insecurity: No Food Insecurity (04/24/2025) Received from [facility] Hunger Screening Within the past 12 months we worried whether our food would run out before we got money to buy more.: Never True Within the past 12 months the food we bought just didn't last and we didn't have money to get more.: Never True Transportation Needs: No Transportation Needs (12/28/2023) Received from [facility] PRAPARE - Transportation Lack of Transportation (Medical): No Lack of Transportation (Non-Medical): No Physical Activity: Inactive (07/20/2021) Received from [facility] Exercise Vital Sign Days of Exercise per Week: 2 days Minutes of Exercise per Session: 0 min Stress: Not on file Social Connections: Moderately Isolated (07/20/2021) Received from [facility] Social Connection and Isolation Panel [NHANES] Frequency of Communication with Friends and Family: Twice a week Frequency of Social Gatherings with Friends and Family: Never Attends Temple Services: Never Active Member of Clubs or Organizations: Yes Attends Club or Organization Meetings: Patient declined Marital Status: Intimate Partner Violence: Not on file Depression: Not at risk (04/24/2025) Received from [facility] PHQ-2 Total Score: 0 Housing Stability: Low Risk (12/28/2023) Received from [facility] Housing Instability Are you worried or concerned [...] THE SKIN) EVERY 7 (more content not included)...[facility]07-24-2025 NoteCardiovascular Medicine [facility] SUBJECTIVE Chief Complaint Patient presents with Atrial [...] Rate 05/22/2025 73 Atrial Rate 05/22/2025 73 DE Interval 05/22/2025 202 QRS DURATION 05/22/2025 116 QT Interval 05/22/2025 382 QTC CALCULATION(BAZETT) 05/22/2025 420 P [place] 05/22/2025 20 R-[place] 05/22/2025 -25 T Wave [place] 05/22/2025 67 Protime 05/22/2025 13.1 INR 05/22/2025 0.99 Glucose POC 05/22/2025 105 Hemoglobin 05/22/2025 13.0 LD 05/22/2025 186 Bilirubin, Direct 05/22/2025 0.2 Total Bilirubin 05/22/2025 0.8 Haptoglobin 05/22/2025 129.0 High Sensitivity Troponi* 05/22/2025 677 (HH) Activated Clotting Time 05/22/2025 332 (H) Activated Clotting Time 05/22/2025 306 (H) Activated Clotting Time 05/22/2025 219 (H) Ventricular Rate 05/22/2025 77 Atrial Rate 05/22/2025 77 DE Interval 05/22/2025 184 QRS DURATION 05/22/2025 114 QT Interval 05/22/2025 376 QTC CALCULATION(BAZETT) 05/22/2025 425 P [place] 05/22/2025 60 R-[place] 05/22/2025 -13 T Wave [place] 05/22/2025 84 No results found for: CHOL , TRIG , HDL , LDLDIRECT 10/19/24: Hgb 15.5, hematocrit 46.9, sodium 138, potassium 4.1, creatinine 0.87, hemoglobin A1c 5.9, mag 2.2, AST 19, ALT 49, BNP 262 Lipids: cholesterol 149, trig 133, LDL 86, 37 TSH 1.969 Testing/Procedures: Encounter Date: 05/22/25 ECG 12 lead Result Value Ventricular Rate 77 Atrial Rate 77 DE Interval 184 QRS DURATION 114 QT Interval 376 QTC CALCULATION(BAZETT) 425 P [place] 60 R-[place] -13 T [place] 84 Impression Normal sinus rhythm Normal ECG [...] 1. Paroxysmal atrial fibrilla (more content not included)...[facility]07-24-2025 NotePatient is here today for a follow s/p ablation. Patient states he is feeling pretty good his energy level has increased. Patient states maybe a handful of times since the procedure he felt like he was in A-Fib but then went right back out. Patient would like to know if he can return to normal activity and swimming. Review of Systems Constitutional: Negative.[facility]06-26-2025 Note Patient: Gelacio Smith Procedure Summary Date: 05/22/25 Room / Location: [facility] PULLMAN CONDUCTOR 1 EP / [facility] HVC VASCULAR LAB (Cath) Anesthesia Start: 131 [...] were no known notable events for this encounter.[facility]06-26-2025 NotePatient: Gelacio Smith Procedure Summary Date: 05/22/25 Room / Location: [facility] PULLMAN CONDUCTOR 1 EP / [facility] HV VASCULAR LAB (Cath) Anesthesia Start: 131 [...] transport monitor Transport: uneventful Patient condition is: stableUnGood Samaritan Hospital06-26-2025 Note ATRIAL FIBRILLATION ABLATION PROCEDURE NOTE DATE OF PROCEDURE: 05/22/2025 PERFORMING PHYSICIAN: Dr. Brian Summers MILLINERY SALESPERSON: LEANNE CONSENT: Patient NAME OF THE PROCEDURE: [...] 3. Groin precautions. Brian Summers MD Cardiac ElectrophysiologyUnGood Samaritan Hospital06-26-2025 Note Airway Date/Time: 05/22/2025 1:41 PM Reason: elective Airway not difficult General Information and Staff Patient location during procedure: [place] Anesthesiologist: Lane Rowan MD Resident/GIMP BUTTONHOLE MACHINE OPERATOR/CAA: Sunny Vernon MD Performed: resident/GIMP BUTTONHOLE MACHINE OPERATOR/CAA Patient Condition Indications for airway management: anesthesia [...] approach: 1 Number of other approaches attempted: 0[facility] 05-22-2025 Note Attestation signed by Lane [...] mcg - 05/22/2025 12:30:00 PM Staffing Performed: resident/GIMP BUTTONHOLE MACHINE OPERATOR/CAA Anesthesiologist: Lane Rowan MD Resident/GIMP BUTTONHOLE MACHINE OPERATOR: John Harry MD Performed by: Sunny Vernon MD Authorized by: Lane Rowan MDSt. [facility] Hospital06-26-2025 NotePatient: Gelacio Ordonezgabby Procedure Information Anesthesia Start Date/Time: 05/22/25 1311 Procedure: Ablation a-fib paroxysmal Location: [facility] PULLMAN CONDUCTOR 1 / [facility] VASCULAR LAB (Cath) Providers: Brian [...] products. Plan discussed with attending. Additional Equipment RequestsSt. Vincent [facility] Note [place] Electrophysiology Consult Note [place] Cardiology [facility] Reason for visit: afib 04/29/25 [...] Alcohol Use: Alcohol Misuse (07/20/2021) Received from [facility] AUDIT-C Frequency of Alcohol Consumption: 2-3 times a week Average Number of Drinks: 1 or 2 Frequency of Binge Drinking: Monthly Financial Resource Strain: Low Risk (12/28/2023) Received from [facility] Overall Financial Resource Strain (CARDIA) Difficulty of Paying Living Expenses: Not hard at all Food Insecurity: No Food Insecurity (04/24/2025) Received from [facility] Hunger Screening Within the past 12 months we worried whether our food would run out before we got money to buy more.: Never True Within the past 12 months the food we bought just didn't last and we didn't have money to get more.: Never True Transportation Needs: No Transportation Needs (12/28/2023) Received from [facility] PRAPARE - Transportation Lack of Transportation (Medical): No Lack of Transportation (Non-Medical): No Physical Activity: Inactive (07/20/2021) Received from [facility] Exercise Vital Sign Days of Exercise per Week: 2 days Minutes of Exercise per Session: 0 min Stress: Not on file Social Connections: Moderately Isolated (07/20/2021) Received from [facility] Social Connection and Isolation Panel [NHANES] Frequency of Communication with Friends and Family: Twice a week Frequency of Social Gatherings with Friends and Family: Never Attends Temple Services: Never Active Member of Clubs or Organizations: Yes Attends Club or Organization Meetings: Patient declined Marital Status: Intimate Partner Violence: Not on file Depression: Not at risk (04/24/2025) Received from [facility] PHQ-2 Total Score: 0 Housing Stability: Low Risk (12/28/2023) Received from [facility] Housing Instability Are you worried or concerned [...] Level of Distress: comfortable (more content not included)...[facility]05-29-2025 History of Present illness Narrative* Sven Flores APRN-PANTRY ATTENDANT - 04/24/2025 3:20 PM EDT Images from the original note were not included. [address] [place] [phone] SUBJECTIVE: Patient ID: Gelacio Smith is a [...] X4 Past Medical History: Diagnosis Date A-fib ([facility]) 10/18/2024 Hyperlipidemia Hypertension Right lateral [...] hyperglycemia, without long-term current use of insulin ([facility]) - POCT Hemoglobin A1c Generalized anxiety disorder with panic attacks - busPIRone (BUSPAR) 15 mg tablet; TAKE 1 TABLET BY MOUTH THREE TIMES A DAY - FLUoxetine (PROzac) 20 MG tablet; Take 1 tablet (20 mg total) by mouth in the morning. Atrial fibrillation, unspecified type ([facility]) - metoprolol tartrate (LOPRESSOR) 25 mg tablet; [...] LISA Gan 04/24/25 1608 documented in this encounterAshtabula [facility]04-22-2025 NoteUT Electrophysiology Consult Note [place] [facility] Reason for visit: afib 03/18/25 Pt [...] Alcohol Use: Alcohol Misuse (07/20/2021) Received from [facility] AUDIT-C Frequency of Alcohol Consumption: 2-3 times a week Average Number of Drinks: 1 or 2 Frequency of Binge Drinking: Monthly Financial Resource Strain: Low Risk (12/28/2023) Received from [facility] Overall Financial Resource Strain (CARDIA) Difficulty of Paying Living Expenses: Not hard at all Food Insecurity: No Food Insecurity (10/22/2024) Received from [facility] Hunger Screening Within the past 12 months we worried whether our food would run out before we got money to buy more.: Never True Within the past 12 months the food we bought just didn't last and we didn't have money to get more.: Never True Transportation Needs: No Transportation Needs (12/28/2023) Received from [facility] PRAPARE - Transportation Lack of Transportation (Medical): No Lack of Transportation (Non-Medical): No Physical Activity: Inactive (07/20/2021) Received from [facility] Exercise Vital Sign Days of Exercise per Week: 2 days Minutes of Exercise per Session: 0 min Stress: Not on file Social Connections: Moderately Isolated (07/20/2021) Received from [facility] Social Connection and Isolation Panel [NHANES] Frequency of Communication with Friends and Family: Twice a week Frequency of Social Gatherings with Friends and Family: Never Attends Temple Services: Never Active Member of Clubs or Organizations: Yes Attends Club or Organization Meetings: Patient declined Marital Status: Intimate Partner Violence: Not on file Depression: Not at risk (10/22/2024) Received from [facility] PHQ-2 Total Score: 0 Housing Stability: Low Risk (12/28/2023) Received from [facility] Housing Instability Are you worried or concerned [...] and person Insight: goo (more content not included)...[facility] NotePatient stopped by the office for [...] patient to call our office for further questions.[facility]01-02-2025 Miscellaneous Notes* Telephone Encounter - Martha Whyte CMA - 11/28/2024 9:49 AM EST Patient called and was wondering do you think he should get back on his BP meds because his BP was running around 167/97? * Telephone Encounter - LISA Gan - 11/28/2024 9:49 AM EST Yes. He can restart amlodipine 10 mg oral daily. * Telephone Encounter - Martha Whyte CMA - 11/28/2024 9:49 AM EST Notified patient documented in this encounterAshtabula [facility] Center01-02-2025 Telephone encounter Note* Telephone Encounter - Martha Whyte CMA - 11/28/2024 9:49 AM EST Patient called and was wondering do you think he should get back on his BP meds because his BP was running around 167/97? [facility]01-02-2025 Telephone encounter Note* Telephone Encounter - LISA Gan - 11/28/2024 9:49 AM EST Yes. He can restart amlodipine 10 mg oral daily. [facility]01-02-2025 Telephone encounter Note* Telephone Encounter - Martha Whyte CMA - 11/28/2024 9:49 AM EST Notified patient [facility]12-17-2024 NoteUT Electrophysiology Consult Note [place] Cardiology [facility] Reason for visit: afib HPI: Gelacio [...] Alcohol Use: Alcohol Misuse (07/20/2021) Received from [facility] AUDIT-C Frequency of Alcohol Consumption: 2-3 times a week Average Number of Drinks: 1 or 2 Frequency of Binge Drinking: Monthly Financial Resource Strain: Low Risk (12/28/2023) Received from [facility] Overall Financial Resource Strain (CARDIA) Difficulty of Paying Living Expenses: Not hard at all Food Insecurity: No Food Insecurity (10/22/2024) Received from [facility] Hunger Screening Within the past 12 months we worried whether our food would run out before we got money to buy more.: Never True Within the past 12 months the food we bought just didn't last and we didn't have money to get more.: Never True Transportation Needs: No Transportation Needs (12/28/2023) Received from [facility] PRAPARE - Transportation Lack of Transportation (Medical): No Lack of Transportation (Non-Medical): No Physical Activity: Inactive (07/20/2021) Received from [facility] Exercise Vital Sign Days of Exercise per Week: 2 days Minutes of Exercise per Session: 0 min Stress: Not on file Social Connections: Moderately Isolated (07/20/2021) Received from [facility] [employer] Social Connection and Isolation Panel [NHANES] Frequency of Communication with Friends and Family: Twice a week Frequency of Social Gatherings with Friends and Family: Never Attends Temple Services: Never Active Member of Clubs or Organizations: Yes Attends Club or Organization Meetings: Patient declined Marital Status: Intimate Partner Violence: Not on file Depression: Not at risk (10/22/2024) Received from [facility] PHQ-2 Total Score: 0 Housing Stability: Low Risk (12/28/2023) Received from [facility] [employer] Housing Instability Are you worried or concerned [...] curvature, no thoraci (more content not included)... [facility]11-26-2024 History of Present illness Narrative* Sven [...] BP 134/70 today. Has upcoming appointment with [place] cardiology on November 12, 2024. Follow-up Pertinent [...] with atrial fibrillation and was subsequently admitted [facility]. Was started on metoprolol and Eliquis. He has been holding amlodipine and Prinzide since Monday. BP 134/70 today. Has upcoming appointment with [place] cardiology on November 12, 2024. Discontinue amlodipine and Prinzide Continue metoprolol tartrate 25 mg oral twice daily and Eliquis 5 mg oral twice daily. LISA Gan 10/22/24 1248 documented in this encounterAshtabula County Medical Center11-18-2024 History of Present illness Narrative* LISA Gan - 10/14/2024 4:00 PM EST Images from the original note were not included. [address] [place] [address] SUBJECTIVE: Patient ID: Gelacio Smith is a [...] hyperglycemia, without long-term current use of insulin ([facility]) (Primary) A1c 5.6% Continue Ozempic 2 mg [...] LISA Gan 10/14/24 1713 documented in this encounterAshtabula County Medical Center05-01-2024 History of Present illness Narrative* LISA Gan - 03/27/2024 5:00 PM EDT Images from the original note were not included. [address] [place] [place] [address] SUBJECTIVE: Patient ID: Gelacio Smith is a [...] hyperglycemia, without long-term current use of insulin ([facility]) - POCT Hemoglobin A1c - semaglutide (OZEMPIC) [...] LISA Gan 03/28/24 1509 documented in this encounterAshtabula County Medical Center02-01-2024 History of Present illness Narrative* LISA Gan - 12/28/2023 2:00 PM EST Images from the original note were not included. [address] [facility] [address] SUBJECTIVE: Video Visit via Real-time Synchronous Audiovisual Provider Location: [facility] - FAMILY MEDICINE [address] [place] [address] Patient Location: Patient's home Video Visit Consent [...] that there are some limitations compared to [id number] evaluations. The patient consented to the presence [...] ended in crying spells. He works at [employer], approximately 70-80 hours per week. States he was thinking about his father who is and thought this would happen to him too. He went to the nurse's office and he was encouraged to make an appointment today. Had his BP checked, is in normal ranges. Has missed 2+ days of fluoxetine. [facility] pharmacy only dispensed 8 capsules and he [...] LISA Gan 12/28/23 1500 documented in this encounterAshtabula County Medical Center01-17-2024 History of Present illness Narrative* LISA Gan - 12/13/2023 5:00 PM EST Images from the original note were not included. [address] [place] [address] SUBJECTIVE: Patient ID: Gelacio Smith is a 43 y.o. male. Chief Complaint Patient presents with Annual Exam Presents for annual physical exam He is . Has twin school age daughters. Does not smoke. Works full-time at [employer]. The following portions of the patient's history [...] months LISA Gan 12/13/231812 documented in this encounterAshtabula County Medical Center02-03-2021 NoteHOME SLEEP STUDY Ordering Physician: Navya [...] anxiety or depression. 4. Please correlate clinically.[facility]* Diagnosis Onset Date Resolution Status Acute nasopharyngitis acuteLeft otitis media with [facility]Bl[facility] Work Phone: Evaluation note* Diagnosis Essential hypertension Unspecified essential hypertension documented in this encounter [facility]* Diagnosis GERD without esophagitis Esophageal reflux documented in this encounter [facility]* Diagnosis Type 2 diabetes mellitus with hyperglycemia, without long-term current use of insulin ([facility])- Primary Generalized anxiety disorder with panic attacks Essential hypertension Unspecified essential hypertension GERD without esophagitis Esophageal reflux [facility]* Diagnosis Annual physical exam- Primary Routine general medical examination at a health care facility Blood tests for routine general physical examination Laboratory examination ordered as part of a routine general medical examination Essential hypertension Unspecified essential hypertension Generalized anxiety disorder with panic attacks GERD without esophagitis Esophageal reflux documented in [facility] encounter [facility]* Diagnosis Generalized anxiety disorder with panic attacks documented [facility] encounter [facility]* Diagnosis Type 2 diabetes mellitus with hyperglycemia, without long-term current use of insulin ([facility]) documented in this encounter [facility]* Diagnosis Type 2 diabetes mellitus with hyperglycemia, without long-term current use of insulin ([facility]) documented in this encounter [facility]* Diagnosis Type 2 diabetes mellitus with hyperglycemia, without long-term current use of insulin ([facility]) documented in [facility] encounter [facility]* Diagnosis Essential hypertension Unspecified essential hypertension documented in [facility] encounter [facility]* Diagnosis Type 2 diabetes mellitus with hyperglycemia, without long-term current use of insulin ([facility])- Primary Essential hypertension Unspecified essential hypertension Generalized anxiety disorder with panic attacks GERD without esophagitis Esophageal reflux Comprehensive diabetic foot examination, type 2 DM, encounter for ([facility]) documented in this encounter [facility]* Diagnosis Atrial fibrillation, unspecified type ([facility])- Primary Essential hypertension Unspecified essential hypertension documented in this encounter [facility]* Diagnosis Type 2 diabetes mellitus with hyperglycemia, without long-term current use of insulin ([facility]) documented in this encounter [facility]* Diagnosis Type 2 diabetes mellitus with hyperglycemia, without long-term current use of insulin ([facility])- Primary Generalized anxiety disorder with panic attacks Atrial fibrillation, unspecified type ([facility]) Essential hypertension Unspecified essential hypertension GERD without esophagitis Esophageal reflux documented in this encounter [facility]* Diagnosis Atrial fibrillation, unspecified type ([facility]) documented in this encounter [facility]* Diagnosis Type 2 diabetes mellitus with hyperglycemia, without long-term current use of insulin ([facility]) documented in this encounter [facility] SystemInstructionsNot on filedocumented in this encounter [facility] SystemInstructionsNot on filedocumented in this encounter [facility] SystemInstructionsNot on filedocumented in this encounter [facility] SystemInstructions* Attachments The following attachments cannot be sent through Care Everywhere. * Yearly Physical for Adults (Tanzanian) documented in [facility] encounterReg[facility] SystemInstructions* Attachments The following attachments cannot be sent through Care Everywhere. * Yearly Physical for Adults (Tanzanian) documented in [facility]Reg[facility] SystemInstructions* Attachments The following attachments cannot be sent through Care Everywhere. * Generalized anxiety disorder (Tanzanian) * Panic Attack ED (Tanzanian) documented in this encounterProParma Community [facility] SystemInstructionsNot on file documented in [facility] encounterReg[facility] SystemInstructions* Attachments The following attachments cannot be sent through Care Everywhere. * High Blood Pressure ED (Tanzanian) documented in this encounterAshtabula County Medical CenterInstructions* Attachments The following attachments cannot be sent through Care Everywhere. * Atrial fibrillation (Tanzanian) documented in this encounterReg[facility] SystemInstructionsNot on file documented in this encounterAshtabula County Medical CenterInstructions* Attachments The following attachments cannot be sent through Care Everywhere. * Carb counting for adults with diabetes (Tanzanian) documented in this encounterAshtabula County Medical CenterInstructionsNot on file documented in this [facility] Summary Purpose Family History No Family [...] hyperglycemia, without long-term current use of insulin ([facility]) Sven Flores, DESK PENS ASSEMBLER-PANTRY ATTENDANT [address] [place] [address] Referral IDStatusReasonStart DateExpiration DateVisits RequestedVisits [id number] IDStatusReasonStart DateExpiration DateVisits RequestedVisits [id number] Additional Source Comments (unrecognized sect ion and content) No Status Records FoundNo Status Records FoundNo Status Records FoundNo Status Records Found INFORMATION SOURCE (unrecogn ized section and content) DATE CREATED AUTHOR 08/04/[address] [facility] DATE CREATED AUTHOR AUTHOR'S ORGANIZ ATION 12/16/2023 [facility] DATE CREATED AUTHOR AUTHOR'S ORGANIZ ATION 04/27/2025 [facility] DATE CREATED AUTHOR AUTHOR'S ORGANIZ ATION 09/24/2025 [facility] Care Teams (unrecognized sec tion and content) Team Status: Active Member Role Status Dates HILARY GnaC Primary Care Provider Active Team Status: Inactive Member Role Status Dates Sven Flores , DIRECTOR CLINICAL OPERATIONS-C Primary Care Provider Active Start: May 24, 2024 End: May 24, 2024Alejandra Ibrahim ProviderActiveStart: May 24, 2024 End: May 24, 2024Team MemberRelationshipSpecialtyStart DateEnd Date Sven Flores, DESK PENS ASSEMBLER-[facility] [address] [place] [address] PCP - Generalmily Medicine12/15/17Team MemberRelationshipSpecialtyStart DateEnd Date Sven Flores, DESK PENS ASSEMBLERENCOM[facility] [address] [place] [address] PCP - Generalmily Medicine12/15/17Team MemberRelationshipSpecialtyStart DateEnd Date Sven Flores DESK PENS ASSEMBLER-[facility] [address] [place] [address] PCP - Generalmily Medicine12/15/17Team MemberRelationshipSpecialtyStart DateEnd Date Sven Flores, DESK PENS ASSEMBLER-[facility] [address] [place] [address] PCP - GeneralFamily Medicine12/15/17Team MemberRelationshipSpecialtyStart DateEnd Date Sven Flores, DESK PENS ASSEMBLER-[facility] [address] [place] [address] PCP - GeneralFamily Medicine12/15/17Team MemberRelationshipSpecialtyStart DateEnd Date Sven Flores, DESK PENS ASSEMBLER-[facility] [address] [place] [address] PCP - GeneralFamily Medicine12/15/17Team MemberRelationshipSpecialtyStart DateEnd Date Sven Flores, DESK PENS ASSEMBLER-[facility] [address] [place] [address] PCP - GeneralFamily Medicine12/15/17Team MemberRelationshipSpecialtyStart DateEnd Date Sven Flores, DESK PENS ASSEMBLER-[facility] [address] [place] [address] PCP - GeneralFamily Medicine12/15/17Team MemberRelationshipSpecialtyStart DateEnd Date Sven Flores, DESK PENS ASSEMBLER-[facility] [address] [place] [address] PCP - GeneralFamily Medicine12/15/17Team MemberRelationshipSpecialtyStart DateEnd Date Sven Flores, DESK PENS ASSEMBLER-[facility] [address] [place] [address] PCP - GeneralFamily Medicine12/15/17Team MemberRelationshipSpecialtyStart DateEnd Date Sven Flores, DESK PENS ASSEMBLER-[facility] [address] [place] [address] PCP - GeneralFamily Medicine1/19/18Team MemberRelationshipSpecialtyStart DateEnd Date Sven Flores, [facility] [address] [facility] [place] [address] PCP - GeneralFamily Medicine12/15/17Team MemberRelationshipSpecialtyStart DateEnd Date Sven Flores, [facility] PCP - GeneralFamily Medicine12/15/17Team MemberRelationshipSpecialtyStart DateEnd Date Sal Aguirre, [facility] [address] [place] [address] PCP - GeneralInternal Medicine07/24/25 Goals (unrecognized section [...] (unrecogniz ed section and content) ReasonOnset DateCommentsMed Jhoxzh9211/28/2024ReasonCommentsMed RefillReason CommentsDiabetesReasonCommentsAnnual ExamReasonCommentspanic attacksReasonOnset DateCommentsMed [id number] DateCommentsMed Aylenk2802/12/2024 ReasonCommentsDiabetesHypertensionReasonCommentsFollow-upTBH visit A-FibReason Onset DateCommentsMed Gqtgwy3001/14/2025ReasonCommentsDiabetesAnxietyHypertension ReasonOnset DateCommentsMed Jbzhhn1206/04/2025 FOR RECORDS PERTAINING TO PATIENTS WHO ARE [...] BE BASED ON THE PRIMARY CLINICAL RECORDS. [facility]. provides no warranty or guarantee of the accuracy or completeness of information in this document.
[2025-10-28 12:10] VITALS: BP 154/103; PULSE 100; TEMP 35.9; O2SAT 98
--- NOTE | 2025-10-28 12:47 | W.PM.PROCNOT ---
Date of procedure: 10/28/25 Pre-op diagnosis: Atrial fibrillation Post-op diagnosis: same as pre-op Procedure: LOOP IMPLANT PROCEDURE NOTE DATE OF PROCEDURE: 10/28/2025 PERFORMING PHYSICIAN: Dr. Brian Summers CONSENT: Patient NAME OF THE PROCEDURE: Implantable loop recorder placement. DESCRIPTION OF PROCEDURE: The patient was brought to the room and continuous electrocardiographic monitoring was instituted.After a procedural pause identifying the patient, the procedure and site of implant we decided to proceed following administration of antibiotics. Sterile prep and drape and anesthesia with 1% lidocaine was followed by a small incision was made in the 3rd intercostal space near the sternum on the left using the [employer] tool. The loop recorder was then injected subcutaneously. Interrogation of the device noted good sensing parameters. Technical details of the device as noted below. The skin was then closed with 3-0 Vicryl and glue was applied. Wound was closed with dressing. The patient appeared to tolerate the procedure well and was returned to his room in stable condition. No complications were immediately observed. DEVICE INFO: [employer] LUX-DX Model# M 312 Serial# [id number] Sensin.[id number] IMPRESSION: Successful placement of LOOP implant with excellent sensing parameters. RECOMMENDATIONS: 1. Occlusive dressing to be changed after 5 days. 2. Do not wet the incison. Surgeon: Brian Summers Estimated blood loss (mL): 3 Pathology: none sent Condition: stable Disposition: same day
[2025-10-28] MEDS: LIDOCAINE HCL 1% 100 MG/10 ML MDV INJ (13:02)
--- NOTE | 2025-10-28 13:26 | ECG_ITS ---
[facility] Test Date: 2025-10-28 Pat Name: GELACIO SMITH Department: Room: - Gender: Male [employer]: : [id number] Requested By: GALO SUTTON Order Number: [id number] Reading MD: YUAN OATES M.D. Measurements Intervals [place] Rate: 80 P: 23 AK: 195 QRS: -24 QRSD: 125 T: 122 QT: 362 QTc: 418 Interpretive Statements SINUS RHYTHM BORDERLINE LEFT AXIS DEVIATION [QRS AXIS < -20] POSSIBLE RIGHT VENTRICULAR CONDUCTION DELAY [RSR (QR) IN V1/V2] MODERATE T-WAVE ABNORMALITY, CONSIDER LATERAL ISCHEMIA [-0.1+ mV T WAVE IN I/aVL/V5/V6] Compared to ECG 10/18/2024 11:06:24 T-wave abnormality now present Possible ischemia now present Atrial fibrillation no longer present Electronically Signed On 10-28-2025 19:59:36 EST by YUAN OATES M.D.
[2025-10-28 13:39] VITALS: BP 178/98; BP 181/105; PULSE 83; PULSE 88; O2SAT 97
== END 2025-10-28 13:40 | disposition home or self-care (01) ==
PROVIDERS: Visit Provider Internal Medicine Cardiovascular Disease
PROC: (CPT 33285; principal; 2025-10-28 12:30)
DX: I48.91 Unspecified atrial fibrillation (principal)
CPT/HCPCS: 33285; 93005; C1764